=== PATIENT | male | born 1930 | race Caucasian/White ===

== ENCOUNTER 2016-08-21 14:47 | Inpatient (IN) | payer OTHER ==
[~2016-08-21] VITALS: Ht 177.8 cm; Wt 80.7 kg
[2016-08-21] VITALS (11 sets, daily range): BP systolic 73–118; BP diastolic 42–62; PULSE 63–74; TEMP 36.5–37.1; O2SAT 96–100; Ht 177.8 cm; Wt 80.7 kg
[~2016-08-21 14:47] MED LIST: ATEN-173 PO; LISI-729 PO; LOVA20TA4 PO
[2016-08-21] MEDS ORDERED: SODIUM CHLORIDE 0.9% 1000ML 1,000 ML IV STA ×2 (15:13→17:01)
[2016-08-21] MEDS ORDERED: ATEN50TA8 PO (16:03)
[2016-08-21] MEDS ORDERED: INDOMETHACIN PO (16:03)
[2016-08-21] MEDS ORDERED: FERR1TAB13 PO (16:03)
--- NOTE | 2016-08-21 16:06 | DIAGNOSTIC IMAGING REPORT ---
CHEST ONE VIEW PORTABLE CLINICAL HISTORY: Altered mental status. Weakness. COMPARISON STUDY: 02/09/2016 FINDINGS: Chest is emphysematous configuration. There is no failure. There is no focal pulmonary consolidation. There is minor basilar atelectasis/scarring. No pleural effusions are visualized.[ IMPRESSION: No active disease in the chest. Electronically signed by: Isaiah Saba M.D. 08/21/2016 4:04 PM Dictated Date/Time: 08/21/2016 4:03 PM
[2016-08-21 16:10] LABS: BASO % 0.2 %; BASO ABS # 0.02 K/uL (0-0.2); HEMATOCRIT 24.5 % (42-52); IG% 0.7 %; LYMPH % 10.7 %; LYMPH ABS # 0.96 K/uL (1.2-3.4); MEAN CELL VOLUME 85.4 fL (80-100); MEAN CORPUSCULAR HEMOGLOBIN 28.9 pg (25-34); MEAN CORPUSCULAR HGB CONC 33.9 g/dl (32-36); MEAN PLATELET VOLUME 9.9 fL (7.4-10.4); MONO % 6.6 %; NEUT % 80.8 %; PLATELET COUNT 225 K/uL (130-400); RED BLOOD COUNT 2.87 M/uL (4.7-6.1); WHITE BLOOD COUNT 8.96 K/uL (4.8-10.8)
[2016-08-21 16:17] LABS: INR 1.1 (0.9-1.1); PROTHROMBIN TIME (PATIENT) 11.3 SECONDS (9.0-12.0)
[2016-08-21 16:32] LABS: COMPLETE YES; OVALOCYTES 1+
[2016-08-21] MEDS ORDERED: PANTOprazole INJ 80 MG in DEXTROSE 5% 100ML IV SCH (16:45)
[2016-08-21 16:58] LABS: ALKALINE PHOSPHATASE 68 U/L (45-117); ALT/SGPT 22 U/L (12-78); AST/SGOT 14 U/L (15-37); BLOOD UREA NITROGEN 85 mg/dl (7-18); BUN/CREATININE RATIO 28.3 (10-20); CALCIUM 8.9 mg/dl (8.5-10.1); CARBON DIOXIDE 21 mmol/L (21-32); CHLORIDE 111 mmol/L (98-107); CKMB/CK RATIO 2.1 (0-3.0); GLUCOSE 112 mg/dl (70-99); MAGNESIUM 2.1 mg/dl (1.8-2.4); POTASSIUM 6.1 mmol/L (3.5-5.1); SODIUM 141 mmol/L (136-145)
[2016-08-21] MEDS ORDERED: PANTOprazole INJ 40 MG in DEXTROSE 5% 100ML IV SCH (17:00)
--- NOTE | 2016-08-21 17:05 | EMERGENCY ROOM VISIT NOTE ---
History Report prepared by Nicolás: Quyen Harrison Under the Supervision of: Dr. Ronaldo Forman D.O. First contact with patient: 15:11 Chief Complaint: WEAKNESS Stated Complaint: ILLNESS Nursing Triage Summary: Patient presents to ER via EMS. EMS states patient walked independently to meet them at the ambulance. Patient states lives home alone and has been experiencing generalized weakness. Patient states was diagnosed with UTI months ago and completed antibiotics 1 week ago. Patient states has had increase in incontinence. Patient states feels dehydrated, but when he tries to drink water he is incontinence. The patients states had nausea and diarrhea about 10 days ago, but symptoms have subsided. The patient states he fainted at noon today and felt his head hit on the wood floor. Patient states regained conciousness before hitting floor. History of Present Illness The patient is a 86 year old male who presents to the Emergency Room with complaints of worsening generalized weakness beginning the past few days. The patient states that he had a syncope episode today were he LOC and fell onto the kitchen floor. He states that he did not hit is head however he does not remember falling. Patient states that he lives alone and did not feel comfortable after the syncope episode to be at home so he called EMS. Patient does note he recently had a UTI and finished his course of antibiotics last week. Since then he has been experiencing nausea and diarrhea. The patient states that he has had these symptoms before when he finishes antibiotics and had a syncope episode then also. The patient notes he was found to be dehydrated. He denies melena. Source of History: patient Onset: yesterday Position: other (global) Quality: other (generalized weakness) Timing: worsening Associated Symptoms: + LOC, + diarrhea, + nausea Note: Patient notes syncopal episode. Review of Systems See HPI for pertinent positives & negatives. A total of 10 systems reviewed and were otherwise negative. Past Medical & Surgical Medical Problems: (1) Abdominal aortic aneurysm (2) Aortic stenosis (3) BPH (benign prostatic hyperplasia) (4) CKD (chronic kidney disease), stage III (5) Dyslipidemia (6) GI bleed (7) History of bladder carcinoma (8) History of DVT (deep vein thrombosis) (9) Hypertension (10) Syncope and collapse Surgical Problems: (1) Status post AAA (abdominal aortic aneurysm) repair (2) Status post inguinal hernia repair (3) Status post tonsillectomy (4) Status post transurethral resection of prostate Family History Patient reports no known family medical history. Social History Smoking Status: Former Smoker Marital Status: single Housing Status: lives alone Occupation Status: retired Current/Historical Medications Scheduled Atenolol (Tenormin), 50 MG PO QAM Ferrous Sulfate (Kp Ferrous Sulfate), 325 MG PO QAM Lisinopril (Zestril), 5 MG PO DAILY Lovastatin (Mevacor), 20 MG PO QPM Scheduled PRN [Indomethacin], 1 TAB PO TID PRN for GOUT Allergies Coded Allergies: No Known Allergies (Verified , 08/21/16) Physical Exam Vital Signs Date Time Temp Pulse Resp B/P Pulse Ox O2 Delivery O2 Flow Rate FiO2 08/21/16 16:23 59 08/21/16 16:12 58 98/45 100 Room Air 64 96/47 65 74/33 08/21/16 14:58 36.9 69 20 150/63 100 Room Air Physical Exam CONSTITUTIONAL/VITAL SIGNS: Reviewed / noted above. GENERAL: Slightly pale in appearance. INTEGUMENTARY: Warm, dry, and [place]. HEAD: Normocephalic. EYES: without scleral icterus or trauma. ENT/OROPHARYNX: clear and moist. LYMPHADENOPATHY/NECK: Is supple without lymphadenopathy or meningismus. RESPIRATORY: Lungs clear and equal. CARDIOVASCULAR: Regular rate and rhythm. Systolic ejection murmur. GI/ABDOMEN: Soft and nontender. No organomegaly or pulsatile mass. No rebound or guarding. Normal bowel sounds. RECTAL: Black tarry stool, heme positive. EXTREMITIES: Warm and well perfused. BACK: No CVA tenderness. NEUROLOGICAL: Intact without focal deficits. PSYCHIATRIC: normal affect. MUSCULOSKELETAL: Normally developed with good muscle tone. Medical Decision & Procedures ER Provider Diagnostic Interpretation: X ray results and stated below per my interpretation and radiology interpretation. CHEST ONE VIEW PORTABLE CLINICAL HISTORY: Altered mental status. Weakness. COMPARISON STUDY: 02/09/2016 FINDINGS: Chest is emphysematous configuration. There is no failure. There is no focal pulmonary consolidation. There is minor basilar atelectasis/scarring. No pleural effusions are visualized. IMPRESSION: No active disease in the chest. Electronically signed by: Isaiah Saba M.D. 08/21/2016 4:04 PM Dictated Date/Time: 08/21/2016 4:03 PM Laboratory Results 08/21/16 15:50 Red Blood Count 2.87, Mean Corpuscular Volume 85.4, Mean Corpuscular Hemoglobin 28.9, Mean Corpuscular Hemoglobin Concent 33.9, Mean Platelet Volume 9.9, Neutrophils (%) (Auto) 80.8, Lymphocytes (%) (Auto) 10.7, Monocytes (%) (Auto) 6.6, Eosinophils (%) (Auto) 1.0, Basophils (%) (Auto) 0.2, Neutrophils # (Auto) 7.24, Lymphocytes # (Auto) 0.96, Monocytes # (Auto) 0.59, Eosinophils # (Auto) 0.09, Basophils # (Auto) 0.02 08/21/16 15:50 Test 08/21/16 15:50 White Blood Count 8.96 K/uL (4.8-10.8) Red Blood Count 2.87 M/uL (4.7-6.1) Hemoglobin 8.3 g/dL (14.0-18.0) Hematocrit 24.5 % (42-52) Mean Corpuscular Volume 85.4 fL (80-100) Mean Corpuscular Hemoglobin 28.9 pg (25-34) Mean Corpuscular Hemoglobin Concent 33.9 g/dl (32-36) Platelet Count 225 K/uL (130-400) Mean Platelet Volume 9.9 fL (7.4-10.4) Neutrophils (%) (Auto) 80.8 % Lymphocytes (%) (Auto) 10.7 % Monocytes (%) (Auto) 6.6 % Eosinophils (%) (Auto) 1.0 % Basophils (%) (Auto) 0.2 % Neutrophils # (Auto) 7.24 K/uL (1.4-6.5) Lymphocytes # (Auto) 0.96 K/uL (1.2-3.4) Monocytes # (Auto) 0.59 K/uL (0.11-0.59) Eosinophils # (Auto) 0.09 K/uL (0-0.5) Basophils # (Auto) 0.02 K/uL (0-0.2) RDW Standard Deviation 43.1 fL (36.4-46.3) RDW Coefficient of Variation 13.7 % (11.5-14.5) Immature Granulocyte % (Auto) 0.7 % Immature Granulocyte # (Auto) 0.06 K/uL (0.00-0.02) Ovalocytes 1+ Prothrombin Time 11.3 SECONDS (9.0-12.0) Prothromb Time International Ratio 1.1 (0.9-1.1) Activated Partial Thromboplast Time 25.2 SECONDS (21.0-31.0) Partial Thromboplastin Ratio 1.0 Anion Gap 9.0 mmol/L (3-11) Est Creatinine Clear Calc Drug Dose 18.3 ml/min Estimated GFR () 20.8 Estimated GFR (Non- 18.0 BUN/Creatinine Ratio 28.3 (10-20) Calcium Level 8.9 mg/dl (8.5-10.1) Magnesium Level 2.1 mg/dl (1.8-2.4) Total Bilirubin 0.4 mg/dl (0.2-1) Direct Bilirubin < 0.1 mg/dl (0-0.2) Aspartate Amino Transf (AST/SGOT) 14 U/L (15-37) Alanine Aminotransferase (ALT/SGPT) 22 U/L (12-78) Alkaline Phosphatase 68 U/L (45-117) Total Creatine Kinase 68 U/L (39-308) Creatine Kinase MB 1.4 ng/ml (0.5-3.6) Creatine Kinase MB Ratio 2.1 (0-3.0) Total Protein 6.7 gm/dl (6.4-8.2) Albumin 3.2 gm/dl (3.4-5.0) Lipase 261 U/L (73-393) Thyroid Stimulating Hormone (TSH) 1.190 uIu/ml (0.300-4.500) Laboratory results as stated above per my review. Medications Administered Medications (Trade) Dose Ordered Sig/Aneesh Route Start Time Stop Time Status Last Admin Dose Admin Sodium Chloride 1,000 ml @ 500 mls/hr Q2H STAT IV 08/21/16 15:13 08/21/16 17:12 DC 08/21/16 15:13 500 MLS/HR Pantoprazole Sodium/Dextrose (Protonix Inj/D5 100ml) 120 ml @ 480 mls/hr TODAY@1645 IV 08/21/16 16:45 08/21/16 16:59 DC 08/21/16 17:16 480 MLS/HR ECG Indication: weakness Rate (beats per minute): 59 Rhythm: sinus bradycardia Findings: no acute ischemic change, no ectopy ED Course 1512: Previous medical records were reviewed. The patient was evaluated in room B7. A complete history and physical examination was performed. 1513: Sodium Chloride 1,000 ml @ 500 mls/hr IV. 1635: Protonix IV Bolus/ Drip 1 ea IV. 1638: Discussed the patient's case with LUIS Plata - [facility]. The patient will be evaluated for further treatment and disposition. 1645: Pantoprazole Sodium 80 mg/ Dextrose 120 ml @ 480 mls/hr IV. 1700: Pantoprazole Sodium 40 mg/ Dextrose 100 ml @ 20 mls/hr IV, Sodium Chloride 1,000 ml @ 999 mls/hr IV. 1705: On reevaluation, the patient is hemodynamically stable. I discussed the results and findings with him. He verbalized agreement of the treatment plan. I spoke with LUIS Plata of the [facility]. The patient will be evaluated for further management and care. Medical Decision Differential includes acute coronary syndrome, myocardial infarction, CVA, TIA, anemia, infection, pneumonia, UTI, pyelonephritis, poor nutrition, dehydration, electrolyte disturbance,hypoglycemia. The patient is a 86 year old male who presents to the ED with complaints of generalized weakness. The patient states that he fell today but did not hit his head. He feels like he may have had a few seconds of unconsciousness. The patient stood up shortly thereafter. He states that he has been having some nausea and diarrhea up until this past Saturday. He had been on antibiotics for UTI that ended a couple of days ago as well. He is no longer having nausea or diarrhea since and in antibiotics. The patient reports that he lives alone and wanted to get checked to make sure that he was okay. His vital signs here are normal. Physical exam reveals slight pallor in the skin and a systolic ejection murmur which is chronic. Hemoglobin is 8.3. Last hemoglobin was in the 10 range over the last summer. BUN is 85 and creatinine is 3.0. Last creatinine was 1.8. Troponin is negative. TSH was normal. Potassium was elevated at 6.1. Stool is black and guaiac positive. Correlation studies are normal. EKG shows a sinus rhythm at a rate of 59. He is on beta blockers. The patient was treated with IV fluids 2 L NSS. His vital signs showed orthostatic abnormalities with standing. Blood pressure dropped to 73 systolic. He was started on IV Protonix drip. Type and cross has been performed. I spoke with the hospitalist, who will see the patient for further inpatient care. Consults Time Called: 1636 Consulting Physician: LUIS Plata Returned Call: [phone] Discussed the patient's case. The patient will be evaluated for further treatment and disposition. Impression Primary Impression: Anemia Additional Impressions: GI bleed Syncope Orthostatic hypotension Acute renal failure (ARF) Critical Care I have personally spent 35 minutes of critical care time in the direct management of this patient. This includes bedside care, interpretation of diagnostic studies, and testing, discussion with consultants, patient, and family members, and other required patient management activities. Departure Information Dispostion Being Evaluated By Hospitalist Referrals Leonard Oshea M.D. (PCP) Problem Qualifiers
[2016-08-21] MEDS ORDERED: DEXTROSE 50% 50 ML SYR IV STA (17:33)
[2016-08-21] MEDS ORDERED: NovoLIN-R INSULIN PER UNIT CHARGE IV STA (17:33)
[2016-08-21] MEDS ORDERED: ONDANSETRON INJ 2 MG/ML 2 ML VIAL IV PRN (17:45)
[2016-08-21] MEDS ORDERED: ACETAMINOPHEN 325 MG TAB PO PRN (17:45)
[2016-08-21] MEDS ORDERED: MoRPHine SULFATE 2 MG/ML CARP IV STA (17:45)
[2016-08-21] MEDS ORDERED: CALCIUM GLUCONATE 10% 1,000 MG in SODIUM CHLORIDE 0.9% 50ML 50 ML IV STA (17:52)
[2016-08-21 18:15] LABS: URINE APPEARANCE CLEAR (CLEAR); URINE BILIRUBIN NEG (NEG); URINE COLOR YELLOW; URINE NITRITE NEG (NEG); URINE SPECIFIC GRAVITY 1.009 (1.000-1.030); UROBILINOGEN NEG (NEG); ZZUR CULT IF INDIC CLEAN CATCH NO
[2016-08-21 18:19] LABS: MANUAL MICROSCOPIC REQUIRED? NO; REVIEW REQ? NO
--- NOTE | 2016-08-21 18:21 | History and Physical ---
History & Physical Date of Service Aug 21, 2016. History & Physical This is an 86 year old male with PMH of HTN, HLD, gout, CKD stage 3, aortic aneurysm, presents due to a syncopal episode; states that he had a fall and loss of consciousness. Denies hitting his head. States that he has been feeling weak since having a UTI at home. States that he could not tolerate PO intake, and when he increased his PO fluid intake, he became incontinent, so he has been drinking less than usual. Denies any blood in the stool, but noted to have +heme positive dark stool. Hgb here 8.3, with a baseline Hgb > 10. Patient did note some shortness of breath and chest pain, which began after he presented to the ER. VITALS: Last Vital Signs Documentation Date Time Temp Pulse Resp B/P Pulse Ox O2 Delivery O2 Flow Rate FiO2 08/21/16 17:03 66 25 128/62 100 Room Air 08/21/16 14:58 36.9 GEN: no acute distress HEENT: no trauma noted, +dry mucous membranes CVS: RRR, +S1, S2 LUNGS: CTA b/l, no wheezing ABD: soft, NT/ND EXT: no edema, SCDs in place SKIN: cool, clammy Syncope +orthostasis with significant drop in BP when standing likely related to dehydration and anemia IVFs, monitor, will need PT/OT prior to discharge Symptomatic Anemia Hgb = 8.3, baseline of > 10 feeling some shortness of breath and now developing chest pain cardiac enzymes negative, no EKG changes will transfuse 1 unit PRBC and recheck H/H 4 hours post-transfusion continue PPI drip GI consultation pending Acute Kidney Injury superimposed on CKD stage 3 creat up to 3.0 currently likely related to his decreased PO intake after UTI decreased fluid intake due to incontinence will start IVFs and monitor creat transfuse 1 unit PRBC Hyperkalemia secondary to JESSICA as above patient also takes EFFIE-I hold lisinopril start IVFs insulin + dextrose calcium gluconate recheck K four hours after transfusion with H/H
--- NOTE | 2016-08-21 18:47 | History and Physical ---
History & Physical Date & Time of Service: Aug 21, 2016 at 17:53 Chief Complaint: Illness Primary Care Physician: Leonard Oshea M.D. History of Present Illness Source: patient, clinic records, hospital records This is an 86 year old male with PMH of HTN, mild per echo 01/2016, AAA s/p repair, HL, CKD stage III, h/o DVT not on anticoagulation, who presents to the ED for generalized weakness and syncope. Patient was recently treated for UTI approx 2 weeks ago with Cipro then Bactrim. Dysuria and frequency resolved but still having some incontinence. He states 10 days ago he developed nausea, spasms in the abdomen, reflux, poor PO intake, diarrhea, chills. He had no diarrhea yesterday after taking OTC anti-diarrheal med but had 1 formed and 1 liquid stool today around noon. He did not notice hematochezia or melena, but has not been visualizing his stools. No fevers. Starting 3-4 days ago has felt "dehydrated", generally weak, dizziness, fatigue. He reports eating normally today. He reports a syncopal episode which occurred today. He stood up from a seated position today and felt generally weak so leaned against the wall, then the next thing he remembers is awakening as his his head hit the floor. He denies CHESTER. During my exam patient developed dull substernal chest pain rated 2-3 /10, nonradiating, with associated SOB. He was saturating 99% on RA with no respiratory distress. EKG showed no evidence for acute ischemia. No known hx of CAD. Patient has been admitted to [facility] previously for syncope likely secondary to orthostatic hypotension. 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 Pt believes that was his last colo. He is unsure where it was done. He believes he also had a polyp removed. Pt has not had EGD in the past. Patient admits to taking approximately 6 tabs of indomethacin over past 3 days which resolved the gout affecting his toe. No other recent NSAIDs. Pt was found to have heme positive melanotic stool on ER provider's exam. He will be admitted for further evaluation and tx. Past Medical/Surgical History Medical Problems: (1) Abdominal aortic aneurysm Permanent Comment: repaired 2002 Dr. Betancourt Status: Chronic (2) Aortic stenosis Permanent Comment: echo 02/10/16 [facility] showed trileaflet aortic valve, moderate sclerosis, mild stenosis Status: Chronic (3) BPH (benign prostatic hyperplasia) Status: Chronic (4) CKD (chronic kidney disease), stage III Status: Chronic (5) Dyslipidemia Status: Chronic (6) History of bladder carcinoma Status: Chronic (7) History of DVT (deep vein thrombosis) Status: Chronic (8) Hypertension Status: Chronic Surgical Problems: (1) Status post AAA (abdominal aortic aneurysm) repair Permanent Comment: 2002 Dr. Betancourt Status: Chronic (2) Status post inguinal hernia repair Status: Chronic (3) Status post tonsillectomy Status: Chronic (4) Status post transurethral resection of prostate Status: Chronic Family History FH: CAD (coronary artery disease) FATHER FH: cancer MOTHER Hypertension FATHER Social History Smoking Status: Former Smoker (quit in 2002. prior 1-2 ppd x 55 years) Alcohol Use: occasionally (occasional 1 glass of wine) Drug Use: none Marital Status: single Housing status: lives alone Occupational Status: retired Multi-Drug Resistant Organisms History of MDRO: No Allergies Coded Allergies: No Known Allergies (Verified , 08/21/16) Home Medications Scheduled Atenolol (Tenormin), 50 MG PO QAM Ferrous Sulfate (Kp Ferrous Sulfate), 325 MG PO QAM Lisinopril (Zestril), 5 MG PO DAILY Lovastatin (Mevacor), 20 MG PO QPM Scheduled PRN [Indomethacin], 1 TAB PO TID PRN for GOUT Review of Systems Ten point review of systems performed with pertinent positives and negatives note din HPI. Physical Exam Vital Signs Date Time Temp Pulse Resp B/P Pulse Ox O2 Delivery O2 Flow Rate FiO2 08/21/16 16:23 59 08/21/16 16:12 58 98/45 100 Room Air 64 96/47 65 74/33 08/21/16 14:58 36.9 69 20 150/63 100 Room Air General Appearance: WD/WN, + pertinent finding (alert elderly male, initially NAD then developed chest discomfort) Head: normocephalic, atraumatic Eyes: normal inspection, PERRL, EOMI ENT: hearing grossly normal, pharynx normal, + pertinent finding (dry mucous membranes) Neck: supple, trachea midline Respiratory/Chest: chest non-tender, lungs clear, normal breath sounds Cardiovascular: regular rate, rhythm, normal peripheral pulses, + systolic murmur Abdomen/GI: normal bowel sounds, non tender, soft Extremities/Musculoskelatal: no calf tenderness, no pedal edema Neurologic/Psych: alert, normal mood/affect, oriented x 3, + pertinent finding (grossly nonfocal) Skin: warm/dry, + pertinent finding (pale) Diagnostics Laboratory Results Results Past 24 Hours Test 08/21/16 15:50 08/21/16 17:35 Range/Units White Blood Count 8.96 4.8-10.8 K/uL Red Blood Count 2.87 4.7-6.1 M/uL Hemoglobin 8.3 14.0-18.0 g/dL Hematocrit 24.5 42-52 % Mean Corpuscular Volume 85.4 80-100 fL Mean Corpuscular Hemoglobin 28.9 25-34 pg Mean Corpuscular Hemoglobin Concent 33.9 32-36 g/dl Platelet Count 225 130-400 K/uL Mean Platelet Volume 9.9 7.4-10.4 fL Neutrophils (%) (Auto) 80.8 % Lymphocytes (%) (Auto) 10.7 % Monocytes (%) (Auto) 6.6 % Eosinophils (%) (Auto) 1.0 % Basophils (%) (Auto) 0.2 % Neutrophils # (Auto) 7.24 1.4-6.5 K/uL Lymphocytes # (Auto) 0.96 1.2-3.4 K/uL Monocytes # (Auto) 0.59 0.11-0.59 K/uL Eosinophils # (Auto) 0.09 0-0.5 K/uL Basophils # (Auto) 0.02 0-0.2 K/uL RDW Standard Deviation 43.1 36.4-46.3 fL RDW Coefficient of Variation 13.7 11.5-14.5 % Immature Granulocyte % (Auto) 0.7 % Immature Granulocyte # (Auto) 0.06 0.00-0.02 K/uL Ovalocytes 1+ Prothrombin Time 11.3 9.0-12.0 SECONDS Prothromb Time International Ratio 1.1 0.9-1.1 Activated Partial Thromboplast Time 25.2 21.0-31.0 SECONDS Partial Thromboplastin Ratio 1.0 Sodium Level 141 136-145 mmol/L Potassium Level 6.1 3.5-5.1 mmol/L Chloride Level 111 98-107 mmol/L Carbon Dioxide Level 21 21-32 mmol/L Anion Gap 9.0 3-11 mmol/L Blood Urea Nitrogen 85 7-18 mg/dl Creatinine 3.00 0.60-1.40 mg/dl Est Creatinine Clear Calc Drug Dose 18.3 ml/min Estimated GFR () 20.8 Estimated GFR (Non- 18.0 BUN/Creatinine Ratio 28.3 10-20 Random Glucose 112 70-99 mg/dl Calcium Level 8.9 8.5-10.1 mg/dl Magnesium Level 2.1 1.8-2.4 mg/dl Total Bilirubin 0.4 0.2-1 mg/dl Direct Bilirubin < 0.1 0-0.2 mg/dl Aspartate Amino Transf (AST/SGOT) 14 15-37 U/L Alanine Aminotransferase (ALT/SGPT) 22 12-78 U/L Alkaline Phosphatase 68 45-117 U/L Total Creatine Kinase 68 39-308 U/L Creatine Kinase MB 1.4 0.5-3.6 ng/ml Creatine Kinase MB Ratio 2.1 0-3.0 Troponin I < 0.015 0-0.045 ng/ml Total Protein 6.7 6.4-8.2 gm/dl Albumin 3.2 3.4-5.0 gm/dl Lipase 261 73-393 U/L Thyroid Stimulating Hormone (TSH) 1.190 0.300-4.500 uIu/ml Diagnostic Radiology CHEST ONE VIEW PORTABLE CLINICAL HISTORY: Altered mental status. Weakness. COMPARISON STUDY: 02/09/2016 FINDINGS: Chest is emphysematous configuration. There is no failure. There is no focal pulmonary consolidation. There is minor basilar atelectasis/scarring. No pleural effusions are visualized.[ IMPRESSION: No active disease in the chest. EKG Initial EKG- sinus bradycardia rate 59 bpm, nonspecific T wave flattening in aVL , no significant change from prior EKG Repeat EKG- sinus rhythm with 1st degree AV block, nonspecific T wave flattening in aVL, no significant change Impression Assessment and Plan SYMPTOMATIC ANEMIA secondary to GI BLEED Hg is 8.3; baseline in 10s Stool melanotic and heme positive on ER provider's exam Recently took indomethacin for gout Has been generally weak, fatigued, dizzy, syncopal Developed CP and SOB in ER Initial troponin negative; EKG no evidence of ischemia Morphine, oxygen, transfuse 1 unit pRBC Recheck H/H and troponin 4 hours post transfusion Continue Protonix drip started in ER Consult GI SYNCOPE/ ORTHOSTATIC HYPOTENSION Was orthostatic in ER (BP dropped to 70s systolic with standing) Likely secondary to dehydration and anemia Continue IVF's Monitor for arrhythmia in telemetry JESSICA ON CKD STAGE III Creat increased to 3.0 from baseline 1.7 Likely prerenal from decreased PO intake/ diarrheal illness Hold lisinopril Continue IVF's Monitor renal function Avoid NSAIDs HYPERKALEMIA K+ is 6.1; no EKG changes Likely secondary to JESSICA and EFFIE-I Hold lisinopril Give calcium gluconate and insulin with dextrose Recheck potassium with lab draw tonight HYPERTENSION BP is stable while supine; drops to 70s systolic with standing Continue beta idogenes with parameters Hold lisinopril DYSLIPIDEMIA Continue statin DVT PROPHYLAXIS SCD's re GI bleed CODE STATUS DNR per my discussion with the patient. Patient seen in collaboration with Dr. Wu. Please see his addendum. VTE Prophylaxis VTE Risk Assessment Done? Y/N: Yes Risk Level: High
[2016-08-21] MEDS ORDERED: LOVASTATIN 20 MG TAB PO SCH (21:00)
[2016-08-21] MEDS: PANTOprazole INJ 40 MG in DEXTROSE 5% 100ML IV SCH (22:10)
[2016-08-21] MEDS: SODIUM CHLORIDE 0.9% 1000ML 1,000 ML IV SCH (22:16)
[2016-08-22] VITALS (29 sets, daily range): BP systolic 95–153; BP diastolic 43–79; PULSE 56–82; TEMP 36.6–37.1; O2SAT 92–100
[2016-08-22 00:26] LABS: HEMATOCRIT 21.7 % (42-52)
[2016-08-22 00:39] LABS: POTASSIUM 6.1 mmol/L (3.5-5.1)
[2016-08-22] MEDS ORDERED: INSULIN HUMAN REGULAR IV SCH (00:45)
[2016-08-22] MEDS ORDERED: DEXTROSE 50% 50 ML SYR IV ONE ×2 (00:45→17:14)
[2016-08-22] MEDS ORDERED: INSULIN HUMAN REGULAR PER UNIT 10 UNITS in SYRINGE 9.9 ML IV STA (01:17)
[2016-08-22] MEDS ORDERED: DEXTROSE 50% 50 ML SYR IV STA (01:17)
[2016-08-22] MEDS: PANTOprazole INJ 40 MG in DEXTROSE 5% 100ML IV SCH ×5 (03:25→23:26)
[2016-08-22 06:21] LABS: HEMATOCRIT 22.8 % (42-52); MEAN CELL VOLUME 85.7 fL (80-100); MEAN CORPUSCULAR HEMOGLOBIN 28.9 pg (25-34); MEAN CORPUSCULAR HGB CONC 33.8 g/dl (32-36); MEAN PLATELET VOLUME 9.6 fL (7.4-10.4); PLATELET COUNT 140 K/uL (130-400); RED BLOOD COUNT 2.66 M/uL (4.7-6.1); WHITE BLOOD COUNT 9.02 K/uL (4.8-10.8)
[2016-08-22] MEDS: SODIUM CHLORIDE 0.9% 1000ML 1,000 ML IV SCH (06:23)
[2016-08-22 07:08] LABS: CREATININE 2.3 mg/dl (0.60-1.40)
[2016-08-22 07:09] LABS: BUN/CREATININE RATIO 38.7 (10-20); CALCIUM 7.9 mg/dl (8.5-10.1); MAGNESIUM 1.8 mg/dl (1.8-2.4); POTASSIUM 6.2 mmol/L (3.5-5.1)
[2016-08-22] MEDS: FERROUS SULFATE 325 MG TAB PO SCH (07:25)
[2016-08-22] MEDS ORDERED: INSULIN HUMAN REGULAR IV ONE ×2 (07:45→17:00)
[2016-08-22] MEDS ORDERED: SODIUM POLYST. SULF SUSP 15G/60ML PO SCH (08:00)
[2016-08-22] MEDS ORDERED: DEXTROSE 50% 50 ML SYR IV SCH (08:10)
[2016-08-22] MEDS ORDERED: INSULIN HUMAN REGULAR PER UNIT 10 UNITS in SYRINGE 9.9 ML IV SCH ×2 (08:15→17:15)
--- NOTE | 2016-08-22 09:08 | Progress Note ---
Medicine Progress Note Date & Time of Visit: Aug 22, 2016 at 08:58. Subjective K still at 6.2 this morning, EKG unchanged from yesterday on exam, patient reports sharp epigastric pain, 2-3/10, non radiating, no nausea /vomiting, dizziness denies any other symptoms Objective Last 8 Hrs Date Time Temp Pulse Resp B/P Pulse Ox O2 Delivery O2 Flow Rate FiO2 08/22/16 08:05 36.8 60 16 111/56 99 Room Air 08/22/16 04:05 37.0 67 16 107/56 100 2.0 08/22/16 04:00 96 Room Air 2.0 08/22/16 03:30 37.0 67 16 107/56 100 2.0 08/22/16 02:30 37.0 72 16 122/52 100 08/22/16 02:00 37.0 72 16 96/51 100 08/22/16 01:30 37.0 72 16 110/61 99 08/22/16 01:15 37.0 67 16 99/43 99 08/22/16 01:00 37.0 68 16 100/59 100 Physical Exam: General- oriented x 3, not in distress, speaks in sentences with no effort Head- atraumatic Eyes- anicteric ENT- oropharynx clear Neck- supple, no JVD, no adenopathy, no thyromegaly Lungs- clear breath sounds bilaterally, no rales/wheezes Heart-normal rate, regular rhythm; no murmurs Abdomen- normal bowel sounds, non distended, soft, nontender Extremities- no pretibial edema, no calf tenderness Neuro- alert, oriented x 3; no gross focal deficits Skin- warm & dry Laboratory Results: Last 24 Hours Test 08/21/16 15:50 08/21/16 18:00 08/22/16 00:13 08/22/16 06:10 White Blood Count 8.96 K/uL 9.02 K/uL Red Blood Count 2.87 M/uL 2.66 M/uL Hemoglobin 8.3 g/dL 7.1 g/dL 7.7 g/dL Hematocrit 24.5 % 21.7 % 22.8 % Mean Corpuscular Volume 85.4 fL 85.7 fL Mean Corpuscular Hemoglobin 28.9 pg 28.9 pg Mean Corpuscular Hemoglobin Concent 33.9 g/dl 33.8 g/dl Platelet Count 225 K/uL 140 K/uL Mean Platelet Volume 9.9 fL 9.6 fL Neutrophils (%) (Auto) 80.8 % Lymphocytes (%) (Auto) 10.7 % Monocytes (%) (Auto) 6.6 % Eosinophils (%) (Auto) 1.0 % Basophils (%) (Auto) 0.2 % Neutrophils # (Auto) 7.24 K/uL Lymphocytes # (Auto) 0.96 K/uL Monocytes # (Auto) 0.59 K/uL Eosinophils # (Auto) 0.09 K/uL Basophils # (Auto) 0.02 K/uL RDW Standard Deviation 43.1 fL 44.6 fL RDW Coefficient of Variation 13.7 % 14.3 % Immature Granulocyte % (Auto) 0.7 % Immature Granulocyte # (Auto) 0.06 K/uL Ovalocytes 1+ Prothrombin Time 11.3 SECONDS Prothromb Time International Ratio 1.1 Activated Partial Thromboplast Time 25.2 SECONDS Partial Thromboplastin Ratio 1.0 Sodium Level 141 mmol/L 145 mmol/L Potassium Level 6.1 mmol/L 6.1 mmol/L 6.2 mmol/L Chloride Level 111 mmol/L 120 mmol/L Carbon Dioxide Level 21 mmol/L 13 mmol/L Anion Gap 9.0 mmol/L 12.0 mmol/L Blood Urea Nitrogen 85 mg/dl 89 mg/dl Creatinine 3.00 mg/dl 2.30 mg/dl Est Creatinine Clear Calc Drug Dose 18.3 ml/min 23.8 ml/min Estimated GFR () 20.8 28.7 Estimated GFR (Non- 18.0 24.8 BUN/Creatinine Ratio 28.3 38.7 Random Glucose 112 mg/dl 103 mg/dl Calcium Level 8.9 mg/dl 7.9 mg/dl Magnesium Level 2.1 mg/dl 1.8 mg/dl Total Bilirubin 0.4 mg/dl Direct Bilirubin < 0.1 mg/dl Aspartate Amino Transf (AST/SGOT) 14 U/L Alanine Aminotransferase (ALT/SGPT) 22 U/L Alkaline Phosphatase 68 U/L Total Creatine Kinase 68 U/L Creatine Kinase MB 1.4 ng/ml Creatine Kinase MB Ratio 2.1 Troponin I < 0.015 ng/ml 0.038 ng/ml Total Protein 6.7 gm/dl Albumin 3.2 gm/dl Lipase 261 U/L Thyroid Stimulating Hormone (TSH) 1.190 uIu/ml Urine Color YELLOW Urine Appearance CLEAR Urine pH 5.0 Urine Specific [place] 1.009 Urine Protein NEG Urine Glucose (UA) NEG Urine Ketones NEG Urine Occult Blood 1+ Urine Nitrite NEG Urine Bilirubin NEG Urine Urobilinogen NEG Urine Leukocyte Esterase TRACE Urine WBC (Auto) 1-5 /hpf Urine RBC (Auto) 0-4 /hpf Urine Hyaline Casts (Auto) 1-5 /lpf Urine Epithelial Cells (Auto) 5-10 /lpf Urine Bacteria (Auto) NEG Test 08/22/16 08:46 Creatine Kinase MB Ratio Assessment & Plan 86 year old male with history of Hypertension, CKD 3, BPH presenting with syncope Syncope from Orthostasis secondary to Dehydration, Symptomatic Anemia - IV fluids - management of anemia as noted below Symptomatic Anemia r/o Upper GI bleed (+) intake of Indomethacin Hgb = 8.3, baseline of > 10 (+) shortness of breath and chest pain cardiac enzymes negative, no EKG changes - s/p 2 units pRBC Hg 7.7 additional 1 unit ordered monitor Hg - continue Protonix drip GI consulted Chest Pain, likely GI Etiology - chest pain similar to yesterday - 3rd set of cardiac markers pending EKG: no signs of acute ischemia - will check echo Acute Kidney Injury superimposed on CKD stage 3 creat up to 3.0 currently (baseline around 1.7) likely related to his decreased PO intake after UTI - continue IV fluids will consult Nephrology Hyperkalemia secondary to JESSICA as above patient also takes EFFIE-I hold lisinopril - 6.1--> 6.2 EKG no changes compared to yesterday additional insulin + dextrose repeat K at 10am and 2pm HYPERTENSION Continue beta diogenes with parameters Hold lisinopril DYSLIPIDEMIA hold statin DVT PROPHYLAXIS SCD's re GI bleed Disposition pending Current Inpatient Medications: Current Inpatient Medications Medications (Trade) Dose Ordered Sig/Aneesh Route Start Time Stop Time Status Last Admin Dose Admin Sodium Chloride (Nss 1000ml) 1,000 ml @ 125 mls/hr Q8H IV 08/21/16 20:00 09/20/16 19:59 08/22/16 06:23 125 MLS/HR Acetaminophen (Tylenol Tab) 650 mg Q4H PRN PO 08/21/16 17:45 09/20/16 17:44 Ondansetron HCl (Zofran Inj) 4 mg Q6H PRN IV 08/21/16 17:45 09/20/16 17:44 Nitroglycerin (Nitrostat Tab) 0.4 mg UD PRN SL 08/21/16 17:45 09/20/16 17:44 Atenolol (Tenormin Tab) 50 mg QAM PO 08/22/16 09:00 09/21/16 08:59 Lovastatin (Mevacor Tab) 20 mg QPM PO 08/21/16 21:00 09/20/16 20:59 Ferrous Sulfate 325 mg 325 mg DAILY PO 08/22/16 09:00 09/21/16 08:59 Pantoprazole Sodium/Dextrose (Protonix Inj/D5 100ml) 100 ml @ 20 mls/hr Q5H IV 08/21/16 22:30 09/20/16 22:29 08/22/16 08:17 20 MLS/HR Dextrose (Dextrose 50% 50ML Syringe) 50 ml 0810 IV 08/22/16 08:10 08/22/16 12:00 08/22/16 08:19 50 ML Sodium Polystyrene Sulfonate 15 gm 15 gm 0800 PO 08/22/16 08:00 08/22/16 12:00 Insulin Human Regular/Syringe (novoLIN-R U-100 PER UNIT/Syringe) 10 ml @ 30 mls/min TODAY@0815 IV 08/22/16 08:15 08/22/16 10:00 08/22/16 08:24 30 MLS/MIN
[2016-08-22 10:03] LABS: HEMATOCRIT 23.4 % (42-52)
[2016-08-22] MEDS: NITROGLYCERIN 0.4 MG SL PER TAB CHARGE SL PRN (10:14)
[2016-08-22 10:39] LABS: CREATININE 2.2 mg/dl (0.60-1.40)
[2016-08-22 10:40] LABS: BUN/CREATININE RATIO 38.8 (10-20); CALCIUM 8.4 mg/dl (8.5-10.1)
[2016-08-22 11:04] LABS: CKMB/CK RATIO 3.4 (0-3.0)
--- NOTE | 2016-08-22 12:02 | Gastrointestinal Consultation ---
Gastrointestinal Consultation Date of Consultation: Aug 22, 2016 Attending Physician: Juan Carlos Terrazas Consulting Physician: Joe Loja Reason for Consultation: Heme positive stools, anemia History of Present Illness Patient is a 86 year old male w PMHx of HTN, mild aortic stenosis, AAA s/p repair, hyperlipidemia, CKD III, DVT hx, who presented to ED w symptoms of generalized weakness and syncope. He was treated for UTI x 2 week ago w Cipro then Bactrim. Had also developed "GI bug" w symptoms of nausea, abd spasms, diarrhea, poor PO intake, denies any fever but had chills especially in middle of night. Diarrhea had stopped since last Saturday. Upon evaluation, he was found to be anemic w H/H of 8, baseline Hgb of 9-10. Rectal exam done by ED physician yielded heme positive stools. Pt denies any hx of rectal bleeding, dark tarry stools. He is on iron supplements at home. He admits to be taking up to 2 tabs of Indomethacin daily for gout on his L toe. Denies any other NSAIDs. Denies any abd pain, n/v at this time. Overnight received 2U PRBC, his Hgb still low at 7.7 now. RN report 2 black stools overnight. Of note, pt also had c/o substernal CP w SOB in ED. EKG showed 1st degree AV block w/o significant changes to prior readings. Cardiac enzymes not elevated. K level up at 6, currently being treated w Kayexalate, Calcium Gluconate, Insulin. 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 polyp removal. Denies any other repeat colonoscopy or hx of EGD evaluation. Past Medical/Surgical History Medical Problems: (1) Acute renal failure Status: Acute (2) Acute renal failure (ARF) Status: Acute (3) Anemia Status: Acute (4) Orthostatic hypotension Status: Acute (5) Orthostatic syncope Status: Acute (6) Syncope Status: Acute Past Medical History: See above. Past Surgical History: AAA repair, inguinal hernia repair, tonsillectomy, TURP Family History FH: CAD (coronary artery disease) FATHER FH: cancer MOTHER Hypertension FATHER Social History Smoking Status: Former Smoker Drug Use: none Marital Status: single Housing Status: lives alone Occupation Status: retired Allergies Coded Allergies: No Known Allergies (Verified , 08/21/16) Current Medications Home Meds and Scripts Medications Dose Route/Sig Max Daily Dose Days Date Category [Indomethacin] 1 Tab PO TID PRN 08/21/16 Reported Kp Ferrous Sulfate (Ferrous Sulfate) 325 Mg Tab 325 Mg PO QAM 30 08/21/16 Reported Tenormin (Atenolol) 50 Mg Tab 50 Mg PO QAM 08/21/16 Reported Mevacor (Lovastatin) 20 Mg Tab 20 Mg PO QPM 02/09/16 Reported Zestril (Lisinopril) 5 Mg Tab 5 Mg PO DAILY 02/09/16 Reported Review of Systems Constitutional: + chills, + fatigue, No fever Respiratory: No cough, No shortness of breath Cardiac: No chest pain, No edema Abdomen: + GI bleeding (See above. ), No diarrhea, No nausea, No pain, No vomiting Endo: + fatigue Skin: No itch, No rash Physical Exam Date Time Temp Pulse Resp B/P Pulse Ox O2 Delivery O2 Flow Rate FiO2 08/22/16 11:30 36.7 70 22 109/56 99 4.0 08/22/16 10:13 36.9 81 21 153/67 100 Nasal Cannula 4.0 08/22/16 09:41 82 22 138/66 100 Nasal Cannula 2.0 08/22/16 09:30 36.9 81 21 100 2.0 08/22/16 08:30 Nasal Cannula 2.0 08/22/16 08:05 36.8 60 16 111/56 99 Room Air 08/22/16 04:05 37.0 67 16 107/56 100 2.0 08/22/16 04:00 96 Room Air 2.0 08/22/16 03:30 37.0 67 16 107/56 100 2.0 08/22/16 02:30 37.0 72 16 122/52 100 08/22/16 02:00 37.0 72 16 96/51 100 08/22/16 01:30 37.0 72 16 110/61 99 08/22/16 01:15 37.0 67 16 99/43 99 08/22/16 01:00 37.0 68 16 100/59 100 08/22/16 00:45 37.0 68 16 95/56 08/22/16 00:28 37.0 70 16 95/56 100 08/22/16 00:13 36.9 73 18 108/57 100 Nasal Cannula 2.0 08/22/16 00:00 96 Room Air 2.0 08/22/16 00:00 96 Nasal Cannula 2.0 08/21/16 22:07 37.1 67 18 91/51 99 2.0 08/21/16 21:40 37.0 63 18 94/50 100 2.0 08/21/16 21:00 36.8 69 18 93/52 100 2.0 08/21/16 20:54 36.5 71 18 100/60 96 Nasal Cannula 2.0 08/21/16 20:41 36.7 73 18 118/46 98 08/21/16 20:27 36.7 73 16 96/52 99 08/21/16 20:07 36.6 71 20 101/54 100 2.0 08/21/16 19:50 36.5 71 22 100/60 96 2.0 08/21/16 19:37 71 26 73/42 100 08/21/16 19:23 36.7 71 26 73/42 100 2.0 08/21/16 19:00 36.8 74 27 110/62 100 2.0 08/21/16 18:57 73 21 104/58 100 Nasal Cannula 2.0 08/21/16 18:50 36.7 72 27 104/58 100 2.0 08/21/16 17:03 66 25 128/62 100 Room Air 08/21/16 16:23 59 08/21/16 16:12 58 98/45 100 Room Air 64 96/47 65 74/33 08/21/16 14:58 36.9 69 20 150/63 100 Room Air General Appearance: WD/WN, no apparent distress Eyes: normal inspection, PERRL, EOMI Neck: supple, no JVD, trachea midline Respiratory/Chest: normal breath sounds, no respiratory distress, no accessory muscle use Cardiovascular: regular rate, rhythm, no gallop, no murmur Abdomen: normal bowel sounds, non tender, soft Extremities: normal inspection, no pedal edema, no calf tenderness Neurologic/Psych: alert, normal mood/affect, oriented x 3 Skin: normal color, no jaundice, no rash Laboratory Results Last 24 Hours Test 08/21/16 15:50 08/21/16 18:00 08/22/16 00:13 08/22/16 06:10 White Blood Count 8.96 K/uL 9.02 K/uL Red Blood Count 2.87 M/uL 2.66 M/uL Hemoglobin 8.3 g/dL 7.1 g/dL 7.7 g/dL Hematocrit 24.5 % 21.7 % 22.8 % Mean Corpuscular Volume 85.4 fL 85.7 fL Mean Corpuscular Hemoglobin 28.9 pg 28.9 pg Mean Corpuscular Hemoglobin Concent 33.9 g/dl 33.8 g/dl Platelet Count 225 K/uL 140 K/uL Mean Platelet Volume 9.9 fL 9.6 fL Neutrophils (%) (Auto) 80.8 % Lymphocytes (%) (Auto) 10.7 % Monocytes (%) (Auto) 6.6 % Eosinophils (%) (Auto) 1.0 % Basophils (%) (Auto) 0.2 % Neutrophils # (Auto) 7.24 K/uL Lymphocytes # (Auto) 0.96 K/uL Monocytes # (Auto) 0.59 K/uL Eosinophils # (Auto) 0.09 K/uL Basophils # (Auto) 0.02 K/uL RDW Standard Deviation 43.1 fL 44.6 fL RDW Coefficient of Variation 13.7 % 14.3 % Immature Granulocyte % (Auto) 0.7 % Immature Granulocyte # (Auto) 0.06 K/uL Ovalocytes 1+ Prothrombin Time 11.3 SECONDS Prothromb Time International Ratio 1.1 Activated Partial Thromboplast Time 25.2 SECONDS Partial Thromboplastin Ratio 1.0 Sodium Level 141 mmol/L 145 mmol/L Potassium Level 6.1 mmol/L 6.1 mmol/L 6.2 mmol/L Chloride Level 111 mmol/L 120 mmol/L Carbon Dioxide Level 21 mmol/L 13 mmol/L Anion Gap 9.0 mmol/L 12.0 mmol/L Blood Urea Nitrogen 85 mg/dl 89 mg/dl Creatinine 3.00 mg/dl 2.30 mg/dl Est Creatinine Clear Calc Drug Dose 18.3 ml/min 23.8 ml/min Estimated GFR () 20.8 28.7 Estimated GFR (Non- 18.0 24.8 BUN/Creatinine Ratio 28.3 38.7 Random Glucose 112 mg/dl 103 mg/dl Calcium Level 8.9 mg/dl 7.9 mg/dl Magnesium Level 2.1 mg/dl 1.8 mg/dl Total Bilirubin 0.4 mg/dl Direct Bilirubin < 0.1 mg/dl Aspartate Amino Transf (AST/SGOT) 14 U/L Alanine Aminotransferase (ALT/SGPT) 22 U/L Alkaline Phosphatase 68 U/L Total Creatine Kinase 68 U/L Creatine Kinase MB 1.4 ng/ml Creatine Kinase MB Ratio 2.1 Troponin I < 0.015 ng/ml 0.038 ng/ml Total Protein 6.7 gm/dl Albumin 3.2 gm/dl Lipase 261 U/L Thyroid Stimulating Hormone (TSH) 1.190 uIu/ml Urine Color YELLOW Urine Appearance CLEAR Urine pH 5.0 Urine Specific [place] 1.009 Urine Protein NEG Urine Glucose (UA) NEG Urine Ketones NEG Urine Occult Blood 1+ Urine Nitrite NEG Urine Bilirubin NEG Urine Urobilinogen NEG Urine Leukocyte Esterase TRACE Urine WBC (Auto) 1-5 /hpf Urine RBC (Auto) 0-4 /hpf Urine Hyaline Casts (Auto) 1-5 /lpf Urine Epithelial Cells (Auto) 5-10 /lpf Urine Bacteria (Auto) NEG Test 08/22/16 09:54 08/22/16 11:07 Hemoglobin 8.0 g/dL Hematocrit 23.4 % Sodium Level 144 mmol/L Potassium Level 5.0 mmol/L Chloride Level 119 mmol/L Carbon Dioxide Level 14 mmol/L Anion Gap 11.0 mmol/L Blood Urea Nitrogen 85 mg/dl Creatinine 2.20 mg/dl Est Creatinine Clear Calc Drug Dose 24.9 ml/min Estimated GFR () 30.3 Estimated GFR (Non- 26.2 BUN/Creatinine Ratio 38.8 Random Glucose 56 mg/dl Calcium Level 8.4 mg/dl Total Creatine Kinase 50 U/L Creatine Kinase MB 1.7 ng/ml Creatine Kinase MB Ratio 3.4 Troponin I 0.044 ng/ml Bedside Glucose 85 mg/dl Impression Patient is a 86 year old male admitted w symptomatic anemia (fatigue, syncope ? related to orthostatic hypotension, substernal CP w SOB). Hgb around 8, after 2U PRBC it's hanging around 7. His baseline Hgb is 9-10. He is currently on Ferrous Sulfate 325mg daily. Stool heme positive when tested by ED physician. He did take some Indomethacin for gout prior to admission. Wonder if he developed PUD. Also he mentioned having diarrheal symptoms which just recently resolved. May have colitis w bleeding causing stool occult blood to be positive as well. Plan - Keep NPO - Continue PPI gtt - Monitor K level; if normalized by tomorrow and stable from cardiac standpoint , will attempt EGD evaluation and then a colonoscopy if no source of UGI bleed is found at another time. - Obtain stool cx and Cdiff if diarrhea symptoms start again - Monitor H/H and transfuse prn. I have seen and evaluated the patient. The patient presents with anemia and what appears to be melena over several days. Of note he did take several days' worth of Indocin at home for problems with gallops. Physical examination: Pleasant male in no obvious distress, no scleral icterus noted Impression Patient presenting with anemia and what appears to be evidence of upper GI bleeding. Once he has been stabilized, cleared by cardiology and had his potassium corrected we could proceed with upper endoscopy for evaluation. Recommendations Continue Protonix drip as you're doing Nothing by mouth at midnight for upper endoscopy on Avoid nonsteroidals a possible
--- NOTE | 2016-08-22 12:20 | NEPHROLOGY CONSULTATION ---
DATE OF CONSULTATION: 08/22/2016 DATE OF CONSULTATION: 08/22/2016. ATTENDING OF RECORD: Dr. Terrazas. REASON FOR CONSULTATION: Hyperkalemia and JESSICA. HISTORY OF PRESENT ILLNESS: This is an 86-year-old male with hypertension and CKD stage III, who presented with lower extremity weakness. The patient did have a urinary tract infection several weeks ago and treated with Bactrim. He also had a GI virus the week before with nausea, decreased appetite and diarrhea. The patient then reported to have a gout flare up of his right toe this past weekend and took a couple days' worth of indomethacin saying that he thought he took several pills of indomethacin. Denies having dark stools but admits to not paying attention to his stools recently. Denies any significant abdominal pain. The patient came in and found to have a potassium level of 6.1 with a creatinine up to 3 and hemoglobin level down to 7.1. The patient was transfused 2 units overnight. The patient did have 5/ 10 chest pain this morning requiring nitroglycerin and is currently chest pain free. For his hyperkalemia the patient was given dextrose and insulin, calcium gluconate. The patient is currently on a Protonix drip and had 500 mL fluid bolus as well as a liter fluid bolus. The patient is urinating well and his blood pressures have improved. Blood pressure on presentation was 98/45 lying down and standing was 74/33. Blood pressure has improved now into the 150s/60s with a pulse in the 80s and creatinine has improved from 3 down to 2.2 this morning. Potassium level is better at 5 this morning as well. Troponins are slowly trending up and is at 0.044. REVIEW OF SYSTEMS: Had chest pain this morning. Currently chest pain free. Positive leg weakness. Did have some nausea last week. No more nausea or vomiting. Denies any diarrhea now. Did have diarrhea last week. No headaches, no blurry vision, no dysphagia. The patient is currently n.p.o. and is not hungry. No headaches, no overt shortness of breath. Gout pain from his toe has improved. No rash or itching. All other review of systems otherwise negative. PAST MEDICAL HISTORY: AAA requiring repair in 2002, CKD stage III, mild aortic stenosis, BPH, hyperlipidemia, history of bladder cancer in the past, hypertension, history of DVT, currently not on any blood thinners. PAST SURGICAL HISTORY: TURP, tonsillectomy, hernia repair, AAA repair. FAMILY HISTORY: Significant for heart disease. SOCIAL HISTORY: Former smoker, quit in 2002. Occasional alcohol, no drugs. Lives alone. HOME MEDICATIONS: Were significant for lisinopril as well as recent indomethacin. CURRENT MEDICATIONS: Atenolol 50 mg daily, iron 325 mg daily, Kayexalate 15 grams p.o. this morning which was held, Protonix drip, normal saline at 125 mL an hour. PHYSICAL EXAMINATION: VITAL SIGNS: Temperature 36.9, pulse 81, respiratory rate is 21, blood pressure is 153/67, satting 100% on 4 liters. Ins 1267, outs 400. GENERAL: Awake, alert, oriented x3. EYES: No scleral icterus. EARS, NOSE, THROAT: Mucous membranes are dry. NECK: Supple. PULMONARY: Clear to auscultation. CARDIAC: Regular rate and rhythm, positive 2/6 systolic murmur. ABDOMEN: Bowel sounds positive, soft, nontender, nondistended. EXTREMITIES: No clubbing, cyanosis or edema. NEUROLOGICALLY: Nonfocal. DERMATOLOGIC: No rash or ulcers noted. LABORATORY DATA: Sodium is 144, potassium is 5, chloride is 19, bicarb is 14, BUN is 85, creatinine is 2.2, glucose is 56, calcium is 8.4, mag was 1.8 this morning. Troponin is slowly trending up at 0.044. White count 9, H\T\H 8 and 23.4, platelet count 140. UA with pH of 5, specific gravity 1.009, 1+ blood, trace leukocyte esterase. INR is 1.1. Urine cultures pending. Chest x-ray shows no active disease in the chest and signs of emphysema, no failure. IMPRESSION AND PLAN: 1. Acute kidney injury, nonoliguric with a creatinine of 3 that is improving down to 2.2 and appears to be prerenal in nature secondary to hypotension, volume depletion, NSAIDs. Currently on IV fluids and tolerating them well. Currently, satting well on 4 liters nasal cannula. Lungs clear to auscultation. Does have some underlying emphysema. Will have to monitor volume status closely. 2. Hyperkalemia. Potassium levels were elevated, likely secondary to renal failure and potassium levels should continue to improve as kidney function improves. Held Kayexalate this morning but did receive insulin and D50 and the potassium levels temporarily improved. Will recheck the labs again later today to see if the potassium levels are trending back up or not since the insulin D50 is just transient in nature. Hoping that as the kidney function improves potassium levels start to improve. 3. Presumed Metabolic acidosis- bicarb of 14, currently on normal saline. Would like to switch to half normal saline with 75 mEq of bicarb, monitor calcium levels closely since calcium levels may drop in the setting of bicarb administration. Hoping that as we improve the bicarb the potassium levels will also improve as well. So overall, we have a patient with JESSICA from volume depletion and hypotension and nsaids. Blood pressure has improved. Trying to continue to improve the potassium. Hopefully, creatinine eventually improves back down to baseline. Monitor volume status closely. I appreciate consultation. OLU
[2016-08-22] MEDS: SODIUM BICARBONATE 8.4% INJ 75 MEQ in D5W AND 1/2NSS 1,000 ML IV SCH (14:28)
[2016-08-22] MEDS ORDERED: METOPROLOL TARTRATE 25 MG TAB PO ONE (14:56)
--- NOTE | 2016-08-22 16:07 | CARDIOLOGY CONSULTATION ---
DATE OF CONSULTATION: 08/22/2016 REFERRING PHYSICIAN: Dr. Juan Carlos Terrazas. REASON FOR CONSULTATION: Chest pain, preoperative risk stratification. CHIEF COMPLAINT ON ADMISSION: Syncope. HISTORY OF PRESENT ILLNESS: Mr. Waters is an 86-year-old gentleman with a history of mild aortic stenosis, hypertension, and abdominal aortic aneurysm. He presented to the hospital with an episode of profound weakness and syncope. The patient fell to the ground and states he lost consciousness. No head trauma noted. States he had been feeling weak since a recent UTI. He was recently treated for an episode of gout. He has been taking indomethacin twice a day for approximately 4 days prior to presentation. The patient reports having black-colored stool at home. Initial hemoglobin 8.3 with a repeat hemoglobin of 7.1. The patient has received 3 units of packed red blood cells since admission. His most recent hemoglobin is 8.0. This morning, the patient developed an episode of chest discomfort when transferring from the second floor to the intensive care unit. The pain was described as a substernal sharp discomfort. An ECG performed at that time demonstrated mild bilateral ST depressions. His troponins are not significantly elevated. He was treated with sublingual nitroglycerin. There has been no recurrent chest discomfort during the day today. His atenolol was held this morning. The patient denies a personal history of coronary artery disease, myocardial infarction, congestive heart failure, rheumatic fever as a child, or diabetes. He has a known heart murmur which is attributed to aortic stenosis which was mild per most recent evaluation in January 2016. REVIEW OF SYSTEMS: The pertinent positives are noted above, his 10-system review is otherwise negative. PAST MEDICAL HISTORY: 1. Mild aortic stenosis. 2. Abdominal aortic aneurysm status post repair. 3. BPH. 4. Chronic kidney disease stage III. 5. Dyslipidemia. 6. Bladder carcinoma. 7. Deep venous thrombosis. 8. Hypertension. 9. Gout. PAST SURGICAL HISTORY: 1. Abdominal aortic aneurysm repair in 2002. 2. Inguinal hernia repair. 3. Tonsillectomy. 4. TURP. FAMILY HISTORY: Negative for premature CAD or sudden cardiac , however noncontributory given patient's advanced age. SOCIAL HISTORY: Former tobacco abuse with a 75- to [id number] history. He quit in 2002. He drinks alcohol occasionally. He is single. He lives alone. ALLERGIES: No known drug allergies. OUTPATIENT MEDICATIONS: 1. Mevacor 20 mg daily. 2. Lisinopril 10 mg daily. 3. Atenolol 50 mg daily. 4. Ferrous sulfate 325 mg daily. 5. Indomethacin 25 mg 3 times daily as needed for gout. DATA: ECG on admission: Sinus bradycardia with first degree AV block, otherwise normal ECG. Repeat ECG performed this morning demonstrates sinus rhythm with a first degree AV block and lateral ST depression. Repeat ECG performed at 3:[address] p[address] demonstrates no significant ST changes. LABORATORY DATA: Troponins are negative. Sodium 144, potassium 5.0, chloride is 119, CO2 is 14, BUN is 85, creatinine is 2.20. INR is 1.1. White blood cell count is 9.02, his most recent hemoglobin is 8.0, platelet count on admission is 225. Chest x-ray on admission: No active disease. PHYSICAL EXAMINATION: VITAL SIGNS: Temperature 36.9 degrees centigrade, pulse 62 beats per minute and regular, respiratory rate is 20 breaths per minute, blood pressure 125/57 and SA02 97% on 2 liters. GENERAL: NAD, pale appearing, awake, alert and oriented x3. He is hard of hearing. THROAT: His mucous membranes are moist. No scleral icterus. Conjunctivae pink. NECK: Supple without JVD or HJR. No carotid bruit. HEART: Regular with a 3/6 mid to late peaking systolic ejection murmur heard best at the right second intercostal space without radiation. LUNGS: Clear without rales, rhonchi or wheeze. ABDOMEN: Soft, nontender. There is no rebound or guarding. EXTREMITIES: Warm and dry without clubbing, cyanosis, or edema. NEUROLOGIC: Demonstrates no focal motor deficit. FINAL IMPRESSION: 1. Symptomatic anemia secondary to gastrointestinal bleeding, suspected upper gastrointestinal bleeding in the setting of excessive non-steroidal anti-inflammatory drug intake. 2. Acute renal insufficiency secondary to dehydration and excessive non-steroidal anti-inflammatory drug intake. 3. Moderate perioperative cardiovascular risk. 4. History of mild aortic stenosis from most recent resting 2D transthoracic echo. 5. Episode of chest discomfort this a.m. with associated ECG changes, likely related to symptomatic anemia. The patient is currently asymptomatic at rest. His troponins are not significantly elevated. 6. Metabolic acidosis. 7. Hyperkalemia. PLAN AND RECOMMENDATIONS: Appears the EGD is necessary given patient's symptomatic anemia, related to gastrointestinal bleeding. We will try to optimize him from a medical standpoint prior to procedure. I have restarted beta-diogenes; however, I have transitioned to metoprolol 25 mg twice daily. He will receive one dose now. Recommend maintaining hemoglobin greater than or equal to 10 given episode of chest discomfort with associated ECG changes this a.m. A repeat resting 2D transthoracic echo will also be performed to assess severity of aortic stenosis, which was mild per most recent evaluation. Intravenous proton pump inhibitor will be continued at this time. No further cardiac testing would lower the patient's perioperative risk. Will continue to follow closely during hospitalization.
[2016-08-22 16:11] LABS: HEMATOCRIT 26.6 % (42-52)
[2016-08-22 16:37] LABS: CALCIUM 8.6 mg/dl (8.5-10.1); CREATININE 2.2 mg/dl (0.60-1.40); POTASSIUM 5.9 mmol/L (3.5-5.1)
[2016-08-22] MEDS ORDERED: SODIUM POLYSTYRENE SULFONATE 30 GM/120 ML UDP PO ONE (17:00)
[2016-08-22] MEDS ORDERED: SODIUM POLYST. SULF SUSP 15G/60ML PO ONE (17:00)
--- NOTE | 2016-08-22 17:25 | ECHOCARDIOGRAM REPORT ---
*NOTICE TO RECEIVING [employer] This information is strictly Confidential and protected under [place] law. [place] law prohibits you from making any further disclosure of this information unless further disclosure is expressly permitted by the written consent of the person to whom it pertains or is authorized by law. A general authorization for the release of medical or other information is not sufficient for this purpose. Hospital accepts no responsibility if the information is made available to any other person, INCLUDING THE PATIENT. Interpretation Summary * Name: DHARA BURGOS Study Date: 08/22/2016 04:09 PM BP: 125/57 mmHg * [facility] HR: 61 * : 1930 (M/d/yyyy) Gender: Male Height: 70 in * Age: 86 yrs Ethnicity: [place] Weight: 182 lb * Ordering Physician: Juan Carlos Terrazas * Performed By: Luz Anglin RDCS * * Reason For Study: Chest pain * BSA: 2.0 m2 * The study was technically difficult. * Compared to prior study, there is no significant change. * -- Conclusions -- * Ejection Fraction = >70 %. * There is mild asymmetric left ventricular hypertrophy. * The basal septum is thickened and angulated consistent with sigmoid septum. * The aortic valve is moderately calcified. * Mild to moderate aortic stenosis. * There is mild mitral regurgitation. * Mildly dilated ascending aorta. Procedure Details * A complete two-dimensional transthoracic echocardiogram was performed (2D, M-mode, Doppler and color flow Doppler). Left Ventricle * The left ventricle is normal in size. * There is no thrombus. * There is mild asymmetric left ventricular hypertrophy. * The basal septum is thickened and angulated consistent with sigmoid septum. * Ejection Fraction = >70 %. * The left ventricular wall motion is normal. Right Ventricle * The right ventricular cavity size is normal (basal dimension <4.2 cm in right ventricular apical 4-chamber view). * The right ventricular systolic function is normal. Atria * The left atrial size is normal. * Right atrial size is normal. * No ASD detected; PFO is not assessed. Mitral Valve * There is severe mitral annular calcification. * There is no mitral valve stenosis. * There is mild mitral regurgitation. Tricuspid Valve * The tricuspid valve is not well visualized. * There is no tricuspid stenosis. * Significant tricuspid regurgitation is absent. Aortic Valve * The aortic valve is moderately calcified. * Mild to moderate aortic stenosis. * There is no significant aortic regurgitation. Pulmonic Valve * The pulmonary valve is not well seen, but the Doppler examination is normal without significant regurgitation or stenosis. Great Vessels * The aortic root is normal size. * Mildly dilated ascending aorta. Pericardium/Pleural * There is no pericardial effusion. Great Vessels * Normal inferior vena cava diameter and respiratory variation suggests normal central venous pressure. Left Ventricular Diastolic Function * Grade I diastolic dysfunction, (abnormal relaxation pattern). MMode 2D Measurements and Calculations IVSd 1.2 cm LVIDd 4.2 cm LVIDs 2.8 cm LVPWd 1.3 cm IVS/LVPW 0.95 FS 33.6 % EDV(Teich) 80.1 ml ESV(Teich) 29.9 ml EF(Teich) 62.7 % EDV(cubed) 76.0 ml ESV(cubed) 22.3 ml EF(cubed) 70.7 % LV mass(C)d 186.1 grams LV mass(C)dI 92.8 grams/m\S\2 CO(Teich) 3.2 l/min CI(Teich) 1.6 l/min/m\S\2 SV(Teich) 50.3 ml SI(Teich) 25.1 ml/m\S\2 CO(cubed) 3.4 l/min CI(cubed) 1.7 l/min/m\S\2 SV(cubed) 53.7 ml SI(cubed) 26.8 ml/m\S\2 Ao root diam 3.7 cm Ao root area 10.6 cm\S\2 ACS 1.7 cm LA dimension 3.0 cm asc Aorta Diam 3.1 cm LA/Ao 0.83 LVOT diam 2.2 cm LVOT area 4.0 cm\S\2 LVAd ap4 29.6 cm\S\2 LVLd ap4 8.3 cm EDV(MOD-sp4) 84.8 ml LVAs ap4 15.4 cm\S\2 LVLs ap4 6.9 cm ESV(MOD-sp4) 29.0 ml EF(MOD-sp4) 65.8 % LVAd ap2 28.2 cm\S\2 LVLd ap2 8.2 cm EDV(MOD-sp2) 80.3 ml LVAs ap2 14.0 cm\S\2 LVLs ap2 6.3 cm ESV(MOD-sp2) 27.5 ml EF(MOD-sp2) 65.8 % CO(MOD-sp4) 3.5 l/min CI(MOD-sp4) 1.8 l/min/m\S\2 SV(MOD-sp4) 55.8 ml SI(MOD-sp4) 27.8 ml/m\S\2 CO(MOD-sp2) 3.3 l/min CI(MOD-sp2) 1.7 l/min/m\S\2 SV(MOD-sp2) 52.8 ml SI(MOD-sp2) 26.3 ml/m\S\2 Doppler Measurements and Calculations MV E max pam 124.3 cm/sec MV A max pam 161.0 cm/sec MV E/A 0.77 MV dec time 0.44 sec Ao V2 max 289.6 cm/sec Ao max PG 33.5 mmHg Ao max PG (full) 27.7 mmHg Ao V2 mean 205.7 cm/sec Ao mean PG 18.9 mmHg Ao mean PG (full) 15.3 mmHg Ao V2 VTI 65.9 cm SARAH BETH(I,A) 1.9 cm\S\2 SARAH BETH(I,D) 1.9 cm\S\2 SARAH BETH(V,A) 1.6 cm\S\2 SARAH BETH(V,D) 1.6 cm\S\2 LV V1 max PG 5.8 mmHg LV V1 mean PG 3.6 mmHg LV V1 max 120.6 cm/sec LV V1 mean 90.2 cm/sec LV V1 VTI 31.1 cm SV(Ao) 698.6 ml SI(Ao) 348.4 ml/m\S\2 SV(LVOT) 123.2 ml SI(LVOT) 61.4 ml/m\S\2 PA V2 max 115.4 cm/sec PA max PG 5.3 mmHg PA acc slope 769.8 cm/sec\S\2 PA acc time 0.12 sec TR max pam 275.1 cm/sec PA pr(Accel) 25.1 mmHg
[2016-08-22] MEDS: METOPROLOL TARTRATE 25 MG TAB PO SCH (21:20)
[2016-08-22 23:50] LABS: BUN/CREATININE RATIO 35.2 (10-20); CALCIUM 8.5 mg/dl (8.5-10.1); POTASSIUM 5.4 mmol/L (3.5-5.1)
[2016-08-23] VITALS (10 sets, daily range): BP systolic 101–143; BP diastolic 42–69; PULSE 54–85; TEMP 36.6–36.9; O2SAT 94–100
[2016-08-23] MEDS: SODIUM BICARBONATE 8.4% INJ 75 MEQ in D5W AND 1/2NSS 1,000 ML IV SCH ×3 (02:10→20:40)
[2016-08-23 04:07] LABS: BUN/CREATININE RATIO 34.1 (10-20); CALCIUM 8.2 mg/dl (8.5-10.1); CREATININE 1.9 mg/dl (0.60-1.40); POTASSIUM 5.2 mmol/L (3.5-5.1)
[2016-08-23] MEDS: PANTOprazole INJ 40 MG in DEXTROSE 5% 100ML IV SCH ×4 (05:17→20:36)
--- NOTE | 2016-08-23 06:20 | Nephrology Progress Note ---
Nephrology Progress Note Date of Service: Aug 23, 2016. Subjective 86 yo male with jessica/hyperkalemia, currently npo. pt comfortable and tolerating the fluids well. pt complaining of gout pain 5/10 on toe. started last night. Objective Date Time Temp Pulse Resp B/P Pulse Ox O2 Delivery O2 Flow Rate FiO2 08/23/16 04:00 Nasal Cannula 2.0 08/23/16 03:55 36.8 60 18 124/57 100 Nasal Cannula 2.0 08/22/16 23:59 Nasal Cannula 2.0 08/22/16 23:15 36.8 56 18 132/58 100 Nasal Cannula 2.0 08/22/16 21:10 37.0 59 19 121/79 96 08/22/16 20:10 37.1 61 15 122/59 08/22/16 20:00 36.6 64 20 135/65 98 Nasal Cannula 2.0 08/22/16 20:00 92 Nasal Cannula 2.0 08/22/16 19:02 36.9 62 22 125/63 97 2.0 08/22/16 18:44 36.6 66 22 128/62 96 2.0 08/22/16 16:40 36.6 62 18 129/54 98 Nasal Cannula 2.0 08/22/16 16:00 Nasal Cannula 2.0 08/22/16 13:47 36.9 61 20 125/57 97 2.0 08/22/16 13:06 36.6 64 20 122/50 97 2.0 08/22/16 12:30 36.6 62 16 109/50 97 2.0 08/22/16 12:00 36.6 65 18 107/51 96 2.0 08/22/16 12:00 Nasal Cannula 2.0 08/22/16 11:45 36.7 66 16 108/52 97 2.0 08/22/16 11:30 36.7 70 22 109/56 99 4.0 08/22/16 10:13 36.9 81 21 153/67 100 Nasal Cannula 4.0 08/22/16 09:41 82 22 138/66 100 Nasal Cannula 2.0 08/22/16 09:30 36.9 81 21 100 2.0 08/22/16 08:30 Nasal Cannula 2.0 08/22/16 08:05 36.8 60 16 111/56 99 Room Air Physical Exam: General-aaox3 Eyes-no scleral icterus ENT-mmm Neck-supple Lungs-cta Heart-2/6 systolic murmur Abdomen-bs+ s/nt/nd Extremities-no c/c/e Neuro-nonfocal Current Inpatient Medications Medications (Trade) Dose Ordered Sig/Aneesh Route Start Time Stop Time Status Last Admin Dose Admin Acetaminophen (Tylenol Tab) 650 mg Q4H PRN PO 08/21/16 17:45 09/20/16 17:44 Ondansetron HCl (Zofran Inj) 4 mg Q6H PRN IV 08/21/16 17:45 09/20/16 17:44 Nitroglycerin (Nitrostat Tab) 0.4 mg UD PRN SL 08/21/16 17:45 09/20/16 17:44 08/22/16 10:14 0.4 MG Ferrous Sulfate 325 mg 325 mg DAILY PO 08/22/16 09:00 09/21/16 08:59 Pantoprazole Sodium 40 mg/ Dextrose 100 ml @ 20 mls/hr Q5H IV 08/21/16 22:30 09/20/16 22:29 08/23/16 05:17 20 MLS/HR Sodium Bicarbonate/ Dextrose/Sodium Chloride (Sodium Bicarbonate 8.4% Inj/D5W And 1/ 2nss) 1,075 ml @ 125 mls/hr Q8H36M IV 08/22/16 11:30 09/21/16 11:29 08/23/16 02:10 125 MLS/HR Metoprolol Tartrate (Lopressor Tab) 25 mg BID PO 08/22/16 21:00 09/21/16 20:59 08/22/16 21:20 25 MG Last 24 Hours Test 08/22/16 08:45 08/22/16 09:54 08/22/16 11:07 08/22/16 15:46 Bedside Glucose 139 mg/dl 85 mg/dl Hemoglobin 8.0 g/dL 9.1 g/dL Hematocrit 23.4 % 26.6 % Sodium Level 144 mmol/L 144 mmol/L Potassium Level 5.0 mmol/L 5.9 mmol/L Chloride Level 119 mmol/L 119 mmol/L Carbon Dioxide Level 14 mmol/L 16 mmol/L Anion Gap 11.0 mmol/L 9.0 mmol/L Blood Urea Nitrogen 85 mg/dl 79 mg/dl Creatinine 2.20 mg/dl 2.20 mg/dl Est Creatinine Clear Calc Drug Dose 24.9 ml/min 24.9 ml/min Estimated GFR () 30.3 30.3 Estimated GFR (Non- 26.2 26.2 BUN/Creatinine Ratio 38.8 36.0 Random Glucose 56 mg/dl 112 mg/dl Calcium Level 8.4 mg/dl 8.6 mg/dl Total Creatine Kinase 50 U/L Creatine Kinase MB 1.7 ng/ml Creatine Kinase MB Ratio 3.4 Troponin I 0.044 ng/ml Test 08/22/16 17:58 08/22/16 21:22 08/22/16 23:00 08/23/16 01:59 Bedside Glucose 122 mg/dl 92 mg/dl Hemoglobin 10.2 g/dL Hematocrit 30.0 % Sodium Level 147 mmol/L 148 mmol/L Potassium Level 5.4 mmol/L 5.2 mmol/L Chloride Level 120 mmol/L 121 mmol/L Carbon Dioxide Level 18 mmol/L 19 mmol/L Anion Gap 9.0 mmol/L 8.0 mmol/L Blood Urea Nitrogen 70 mg/dl 65 mg/dl Creatinine 2.00 mg/dl 1.90 mg/dl Est Creatinine Clear Calc Drug Dose 27.4 ml/min 28.8 ml/min Estimated GFR () 34.0 36.2 Estimated GFR (Non- 29.3 31.2 BUN/Creatinine Ratio 35.2 34.1 Random Glucose 113 mg/dl 121 mg/dl Calcium Level 8.5 mg/dl 8.2 mg/dl Test 08/23/16 05:59 Bedside Glucose 118 mg/dl Assessment & Plan JESSICA on ckd stage 1-xyi-fxepolta-creatinine has been improving with appropriate fluids. bp is better. baseline creatinine of 1.7 so close to baseline. since pt is npo, will continue the iv fluids but will decrease the rate. hyperkalemia-likely from jessica and improving as creatinine improves. metabolic acidosis-possibly from jessica and improving with bicarb fluids. calcium levels are stable. Gout-pt complaining of gout pain although has his sock on and sheets on. hesitant to give steroids in setting of possible ulcer. respectfully defer to primary hospitalist. would prefer to wait till after the endoscopy.
[2016-08-23 07:11] LABS: BASO % 0.5 %; BASO ABS # 0.04 K/uL (0-0.2); COMPLETE YES; HEMATOCRIT 28.2 % (42-52); IG% 0.6 %; LYMPH % 15.4 %; LYMPH ABS # 1.25 K/uL (1.2-3.4); MEAN CELL VOLUME 88.4 fL (80-100); MEAN CORPUSCULAR HEMOGLOBIN 29.8 pg (25-34); MEAN CORPUSCULAR HGB CONC 33.7 g/dl (32-36); MEAN PLATELET VOLUME 10.3 fL (7.4-10.4); MONO % 10.2 %; NEUT % 68.3 %; PLATELET COUNT 146 K/uL (130-400); RED BLOOD COUNT 3.19 M/uL (4.7-6.1); WHITE BLOOD COUNT 8.13 K/uL (4.8-10.8)
[2016-08-23 07:34] LABS: BUN/CREATININE RATIO 30.9 (10-20); CALCIUM 8.5 mg/dl (8.5-10.1); CREATININE 1.9 mg/dl (0.60-1.40); POTASSIUM 4.8 mmol/L (3.5-5.1)
[2016-08-23] MEDS: METOPROLOL TARTRATE 25 MG TAB PO SCH ×2 (08:46→20:35)
--- NOTE | 2016-08-23 08:56 | Progress Note ---
Progress Note Date of Service Aug 23, 2016. (Kimberly Das CRNP) Progress Note Patient is a 86 year old male admitted w symptomatic anemia (fatigue, syncope ? related to orthostatic hypotension, substernal CP w SOB). Hgb around 8, after 2U PRBC it's hanging around 7. His baseline Hgb is 9-10. He is currently on Ferrous Sulfate 325mg daily. Stool heme positive when tested by ED physician. He did take some Indomethacin for gout prior to admission. Wonder if he developed PUD. Also he mentioned having diarrheal symptoms which just recently resolved. May have colitis w bleeding causing stool occult blood to be positive as well. No acute events overnight. Pt did have loose stools but was due to Kayexalate. Cdiff negative, stool cx pending. K level this AM 4.8. He received a total of 4U PRBC since admission and Hgb now 9.5. Denies any abd pain, n/v. Afebrile overnight. CBC, CMP, Vital reviewed. Assessment: - AAOx3 in no acute distress - HR regular, murmur 3/6, no gallops - CTA bilateral upper lung lobes - Soft abd, non tender, hypoactive bowel sounds - Bilateral LE no edema. Plans - Keep NPO for EGD this AM - Continue PPI gtt - Cdiff negative; will f/u stool cx. - Monitor H/H and transfuse prn. - Further recs after EGD done. (Kimberly Das CRNP) The patient underwent upper endoscopy today. Finding for a duodenal ulcer and several gastric ulcers. The ulcers were clean based with no evidence of active or recent bleeding. Recommendations Advance to a liquid diet today may advance to regular diet tomorrow if feeling well Continue Protonix drip for another 24 hours then begin Protonix 40 mg twice daily for 6 weeks then 1 time daily thereafter Repeat upper endoscopy in 8-12 weeks (Joe Loja, DO)
[2016-08-23] MEDS: FERROUS SULFATE 325 MG TAB PO SCH (09:00)
--- NOTE | 2016-08-23 09:31 | Clinical Documentation Query ---
CLINICAL DOCUMENTATION QUERY Dr. GAMEZ, In your clinical opinion is this patient being managed for: ( ) Acute blood loss anemia ( ) Other explanation of clinical findings (Please Explain) ( ) Unable to determine (Please Define) ( ) Need to Discuss ( ) Not Agree The medical record reflects the following clinical findings, treatment, and risk factors. Clinical Indicators: 86 yo male presenting with generalized weakness, anemia, GI bleed. Presenting Hgb 8.3, Hct 24.5 Treatment: tele monitoring, transfuse 4 U PRBC, IV protonix bolus then gtt, serial H/H's, GI consult for pending endoscopy, IV fluids Risk Factors: NSAID use for gout flair, GI bleed Please clarify and document your clinical opinion in the progress notes and discharge summary. Terms such as "probable", "suspected", "likely", "questionable", "possible", or "still to be ruled out" are acceptable. IF IN AGREEMENT, YOU MUST DOCUMENT ABOVE DIAGNOSTIC STATEMENT IN DAILY PROGRESS NOTES AND DISCHARGE SUMMARY. This document is not part of the patient's record. Thank You, Jesusita King RN [phone]
--- NOTE | 2016-08-23 09:47 | Cardiology Follow-Up ---
Subjective General Date of Service: Aug 23, 2016. Pt evaluation today including: conversation w/ patient, physical exam, chart review, lab review, review of studies, review of inpatient medication list History of Present Illness The patient is a 86 year old male seen in follow up. No recurrent CP overnight. No dysrhythmia on telemetry. +BM with dark stool. No melena or hematochezia. Received an additional 1 unit PRBC's last night. Hgb stable this AM. Scheduled for EGD. Allergies Coded Allergies: No Known Allergies (Verified , 08/21/16) Social History Smoking Status: Former Smoker Hx Tobacco Use In Past Year?: No Hx Alcohol Use - Type And Amou: No Hx Substance Use - Type And Am: No Problem List Medical Problems: (1) Acute renal failure Status: Acute (2) Acute renal failure (ARF) Status: Acute (3) Anemia Status: Acute (4) Orthostatic hypotension Status: Acute (5) Orthostatic syncope Status: Acute (6) Syncope Status: Acute Review of Systems Respiratory: No cough, No dyspnea at rest, No hemoptysis, No shortness of breath, No wheezing Cardiac: No PND, No chest pain, No edema, No orthopnea, No palpitations Physical Exam Vital Signs Last Vital Signs Documentation Date Time Temp Pulse Resp B/P Pulse Ox O2 Delivery O2 Flow Rate FiO2 08/23/16 09:01 36.8 60 18 124/57 100 Nasal Cannula 2.0 Physical Exam Constitutional: General Apperance: well-developed Level of Distress: NAD Head: normocephalic, atraumatic Neck: supple, trachea midline Lungs: Auscultation: breath sounds normal, no wheezing, no rales/crackles, no rhonchi Cardiovascular: Heart Auscultation: RRR, normal S1, normal S2, III/ BAMBI Peripheral Pulses: Radial Pulse: normal on the left, normal on the right Abdomen: Bowel Sounds: normal Inspection & Palpation: soft, non-distended, no tenderness, guarding & rebound Extremities: no cyanosis, no edema, no clubbing, no ulcers Neurologic: Gait & Station: pertinent finding (No focal motor deficit) Cranial Nerves: grossly intact Assessment and Plan Assessment and Plan FINAL IMPRESSION: 1. Symptomatic anemia s/p 4u PRBC's -suspected UGIB secondary to NSAID intake 2. Acute renal insufficiency with hyperkalemia -secondary to dehydration and NSAID intake. -creatinine and hyperkalemia improving 3. Moderate perioperative cardiovascular risk. 4. Mild to moderate aortic stenosis. 5. Transient episode of chest discomfort 08/22/16 in a.m. with associated ECG changes -likely related to symptomatic anemia. -no recurrence s/p transfusion -no significant troponin elevation PLAN AND RECOMMENDATIONS: Continue beta diogenes cielo-operatively. Follow H/H. transfuse as necessary. EGD today. Repeat BMP in AM. Will follow. Laboratory Results Last 24 Hours Test 08/22/16 09:54 08/22/16 11:07 08/22/16 15:46 08/22/16 17:58 Hemoglobin 8.0 g/dL 9.1 g/dL Hematocrit 23.4 % 26.6 % Sodium Level 144 mmol/L 144 mmol/L Potassium Level 5.0 mmol/L 5.9 mmol/L Chloride Level 119 mmol/L 119 mmol/L Carbon Dioxide Level 14 mmol/L 16 mmol/L Anion Gap 11.0 mmol/L 9.0 mmol/L Blood Urea Nitrogen 85 mg/dl 79 mg/dl Creatinine 2.20 mg/dl 2.20 mg/dl Est Creatinine Clear Calc Drug Dose 24.9 ml/min 24.9 ml/min Estimated GFR () 30.3 30.3 Estimated GFR (Non- 26.2 26.2 BUN/Creatinine Ratio 38.8 36.0 Random Glucose 56 mg/dl 112 mg/dl Calcium Level 8.4 mg/dl 8.6 mg/dl Total Creatine Kinase 50 U/L Creatine Kinase MB 1.7 ng/ml Creatine Kinase MB Ratio 3.4 Troponin I 0.044 ng/ml Bedside Glucose 85 mg/dl 122 mg/dl Test 08/22/16 21:22 08/22/16 23:00 08/23/16 01:59 08/23/16 05:59 Bedside Glucose 92 mg/dl 118 mg/dl Hemoglobin 10.2 g/dL Hematocrit 30.0 % Sodium Level 147 mmol/L 148 mmol/L Potassium Level 5.4 mmol/L 5.2 mmol/L Chloride Level 120 mmol/L 121 mmol/L Carbon Dioxide Level 18 mmol/L 19 mmol/L Anion Gap 9.0 mmol/L 8.0 mmol/L Blood Urea Nitrogen 70 mg/dl 65 mg/dl Creatinine 2.00 mg/dl 1.90 mg/dl Est Creatinine Clear Calc Drug Dose 27.4 ml/min 28.8 ml/min Estimated GFR () 34.0 36.2 Estimated GFR (Non- 29.3 31.2 BUN/Creatinine Ratio 35.2 34.1 Random Glucose 113 mg/dl 121 mg/dl Calcium Level 8.5 mg/dl 8.2 mg/dl Test 08/23/16 07:04 White Blood Count 8.13 K/uL Red Blood Count 3.19 M/uL Hemoglobin 9.5 g/dL Hematocrit 28.2 % Mean Corpuscular Volume 88.4 fL Mean Corpuscular Hemoglobin 29.8 pg Mean Corpuscular Hemoglobin Concent 33.7 g/dl Platelet Count 146 K/uL Mean Platelet Volume 10.3 fL Neutrophils (%) (Auto) 68.3 % Lymphocytes (%) (Auto) 15.4 % Monocytes (%) (Auto) 10.2 % Eosinophils (%) (Auto) 5.0 % Basophils (%) (Auto) 0.5 % Neutrophils # (Auto) 5.55 K/uL Lymphocytes # (Auto) 1.25 K/uL Monocytes # (Auto) 0.83 K/uL Eosinophils # (Auto) 0.41 K/uL Basophils # (Auto) 0.04 K/uL RDW Standard Deviation 48.7 fL RDW Coefficient of Variation 14.9 % Immature Granulocyte % (Auto) 0.6 % Immature Granulocyte # (Auto) 0.05 K/uL Sodium Level 147 mmol/L Potassium Level 4.8 mmol/L Chloride Level 119 mmol/L Carbon Dioxide Level 20 mmol/L Anion Gap 8.0 mmol/L Blood Urea Nitrogen 59 mg/dl Creatinine 1.90 mg/dl Est Creatinine Clear Calc Drug Dose 28.8 ml/min Estimated GFR () 36.2 Estimated GFR (Non- 31.2 BUN/Creatinine Ratio 30.9 Random Glucose 115 mg/dl Calcium Level 8.5 mg/dl
[2016-08-23] MEDS ORDERED: NITROGLYCERIN 0.4 MG SL PER TAB CHARGE ONE (11:45)
[2016-08-23] MEDS ORDERED: NITROGLYCERIN 0.4 MG SL PER TAB CHARGE SL STA (11:45)
--- NOTE | 2016-08-23 12:02 | Anesthesiology Progress Note ---
Anesthesia Post Op Note Date & Time Aug 23, 2016 at 11:59 Vital Signs Pain Intensity: 0 Vital Signs Past 12 Hours Date Time Temp Pulse Resp B/P Pulse Ox O2 Delivery O2 Flow Rate FiO2 08/23/16 11:57 79 20 118/52 97 Room Air 08/23/16 11:50 77 18 159/72 95 Room Air 08/23/16 11:31 77 18 110/56 96 Room Air 08/23/16 10:16 65 16 96 Room Air 08/23/16 09:58 36.0 68 18 147/68 100 Room Air 08/23/16 09:01 36.8 60 18 124/57 100 Nasal Cannula 2.0 08/23/16 09:00 65 22 143/66 96 Room Air 08/23/16 08:00 36.6 62 16 101/42 100 Nasal Cannula 2.0 08/23/16 08:00 Nasal Cannula 2.0 08/23/16 04:00 Nasal Cannula 2.0 08/23/16 03:55 36.8 60 18 124/57 100 Nasal Cannula 2.0 Notes Mental Status: alert / awake / arousable Nausea / Vomiting: adequately controlled Airway Patency, RR, SpO2: stable & adequate BP & HR: stable & adequate Hydration State: stable & adequate Anesthetic Complications: no major complications apparent Patient complained of chest heaviness post-procedure. He said it was not as bad as yesterday. Nitroglycerine pill was given sublingually which relieved the chest pain completely.
[2016-08-23] MEDS: SUCRALFATE 1 GM/10 ML UDC PO SCH ×3 (13:54→20:34)
[2016-08-23] MEDS: NITROGLYCERIN 0.4 MG SL PER TAB CHARGE SL PRN (16:30)
--- NOTE | 2016-08-23 17:50 | Progress Note ---
Medicine Progress Note Date & Time of Visit: Aug 23, 2016 at 17:44. Subjective patient seen s/p egd comfortably resting states he is feeling better had 1 episode of chest discomfort after EGD, relieved by Nitro no abdominal pain, nausea had some melena again this afternoon no other symptoms Objective Last 8 Hrs Date Time Temp Pulse Resp B/P Pulse Ox O2 Delivery O2 Flow Rate FiO2 08/23/16 16:04 36.9 54 18 115/69 98 08/23/16 16:02 Room Air 08/23/16 12:36 36.7 81 18 117/66 94 Room Air 08/23/16 12:32 Room Air 2.0 08/23/16 12:08 77 20 146/63 98 Room Air 08/23/16 11:57 79 20 118/52 97 Room Air 08/23/16 11:50 77 18 159/72 95 Room Air 08/23/16 11:31 77 18 110/56 96 Room Air 08/23/16 10:16 65 16 96 Room Air 08/23/16 09:58 36.0 68 18 147/68 100 Room Air Physical Exam: General- oriented x 3, not in distress, speaks in sentences with no effort Neck- supple, no JVD Lungs- clear breath sounds bilaterally, no rales/wheezes Heart-normal rate, regular rhythm; no murmurs Abdomen- normal bowel sounds, non distended, soft, nontender Extremities- no pretibial edema, no calf tenderness Neuro- alert, oriented x 3; no gross focal deficits Skin- warm & dry Laboratory Results: Last 24 Hours Test 08/22/16 17:58 08/22/16 21:22 08/22/16 23:00 08/23/16 01:59 Bedside Glucose 122 mg/dl 92 mg/dl Hemoglobin 10.2 g/dL Hematocrit 30.0 % Sodium Level 147 mmol/L 148 mmol/L Potassium Level 5.4 mmol/L 5.2 mmol/L Chloride Level 120 mmol/L 121 mmol/L Carbon Dioxide Level 18 mmol/L 19 mmol/L Anion Gap 9.0 mmol/L 8.0 mmol/L Blood Urea Nitrogen 70 mg/dl 65 mg/dl Creatinine 2.00 mg/dl 1.90 mg/dl Est Creatinine Clear Calc Drug Dose 27.4 ml/min 28.8 ml/min Estimated GFR () 34.0 36.2 Estimated GFR (Non- 29.3 31.2 BUN/Creatinine Ratio 35.2 34.1 Random Glucose 113 mg/dl 121 mg/dl Calcium Level 8.5 mg/dl 8.2 mg/dl Test 08/23/16 05:59 08/23/16 07:04 08/23/16 17:43 Bedside Glucose 118 mg/dl White Blood Count 8.13 K/uL Red Blood Count 3.19 M/uL Hemoglobin 9.5 g/dL Hematocrit 28.2 % Mean Corpuscular Volume 88.4 fL Mean Corpuscular Hemoglobin 29.8 pg Mean Corpuscular Hemoglobin Concent 33.7 g/dl Platelet Count 146 K/uL Mean Platelet Volume 10.3 fL Neutrophils (%) (Auto) 68.3 % Lymphocytes (%) (Auto) 15.4 % Monocytes (%) (Auto) 10.2 % Eosinophils (%) (Auto) 5.0 % Basophils (%) (Auto) 0.5 % Neutrophils # (Auto) 5.55 K/uL Lymphocytes # (Auto) 1.25 K/uL Monocytes # (Auto) 0.83 K/uL Eosinophils # (Auto) 0.41 K/uL Basophils # (Auto) 0.04 K/uL RDW Standard Deviation 48.7 fL RDW Coefficient of Variation 14.9 % Immature Granulocyte % (Auto) 0.6 % Immature Granulocyte # (Auto) 0.05 K/uL Sodium Level 147 mmol/L Potassium Level 4.8 mmol/L Chloride Level 119 mmol/L Carbon Dioxide Level 20 mmol/L Anion Gap 8.0 mmol/L Blood Urea Nitrogen 59 mg/dl Creatinine 1.90 mg/dl Est Creatinine Clear Calc Drug Dose 28.8 ml/min Estimated GFR () 36.2 Estimated GFR (Non- 31.2 BUN/Creatinine Ratio 30.9 Random Glucose 115 mg/dl Calcium Level 8.5 mg/dl Assessment & Plan 86 year old male with history of Hypertension, CKD 3, BPH presenting with syncope Syncope from Orthostasis secondary to Dehydration, Symptomatic Anemia - IV fluids - management of anemia as noted below Symptomatic Anemia possible Upper GI bleed from Gastric and Duodenal Ulcers (+) intake of Indomethacin Hgb = 8.3, baseline of > 10 (+) shortness of breath and chest pain cardiac enzymes negative, no EKG changes - s/p EGD 08/23/16 continue Protonix drip full liquid diet - s/p 3 units pRBC Hg now 9.5 repeat Hg today - appreciate GI service recommendations Chest Pain, likely GI Etiology - possible demand ischemia from Anemia - 3rd set of cardiac markers negative EKG: non specific depressions in AL leads - echo noted - maintain Hg ~10 appreciate Cardio SVC input Acute Kidney Injury superimposed on CKD stage 3 creat up to 3.0 on admission (baseline around 1.7) likely related to his decreased PO intake after UTI - on D5 1/2nss with HCO3 - crea improving appreciate Nephro SVC input Hyperkalemia secondary to JESSICA as above patient also takes EFFIE-I hold lisinopril - resolved HYPERTENSION Continue beta diogenes with parameters Hold lisinopril for elevated crea DYSLIPIDEMIA hold statin DVT PROPHYLAXIS SCD's re GI bleed Disposition pending Current Inpatient Medications: Current Inpatient Medications Medications (Trade) Dose Ordered Sig/Aneesh Route Start Time Stop Time Status Last Admin Dose Admin Acetaminophen (Tylenol Tab) 650 mg Q4H PRN PO 08/21/16 17:45 09/20/16 17:44 Ondansetron HCl (Zofran Inj) 4 mg Q6H PRN IV 08/21/16 17:45 09/20/16 17:44 Nitroglycerin (Nitrostat Tab) 0.4 mg UD PRN SL 08/21/16 17:45 09/20/16 17:44 08/22/16 10:14 0.4 MG Ferrous Sulfate 325 mg 325 mg DAILY PO 08/22/16 09:00 09/21/16 08:59 Pantoprazole Sodium 40 mg/ Dextrose 100 ml @ 20 mls/hr Q5H IV 08/21/16 22:30 09/20/16 22:29 08/23/16 08:45 20 MLS/HR Sodium Bicarbonate/ Dextrose/Sodium Chloride (Sodium Bicarbonate 8.4% Inj/D5W And 1/ 2nss) 1,075 ml @ 80 mls/hr [id number] IV 08/22/16 11:30 09/21/16 11:29 08/23/16 08:45 80 MLS/HR Metoprolol Tartrate (Lopressor Tab) 25 mg BID PO 08/22/16 21:00 09/21/16 20:59 08/23/16 08:46 25 MG Sucralfate (Carafate Susp) 1 gm QID PO 08/23/16 13:00 09/22/16 12:59 08/23/16 17:09 1 GM
[2016-08-24] VITALS (7 sets, daily range): BP systolic 104–163; BP diastolic 62–77; PULSE 69–98; TEMP 36.7–37.1; O2SAT 93–97
--- NOTE | 2016-08-24 00:45 | GI REPORT ---
Procedure Date: 08/23/2016 11:02 AM Procedure: Upper GI endoscopy Indications: Melena Medicines: Monitored Anesthesia Care Complications: No immediate complications. Estimated blood loss: Minimal. Estimated Blood Loss: Estimated blood loss was minimal. Procedure: Pre-Anesthesia Assessment: - Prior to the procedure, a History and Physical was performed, and patient medications, allergies and sensitivities were reviewed. The patient's tolerance of previous anesthesia was reviewed. - The risks and benefits of the procedure and the sedation options and risks were discussed with the patient. All questions were answered and informed consent was obtained. - Patient identification and proposed procedure were verified prior to the procedure by the physician, the nurse and the illuminating engineer. The procedure was verified in the procedure room. - Pre-procedure physical examination revealed no contraindications to sedation. - ASA Grade Assessment: IV - A patient with severe systemic disease that is a constant threat to life. - After reviewing the risks and benefits, the patient was deemed in satisfactory condition to undergo the procedure. - The anesthesia plan was to use monitored anesthesia care (MAC). - Immediately prior to administration of medications, the patient was re-assessed for adequacy to receive sedatives. - The heart rate, respiratory rate, oxygen saturations, blood pressure, adequacy of pulmonary ventilation, and response to care were monitored throughout the procedure. - The physical status of the patient was re-assessed after the procedure. After obtaining informed consent, the endoscope was passed under direct vision. Throughout the procedure, the patient's blood pressure, pulse, and oxygen saturations were monitored continuously. The Scope was introduced through the mouth, and advanced to the third part of duodenum. The upper GI endoscopy was accomplished without difficulty. The patient tolerated the procedure well. Findings: The examined esophagus was normal. The Z-line was regular and was found 40 cm from the incisors. Diffuse moderate inflammation characterized by congestion (edema), erythema and granularity was found in the entire examined stomach. Biopsies were taken with a cold forceps for histology. Estimated blood loss was minimal. Two non-obstructing non-bleeding cratered gastric ulcers with no stigmata of bleeding were found in the gastric antrum. The largest lesion was 15 mm in largest dimension. One non-obstructing non-bleeding cratered duodenal ulcer with no stigmata of bleeding was found in the duodenal bulb. The lesion was 10 mm in largest dimension. There is no evidence of perforation. Diffuse moderate inflammation characterized by congestion (edema), erythema and granularity was found in the second part of the duodenum. Impression: - Normal esophagus. - Z-line regular, 40 cm from the incisors. - Gastritis. Biopsied. - Non-obstructing non-bleeding gastric ulcers with no stigmata of bleeding. NSAID induced etiology. - One non-obstructing non-bleeding duodenal ulcer with no stigmata of bleeding. NSAID induced etiology. There is no evidence of perforation. - Duodenitis. Recommendation: - Discharge patient to home (ambulatory). - Full liquid diet. - Give Protonix (pantoprazole): 8 mg/hr IV by continuous infusion for 2 days then 40 mg twice daily for 6 weeks (then 1 time daily) - Repeat EGD in 8 weeks.. Joe Loja D.O. Joe Loja, 08/23/2016 11:43:44 AM This report has been signed electronically. Note Initiated On: 08/23/2016 11:02 AM I attest to the content of the Intraoperative Record and orders documented therein, exceptions below
[2016-08-24] MEDS: PANTOprazole INJ 40 MG in DEXTROSE 5% 100ML IV SCH (03:50)
--- NOTE | 2016-08-24 07:12 | Nephrology Progress Note ---
Nephrology Progress Note Date of Service: Aug 24, 2016. Subjective 86 yo male with jessica/hyperkalemia, s/p EGD and found to have non-bleeding ulcers. on protonix drip. still complaining of toe pain. pt otherwise comfortable. no chest pain overnight. no sob. Objective Date Time Temp Pulse Resp B/P Pulse Ox O2 Delivery O2 Flow Rate FiO2 08/24/16 04:17 37.1 69 18 142/63 96 08/24/16 04:00 96 Room Air 08/24/16 00:26 36.8 70 16 129/65 96 08/23/16 23:59 96 Room Air 08/23/16 20:00 96 Room Air 08/23/16 19:42 36.8 85 18 121/65 96 08/23/16 16:04 36.9 54 18 115/69 98 08/23/16 16:02 Room Air 08/23/16 12:36 36.7 81 18 117/66 94 Room Air 08/23/16 12:32 Room Air 2.0 08/23/16 12:08 77 20 146/63 98 Room Air 08/23/16 11:57 79 20 118/52 97 Room Air 08/23/16 11:50 77 18 159/72 95 Room Air 08/23/16 11:31 77 18 110/56 96 Room Air 08/23/16 10:16 65 16 96 Room Air 08/23/16 09:58 36.0 68 18 147/68 100 Room Air 08/23/16 09:01 36.8 60 18 124/57 100 Nasal Cannula 2.0 08/23/16 09:00 65 22 143/66 96 Room Air 08/23/16 08:00 36.6 62 16 101/42 100 Nasal Cannula 2.0 08/23/16 08:00 Nasal Cannula 2.0 Physical Exam: General-aaox3 Eyes-no scleral icterus ENT-mmm Neck-supple Lungs-clear Heart-2/6 systolic murmur Abdomen-bs+ s/nt/nd Extremities-no c/c/e Neuro-nonfocal Current Inpatient Medications Medications (Trade) Dose Ordered Sig/Aneesh Route Start Time Stop Time Status Last Admin Dose Admin Acetaminophen (Tylenol Tab) 650 mg Q4H PRN PO 08/21/16 17:45 09/20/16 17:44 Ondansetron HCl (Zofran Inj) 4 mg Q6H PRN IV 08/21/16 17:45 09/20/16 17:44 Nitroglycerin (Nitrostat Tab) 0.4 mg UD PRN SL 08/21/16 17:45 09/20/16 17:44 08/23/16 16:30 0.4 MG Ferrous Sulfate 325 mg 325 mg DAILY PO 08/22/16 09:00 09/21/16 08:59 Pantoprazole Sodium 40 mg/ Dextrose 100 ml @ 20 mls/hr Q5H IV 08/21/16 22:30 09/20/16 22:29 08/24/16 03:50 20 MLS/HR Sodium Bicarbonate/ Dextrose/Sodium Chloride (Sodium Bicarbonate 8.4% Inj/D5W And 1/ 2nss) 1,075 ml @ 80 mls/hr [id number] IV 08/22/16 11:30 09/21/16 11:29 08/23/16 20:40 80 MLS/HR Metoprolol Tartrate (Lopressor Tab) 25 mg BID PO 08/22/16 21:00 09/21/16 20:59 08/23/16 20:35 25 MG Sucralfate (Carafate Susp) 1 gm QID PO 08/23/16 13:00 09/22/16 12:59 08/23/16 20:34 1 GM Last 24 Hours Test 08/23/16 18:10 08/23/16 20:14 08/24/16 06:47 08/24/16 07:03 Hemoglobin 9.4 g/dL Hematocrit 28.0 % Bedside Glucose 155 mg/dl 115 mg/dl Assessment & Plan JESSICA on ckd stage 7-eri-nnzvrclx-creatinine has been improving with appropriate fluids. . baseline creatinine of 1.7 and creatinine has improved to 1.9. will stop the iv fluids with good bp and tolerating a liquid diet. s hyperkalemia-likely from jessica and improving as creatinine improves. last k below 5 which is good. metabolic acidosis-possibly from jessica and improving with bicarb fluids. calcium levels are stable. bicarb levels are up to 20 now which is good. will stop the iv fluids. hypernatremia-likely from the iv fluids. on full liquid diet and should improve with stopping the iv fluids. labs pending for this am.
[2016-08-24] MEDS: FERROUS SULFATE 325 MG TAB PO SCH (07:53)
[2016-08-24] MEDS: METOPROLOL TARTRATE 25 MG TAB PO SCH ×2 (07:53→20:56)
[2016-08-24] MEDS: SUCRALFATE 1 GM/10 ML UDC PO SCH ×4 (07:54→20:57)
[2016-08-24 08:49] LABS: BUN/CREATININE RATIO 17.7 (10-20); CALCIUM 8.4 mg/dl (8.5-10.1); CREATININE 1.6 mg/dl (0.60-1.40); POTASSIUM 3.9 mmol/L (3.5-5.1)
--- NOTE | 2016-08-24 08:49 | Gastroenterology Progress Note ---
Progress Note Date of Service: Aug 24, 2016 Subjective Pt evaluation today including: conversation w/ patient, physical exam, chart review, lab review, review of inpatient medication list Pt moved out of ICU yesterday. He feels well, this AM a bit SOB but just finished walking the hallways. Denies any CP. BM yesterday, dark stools. Hgb last night 9.4. He denies any abd pain, n/v. Tolerated [place] diet. Review of Systems Constitutional: No chills, No fever Respiratory: + shortness of breath (see above), No cough Cardiac: No chest pain Abdomen: No nausea, No pain, No vomiting Medications Current Inpatient Medications Medications (Trade) Dose Ordered Sig/Aneesh Route Start Time Stop Time Status Last Admin Dose Admin Acetaminophen (Tylenol Tab) 650 mg Q4H PRN PO 08/21/16 17:45 09/20/16 17:44 Ondansetron HCl (Zofran Inj) 4 mg Q6H PRN IV 08/21/16 17:45 09/20/16 17:44 Nitroglycerin (Nitrostat Tab) 0.4 mg UD PRN SL 08/21/16 17:45 09/20/16 17:44 08/23/16 16:30 0.4 MG Ferrous Sulfate 325 mg 325 mg DAILY PO 08/22/16 09:00 09/21/16 08:59 08/24/16 07:53 325 MG Pantoprazole Sodium/Dextrose (Protonix Inj/D5 100ml) 100 ml @ 20 mls/hr Q5H IV 08/21/16 22:30 09/20/16 22:29 08/24/16 03:50 20 MLS/HR Metoprolol Tartrate (Lopressor Tab) 25 mg BID PO 08/22/16 21:00 09/21/16 20:59 08/24/16 07:53 25 MG Sucralfate (Carafate Susp) 1 gm QID PO 08/23/16 13:00 09/22/16 12:59 08/24/16 07:54 1 GM Objective Vital Signs Date Time Temp Pulse Resp B/P Pulse Ox O2 Delivery O2 Flow Rate FiO2 08/24/16 08:17 36.8 98 16 104/64 94 08/24/16 04:17 37.1 69 18 142/63 96 08/24/16 04:00 96 Room Air 08/24/16 00:26 36.8 70 16 129/65 96 08/23/16 23:59 96 Room Air 08/23/16 20:00 96 Room Air 08/23/16 19:42 36.8 85 18 121/65 96 08/23/16 16:04 36.9 54 18 115/69 98 08/23/16 16:02 Room Air 08/23/16 12:36 36.7 81 18 117/66 94 Room Air 08/23/16 12:32 Room Air 2.0 08/23/16 12:08 77 20 146/63 98 Room Air 08/23/16 11:57 79 20 118/52 97 Room Air 08/23/16 11:50 77 18 159/72 95 Room Air 08/23/16 11:31 77 18 110/56 96 Room Air 08/23/16 10:16 65 16 96 Room Air 08/23/16 09:58 36.0 68 18 147/68 100 Room Air 08/23/16 09:01 36.8 60 18 124/57 100 Nasal Cannula 2.0 08/23/16 09:00 65 22 143/66 96 Room Air Physical Exam General Appearance: WD/WN, no apparent distress Eyes: normal inspection, PERRL, EOMI Neck: supple, no JVD, trachea midline Respiratory/Chest: no respiratory distress, no accessory muscle use, + decreased breath sounds Cardiovascular: regular rate, rhythm, no gallop, no murmur Abdomen: normal bowel sounds, non tender, soft Extremities: normal inspection, no pedal edema, no calf tenderness Neurologic/Psych: alert, normal mood/affect, oriented x 3 Skin: normal color, no jaundice, no rash Laboratory Results Last 24 Hours Test 08/23/16 18:10 08/23/16 20:14 08/24/16 06:47 08/24/16 07:40 Hemoglobin 9.4 g/dL Hematocrit 28.0 % Bedside Glucose 155 mg/dl 115 mg/dl Assessment and Plan Patient is a 86 year old male admitted w symptomatic anemia (fatigue, syncope ? related to orthostatic hypotension, substernal CP w SOB). Hgb around 8, after 2U PRBC it's hanging around 7. His baseline Hgb is 9-10. He is currently on Ferrous Sulfate 325mg daily. Stool heme positive when tested by ED physician. He did take some Indomethacin for gout prior to admission. Also he mentioned having diarrheal symptoms which just recently resolved. May have PUD or colitis w bleeding causing stool occult blood to be positive as well. EGD done on 08/23 revealed gastric and duodenal ulcers - all non bleeding and non obstructing. His Hgb stable around 9. Still dark stools but on iron supplements. - Advanced to regular, AHA, low lactose diet - DC PPI gtt; changed to Protonix 40mg BID. Continue BID dosing x 6 weeks, then decrease to once daily. - Avoid NSAIDs or ASA - Repeat EGD in 6-8 weeks to eval ulcer healing. - Monitor H/H and transfuse prn. Continue iron supplements - Will sign off; pls call if new questions or concerns arise. I saw and evaluated the patient. He reports feeling well today and tolerating a regular diet without difficulty. Please continue the proton pump inhibitor as described above. We will plan to repeat an upper endoscopy in about 6-8 weeks to assess healing of his multiple gastric and duodenal ulcers.
[2016-08-24] MEDS: PANTOprazole SOD 40 MG TAB PO SCH ×2 (09:00→20:57)
[2016-08-24 12:48] LABS: BASO % 0.3 %; BASO ABS # 0.03 K/uL (0-0.2); COMPLETE YES; EOS % 4.4 %; HEMATOCRIT 26.8 % (42-52); IG% 0.6 %; LYMPH % 14.9 %; LYMPH ABS # 1.29 K/uL (1.2-3.4); MEAN CORPUSCULAR HEMOGLOBIN 29.9 pg (25-34); MEAN CORPUSCULAR HGB CONC 33.6 g/dl (32-36); MEAN PLATELET VOLUME 10.8 fL (7.4-10.4); NEUT % 67.8 %; PLATELET COUNT 152 K/uL (130-400); RED BLOOD COUNT 3.01 M/uL (4.7-6.1); WHITE BLOOD COUNT 8.67 K/uL (4.8-10.8)
[2016-08-24] MEDS ORDERED: ACETAMINOPHEN 325 MG TAB PO ONE (13:00)
--- NOTE | 2016-08-24 13:07 | Progress Note ---
Medicine Progress Note Date & Time of Visit: Aug 24, 2016 at 12:54. Subjective sitting in chair comfortable states he feels improved denies abdominal pain, melena tolerating diet well denies chest pain, dyspnea, dizziness no other symptoms Objective Last 8 Hrs Date Time Temp Pulse Resp B/P Pulse Ox O2 Delivery O2 Flow Rate FiO2 08/24/16 12:02 Room Air 08/24/16 11:42 36.7 73 18 151/62 93 08/24/16 08: 36.8 98 16 104/64 94 08/24/16 08:02 Room Air Physical Exam: General- oriented x 3, not in distress, speaks in sentences with no effort Neck- no JVD Lungs- clear breath sounds bilaterally, no rales Heart-normal rate, regular rhythm; no murmurs Abdomen- normal bowel sounds, non distended, soft, nontender Extremities- no pretibial edema, no calf tenderness left great toe: moderate swelling and erythema, mild tenderness Neuro- alert, oriented x 3; no gross focal deficits Skin- warm & dry Laboratory Results: Last 24 Hours Test 08/23/16 18:10 08/23/16 20:14 08/24/16 06:47 08/24/16 07:40 Hemoglobin 9.4 g/dL 9.0 g/dL Hematocrit 28.0 % 26.8 % Bedside Glucose 155 mg/dl 115 mg/dl White Blood Count 8.67 K/uL Red Blood Count 3.01 M/uL Mean Corpuscular Volume 89.0 fL Mean Corpuscular Hemoglobin 29.9 pg Mean Corpuscular Hemoglobin Concent 33.6 g/dl Platelet Count 152 K/uL Mean Platelet Volume 10.8 fL Neutrophils (%) (Auto) 67.8 % Lymphocytes (%) (Auto) 14.9 % Monocytes (%) (Auto) 12.0 % Eosinophils (%) (Auto) 4.4 % Basophils (%) (Auto) 0.3 % Neutrophils # (Auto) 5.88 K/uL Lymphocytes # (Auto) 1.29 K/uL Monocytes # (Auto) 1.04 K/uL Eosinophils # (Auto) 0.38 K/uL Basophils # (Auto) 0.03 K/uL RDW Standard Deviation 49.3 fL RDW Coefficient of Variation 15.2 % Immature Granulocyte % (Auto) 0.6 % Immature Granulocyte # (Auto) 0.05 K/uL Sodium Level 145 mmol/L Potassium Level 3.9 mmol/L Chloride Level 114 mmol/L Carbon Dioxide Level 22 mmol/L Anion Gap 9.0 mmol/L Blood Urea Nitrogen 28 mg/dl Creatinine 1.60 mg/dl Est Creatinine Clear Calc Drug Dose 34.2 ml/min Estimated GFR () 44.6 Estimated GFR (Non- 38.4 BUN/Creatinine Ratio 17.7 Random Glucose 109 mg/dl Calcium Level 8.4 mg/dl Assessment & Plan 86 year old male with history of Hypertension, CKD 3, BPH presenting with syncope Syncope from Orthostasis secondary to Dehydration, Symptomatic Anemia - IV fluids given - management of anemia as noted below Symptomatic Anemia possible Upper GI bleed from Gastric and Duodenal Ulcers (+) intake of Indomethacin Hgb = 8.3, baseline of > 10 (+) shortness of breath and chest pain cardiac enzymes negative, no EKG changes - s/p EGD 08/23/16: (+) gastric and duodenal ulcer Protonix drip--> changed to Protonix BID x 6 weeks then daily full liquid diet changed to regular AHA GI recommendations noted - s/p 3 units pRBC Hg now 9.5 repeat Hg today - appreciate GI service recommendations Chest Pain, likely GI Etiology - possible demand ischemia from Anemia - 3rd set of cardiac markers negative EKG: non specific depressions in AL leads - echo noted - maintain Hg ~10 appreciate Cardio SVC input Acute Kidney Injury superimposed on CKD stage 3 creat up to 3.0 on admission (baseline around 1.7) likely related to his decreased PO intake after UTI - given D5 1/2nss with HCO3 - crea at baseline K normal - nephro svc recommendations appreciated Hyperkalemia secondary to JESSICA as above patient also takes EFFIE-I hold lisinopril - resolved Possible Acute Gout, left great toe - NSAIDs contraindicated - trial of Tylenol if no relief, [place] HYPERTENSION Continue beta diogenes with parameters - hold Lisinopril to avoid hypotension DYSLIPIDEMIA hold statin DVT PROPHYLAXIS SCD's re GI bleed ambulate Disposition possible d/c home in 1-2 days Current Inpatient Medications: Current Inpatient Medications Medications (Trade) Dose Ordered Sig/Aneesh Route Start Time Stop Time Status Last Admin Dose Admin Acetaminophen (Tylenol Tab) 650 mg Q4H PRN PO 08/21/16 17:45 09/20/16 17:44 Ondansetron HCl (Zofran Inj) 4 mg Q6H PRN IV 08/21/16 17:45 09/20/16 17:44 Nitroglycerin (Nitrostat Tab) 0.4 mg UD PRN SL 08/21/16 17:45 09/20/16 17:44 08/23/16 16:30 0.4 MG Ferrous Sulfate (Feosol Tab) 325 mg DAILY PO 08/22/16 09:00 09/21/16 08:59 08/24/16 07:53 325 MG Metoprolol Tartrate (Lopressor Tab) 25 mg BID PO 08/22/16 21:00 09/21/16 20:59 08/24/16 07:53 25 MG Sucralfate (Carafate Susp) 1 gm QID PO 08/23/16 13:00 09/22/16 12:59 08/24/16 07:54 1 GM Pantoprazole Sodium (Protonix Tab) 40 mg BID PO 08/24/16 09:00 09/23/16 08:59
--- NOTE | 2016-08-24 14:33 | Cardiology Follow-Up ---
Subjective General Date of Service: Aug 24, 2016. Pt evaluation today including: conversation w/ patient, physical exam, chart review, lab review, review of studies, review of inpatient medication list History of Present Illness The patient is a 86 year old male seen in follow up. No recurrent CP overnight. No dysrhythmia on telemetry. No melena or hematochezia. Hgb stable. Creatinine trending downward Tolerating regular diet. Allergies Coded Allergies: No Known Allergies (Verified , 08/21/16) Social History Smoking Status: Former Smoker Hx Tobacco Use In Past Year?: No Hx Alcohol Use - Type And Amou: No Hx Substance Use - Type And Am: No Problem List Medical Problems: (1) Acute renal failure Status: Acute (2) Acute renal failure (ARF) Status: Acute (3) Anemia Status: Acute (4) Orthostatic hypotension Status: Acute (5) Orthostatic syncope Status: Acute (6) Syncope Status: Acute Review of Systems Respiratory: No cough, No dyspnea at rest, No hemoptysis, No shortness of breath, No wheezing Cardiac: No PND, No chest pain, No claudication, No edema, No orthopnea, No palpitations Physical Exam Vital Signs Last Vital Signs Documentation Date Time Temp Pulse Resp B/P Pulse Ox O2 Delivery O2 Flow Rate FiO2 08/24/16 12:02 Room Air 08/24/16 11:42 36.7 73 18 151/62 93 08/23/16 12:32 2.0 Physical Exam Constitutional: General Apperance: well-developed Level of Distress: NAD Head: normocephalic, atraumatic Neck: supple, trachea midline Lungs: Auscultation: breath sounds normal, no wheezing, no rales/crackles, no rhonchi Cardiovascular: Heart Auscultation: RRR, normal S1, normal S2, III/ BAMBI Peripheral Pulses: Radial Pulse: normal on the left, normal on the right Abdomen: Bowel Sounds: normal Inspection & Palpation: soft, non-distended, no tenderness, guarding & rebound Extremities: no cyanosis, no edema, no clubbing, no ulcers Neurologic: Gait & Station: pertinent finding (No focal motor deficit) Cranial Nerves: grossly intact Assessment and Plan Assessment and Plan FINAL IMPRESSION: 1. Symptomatic anemia s/p 4u PRBC's -EGD demonstrates ulcers without active bleeding. -Hgb stable 2. Acute renal insufficiency with hyperkalemia -secondary to dehydration and NSAID intake. -creatinine and hyperkalemia improving 3. Mild to moderate aortic stenosis. 4. Transient episode of chest discomfort 08/22/16 in a.m. with associated ECG changes -related to symptomatic anemia. -no recurrence s/p transfusion -no significant troponin elevation PLAN AND RECOMMENDATIONS: Continue beta diogenes. Follow H/H. Restart lisinopril when renal function returns to baseline. Advance diet per gastroenterology. Repeat resting 2d echo in 6-12 months. Will sign off. Please call with questions. Laboratory Results Last 24 Hours Test 08/23/16 18:10 08/23/16 20:14 08/24/16 06:47 08/24/16 07:40 Hemoglobin 9.4 g/dL 9.0 g/dL Hematocrit 28.0 % 26.8 % Bedside Glucose 155 mg/dl 115 mg/dl White Blood Count 8.67 K/uL Red Blood Count 3.01 M/uL Mean Corpuscular Volume 89.0 fL Mean Corpuscular Hemoglobin 29.9 pg Mean Corpuscular Hemoglobin Concent 33.6 g/dl Platelet Count 152 K/uL Mean Platelet Volume 10.8 fL Neutrophils (%) (Auto) 67.8 % Lymphocytes (%) (Auto) 14.9 % Monocytes (%) (Auto) 12.0 % Eosinophils (%) (Auto) 4.4 % Basophils (%) (Auto) 0.3 % Neutrophils # (Auto) 5.88 K/uL Lymphocytes # (Auto) 1.29 K/uL Monocytes # (Auto) 1.04 K/uL Eosinophils # (Auto) 0.38 K/uL Basophils # (Auto) 0.03 K/uL RDW Standard Deviation 49.3 fL RDW Coefficient of Variation 15.2 % Immature Granulocyte % (Auto) 0.6 % Immature Granulocyte # (Auto) 0.05 K/uL Sodium Level 145 mmol/L Potassium Level 3.9 mmol/L Chloride Level 114 mmol/L Carbon Dioxide Level 22 mmol/L Anion Gap 9.0 mmol/L Blood Urea Nitrogen 28 mg/dl Creatinine 1.60 mg/dl Est Creatinine Clear Calc Drug Dose 34.2 ml/min Estimated GFR () 44.6 Estimated GFR (Non- 38.4 BUN/Creatinine Ratio 17.7 Random Glucose 109 mg/dl Calcium Level 8.4 mg/dl
[2016-08-25 00:12] VITALS: BP 132/79; PULSE 73; TEMP 37; O2SAT 94
[2016-08-25 04:00] VITALS: BP 142/70; PULSE 76; TEMP 36.9; O2SAT 97
[2016-08-25 06:23] LABS: BUN/CREATININE RATIO 14.7 (10-20); CALCIUM 8.3 mg/dl (8.5-10.1); CREATININE 1.6 mg/dl (0.60-1.40); POTASSIUM 3.8 mmol/L (3.5-5.1)
[2016-08-25] MEDS: FERROUS SULFATE 325 MG TAB PO SCH (07:58)
[2016-08-25] MEDS: METOPROLOL TARTRATE 25 MG TAB PO SCH (07:58)
[2016-08-25] MEDS: SUCRALFATE 1 GM/10 ML UDC PO SCH ×2 (07:59→13:09)
[2016-08-25] MEDS: PANTOprazole SOD 40 MG TAB PO SCH (07:59)
[2016-08-25 08:04] VITALS: BP 135/58; PULSE 84; TEMP 36.8; O2SAT 95
[2016-08-25 11:26] LABS: HEMATOCRIT 30.3 % (42-52)
--- NOTE | 2016-08-25 11:43 | Progress Note ---
Medicine Progress Note Date & Time of Visit: Aug 25, 2016 at 11:24. Subjective patient seen sitting up in bed, comfortable denies abdominal pain, melena, nausea denies chest pain, dyspnea, dizziness, palpitations, weakness no problems with ambulation states he is feeling back to normal denies other symptoms states he is ready and would like to be discharged today Objective Last 8 Hrs Date Time Temp Pulse Resp B/P Pulse Ox O2 Delivery O2 Flow Rate FiO2 08/25/16 08:04 36.8 84 16 135/58 95 Room Air 08/25/16 08:00 Room Air 08/25/16 04:00 Room Air 08/25/16 04:00 36.9 76 16 142/70 97 Physical Exam: General- oriented x 3, not in distress, speaks in sentences with no effort Neck- no JVD Lungs- clear breath sounds bilaterally, no rales/wheezes Heart-normal rate, regular rhythm; no murmurs Abdomen- normal bowel sounds, non distended, soft, nontender Extremities- no pretibial edema, no calf tenderness Left great toe: mild edema, and erythema, no tenderness Neuro- alert, oriented x 3; no gross focal deficits Skin- warm & dry Laboratory Results: Last 24 Hours Test 08/25/16 05:11 08/25/16 10:54 Sodium Level 143 mmol/L Potassium Level 3.8 mmol/L Chloride Level 112 mmol/L Carbon Dioxide Level 22 mmol/L Anion Gap 9.0 mmol/L Blood Urea Nitrogen 24 mg/dl Creatinine 1.60 mg/dl Est Creatinine Clear Calc Drug Dose 34.2 ml/min Estimated GFR () 44.6 Estimated GFR (Non- 38.4 BUN/Creatinine Ratio 14.7 Random Glucose 109 mg/dl Calcium Level 8.3 mg/dl Assessment & Plan 86 year old male with history of Hypertension, CKD 3, BPH presenting with syncope Syncope from Orthostasis secondary to Symptomatic Anemia, Dehydration, - management of anemia as noted below - IV fluids given Symptomatic Anemia likely Acute Blood Loss Anemia from Gastric and Duodenal Ulcers recent intake of Indomethacin Hgb = 8.3, baseline of > 10 (+) shortness of breath and chest pain cardiac enzymes negative, no EKG changes - evaluated by GI Dr. Loja - s/p EGD 08/23/16: (+) gastric and duodenal ulcer, non bleeding and non obstructing Protonix drip--> changed to Protonix BID x 6 weeks, then decrease to once daily. full liquid diet changed to regular AHA, low lactose--> tolerated Avoid NSAIDs or ASA Repeat EGD in 6-8 weeks to eval ulcer healing. - s/p 3 units pRBC Hg stable around 9 Chest Pain, likely GI Etiology - possible demand ischemia from Anemia as well - cardiac markers negative EKG: non specific depressions in AL leads echo: * -- Conclusions -- * Ejection Fraction = >70 %. * There is mild asymmetric left ventricular hypertrophy. * The basal septum is thickened and angulated consistent with sigmoid septum. * The aortic valve is moderately calcified. * Mild to moderate aortic stenosis. * There is mild mitral regurgitation. * Mildly dilated ascending aorta. - evaluated by [employer] Dr. Paz Atenolol changed to Metoprolol 25mg BID resting echo in 6-12 months Acute Kidney Injury superimposed on CKD stage 3 likely related to his decreased PO intake after UTI creat up to 3.0 on admission (baseline around 1.7), with metabolic acidosis - Manager [employer] Dr. Romero consulted - given D5 1/2nss with HCO3 - crea improved at baseline K normal - monitor PRP as outpatient Hyperkalemia secondary to JESSICA as above patient also takes EFFIE-I - resolved monitor as outpatient Possible Acute Gout, left great toe - NSAIDs , Prednisone contraindicated due to gastric ulcers - given Tylenolo, pain and clinical exam improved - monitor as outpatient HYPERTENSION - Atenolol changed to Metoprolol 25mg BID by Cardio - decrease Lisinopril from 5 to 2.5mg to avoid hypotension DYSLIPIDEMIA resume Statin Disposition d/c home ff up with PCP in 1 week Repeat EGD in 6-8 weeks Repeat Echo in 6-12 months Current Inpatient Medications: Current Inpatient Medications Medications (Trade) Dose Ordered Sig/Aneehs Route Start Time Stop Time Status Last Admin Dose Admin Acetaminophen (Tylenol Tab) 650 mg Q4H PRN PO 08/21/16 17:45 09/20/16 17:44 Ondansetron HCl (Zofran Inj) 4 mg Q6H PRN IV 08/21/16 17:45 09/20/16 17:44 Nitroglycerin (Nitrostat Tab) 0.4 mg UD PRN SL 08/21/16 17:45 09/20/16 17:44 08/23/16 16:30 0.4 MG Ferrous Sulfate (Feosol Tab) 325 mg DAILY PO 08/22/16 09:00 09/21/16 08:59 08/25/16 07:58 325 MG Metoprolol Tartrate (Lopressor Tab) 25 mg BID PO 08/22/16 21:00 09/21/16 20:59 08/25/16 07:58 25 MG Sucralfate (Carafate Susp) 1 gm QID PO 08/23/16 13:00 09/22/16 12:59 08/25/16 07:59 1 GM Pantoprazole Sodium (Protonix Tab) 40 mg BID PO 08/24/16 09:00 09/23/16 08:59 08/25/16 07:59 40 MG
[2016-08-25] MEDS ORDERED: LPR25 PO (11:47)
[2016-08-25] MEDS ORDERED: TYL325X PO (11:47)
[2016-08-25] MEDS ORDERED: PRT40 PO (11:47)
[2016-08-25] MEDS ORDERED: LISI2.5T5 PO (11:47)
--- NOTE | 2016-08-25 11:57 | Discharge Instructions ---
Discharge Instructions Admission Reason for Admission: Gi Bleed Discharge Discharge Diagnosis / Problem: ANEMIA, GASTROINTESTINAL BLEED FROM STOMACH AND DUODENAL ULCERS Discharge Goals Goal(s): Diagnostic testing, Therapeutic intervention Activity Recommendations Activity Limitations: as noted below (NO HEAVY EXERTION UNTIL RE-EVALUATED BY PRIMARY CARE PHYSICIAN) . Instructions / Follow-Up Instructions / Follow-Up MAY TAKE ACETAMINOPHEN FOR PAIN. DO NOT TAKE NSAIDS (EXAMPLE: ASPIRIN, IBUPROFEN, NAPROXEN, INDOMETHACIN). CALL PRIMARY CARE PHYSICIAN FIRST BEFORE STARTING ANY NEW MEDICATION. PLEASE REVIEW YOUR NEW MEDICATION LIST AND FOLLOW INSTRUCTIONS CAREFULLY. NO ACIDIC/SPICY FOODS, CARBONATED/ALCOHOLIC DRINKS. CALL YOUR PRIMARY CARE PHYSICIAN IMMEDIATELY IF WITH RECURRENCE OF SYMPTOMS, BLOOD IN THE STOOLS, INCREASING ABDOMINAL PAIN, INCREASING LEFT TOE PAIN, FEVER/CHILLS, NAUSEA, DIARRHEA., WEAKNESS, DIZZINESS. FOLLOW UP WITH DR. SNOW (ASSOCIATE OF DR. LIAO) ON TUESDAY AUGUST 30, 2016 AT 12:50PM. Current Hospital Diet Patient's current hospital diet: AHA Diet (Heart Healthy), Regular Diet, Low Lactose Diet Discharge Diet Recommended Diet: AHA Diet (Heart Healthy), Low Lactose Diet Procedures Procedures Performed: EGD, BLOOD TRANSFUSION Pending Studies Studies pending at discharge: yes List of pending studies: REPEAT EGD (ENDOSCOPY) IN 6-8 WEEKS, REPEAT ECHO IN 6-12 MONTHS Medical Emergencies . Who to Call and When: Medical Emergencies: If at any time you feel your situation is an emergency, please call 911 immediately. . Non-Emergent Contact Non-Emergency issues call your: Primary Care Provider Call Non-Emergent contact if: you have a fever, your pain is not controlled, you have any medication questions . Past History Medical & Surgical History: (1) Syncope and collapse (2) GI bleed (3) Anemia (4) Syncope (5) Acute renal failure (ARF) (6) Hypertension (7) Acute kidney injury (8) Dehydration (9) CKD (chronic kidney disease), stage III (10) Orthostatic hypotension (11) Aortic stenosis (12) Dyslipidemia (13) History of bladder carcinoma (14) BPH (benign prostatic hyperplasia) (15) History of DVT (deep vein thrombosis) (16) Abdominal aortic aneurysm . "Provider Documentation" section prepared by Juan Carlos Terrazas. VTE Core Measure Inpt VTE Proph given/why not?: SCD's, Contraindicated
--- NOTE | 2016-08-25 12:06 | Discharge Summary ---
Discharge Summary Date of Service Aug 25, 2016. Discharge Summary Admission Date: Aug 21, 2016 at 16:58 Discharge Date: Aug 25, 2016 Discharge Disposition: Home with services Principal Diagnosis: Syncope from Orthostasis secondary to Symptomatic Anemia, Dehydration Secondary Diagnoses/Problems: Symptomatic Anemia secondary to Acute Blood Loss Anemia from Gastric and Duodenal Ulcers Chest Pain, GI Etiology vs. Demand Ischemia Mild to Moderate Aortic Stenosis Acute Kidney Injury on CKD stage 3 Hyperkalemia Procedures: s/p EGD 08/23/16; s/p 3 units pRBC transfusion EGD: Procedure Date: 08/23/2016 11:02 AM Procedure: Upper GI endoscopy Indications: Melena Medicines: Monitored Anesthesia Care Complications: No immediate complications. Estimated blood loss: Minimal. Estimated Blood Loss: Estimated blood loss was minimal. Procedure: Pre-Anesthesia Assessment: - Prior to the procedure, a History and Physical was performed, and patient medications, allergies and sensitivities were reviewed. The patient's tolerance of previous anesthesia was reviewed. - The risks and benefits of the procedure and the sedation options and risks were discussed with the patient. All questions were answered and informed consent was obtained. - Patient identification and proposed procedure were verified prior to the procedure by the physician, the nurse and the telegraph and teletype operator. The procedure was verified in the procedure room. - Pre-procedure physical examination revealed no contraindications to sedation. - ASA Grade Assessment: IV - A patient with severe systemic disease that is a constant threat to life. - After reviewing the risks and benefits, the patient was deemed in satisfactory condition to undergo the procedure. - The anesthesia plan was to use monitored anesthesia care (MAC). - Immediately prior to administration of medications, the patient was re-assessed for adequacy to receive sedatives. - The heart rate, respiratory rate, oxygen saturations, blood pressure, adequacy of pulmonary ventilation, and response to care were monitored throughout the procedure. - The physical status of the patient was re-assessed after the procedure. After obtaining informed consent, the endoscope was passed under direct vision. Throughout the procedure, the patient's blood pressure, pulse, and oxygen saturations were monitored continuously. The Scope was introduced through the mouth, and advanced to the third part of duodenum. The upper GI endoscopy was accomplished without difficulty. The patient tolerated the procedure well. Findings: The examined esophagus was normal. The Z-line was regular and was found 40 cm from the incisors. Diffuse moderate inflammation characterized by congestion (edema), erythema and granularity was found in the entire examined stomach. Biopsies were taken with a cold forceps for histology. Estimated blood loss was minimal. Two non-obstructing non-bleeding cratered gastric ulcers with no stigmata of bleeding were found in the gastric antrum. The largest lesion was 15 mm in largest dimension. One non-obstructing non-bleeding cratered duodenal ulcer with no stigmata of bleeding was found in the duodenal bulb. The lesion was 10 mm in largest dimension. There is no evidence of perforation. Diffuse moderate inflammation characterized by congestion (edema), erythema and granularity was found in the second part of the duodenum. Impression: - Normal esophagus. - Z-line regular, 40 cm from the incisors. - Gastritis. Biopsied. - Non-obstructing non-bleeding gastric ulcers with no stigmata of bleeding. NSAID induced etiology. - One non-obstructing non-bleeding duodenal ulcer with no stigmata of bleeding. NSAID induced etiology. There is no evidence of perforation. - Duodenitis. Recommendation: - Discharge patient to home (ambulatory). - Full liquid diet. - Give Protonix (pantoprazole): 8 mg/hr IV by continuous infusion for 2 days then 40 mg twice daily for 6 weeks (then 1 time daily) - Repeat EGD in 8 weeks.. Joe Loja D.O. Joe Loja, 08/23/2016 11:43:44 AM This report has been signed electronically. Note Initiated On: 08/23/2016 11:02 AM I attest to the content of the Intraoperative Record and orders documented therein, exceptions below Stomach Biopsy: STOMACH BIOPSY FOR H. PYLORI The specimen is received in a container labeled as bx stomach with patient name James Waters The specimen consists of two irregular fragments of pink soft tissue which measure 0.4 and 0.5 cm in greatest dimension. The specimen is entirely submitted in a single cassette for levels. SH/pi FINAL DIAGNOSIS STOMACH, BIOPSIES: 1. MILD CHRONIC GASTRITIS. 2. NEGATIVE FOR ACUTE INFLAMMATION, INTESTINAL METAPLASIA, DYSPLASIA AND CARCINOMA. 3. H.PYLORI IMMUNOPROXIDASE STAIN NEGATIVE. Consultations: Gastroenterology Dr. Loja, Utility Worker Driver Dr. Paz, Newspaper Journalist Dr. Romero Pending Studies/Follow-Up: Repeat CBC and PRP; Repeat EGD in 6-8 weeks; Repeat Echo in 6-12 months; Please refer to hospital course below further details. Medication changes: Atenolol changed to Metoprolol 25mg BID Lisinopril decreased to 2.5mg daily Protonix BID Medication Reconciliation New Medications: Lisinopril (Lisinopril) 2.5 Mg Tab 1 TAB PO DAILY for 30 Days, #30 TAB 2 Refills Acetaminophen (Tylenol) 325 Mg Tab 650 MG PO Q4H PRN for Pain or Fever, #30 TAB 2 Refills do not take more than 3,000mg per day Metoprolol Tartrate (Lopressor) 25 Mg Tab 25 MG PO BID for 30 Days, #60 TAB 2 Refills Pantoprazole (Pantoprazole Sodium) 40 Mg Tab 40 MG PO BID for 30 Days, #60 TAB 2 Refills take bid for 6 weeks then daily; take 30 minutes before breakfast and supper Continued Medications: Ferrous Sulfate (Kp Ferrous Sulfate) 325 Mg Tab 325 MG PO QAM for 30 Days, #30 TAB 3 Refills Lovastatin (Mevacor) 20 Mg Tab 20 MG PO QPM, TAB Discontinued Medications: Atenolol (Tenormin) 50 Mg Tab 50 MG PO QAM, TAB Lisinopril (Zestril) 5 Mg Tab 5 MG PO DAILY, TAB [Indomethacin] () 1 TAB PO TID PRN for GOUT Admission Information HPI (per Admitting provider): This is an 86 year old male with PMH of HTN, mild per echo 01/2016, AAA s/p repair, HL, CKD stage III, h/o DVT not on anticoagulation, who presents to the ED for generalized weakness and syncope. Patient was recently treated for UTI approx 2 weeks ago with Cipro then Bactrim. Dysuria and frequency resolved but still having some incontinence. He states 10 days ago he developed nausea, spasms in the abdomen, reflux, poor PO intake, diarrhea, chills. He had no diarrhea yesterday after taking OTC anti-diarrheal med but had 1 formed and 1 liquid stool today around noon. He did not notice hematochezia or melena, but has not been visualizing his stools. No fevers. Starting 3-4 days ago has felt "dehydrated", generally weak, dizziness, fatigue. He reports eating normally today. He reports a syncopal episode which occurred today. He stood up from a seated position today and felt generally weak so leaned against the wall, then the next thing he remembers is awakening as his his head hit the floor. He denies CHESTER. During my exam patient developed dull substernal chest pain rated 2-3 /10, nonradiating, with associated SOB. He was saturating 99% on RA with no respiratory distress. EKG showed no evidence for acute ischemia. No known hx of CAD. Patient has been admitted to [facility] previously for syncope likely secondary to orthostatic hypotension. 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 Pt believes that was his last colo. He is unsure where it was done. He believes he also had a polyp removed. Pt has not had EGD in the past. Patient admits to taking approximately 6 tabs of indomethacin over past 3 days which resolved the gout affecting his toe. No other recent NSAIDs. Pt was found to have heme positive melanotic stool on ER provider's exam. He will be admitted for further evaluation and tx. Physical Exam (per Admitting): General Appearance: WD/WN, + pertinent finding (alert elderly male, initially NAD then developed chest discomfort) Head: normocephalic, atraumatic Eyes: normal inspection, PERRL, EOMI ENT: hearing grossly normal, pharynx normal, + pertinent finding (dry mucous membranes) Neck: supple, trachea midline Respiratory/Chest: chest non-tender, lungs clear, normal breath sounds Cardiovascular: regular rate, rhythm, normal peripheral pulses, + systolic murmur Abdomen/GI: normal bowel sounds, non tender, soft Extremities/Musculoskelatal: no calf tenderness, no pedal edema Neurologic/Psych: alert, normal mood/affect, oriented x 3, + pertinent finding (grossly nonfocal) Skin: warm/dry, + pertinent finding (pale) Hospital Course 86 year old male with history of Hypertension, CKD 3, BPH presenting with syncope Syncope from Orthostasis secondary to Symptomatic Anemia, Dehydration - management of anemia as noted below - IV fluids given Symptomatic Anemia likely Acute Blood Loss Anemia from Gastric and Duodenal Ulcers recent intake of Indomethacin Hgb = 8.3, baseline of > 10 (+) shortness of breath and chest pain cardiac enzymes negative, no EKG changes - evaluated by GI Dr. Loja - s/p EGD 08/23/16: (+) gastric and duodenal ulcer, non bleeding and non obstructing Protonix drip--> changed to Protonix BID x 6 weeks, then decrease to once daily. full liquid diet changed to regular AHA, low lactose--> tolerated Avoid NSAIDs or ASA Repeat EGD in 6-8 weeks to eval ulcer healing. - s/p 3 units pRBC Hg stable around 9 Chest Pain, likely GI Etiology vs. Demand Ischemia Mild to Moderate Aortic Stenosis - possible demand ischemia from Symptomatic Anemia - cardiac markers negative EKG: non specific depressions in AL leads echo: * -- Conclusions -- * Ejection Fraction = >70 %. * There is mild asymmetric left ventricular hypertrophy. * The basal septum is thickened and angulated consistent with sigmoid septum. * The aortic valve is moderately calcified. * Mild to moderate aortic stenosis. * There is mild mitral regurgitation. * Mildly dilated ascending aorta. - evaluated by Utility Worker Driver Dr. Paz Atenolol changed to Metoprolol 25mg BID resting echo in 6-12 months Acute Kidney Injury superimposed on CKD stage 3 likely related to his decreased PO intake creat up to 3.0 on admission (baseline around 1.7), with metabolic acidosis - Newspaper Journalist Dr. Romero consulted - given D5 1/2nss with HCO3 - crea and acidosis improved at baseline K normal - monitor PRP as outpatient Hyperkalemia secondary to JESSICA as above patient also takes EFFIE-I - resolved monitor as outpatient Possible Acute Gout, left great toe - NSAIDs , Prednisone contraindicated due to gastric and duodenal ulcers - given Tylenol, pain and clinical exam improved - monitor as outpatient HYPERTENSION - Atenolol changed to Metoprolol 25mg BID by Cardio - BP on the low side, decrease Lisinopril from 5 to 2.5mg to avoid hypotension DYSLIPIDEMIA resume Statin Disposition d/c home ff up with PCP in 1 week Repeat EGD in 6-8 weeks Repeat Echo in 6-12 months Total time spent on discharge = 50 minutes This includes examination of the patient, discharge planning, medication reconciliation, and communication with other providers. Discharge Instructions Discharge Instructions Admission Reason for Admission: Gi Bleed Discharge Discharge Diagnosis / Problem: ANEMIA, GASTROINTESTINAL BLEED FROM STOMACH AND DUODENAL ULCERS Discharge Goals Goal(s): Diagnostic testing, Therapeutic intervention Activity Recommendations Activity Limitations: as noted below (NO HEAVY EXERTION UNTIL RE-EVALUATED BY PRIMARY CARE PHYSICIAN) . Instructions / Follow-Up Instructions / Follow-Up MAY TAKE ACETAMINOPHEN FOR PAIN. DO NOT TAKE NSAIDS (EXAMPLE: ASPIRIN, IBUPROFEN, NAPROXEN, INDOMETHACIN). CALL PRIMARY CARE PHYSICIAN FIRST BEFORE STARTING ANY NEW MEDICATION. PLEASE REVIEW YOUR NEW MEDICATION LIST AND FOLLOW INSTRUCTIONS CAREFULLY. NO ACIDIC/SPICY FOODS, CARBONATED/ALCOHOLIC DRINKS. CALL YOUR PRIMARY CARE PHYSICIAN IMMEDIATELY IF WITH RECURRENCE OF SYMPTOMS, BLOOD IN THE STOOLS, INCREASING ABDOMINAL PAIN, INCREASING LEFT TOE PAIN, FEVER/CHILLS, NAUSEA, DIARRHEA., WEAKNESS, DIZZINESS. FOLLOW UP WITH DR. SNOW (ASSOCIATE OF DR. LIAO) ON TUESDAY AUGUST 30, 2016 AT 12:50PM. Current Hospital Diet Patient's current hospital diet: AHA Diet (Heart Healthy), Regular Diet, Low Lactose Diet Discharge Diet Recommended Diet: AHA Diet (Heart Healthy), Low Lactose Diet Procedures Procedures Performed: EGD, BLOOD TRANSFUSION Pending Studies Studies pending at discharge: yes List of pending studies: REPEAT EGD (ENDOSCOPY) IN 6-8 WEEKS, REPEAT ECHO IN 6-12 MONTHS Medical Emergencies . Who to Call and When: Medical Emergencies: If at any time you feel your situation is an emergency, please call 911 immediately. . Non-Emergent Contact Non-Emergency issues call your: Primary Care Provider Call Non-Emergent contact if: you have a fever, your pain is not controlled, you have any medication questions . Past History Medical & Surgical History: (1) Syncope and collapse (2) GI bleed (3) Anemia (4) Syncope (5) Acute renal failure (ARF) (6) Hypertension (7) Acute kidney injury (8) Dehydration (9) CKD (chronic kidney disease), stage III (10) Orthostatic hypotension (11) Aortic stenosis (12) Dyslipidemia (13) History of bladder carcinoma (14) BPH (benign prostatic hyperplasia) (15) History of DVT (deep vein thrombosis) (16) Abdominal aortic aneurysm . "Provider Documentation" section prepared by Juan Carlos Terrazas. VTE Core Measure Inpt VTE Proph given/why not?: SCD's, Contraindicated
[2016-08-25 12:35] VITALS: BP 126/61; PULSE 79; TEMP 36.5; O2SAT 96
[2016-08-25 13:12] VITALS: BP 126/61; PULSE 79; TEMP 36.5; O2SAT 96
[2016-10-18] MEDS ORDERED: CMD25 PO (12:45)
[2016-10-18] MEDS ORDERED: WARF5TAB90 PO (12:45)
[2016-10-18] MEDS ORDERED: ENOX60IN SQ (12:45)
== END 2016-08-25 14:10 | disposition home health service (06) | DRG 384 ==
LOC: ENRESERVDT → ENRESERVTM → EDBD 14:47 → C.EDB 14:48 → C.MED 16:58 → C.MSICU 08-22 09:39 → C.2T 08-23 14:34
PROVIDERS: ADMIT Family Medicine; ATTEND Internal Medicine
PROC: 0DB68ZX Excision of Stomach, Via Natural or Artificial Opening Endoscopic, Diagnostic (ICD-10-PCS; principal; 2016-08-23 09:46)
DX: K25.9 Gastric ulcer, unspecified as acute or chronic, without hemorrhage or perforation (principal); D62 Acute posthemorrhagic anemia; N17.9 Acute kidney failure, unspecified; E87.2 Acidosis; I24.8 Other forms of acute ischemic heart disease; E87.0 Hyperosmolality and hypernatremia; K26.9 Duodenal ulcer, unspecified as acute or chronic, without hemorrhage or perforation; N18.3 Chronic kidney disease, stage 3 (moderate); E78.5 Hyperlipidemia, unspecified; I95.1 Orthostatic hypotension; M10.9 Gout, unspecified; I12.9 Hypertensive chronic kidney disease with stage 1 through stage 4 chronic kidney disease, or unspecified chronic kidney disease; E86.0 Dehydration; E87.5 Hyperkalemia; N40.0 Benign prostatic hyperplasia without lower urinary tract symptoms; Z66 Do not resuscitate; Z79.899 Other long term (current) drug therapy; Z86.718 Personal history of other venous thrombosis and embolism; Z87.891 Personal history of nicotine dependence

== ENCOUNTER 2016-10-15 16:50 | Inpatient (IN) | payer OTHER ==
[~2016-10-15] VITALS: Ht 177.8 cm; Wt 74.9 kg
[~2016-10-15 16:50] MED LIST changes: -ATEN-173 PO; +FERR1TAB13 PO; -LISI-729 PO; +LISI2.5T5 PO; +LPR25 PO; +PRT40 PO; +TYL325X PO
[2016-10-15] MEDS ORDERED: SODIUM CHLORIDE 0.9% 1000ML 1,000 ML IV STA (16:59)
--- NOTE | 2016-10-15 17:14 | EMERGENCY ROOM VISIT NOTE ---
History Report prepared by Nicolás: Bhavin Kaba Under the Supervision of: Dr. Anthony Reyes M.D. First contact with patient: 16:54 Stated Complaint: LEG SWELLING History of Present Illness The patient is an 86 year old male who presents to the Emergency Room with complaints of constant leg swelling noticed prior to arrival. The patient states that he was at his doctor, and they noticed some leg swelling so they told him to come to the ED for evaluation. The patient denies any leg pain, shortness of breath, chest pain, and loss of consciousness. The patient states that he is unsure how long the leg has been swollen, and his doctor noticed it on a routine visit. The patient states that he was here recently for bleeding and anemia. Source of History: patient Onset: prior to arrival Position: leg Quality: other (swelling) Timing: constant Associated Symptoms: No LOC, No SOB, No chest pain Review of Systems See HPI for pertinent positives & negatives. A total of 10 systems reviewed and were otherwise negative. Past Medical & Surgical Medical Problems: (1) Abdominal aortic aneurysm (2) Abnormal chest xray (3) Aortic stenosis (4) BPH (benign prostatic hyperplasia) (5) CKD (chronic kidney disease), stage III (6) Dyslipidemia (7) History of bladder carcinoma (8) History of DVT (deep vein thrombosis) (9) Hypertension Surgical Problems: (1) Status post AAA (abdominal aortic aneurysm) repair (2) Status post inguinal hernia repair (3) Status post tonsillectomy (4) Status post transurethral resection of prostate Family History FH: CAD (coronary artery disease) FATHER FH: cancer MOTHER Hypertension FATHER Social History Smoking Status: Former Smoker Drug Use: none Marital Status: single Housing Status: lives alone Occupation Status: retired Current/Historical Medications Scheduled Ferrous Sulfate (Kp Ferrous Sulfate), 325 MG PO QAM Lisinopril (Lisinopril), 1 TAB PO DAILY Lovastatin (Mevacor), 20 MG PO QPM Methylcellulose (Laxative) (Eq Fiber Therapy), 1,000 MG PO DAILY Metoprolol Tartrate (Lopressor), 25 MG PO BID Pantoprazole (Protonix), 40 MG PO QAM Scheduled PRN Acetaminophen (Tylenol), 650 MG PO Q4H PRN for Pain or Fever Allergies Coded Allergies: Indomethacin (Verified Adverse Reaction, Unknown, BLEEDING, 10/15/16) Lactose Intolerance (GI) (Verified Adverse Reaction, Unknown, GI SYMPTOMS , 10/15/16) Physical Exam Vital Signs Date Time Temp Pulse Resp B/P Pulse Ox O2 Delivery O2 Flow Rate FiO2 10/15/16 17:16 59 10/15/16 17:04 37.1 60 16 186/79 98 Room Air Physical Exam GENERAL: Patient is well appearing and in no acute distress. HEENT: No acute trauma, normocephalic atraumatic, mucous membranes moist, no nasal congestion, no scleral icterus. NECK: No stridor, no adenopathy, no meningismus, trachea is midline. LUNGS: No dyspnea. Clear to auscultation and equal bilaterally. No wheeze, no rhonchi. HEART: Regular rate and rhythm. No murmurs, rubs, gallops appreciated. ABDOMEN: Soft, nontender, bowel sounds positive, no masses appreciated, no peritonitis. BACK: No midline tenderness, no CVA tenderness EXTREMITIES: 2+ edema in the left leg. Normal motion all extremities, no cyanosis. NEUROLOGIC: Alert and oriented, no acute motor or sensory deficits, no focal weakness, cranial nerves grossly intact. SKIN: No rash, no jaundice, no diaphoresis. Medical Decision & Procedures Laboratory Results 10/15/16 17:10 Red Blood Count 3.54, Mean Corpuscular Volume 92.1, Mean Corpuscular Hemoglobin 29.7, Mean Corpuscular Hemoglobin Concent 32.2, Mean Platelet Volume 11.1, Neutrophils (%) (Auto) 64.7, Lymphocytes (%) (Auto) 19.7, Monocytes (%) (Auto) 12.8, Eosinophils (%) (Auto) 2.2, Basophils (%) (Auto) 0.3, Neutrophils # (Auto ) 4.09, Lymphocytes # (Auto) 1.25, Monocytes # (Auto) 0.81, Eosinophils # (Auto ) 0.14, Basophils # (Auto) 0.02 10/15/16 17:10 Test 10/15/16 17:10 White Blood Count 6.33 K/uL (4.8-10.8) Red Blood Count 3.54 M/uL (4.7-6.1) Hemoglobin 10.5 g/dL (14.0-18.0) Hematocrit 32.6 % (42-52) Mean Corpuscular Volume 92.1 fL (80-100) Mean Corpuscular Hemoglobin 29.7 pg (25-34) Mean Corpuscular Hemoglobin Concent 32.2 g/dl (32-36) Platelet Count 163 K/uL (130-400) Mean Platelet Volume 11.1 fL (7.4-10.4) Neutrophils (%) (Auto) 64.7 % Lymphocytes (%) (Auto) 19.7 % Monocytes (%) (Auto) 12.8 % Eosinophils (%) (Auto) 2.2 % Basophils (%) (Auto) 0.3 % Neutrophils # (Auto) 4.09 K/uL (1.4-6.5) Lymphocytes # (Auto) 1.25 K/uL (1.2-3.4) Monocytes # (Auto) 0.81 K/uL (0.11-0.59) Eosinophils # (Auto) 0.14 K/uL (0-0.5) Basophils # (Auto) 0.02 K/uL (0-0.2) RDW Standard Deviation 45.3 fL (36.4-46.3) RDW Coefficient of Variation 13.5 % (11.5-14.5) Immature Granulocyte % (Auto) 0.3 % Immature Granulocyte # (Auto) 0.02 K/uL (0.00-0.02) Prothrombin Time 11.7 SECONDS (9.0-12.0) Prothromb Time International Ratio 1.1 (0.9-1.1) Activated Partial Thromboplast Time 26.2 SECONDS (21.0-31.0) Partial Thromboplastin Ratio 1.0 Anion Gap 4.0 mmol/L (3-11) Est Creatinine Clear Calc Drug Dose 27.4 ml/min Estimated GFR () 34.0 Estimated GFR (Non- 29.3 BUN/Creatinine Ratio 18.4 (10-20) Calcium Level 9.2 mg/dl (8.5-10.1) Laboratory results as reviewed by me. Medications Administered Medications (Trade) Dose Ordered Sig/Aneesh Route Start Time Stop Time Status Last Admin Dose Admin Sodium Chloride (Nss 1000ml) 1,000 ml @ 75 mls/hr [id number] STAT IV 10/15/16 16:59 10/15/16 20:15 DC 10/15/16 17:17 75 MLS/HR ED Course 1654: The patient was evaluated in room C11. A complete history and physical exam was performed. 165: Sodium Chloride 1000 ml @ 75 mls/hr IV 173: I discussed the patient's case with Balbina Valencia PA-C. She is going to evaluate the patient for further treatment Medical Decision Differential: DVT, CHF, Arterial Occlusion, Infectious, Joint Effusion, Trauma, Lymphedema, Idiopathic, Trauma, amongst other pathologies entertained. 86 yr old male arrived to outpatient home school coordinator appointment and noted to have unilateral left leg swelling which US confirmed was extensive DVT extending in to fem vein. No shob, cp, syncope. Vitals OK. Recent GI bleed requiring PRBCs thus will defer anticoagulation course to hospitalists. Stable and feeling well. Minor bump in Cr noted on labs but otherwise not anemic nor acute change from recent hospitalization. Consults Time Called: 172 Consulting Physician: Balbina Valencia PA-C Returned Call: [phone] I discussed the patient's case with Balbina Valencia PA-C. She is going to evaluate the patient for further treatment Impression Primary Impression: Left leg DVT Additional Impression: Renal insufficiency Scribe Attestation The scribe's documentation has been prepared under my direction and personally reviewed by me in its entirety. I confirm that the note above accurately reflects all work, treatment, procedures, and medical decision making performed by me. Departure Information Dispostion Being Evaluated By Hospitalist Referrals Leonard Oshea M.D. (PCP) Problem Qualifiers Primary Impression: Left leg DVT Affected thrombotic vein of extremity: femoral Chronicity: acute Qualified Codes: I82.412 - Acute embolism and thrombosis of left femoral vein
[2016-10-15 17:40] LABS: BASO % 0.3 %; BASO ABS # 0.02 K/uL (0-0.2); COMPLETE YES; EOS % 2.2 %; HEMATOCRIT 32.6 % (42-52); IG% 0.3 %; LYMPH % 19.7 %; LYMPH ABS # 1.25 K/uL (1.2-3.4); MEAN CELL VOLUME 92.1 fL (80-100); MEAN CORPUSCULAR HEMOGLOBIN 29.7 pg (25-34); MEAN CORPUSCULAR HGB CONC 32.2 g/dl (32-36); MEAN PLATELET VOLUME 11.1 fL (7.4-10.4); MONO % 12.8 %; NEUT % 64.7 %; PLATELET COUNT 163 K/uL (130-400); RED BLOOD COUNT 3.54 M/uL (4.7-6.1); WHITE BLOOD COUNT 6.33 K/uL (4.8-10.8)
[2016-10-15 17:50] LABS: INR 1.1 (0.9-1.1); PROTHROMBIN TIME (PATIENT) 11.7 SECONDS (9.0-12.0)
[2016-10-15 18:15] LABS: BUN/CREATININE RATIO 18.4 (10-20); CALCIUM 9.2 mg/dl (8.5-10.1); POTASSIUM 4.9 mmol/L (3.5-5.1)
[2016-10-15] MEDS ORDERED: PSYL1CAP4 PO (18:23)
[2016-10-15] MEDS ORDERED: PANT40TA PO (18:23)
[2016-10-15] MEDS ORDERED: [UNRECOGNIZED DRUG - CODE] PO (18:45)
[2016-10-15] MEDS ORDERED: HEPARIN 25000 UNIT/500 ML D5W ONE (18:54)
--- NOTE | 2016-10-15 19:10 | History and Physical ---
History & Physical Date & Time of Service: Oct 15, 2016 at 18:29 Chief Complaint: Left Leg Swelling Primary Care Physician: Leonard Oshea M.D. History of Present Illness 86 year old male who presents to the ER by referral of Dr. Tadeo Paz for LLE DVT. Patient was recently admitted to [facility] 08/21 - 08/25 for syncope due to symptomatic anemia from upper GI bleed. Patient underwent EGD and was found to have non-bleeding gastric and duodenal ulcers. He required 3 units PRBCs. Patient was discharged on Protontix BID x 6 weeks and then daily. Patient reports he has been feeling well since his discharge. No lightheadedness, dizziness, or syncopal events. He reports his stools are dark however chronic due to iron replacement. He denies BRBPR. No abdominal pain, nausea, vomiting, or diarrhea. He denies chest pain and shortness of breath. He denies fever and chills. No urinary symptoms. Patient reports his left leg has been feeling "tight" for the past several weeks. He reports he did not really notice the swelling. He reports the leg is non painful. Patient had an outpatient US that showed an acute DVT in the left femoral and left popliteal veins. In the ER, patient is hemodynamically stable. Hgb is 10.5 (was 10.1 on 08/25). Past Medical/Surgical History Medical Problems: (1) Abdominal aortic aneurysm Permanent Comment: repaired 2002 Dr. Betancourt Status: Chronic (2) Abnormal chest xray Permanent Comment: CXR [facility] 02/09/16 showed possible 19 mm MILADIS nodule vs summation Status: Chronic (3) Aortic stenosis Permanent Comment: echo 02/10/16 [facility] showed trileaflet aortic valve, moderate sclerosis, mild stenosis Status: Chronic (4) BPH (benign prostatic hyperplasia) Status: Chronic (5) CKD (chronic kidney disease), stage III Status: Chronic (6) Dyslipidemia Status: Chronic (7) History of bladder carcinoma Status: Chronic (8) History of DVT (deep vein thrombosis) Status: Chronic (9) Hypertension Status: Chronic Surgical Problems: (1) Status post AAA (abdominal aortic aneurysm) repair Permanent Comment: 2002 Dr. Betancourt Status: Chronic (2) Status post inguinal hernia repair Status: Chronic (3) Status post tonsillectomy Status: Chronic (4) Status post transurethral resection of prostate Status: Chronic Family History non contributory due to patient's advanced age Social History Smoking Status: Former Smoker Alcohol Use: none Marital Status: single Housing status: lives alone Immunizations History of Influenza Vaccine: Yes Influenza Vaccine Date: Mar 07, 2016 History of Tetanus Vaccine?: Yes Tetanus Immunization Date: Mar 20, 2012 History of Pneumococcal: Yes Pneumococcal Date: May 10, 2015 Multi-Drug Resistant Organisms History of MDRO: No Allergies Coded Allergies: Indomethacin (Verified Adverse Reaction, Unknown, BLEEDING, 10/15/16) Lactose Intolerance (GI) (Verified Adverse Reaction, Unknown, GI SYMPTOMS , 10/15/16) Home Medications Scheduled Ferrous Sulfate (Kp Ferrous Sulfate), 325 MG PO QAM Lisinopril (Lisinopril), 1 TAB PO DAILY Lovastatin (Mevacor), 20 MG PO QPM Methylcellulose (Laxative) (Eq Fiber Therapy), 1,000 MG PO DAILY Metoprolol Tartrate (Lopressor), 25 MG PO BID Pantoprazole (Protonix), 40 MG PO QAM Scheduled PRN Acetaminophen (Tylenol), 650 MG PO Q4H PRN for Pain or Fever Review of Systems 10 point review of systems was completed with the pertinent positives and negatives noted per the HPI Physical Exam Vital Signs Date Time Temp Pulse Resp B/P Pulse Ox O2 Delivery O2 Flow Rate FiO2 10/15/16 17:16 59 10/15/16 17:04 37.1 60 16 186/79 98 Room Air General Appearance: no apparent distress Head: normocephalic Eyes: normal inspection ENT: hearing grossly normal Neck: supple, no JVD Respiratory/Chest: lungs clear, normal breath sounds, no respiratory distress Cardiovascular: regular rate, rhythm, + systolic murmur, + pertinent finding (+ 2 edema LLE) Abdomen/GI: normal bowel sounds, non tender, soft Extremities/Musculoskelatal: normal inspection, no calf tenderness, + inflammation (LLE) Neurologic/Psych: no motor/sensory deficits, alert, normal mood/affect, oriented x 3 Skin: normal color, warm/dry Diagnostics Laboratory Results Results Past 24 Hours Test 10/15/16 17:10 Range/Units White Blood Count 6.33 4.8-10.8 K/uL Red Blood Count 3.54 4.7-6.1 M/uL Hemoglobin 10.5 14.0-18.0 g/dL Hematocrit 32.6 42-52 % Mean Corpuscular Volume 92.1 80-100 fL Mean Corpuscular Hemoglobin 29.7 25-34 pg Mean Corpuscular Hemoglobin Concent 32.2 32-36 g/dl Platelet Count 163 130-400 K/uL Mean Platelet Volume 11.1 7.4-10.4 fL Neutrophils (%) (Auto) 64.7 % Lymphocytes (%) (Auto) 19.7 % Monocytes (%) (Auto) 12.8 % Eosinophils (%) (Auto) 2.2 % Basophils (%) (Auto) 0.3 % Neutrophils # (Auto) 4.09 1.4-6.5 K/uL Lymphocytes # (Auto) 1.25 1.2-3.4 K/uL Monocytes # (Auto) 0.81 0.11-0.59 K/uL Eosinophils # (Auto) 0.14 0-0.5 K/uL Basophils # (Auto) 0.02 0-0.2 K/uL RDW Standard Deviation 45.3 36.4-46.3 fL RDW Coefficient of Variation 13.5 11.5-14.5 % Immature Granulocyte % (Auto) 0.3 % Immature Granulocyte # (Auto) 0.02 0.00-0.02 K/uL Prothrombin Time 11.7 9.0-12.0 SECONDS Prothromb Time International Ratio 1.1 0.9-1.1 Activated Partial Thromboplast Time 26.2 21.0-31.0 SECONDS Partial Thromboplastin Ratio 1.0 Sodium Level 144 136-145 mmol/L Potassium Level 4.9 3.5-5.1 mmol/L Chloride Level 111 98-107 mmol/L Carbon Dioxide Level 29 21-32 mmol/L Anion Gap 4.0 3-11 mmol/L Blood Urea Nitrogen 37 7-18 mg/dl Creatinine 2.00 0.60-1.40 mg/dl Est Creatinine Clear Calc Drug Dose 27.4 ml/min Estimated GFR () 34.0 Estimated GFR (Non- 29.3 BUN/Creatinine Ratio 18.4 10-20 Random Glucose 98 70-99 mg/dl Calcium Level 9.2 8.5-10.1 mg/dl Impression Assessment and Plan ACUTE LEFT FEMORAL AND POPLITEAL DVT - admit to med/surg - patient recently admitted to [facility] 08/11 - 08/25 for symptomatic anemia due to upper GI bleed; EGD revealed non bleeding gastric and duodenal ulcers; went to cardiology today for routine visit and was found to have asymmetric edema to the LLE; outpatient US confirmed DVT - history of LLE DVT in 2011 - completed Coumadin therapy; now will need lifelong anticoagulation - hgb today 10.4 - up from 10.1 on discharge - will start IV heparin with close monitoring for GI bleeding - case discussed with Dr. Bah, will plan for EGD tomorrow to evaluate status of ulcers; primary team to discuss with GI geographic information systems manager tomorrow regarding heparin hold HTN - BP controlled, continue lisinopril and metoprolol CKD STAGE III - baseline creat ~ 2.0 - creat noted to be 2.0 today - continue to monitor, avoid nephrotoxic agents when able DVT PROPHYLAXIS - on heparin gtt CODE STATUS - Patient is a DNR as per my discussion with him. DISPO - In my clinical judgment this beneficiary meets acute admission criteria, established by [facility], that includes being hospitalized through two midnights. Level of Care Med/Surg Resuscitation Status DO NOT RESUSCITATE VTE Prophylaxis VTE Risk Assessment Done? Y/N: Yes Risk Level: High Given or contraindicated: Other Anticoagulation (heparin drip) Note I have seen and examined Mr. Waters and have discussed the case with the provider above. I agree with the assessment and plan above. LLE DVT is possibly provoked from recent hospitalization one month ago. This is the second DVT for him. Heparin drip will be needed for bridge with his current renal function and potential to bleed. Would start coumadin alyse after procedure tomorrow. Plan for upper EGD with Dr. Maradiaga tomorrow. Renal function and anemia are both stable from prior hospital stay. BP was elevated, however, rechecked at 2300 and per nurse BP is 154/62. Slight swelling of LLE compared to right, but otherwise Esme's sign is negative and physical exam is otherwise unremarkable. Appreciate GI input tomorrow. Cont plan as documented above. DO Kana
[2016-10-15 20:34] VITALS: BP_SYST 190; BP_SYST 192; BP_DIAS 78
[2016-10-15 20:36] VITALS: BP 192/78; PULSE 66; TEMP 36.6; Ht 177.8 cm; Wt 74.9 kg
[2016-10-15] MEDS: LOVASTATIN 20 MG TAB PO SCH (21:26)
[2016-10-15] MEDS: METOPROLOL TARTRATE 25 MG TAB PO SCH (21:26)
[2016-10-15 23:25] VITALS: BP 154/62
[2016-10-16] VITALS: BP 148/70; PULSE 60; TEMP 36.8; O2SAT 96
[2016-10-16 01:20] LABS: PARTIAL THROMBOPLASTIN RATIO 4.2
[2016-10-16 07:21] LABS: HEMATOCRIT 31.1 % (42-52); MEAN CELL VOLUME 90.7 fL (80-100); MEAN CORPUSCULAR HEMOGLOBIN 28.9 pg (25-34); MEAN CORPUSCULAR HGB CONC 31.8 g/dl (32-36); MEAN PLATELET VOLUME 10.5 fL (7.4-10.4); PLATELET COUNT 152 K/uL (130-400); RED BLOOD COUNT 3.43 M/uL (4.7-6.1); WHITE BLOOD COUNT 5.73 K/uL (4.8-10.8)
[2016-10-16 07:24] VITALS: BP 158/63; PULSE 64; TEMP 36.7; O2SAT 95
[2016-10-16 07:46] LABS: PARTIAL THROMBOPLASTIN RATIO 5.1
[2016-10-16] MEDS: METOPROLOL TARTRATE 25 MG TAB PO SCH ×2 (07:49→20:30)
[2016-10-16] MEDS: FERROUS SULFATE 325 MG TAB PO SCH (07:49)
[2016-10-16] MEDS: PANTOprazole SOD 40 MG TAB PO SCH (07:50)
[2016-10-16] MEDS: LISINOPRIL 2.5 MG TAB PO SCH (07:50)
[2016-10-16 07:54] LABS: BUN/CREATININE RATIO 15.7 (10-20); CALCIUM 8.8 mg/dl (8.5-10.1); CREATININE 1.8 mg/dl (0.60-1.40); POTASSIUM 4.4 mmol/L (3.5-5.1)
[2016-10-16 08:37] LABS: PARTIAL THROMBOPLASTIN RATIO 4.3
[2016-10-16 10:02] LABS: PARTIAL THROMBOPLASTIN RATIO 2.6
[2016-10-16] MEDS ORDERED: NURSING VERBAL MED ORDER ONE ×2 (10:15→13:15)
--- NOTE | 2016-10-16 11:03 | Gastrointestinal Consultation ---
Gastrointestinal Consultation Date of Consultation: Oct 16, 2016 Attending Physician: Dr. Campos Consulting Physician: Dr. Brothers Reason for Consultation: gastric ulcers. on iv heparin for dvt History of Present Illness Patient is a 86 year old male with aortic stenosis, CKD, hx of bladder ca, remote hx of DVT who had a recent admission to this facility 08/2016 for anemia/ UGI bleed s/p EGD revealing nonbleeding gastric and duodenal ulcers thought to be secondary to recent indocin use for gout. Pt received 3u PRBCs previous admission and was doing well until he developed new LLE DVT and is no readmitted requiring lifelong anticoagulation. GI has been consulted to repeat EGD for assessment of ulcers. Pt completed BID PPI therapy x 6 weeks and most recently transitioned to once daily. He denies SOB, abdominal pain, melena or diarrhea. Pt on chronic iron and is having some constipation and straining, BM' s about once every other day. Hgb currently stable this admission. He's been kept NPO and heparin drip has been on hold since 0800 this AM pending EGD. Past Medical/Surgical History Medical Problems: (1) Acute renal failure Status: Acute (2) Acute renal failure (ARF) Status: Acute (3) Anemia Status: Acute (4) Left leg DVT Status: Acute (5) Orthostatic syncope Status: Acute (6) Renal insufficiency Status: Acute (7) Syncope Status: Acute Past Medical History: hx AAA with repair in 2002 Aortic Stenosis BPH CKD Dyslipidemia hx of bladder ca hx of DVT (about 3 yrs ago, had been off anticoagulation prior to admission) HTN s/p hernia repair s/p TURP s/p T&A Past Surgical History: see PMHx Family History FH: CAD (coronary artery disease) FATHER FH: cancer MOTHER Hypertension FATHER Social History Smoking Status: Former Smoker Alcohol Use: none Drug Use: none Marital Status: single Housing Status: lives alone lives alone, ambulates independently, no tobacco or ETOH use Allergies Coded Allergies: Indomethacin (Verified Adverse Reaction, Unknown, BLEEDING, 10/15/16) Lactose Intolerance (GI) (Verified Adverse Reaction, Unknown, GI SYMPTOMS , 10/15/16) Current Medications Home Meds and Scripts Medications Dose Route/Sig Max Daily Dose Days Date Category Dose Instructions Eq Fiber Therapy (Methylcellulose (Laxative)) 500 Mg Tab 1,000 Mg PO DAILY 10/15/16 Reported Protonix (Pantoprazole Sodium) 40 Mg Tab 40 Mg PO QAM 10/15/16 Reported Tylenol (Acetaminophen) 325 Mg Tab 650 Mg PO Q4H PRN 08/25/16 Rx do not take more than 3,000mg per day Lisinopril 2.5 Mg Tab 1 Tab PO DAILY 30 08/25/16 Rx Lopressor (Metoprolol Tartrate) 25 Mg Tab 25 Mg PO BID 30 08/25/16 Rx Kp Ferrous Sulfate (Ferrous Sulfate) 325 Mg Tab 325 Mg PO QAM 30 08/21/16 Reported Mevacor (Lovastatin) 20 Mg Tab 20 Mg PO QPM 02/09/16 Reported Review of Systems Constitutional: No fever Eyes: No worsening of vision ENT: No hearing loss Respiratory: No cough, No shortness of breath Cardiac: No chest pain Abdomen: + see HPI, No nausea, No vomiting Musculoskeletal: + see HPI Male : No dysuria Neuro: No memory loss Psych: No depression symptoms Heme: + clotting problems, + see HPI Endo: No problem reported Skin: No rash Physical Exam Date Time Temp Pulse Resp B/P Pulse Ox O2 Delivery O2 Flow Rate FiO2 10/16/16 10:37 36.8 60 20 170/74 97 Room Air 10/16/16 08:00 Room Air 10/16/16 07:24 36.7 64 18 158/63 95 Room Air 10/16/16 00:00 Room Air 10/16/16 00:00 36.8 60 20 148/70 96 Room Air 10/15/16 23:25 154/62 10/15/16 20:36 36.6 66 18 192/78 Room Air 10/15/16 20:34 190/78 192/78 10/15/16 20:04 64 16 174/87 97 10/15/16 18:58 7 16 177/78 98 Room Air 10/15/16 17:16 59 10/15/16 17:04 37.1 60 16 186/79 98 Room Air General Appearance: WD/WN, no apparent distress Eyes: normal inspection, PERRL ENT: hearing grossly normal Neck: supple Respiratory/Chest: lungs clear, normal breath sounds, no respiratory distress Cardiovascular: regular rate, rhythm, + systolic murmur Abdomen: normal bowel sounds, non tender, soft, no organomegaly Extremities: normal range of motion, no pedal edema Neurologic/Psych: alert, normal mood/affect, oriented x 3 Skin: normal color Laboratory Results Last 24 Hours Test 10/15/16 17:10 10/16/16 00:55 10/16/16 07:04 10/16/16 07:05 White Blood Count 6.33 K/uL 5.73 K/uL Red Blood Count 3.54 M/uL 3.43 M/uL Hemoglobin 10.5 g/dL 9.9 g/dL Hematocrit 32.6 % 31.1 % Mean Corpuscular Volume 92.1 fL 90.7 fL Mean Corpuscular Hemoglobin 29.7 pg 28.9 pg Mean Corpuscular Hemoglobin Concent 32.2 g/dl 31.8 g/dl Platelet Count 163 K/uL 152 K/uL Mean Platelet Volume 11.1 fL 10.5 fL Neutrophils (%) (Auto) 64.7 % Lymphocytes (%) (Auto) 19.7 % Monocytes (%) (Auto) 12.8 % Eosinophils (%) (Auto) 2.2 % Basophils (%) (Auto) 0.3 % Neutrophils # (Auto) 4.09 K/uL Lymphocytes # (Auto) 1.25 K/uL Monocytes # (Auto) 0.81 K/uL Eosinophils # (Auto) 0.14 K/uL Basophils # (Auto) 0.02 K/uL RDW Standard Deviation 45.3 fL 45.2 fL RDW Coefficient of Variation 13.5 % 13.5 % Immature Granulocyte % (Auto) 0.3 % Immature Granulocyte # (Auto) 0.02 K/uL Prothrombin Time 11.7 SECONDS Prothromb Time International Ratio 1.1 Activated Partial Thromboplast Time 26.2 SECONDS 108.3 SECONDS 132.6 SECONDS Partial Thromboplastin Ratio 1.0 4.2 5.1 Sodium Level 144 mmol/L 144 mmol/L Potassium Level 4.9 mmol/L 4.4 mmol/L Chloride Level 111 mmol/L 111 mmol/L Carbon Dioxide Level 29 mmol/L 28 mmol/L Anion Gap 4.0 mmol/L 5.0 mmol/L Blood Urea Nitrogen 37 mg/dl 28 mg/dl Creatinine 2.00 mg/dl 1.80 mg/dl Est Creatinine Clear Calc Drug Dose 27.4 ml/min 30.4 ml/min Estimated GFR () 34.0 38.6 Estimated GFR (Non- 29.3 33.3 BUN/Creatinine Ratio 18.4 15.7 Random Glucose 98 mg/dl 97 mg/dl Calcium Level 9.2 mg/dl 8.8 mg/dl Test 10/16/16 08:12 10/16/16 09:33 Activated Partial Thromboplast Time 112.0 SECONDS 67.5 SECONDS Partial Thromboplastin Ratio 4.3 2.6 Impression Patient is a 86 year old male with hx of non-bleeding gastric and duodenal ulcers secondary to NSAID use who had EGD 08/2016, GI recommended repeat EGD in 8 weeks for reassessment. Pt now admitted with new DVT and requires anticoagulation. Plan Agree with PPI once daily Hgb currently stable NPO with EGD this morning. Heparin on hold since 0800 Additional GI recommendations to follow after EGD I performed a history and physical examination of the patient. I have discussed the patient's case, impression and plan with Glendy Elder PA-C. Her note reflects my findings and plan. Given need for anticoagulation, we will arrange EGD. Lewis Brothers MD
[2016-10-16] MEDS ORDERED: LIDOCAINE HCL 2% 2 ML VIAL (20MG/ML) ONE (11:45)
[2016-10-16] MEDS ORDERED: PROPOFOL IV EMULSION 10 MG/ML 20 ML VIAL IV ONE (11:45)
--- NOTE | 2016-10-16 11:46 | Anesthesiology Progress Note ---
Anesthesia Post Op Note Date & Time Oct 16, 2016 at 11:45 Vital Signs Pain Intensity: 0 Vital Signs Past 12 Hours Date Time Temp Pulse Resp B/P Pulse Ox O2 Delivery O2 Flow Rate FiO2 10/16/16 11:43 63 20 160/71 96 Room Air 10/16/16 11:28 65 20 140/62 97 Room Air 10/16/16 10:37 36.8 60 20 170/74 97 Room Air 10/16/16 08:00 Room Air 10/16/16 07:24 36.7 64 18 158/63 95 Room Air 10/16/16 00:00 Room Air 10/16/16 00:00 36.8 60 20 148/70 96 Room Air Notes Mental Status: alert / awake / arousable, participated in evaluation Pt Amnestic to Procedure: Yes Nausea / Vomiting: adequately controlled Pain: adequately controlled Airway Patency, RR, SpO2: stable & adequate BP & HR: stable & adequate Hydration State: stable & adequate Anesthetic Complications: no major complications apparent Pt doing very well.
--- NOTE | 2016-10-16 11:56 | GI REPORT ---
Procedure Date: 10/16/2016 11:08 AM Procedure: Upper GI endoscopy Indications: Acute peptic ulcer, Follow-up of acute peptic ulcer Medicines: See the Anesthesia note for documentation of the administered medications Complications: No immediate complications. Estimated Blood Loss: Estimated blood loss: none. Procedure: Pre-Anesthesia Assessment: - Prior to the procedure, a History and Physical was performed, and patient medications, allergies and sensitivities were reviewed. The patient's tolerance of previous anesthesia was reviewed. - The risks and benefits of the procedure and the sedation options and risks were discussed with the patient. All questions were answered and informed consent was obtained. - Patient identification and proposed procedure were verified prior to the procedure by the physician and the nurse. The procedure was verified in the pre-procedure area. - Pre-procedure physical examination revealed no contraindications to sedation. - After reviewing the risks and benefits, the patient was deemed in satisfactory condition to undergo the procedure. After obtaining informed consent, the endoscope was passed under direct vision. Throughout the procedure, the patient's blood pressure, pulse, and oxygen saturations were monitored continuously. The Scope was introduced through the mouth, and advanced to the third part of duodenum. The upper GI endoscopy was accomplished without difficulty. The patient tolerated the procedure well. Findings: The esophagus was normal. One non-bleeding superficial gastric ulcer with no stigmata of bleeding was found in the prepyloric region of the stomach. The examined duodenum was normal. The cardia and gastric fundus were normal on retroflexion. Impression: - Normal esophagus. - Near healed small gastric ulcer in the prepyloric region with no stigmata of bleeding. - Normal examined duodenum/healed duodenal ulcers. - No specimens collected. Recommendation: - Return patient to [facility] for ongoing care. - Patient needs to stay on PPI indefinitely. Lewis Brothers M.D. Lewis Brothers MD 10/16/2016 11:55:38 AM This report has been signed electronically. Note Initiated On: 10/16/2016 11:08 AM I attest to the content of the Intraoperative Record and orders documented therein, exceptions below
[2016-10-16 13:45] LABS: PARTIAL THROMBOPLASTIN RATIO 1.1
--- NOTE | 2016-10-16 13:56 | Progress Note ---
Internal Med Progress Note Date of Service: Oct 16, 2016. Provider Documentation: SUBJECTIVE: resting comfortably DENIES ANY ABDOMINAL PAIN NO BLOOD IN STOOLS NO NAUSEA AFEBRILE OBJECTIVE: Vital Signs-as noted below Exam: General-Alert and oriented ENT-normal hearing Neck-no neck masses Lungs-cta b/l no wheezing or crackles Heart-s1 and s2 heard regular rate and rhythm no murmurs Abdomen-soft bowel sounds present non tender no distension Extremities-no edema no erythema Neuro-Alert and oriented moves extremities Lab data as noted below. ASSESSMENT & PLAN: ACUTE LEFT FEMORAL AND POPLITEAL DVT As per H and P:Patient was recently admitted to [facility] 08/11 - 08/25 for symptomatic anemia due to upper GI bleed; EGD revealed non bleeding gastric and duodenal ulcers; went to cardiology today for routine visit and was found to have asymmetric edema to the LLE; outpatient US confirmed DVT Has hx of LLE DVT in 2011 - completed Coumadin therapy on iv heparin s/p egd today showing near healed gastric ulcers continue iv heparin will start on coumadin HTN on lisinopril and metoprolol will monitor CKD STAGE III baseline creat ~ 2.0 cr 1.8 today will monitor DVT PROPHYLAXIS on heparin gtt CODE STATUS DNR as per H and P. DISPO To be determined Vital Signs: Date Time Temp Pulse Resp B/P Pulse Ox O2 Delivery O2 Flow Rate FiO2 10/16/16 12:00 67 20 151/71 97 Room Air 10/16/16 11:43 63 20 160/71 96 Room Air 10/16/16 11:28 65 20 140/62 97 Room Air 10/16/16 10:37 36.8 60 20 170/74 97 Room Air 10/16/16 08:00 Room Air 10/16/16 07:24 36.7 64 18 158/63 95 Room Air 10/16/16 00:00 Room Air 10/16/16 00:00 36.8 60 20 148/70 96 Room Air 10/15/16 23:25 154/62 10/15/16 20:36 36.6 66 18 192/78 Room Air 10/15/16 20:34 190/78 192/78 10/15/16 20:04 64 16 174/87 97 10/15/16 18:58 7 16 177/78 98 Room Air 10/15/16 17:16 59 10/15/16 17:04 37.1 60 16 186/79 98 Room Air Lab Results: Results Past 24 Hours Test 10/15/16 17:10 10/16/16 00:55 10/16/16 07:04 10/16/16 07:05 Range/Units White Blood Count 6.33 5.73 4.8-10.8 K/uL Red Blood Count 3.54 3.43 4.7-6.1 M/uL Hemoglobin 10.5 9.9 14.0-18.0 g/dL Hematocrit 32.6 31.1 42-52 % Mean Corpuscular Volume 92.1 90.7 80-100 fL Mean Corpuscular Hemoglobin 29.7 28.9 25-34 pg Mean Corpuscular Hemoglobin Concent 32.2 31.8 32-36 g/dl Platelet Count 163 152 130-400 K/uL Mean Platelet Volume 11.1 10.5 7.4-10.4 fL Neutrophils (%) (Auto) 64.7 % Lymphocytes (%) (Auto) 19.7 % Monocytes (%) (Auto) 12.8 % Eosinophils (%) (Auto) 2.2 % Basophils (%) (Auto) 0.3 % Neutrophils # (Auto) 4.09 1.4-6.5 K/uL Lymphocytes # (Auto) 1.25 1.2-3.4 K/uL Monocytes # (Auto) 0.81 0.11-0.59 K/uL Eosinophils # (Auto) 0.14 0-0.5 K/uL Basophils # (Auto) 0.02 0-0.2 K/uL RDW Standard Deviation 45.3 45.2 36.4-46.3 fL RDW Coefficient of Variation 13.5 13.5 11.5-14.5 % Immature Granulocyte % (Auto) 0.3 % Immature Granulocyte # (Auto) 0.02 0.00-0.02 K/uL Prothrombin Time 11.7 9.0-12.0 SECONDS Prothromb Time International Ratio 1.1 0.9-1.1 Activated Partial Thromboplast Time 26.2 108.3 132.6 21.0-31.0 SECONDS Partial Thromboplastin Ratio 1.0 4.2 5.1 Sodium Level 144 144 136-145 mmol/L Potassium Level 4.9 4.4 3.5-5.1 mmol/L Chloride Level 111 111 98-107 mmol/L Carbon Dioxide Level 29 28 21-32 mmol/L Anion Gap 4.0 5.0 3-11 mmol/L Blood Urea Nitrogen 37 28 7-18 mg/dl Creatinine 2.00 1.80 0.60-1.40 mg/dl Est Creatinine Clear Calc Drug Dose 27.4 30.4 ml/min Estimated GFR () 34.0 38.6 Estimated GFR (Non- 29.3 33.3 BUN/Creatinine Ratio 18.4 15.7 10-20 Random Glucose 98 97 70-99 mg/dl Calcium Level 9.2 8.8 8.5-10.1 mg/dl Test 10/16/16 08:12 10/16/16 09:33 10/16/16 13:28 Range/Units Activated Partial Thromboplast Time 112.0 67.5 29.4 21.0-31.0 SECONDS Partial Thromboplastin Ratio 4.3 2.6 1.1
[2016-10-16] MEDS: HEPARIN 25,000 UNIT/500ML D5W 500 ML IV PRN (14:00)
[2016-10-16 14:57] VITALS: BP 145/64; PULSE 68; TEMP 36.8; O2SAT 96
[2016-10-16] MEDS: WARFARIN SOD 5 MG TAB PO SCH (16:20)
[2016-10-16 20:28] VITALS: BP 172/74; PULSE 63
[2016-10-16] MEDS: LOVASTATIN 20 MG TAB PO SCH (20:29)
[2016-10-16 20:44] LABS: PARTIAL THROMBOPLASTIN RATIO 2.1
[2016-10-16 23:21] VITALS: BP 154/68; PULSE 60; TEMP 36.8; O2SAT 95
[2016-10-17] MEDS: HEPARIN 25,000 UNIT/500ML D5W 500 ML IV PRN ×2 (01:55→08:15)
[2016-10-17 07:42] VITALS: BP 126/64; PULSE 56; TEMP 36.9; O2SAT 96
[2016-10-17 07:45] LABS: BASO % 0.6 %; BASO ABS # 0.03 K/uL (0-0.2); COMPLETE YES; IG% 0.2 %; LYMPH ABS # 1.42 K/uL (1.2-3.4); MEAN CELL VOLUME 90.7 fL (80-100); MEAN CORPUSCULAR HEMOGLOBIN 28.9 pg (25-34); MEAN CORPUSCULAR HGB CONC 31.9 g/dl (32-36); MEAN PLATELET VOLUME 10.6 fL (7.4-10.4); MONO % 14.9 %; NEUT % 53.3 %; PLATELET COUNT 164 K/uL (130-400); RED BLOOD COUNT 3.53 M/uL (4.7-6.1); WHITE BLOOD COUNT 5.25 K/uL (4.8-10.8)
[2016-10-17 08:00] LABS: INR 1.1 (0.9-1.1); PARTIAL THROMBOPLASTIN RATIO 3.6
[2016-10-17 08:20] LABS: BUN/CREATININE RATIO 14.7 (10-20); CREATININE 1.8 mg/dl (0.60-1.40); POTASSIUM 4.1 mmol/L (3.5-5.1)
[2016-10-17 08:24] LABS: CALCIUM 8.7 mg/dl (8.5-10.1)
[2016-10-17] MEDS: METOPROLOL TARTRATE 25 MG TAB PO SCH ×2 (08:33→21:00)
[2016-10-17] MEDS: LISINOPRIL 2.5 MG TAB PO SCH (08:34)
[2016-10-17] MEDS: FERROUS SULFATE 325 MG TAB PO SCH (08:34)
[2016-10-17] MEDS: PANTOprazole SOD 40 MG TAB PO SCH (08:34)
[2016-10-17 08:35] VITALS: PULSE 65
--- NOTE | 2016-10-17 12:09 | Clinical Documentation Query ---
CLINICAL DOCUMENTATION QUERY Dr. VARELA, In your clinical opinion has this patient progressed to: ( ) Chronic kidney disease, stage 3-4 ( ) Other explanation of clinical findings (Please Explain) ( ) Unable to determine (Please Define) ( ) Need to Discuss ( ) Not Agree The medical record reflects the following clinical findings, treatment, and risk factors. Clinical Indicators: 86 yo male presenting with LLE DVT. Documentation reflects pt with CKD stage III with baseline Cr of approx 2.0. Review of GFR over the past year showed range 26.3-38.4 Treatment:monitor PRP's, treat comorbid conditions Risk Factors: age, HTN The stages of CKD according to the [employer] are as follows: Stage I: GFR >90 Stage II: GFR 60-89 Stage III: GFR 30-59 Stage IV: GFR 15-29 Stage V: GFR <15 Please clarify and document your clinical opinion in the progress notes and discharge summary. Terms such as "probable", "suspected", "likely", "questionable", "possible", or "still to be ruled out" are acceptable. IF IN AGREEMENT, YOU MUST DOCUMENT ABOVE DIAGNOSTIC STATEMENT IN DAILY PROGRESS NOTES AND DISCHARGE SUMMARY. This document is not part of the patient's record. Thank You, Jesusita King, RN [phone]
[2016-10-17 14:50] VITALS: BP 137/68; PULSE 54; TEMP 37; O2SAT 97
[2016-10-17 15:47] LABS: PARTIAL THROMBOPLASTIN RATIO 2.4
[2016-10-17] MEDS: WARFARIN SOD 5 MG TAB PO SCH (16:20)
--- NOTE | 2016-10-17 17:12 | Progress Note ---
Internal Med Progress Note Date of Service: Oct 17, 2016. Provider Documentation: SUBJECTIVE: resting comfortably no pain in legs afebrile want to go home OBJECTIVE: Vital Signs-as noted below Exam: General-Alert and oriented ENT-normal hearing Neck-no neck masses Lungs-cta b/l no wheezing or crackles Heart-s1 and s2 heard regular rate and rhythm no murmurs Abdomen-soft bowel sounds present non tender no distension Extremities-no edema no erythema Neuro-Alert and oriented moves extremities Lab data as noted below. ASSESSMENT & PLAN: ACUTE LEFT FEMORAL AND POPLITEAL DVT As per H and P:Patient was recently admitted to [facility] 08/11 - 08/25 for symptomatic anemia due to upper GI bleed; EGD revealed non bleeding gastric and duodenal ulcers; went to cardiology today for routine visit and was found to have asymmetric edema to the LLE; outpatient US confirmed DVT Has hx of LLE DVT in 2011 - completed Coumadin therapy on iv heparin s/p egd today showing near healed gastric ulcers continue iv heparin started on Coumadin plan to d/c on home Lovenox bridge in am HTN on lisinopril and metoprolol will monitor CKD STAGE III baseline creat ~ 2.0 cr 1.8 today will monitor DVT PROPHYLAXIS on heparin gtt CODE STATUS DNR as per H and P. DISPO pt/ot possible d/c in am if stable Vital Signs: Date Time Temp Pulse Resp B/P Pulse Ox O2 Delivery O2 Flow Rate FiO2 10/17/16 15:40 Room Air 10/17/16 14:50 37.0 54 18 137/68 97 Room Air 10/17/16 09:00 Room Air 10/17/16 08:35 65 10/17/16 07:42 36.9 56 18 126/64 96 Room Air 10/17/16 00:00 Room Air 10/16/16 23:21 36.8 60 20 154/68 95 Room Air 10/16/16 20:28 63 16 172/74 Room Air 10/16/16 20:00 Room Air Lab Results: Results Past 24 Hours Test 10/16/16 20:03 10/17/16 07:31 10/17/16 14:50 Range/Units Activated Partial Thromboplast Time 54.1 92.7 61.8 21.0-31.0 SECONDS Partial Thromboplastin Ratio 2.1 3.6 2.4 White Blood Count 5.25 4.8-10.8 K/uL Red Blood Count 3.53 4.7-6.1 M/uL Hemoglobin 10.2 14.0-18.0 g/dL Hematocrit 32.0 42-52 % Mean Corpuscular Volume 90.7 80-100 fL Mean Corpuscular Hemoglobin 28.9 25-34 pg Mean Corpuscular Hemoglobin Concent 31.9 32-36 g/dl Platelet Count 164 130-400 K/uL Mean Platelet Volume 10.6 7.4-10.4 fL Neutrophils (%) (Auto) 53.3 % Lymphocytes (%) (Auto) 27.0 % Monocytes (%) (Auto) 14.9 % Eosinophils (%) (Auto) 4.0 % Basophils (%) (Auto) 0.6 % Neutrophils # (Auto) 2.80 1.4-6.5 K/uL Lymphocytes # (Auto) 1.42 1.2-3.4 K/uL Monocytes # (Auto) 0.78 0.11-0.59 K/uL Eosinophils # (Auto) 0.21 0-0.5 K/uL Basophils # (Auto) 0.03 0-0.2 K/uL RDW Standard Deviation 44.3 36.4-46.3 fL RDW Coefficient of Variation 13.5 11.5-14.5 % Immature Granulocyte % (Auto) 0.2 % Immature Granulocyte # (Auto) 0.01 0.00-0.02 K/uL Prothrombin Time 12.0 9.0-12.0 SECONDS Prothromb Time International Ratio 1.1 0.9-1.1 Sodium Level 144 136-145 mmol/L Potassium Level 4.1 3.5-5.1 mmol/L Chloride Level 111 98-107 mmol/L Carbon Dioxide Level 25 21-32 mmol/L Anion Gap 8.0 3-11 mmol/L Blood Urea Nitrogen 26 7-18 mg/dl Creatinine 1.80 0.60-1.40 mg/dl Est Creatinine Clear Calc Drug Dose 30.4 ml/min Estimated GFR () 38.6 Estimated GFR (Non- 33.3 BUN/Creatinine Ratio 14.7 10-20 Random Glucose 112 70-99 mg/dl Calcium Level 8.7 8.5-10.1 mg/dl
[2016-10-17] MEDS: LOVASTATIN 20 MG TAB PO SCH (21:00)
[2016-10-17 21:27] VITALS: BP 152/68; PULSE 60; TEMP 37.1; O2SAT 96
[2016-10-17 21:30] VITALS: O2SAT 96
[2016-10-17 23:50] VITALS: BP 156/91; PULSE 120; TEMP 36.4; O2SAT 90
[2016-10-18 06:38] LABS: BASO % 0.6 %; BASO ABS # 0.04 K/uL (0-0.2); COMPLETE YES; EOS % 4.6 %; IG% 0.3 %; LYMPH % 32.4 %; LYMPH ABS # 2.18 K/uL (1.2-3.4); MEAN CELL VOLUME 91.9 fL (80-100); MEAN CORPUSCULAR HEMOGLOBIN 29.4 pg (25-34); MEAN PLATELET VOLUME 11.3 fL (7.4-10.4); MONO % 12.2 %; NEUT % 49.9 %; PLATELET COUNT 187 K/uL (130-400); RED BLOOD COUNT 3.81 M/uL (4.7-6.1); WHITE BLOOD COUNT 6.73 K/uL (4.8-10.8)
[2016-10-18 07:00] LABS: INR 1.1 (0.9-1.1); PROTHROMBIN TIME (PATIENT) 11.7 SECONDS (9.0-12.0)
[2016-10-18 07:08] LABS: BUN/CREATININE RATIO 14.5 (10-20); CALCIUM 9.4 mg/dl (8.5-10.1); CREATININE 1.9 mg/dl (0.60-1.40); MAGNESIUM 2.2 mg/dl (1.8-2.4); POTASSIUM 4.3 mmol/L (3.5-5.1)
[2016-10-18 07:16] LABS: PARTIAL THROMBOPLASTIN RATIO 2.2
[2016-10-18] MEDS: HEPARIN 25,000 UNIT/500ML D5W 500 ML IV PRN ×2 (07:22→08:56)
[2016-10-18 07:47] VITALS: BP 149/72; PULSE 57; TEMP 36.9; O2SAT 95
[2016-10-18] MEDS: PANTOprazole SOD 40 MG TAB PO SCH (07:55)
[2016-10-18] MEDS: FERROUS SULFATE 325 MG TAB PO SCH (07:55)
[2016-10-18] MEDS: METOPROLOL TARTRATE 25 MG TAB PO SCH (07:55)
[2016-10-18] MEDS: LISINOPRIL 2.5 MG TAB PO SCH (07:55)
[2016-10-18 07:56] VITALS: PULSE 62
[2016-10-18] MEDS ORDERED: ENOX60IN SQ ×2 (12:45)
[2016-10-18] MEDS ORDERED: WARF5TAB90 PO ×2 (12:45)
[2016-10-18] MEDS ORDERED: CMD25 PO ×2 (12:45)
--- NOTE | 2016-10-18 12:49 | Discharge Instructions ---
Discharge Instructions Date of Service Oct 18, 2016. Admission Reason for Admission: DVT Discharge Discharge Diagnosis / Problem: DVT Discharge Goals Goal(s): Decrease discomfort, Improve function Activity Recommendations Activity Limitations: resume your previous activity . Instructions / Follow-Up Instructions / Follow-Up FOLLOWUP WITH FAMILY DOCTOR ON October AT 11:10AM. FOLLOWUP WITH COUMADIN CLINIC FOR COUMADIN DOSING. COUMADIN CLINIC NOTIFIED. COUMADIN 7.5MG PO DAILY UNTIL FURTHER NOTICE FROM COUMADIN CLINIC. LOVENOX 60MG DAILY SHOTS UNTIL ADVISED TO STOP BY COUMADIN CLINIC. LAB: PT/INR IN COUPLE OF DAYS AND FOLLOW RESULTS WITH COUMADIN CLINIC. Current Hospital Diet Patient's current hospital diet: AHA Diet (Heart Healthy) Discharge Diet Recommended Diet: AHA Diet (Heart Healthy) Procedures Procedures Performed: EGD Pending Studies Studies pending at discharge: no Medical Emergencies . Who to Call and When: Medical Emergencies: If at any time you feel your situation is an emergency, please call 911 immediately. . Non-Emergent Contact Non-Emergency issues call your: Primary Care Provider (IV HEPARIN) . . "Provider Documentation" section prepared by Ilia Campos. . VTE Core Measure Inpt VTE Proph given/why not?: Other Anticoagulation (heparin drip)
[2016-10-18] MEDS ORDERED: ENOXAPARIN 60 MG/0.6 ML SYR SQ ONE (13:00)
--- NOTE | 2016-10-18 14:21 | Progress Note ---
Internal Med Progress Note Date of Service: Oct 18, 2016. Provider Documentation: SUBJECTIVE: resting comfortably says ambulated fine afebrile no complaints wants to go home OBJECTIVE: Vital Signs-as noted below Exam: General-Alert and oriented ENT-normal hearing Neck-no neck masses Lungs-cta b/l no wheezing or crackles Heart-s1 and s2 heard regular rate and rhythm no murmurs Abdomen-soft bowel sounds present non tender no distension Extremities-no edema no erythema Neuro-Alert and oriented moves extremities Lab data as noted below. ASSESSMENT & PLAN: ACUTE LEFT FEMORAL AND POPLITEAL DVT As per H and P:Patient was recently admitted to [facility] 08/11 - 08/25 for symptomatic anemia due to upper GI bleed; EGD revealed non bleeding gastric and duodenal ulcers; went to cardiology today for routine visit and was found to have asymmetric edema to the LLE; outpatient US confirmed DVT Has hx of LLE DVT in 2011 - completed Coumadin therapy on iv heparin s/p egd during this admission showing near healed gastric ulcers continue iv heparin started on Coumadin inr 1.1 discharged on Lovenox bridge as per renal function and Coumadin notified Coumadin clinic needs close followup [facility] Coumadin clinic and pcp duration of Coumadin as per pcp.(may need [facility]). HTN on lisinopril and metoprolol will monitor CKD STAGE III-IV baseline creat ~ 2.0 cr 1.9 today will monitor discharged home with home health Vital Signs: Date Time Temp Pulse Resp B/P Pulse Ox O2 Delivery O2 Flow Rate FiO2 10/18/16 14:25 36.9 62 18 95 Room Air 10/18/16 08:30 Room Air 10/18/16 07:56 62 10/18/16 07:47 36.9 57 18 149/72 95 Room Air 10/18/16 00:00 Room Air 10/17/16 23:50 36.4 120 16 156/91 90 Room Air 10/17/16 21:30 96 Room Air 10/17/16 21:27 37.1 60 18 152/68 96 Room Air Lab Results: Results Past 24 Hours Test 10/18/16 05:49 Range/Units White Blood Count 6.73 4.8-10.8 K/uL Red Blood Count 3.81 4.7-6.1 M/uL Hemoglobin 11.2 14.0-18.0 g/dL Hematocrit 35.0 42-52 % Mean Corpuscular Volume 91.9 80-100 fL Mean Corpuscular Hemoglobin 29.4 25-34 pg Mean Corpuscular Hemoglobin Concent 32.0 32-36 g/dl Platelet Count 187 130-400 K/uL Mean Platelet Volume 11.3 7.4-10.4 fL Neutrophils (%) (Auto) 49.9 % Lymphocytes (%) (Auto) 32.4 % Monocytes (%) (Auto) 12.2 % Eosinophils (%) (Auto) 4.6 % Basophils (%) (Auto) 0.6 % Neutrophils # (Auto) 3.36 1.4-6.5 K/uL Lymphocytes # (Auto) 2.18 1.2-3.4 K/uL Monocytes # (Auto) 0.82 0.11-0.59 K/uL Eosinophils # (Auto) 0.31 0-0.5 K/uL Basophils # (Auto) 0.04 0-0.2 K/uL RDW Standard Deviation 45.8 36.4-46.3 fL RDW Coefficient of Variation 13.6 11.5-14.5 % Immature Granulocyte % (Auto) 0.3 % Immature Granulocyte # (Auto) 0.02 0.00-0.02 K/uL Prothrombin Time 11.7 9.0-12.0 SECONDS Prothromb Time International Ratio 1.1 0.9-1.1 Activated Partial Thromboplast Time 58.2 21.0-31.0 SECONDS Partial Thromboplastin Ratio 2.2 Sodium Level 143 136-145 mmol/L Potassium Level 4.3 3.5-5.1 mmol/L Chloride Level 109 98-107 mmol/L Carbon Dioxide Level 28 21-32 mmol/L Anion Gap 6.0 3-11 mmol/L Blood Urea Nitrogen 27 7-18 mg/dl Creatinine 1.90 0.60-1.40 mg/dl Est Creatinine Clear Calc Drug Dose 28.8 ml/min Estimated GFR () 36.2 Estimated GFR (Non- 31.2 BUN/Creatinine Ratio 14.5 10-20 Random Glucose 99 70-99 mg/dl Calcium Level 9.4 8.5-10.1 mg/dl Magnesium Level 2.2 1.8-2.4 mg/dl
[2016-10-18 14:25] VITALS: BP 149/72; PULSE 62; TEMP 36.9; O2SAT 95
--- NOTE | 2016-10-18 18:02 | Discharge Summary ---
Discharge Summary Date of Service Oct 18, 2016. Discharge Summary Admission Date: Oct 15, 2016 at 18:18 Discharge Date: Oct 18, 2016 Discharge Disposition: Home with services Principal Diagnosis: DVT Secondary Diagnoses/Problems: (1) Abdominal aortic aneurysm Permanent Comment: repaired 2003 Dr. Betancourt Status: Chronic (2) Abnormal chest xray Permanent Comment: CXR [facility] 02/09/16 showed possible 19 mm [place] nodule vs summation Status: Chronic (3) Aortic stenosis Permanent Comment: echo 02/10/16 [facility] showed trileaflet aortic valve, moderate sclerosis, mild stenosis Status: Chronic (4) BPH (benign prostatic hyperplasia) Status: Chronic (5) CKD (chronic kidney disease), stage III Status: Chronic (6) Dyslipidemia Status: Chronic (7) History of bladder carcinoma Status: Chronic (8) History of DVT (deep vein thrombosis) Status: Chronic (9) Hypertension Status: Chronic Medication Reconciliation New Medications: Enoxaparin (Lovenox) 60 Mg/0.6 Ml Inj 60 MG SQ DAILY for 7 Days, #7 SYR Warfarin Sod (Coumadin) 2.5 Mg Tab 2.5 MG PO DAILY, #30 TAB 2 Refills Warfarin Sodium (Coumadin) 5 Mg Tab 5 MG PO DAILY for 30 Days, #30 TAB 2 Refills Continued Medications: Acetaminophen (Tylenol) 325 Mg Tab 650 MG PO Q4H PRN for Pain or Fever, #30 TAB 2 Refills do not take more than 3,000mg per day Ferrous Sulfate (Kp Ferrous Sulfate) 325 Mg Tab 325 MG PO QAM for 30 Days, #30 TAB 3 Refills Lisinopril (Lisinopril) 2.5 Mg Tab 1 TAB PO DAILY for 30 Days, #30 TAB 2 Refills Lovastatin (Mevacor) 20 Mg Tab 20 MG PO QPM, TAB Methylcellulose (Laxative) (Eq Fiber Therapy) 500 Mg Tab 1000 MG PO DAILY Metoprolol Tartrate (Lopressor) 25 Mg Tab 25 MG PO BID for 30 Days, #60 TAB 2 Refills Pantoprazole (Protonix) 40 Mg Tab 40 MG PO QAM, #30 TAB Admission Information HPI (per Admitting provider): 86 year old male who presents to the ER by referral of Dr. Tadeo Paz for LLE DVT. Patient was recently admitted to [facility] 08/21 - 08/25 for syncope due to symptomatic anemia from upper GI bleed. Patient underwent EGD and was found to have non-bleeding gastric and duodenal ulcers. He required 3 units PRBCs. Patient was discharged on Protontix BID x 6 weeks and then daily. Patient reports he has been feeling well since his discharge. No lightheadedness, dizziness, or syncopal events. He reports his stools are dark however chronic due to iron replacement. He denies BRBPR. No abdominal pain, nausea, vomiting, or diarrhea. He denies chest pain and shortness of breath. He denies fever and chills. No urinary symptoms. Patient reports his left leg has been feeling "tight" for the past several weeks. He reports he did not really notice the swelling. He reports the leg is non painful. Patient had an outpatient US that showed an acute DVT in the left femoral and left popliteal veins. In the ER, patient is hemodynamically stable. Hgb is 10.5 (was 10.1 on 08/25). Physical Exam (per Admitting): General Appearance: no apparent distress Head: normocephalic Eyes: normal inspection ENT: hearing grossly normal Neck: supple, no JVD Respiratory/Chest: lungs clear, normal breath sounds, no respiratory distress Cardiovascular: regular rate, rhythm, + systolic murmur, + pertinent finding (+2 edema LLE) Abdomen/GI: normal bowel sounds, non tender, soft Extremities/Musculoskelatal: normal inspection, no calf tenderness, + inflammation (LLE) Neurologic/Psych: no motor/sensory deficits, alert, normal mood/affect, oriented x 3 Skin: normal color, warm/dry Physical Exam (per Admitting): General Appearance: no apparent distress Head: normocephalic Eyes: normal inspection ENT: hearing grossly normal Neck: supple, no JVD Respiratory/Chest: lungs clear, normal breath sounds, no respiratory distress Cardiovascular: regular rate, rhythm, + systolic murmur, + pertinent finding (+ 2 edema LLE) Abdomen/GI: normal bowel sounds, non tender, soft Extremities/Musculoskelatal: normal inspection, no calf tenderness, + inflammation (LLE) Neurologic/Psych: no motor/sensory deficits, alert, normal mood/affect, oriented x 3 Skin: normal color, warm/dry Hospital Course ACUTE LEFT FEMORAL AND POPLITEAL DVT As per H and P:Patient was recently admitted to [facility] 08/11 - 08/25 for symptomatic anemia due to upper GI bleed; EGD revealed non bleeding gastric and duodenal ulcers; went to cardiology today for routine visit and was found to have asymmetric edema to the LLE; outpatient US confirmed DVT Has hx of LLE DVT in 2011 - completed Coumadin therapy on iv heparin s/p egd during this admission showing near healed gastric ulcers continue iv heparin started on Coumadin inr 1.1 discharged on Lovenox bridge as per renal function and Coumadin notified Coumadin clinic needs close followup [facility] Coumadin clinic and pcp duration of Coumadin as per pcp.(may need residential). HTN on lisinopril and metoprolol will monitor CKD STAGE III-IV baseline creat ~ 2.0 cr 1.9 today will monitor discharged home with home health Total time spent on discharge = 35MINUTES This includes examination of the patient, discharge planning, medication reconciliation, and communication with other providers. Discharge Instructions Discharge Instructions Date of Service Oct 18, 2016. Admission Reason for Admission: DVT Discharge Discharge Diagnosis / Problem: DVT Discharge Goals Goal(s): Decrease discomfort, Improve function Activity Recommendations Activity Limitations: resume your previous activity . Instructions / Follow-Up Instructions / Follow-Up FOLLOWUP WITH FAMILY DOCTOR ON October AT 11:10AM. FOLLOWUP WITH COUMADIN CLINIC FOR COUMADIN DOSING. COUMADIN CLINIC NOTIFIED. COUMADIN 7.5MG PO DAILY UNTIL FURTHER NOTICE FROM COUMADIN CLINIC. LOVENOX 60MG DAILY SHOTS UNTIL ADVISED TO STOP BY COUMADIN CLINIC. LAB: PT/INR IN COUPLE OF DAYS AND FOLLOW RESULTS WITH COUMADIN CLINIC. Current Hospital Diet Patient's current hospital diet: AHA Diet (Heart Healthy) Discharge Diet Recommended Diet: AHA Diet (Heart Healthy) Procedures Procedures Performed: EGD Pending Studies Studies pending at discharge: no Medical Emergencies . Who to Call and When: Medical Emergencies: If at any time you feel your situation is an emergency, please call 911 immediately. . Non-Emergent Contact Non-Emergency issues call your: Primary Care Provider (IV HEPARIN) . . "Provider Documentation" section prepared by Ilia Campos. . VTE Core Measure Inpt VTE Proph given/why not?: Other Anticoagulation (heparin drip)
== END 2016-10-18 15:25 | disposition home health service (06) | DRG 300 ==
LOC: ENRESERVTM → ENRESERVDT → EDBD 16:50 → C.EDC 16:51 → C.MS2W 18:18
PROVIDERS: ADMIT Hospitalist; ATTEND Internal Medicine
PROC: 0DJ08ZZ Inspection of Upper Intestinal Tract, Via Natural or Artificial Opening Endoscopic (ICD-10-PCS; principal; 2016-10-16 10:34)
DX: I82.412 Acute embolism and thrombosis of left femoral vein (principal); N18.4 Chronic kidney disease, stage 4 (severe); I82.432 Acute embolism and thrombosis of left popliteal vein; N40.0 Benign prostatic hyperplasia without lower urinary tract symptoms; I35.0 Nonrheumatic aortic (valve) stenosis; E78.5 Hyperlipidemia, unspecified; Z85.51 Personal history of malignant neoplasm of bladder; I12.9 Hypertensive chronic kidney disease with stage 1 through stage 4 chronic kidney disease, or unspecified chronic kidney disease; Z87.891 Personal history of nicotine dependence; Z88.8 Allergy status to other drugs, medicaments and biological substances; E73.9 Lactose intolerance, unspecified; Z79.899 Other long term (current) drug therapy; Z66 Do not resuscitate; M10.9 Gout, unspecified; Z82.49 Family history of ischemic heart disease and other diseases of the circulatory system; Z80.9 Family history of malignant neoplasm, unspecified

== ENCOUNTER → 2017-10-29 | Outpatient (CLI) | payer OTHER ==
[~2017-10-29] MED LIST changes: +CMD25 PO; +ENOX60IN SQ; +LISI-1116 PO; -LISI2.5T5 PO; +PANT40TA PO; -PRT40 PO; +WARF5TAB90 PO; +[UNRECOGNIZED DRUG - CODE] PO
== END | disposition home or self-care (01) ==
LOC: C.PATHSPEC 17:26
PROVIDERS: ATTEND Urology
DX: D49.4 Neoplasm of unspecified behavior of bladder (principal)

== ENCOUNTER 2018-09-12 00:24 | Inpatient (IN) ==
[2018-09-12] MEDS ORDERED: ONDANSETRON INJ 2 MG/ML 2 ML VIAL IV STA (00:46)
[2018-09-12] MEDS ORDERED: MoRPHine SULFATE 4 MG/ML 1 ML CARP\\VIAL IV STA (00:46)
[2018-09-12] MEDS ORDERED: SODIUM CHLORIDE 0.9% 1000ML 1,000 ML IV SCH (01:00)
[2018-09-12 01:19] LABS: Basophils # (auto) 0.02 K/uL (0-0.2); Basophils % (auto) 0.2 %; Eosinophils # (auto) 0.01 K/uL (0-0.5); Eosinophils % (auto) 0.1 %; Hematocrit (blood only) 34.3 % (42-52); Hemoglobin 11.3 g/dL (14.0-18.0); Immature Granulocytes # (auto) 0.03 K/uL (0.00-0.02); Immature Granulocytes % (auto) 0.2 %; Lymphocytes # (auto) 0.59 K/uL (1.2-3.4); Lymphocytes % (auto) 4.7 %; Mean Corpuscular Hgb Conc 32.9 g/dL (32-36); Mean Platelet Volume 11.3 fL (7.4-10.4); Monocytes # (auto) 0.72 K/uL (0.11-0.59); Monocytes % (auto) 5.7 %; Neutrophils # (auto) 11.28 K/uL (1.4-6.5); Neutrophils % (auto) 89.1 %; Platelet Count 224 K/uL (130-400); RDW Coefficient of Variation 14.3 % (11.5-14.5); RDW Standard Deviation 47.9 fL (36.4-46.3); Red Blood Count 3.73 M/uL (4.7-6.1); White Blood Count 12.65 K/uL (4.8-10.8)
[2018-09-12 01:33] LABS: INR 2.4 (0.9-1.1); Partial Thromboplastin Ratio 1.2; Partial Thromboplastin Time 32.2 Seconds (21.0-31.0)
[2018-09-12 01:37] LABS: Alanine Aminotransferase 23 U/L (12-78); Aspartate Aminotransferase 21 U/L (15-37); BUN Creatinine Ratio 22.8 (10-20); Blood Urea Nitrogen 70 mg/dl (7-18); Calcium 9.4 mg/dl (8.5-10.1); Carbon Dioxide 26 mmol/L (21-32); Chloride 105 mmol/L (98-107); Creatinine Clr Calc Pharmacy 17.3 ml/min; Est GFR (African American) 20.1; Est GFR (Non-African American) 17.4; Glucose 184 mg/dl (70-99); Magnesium 2.2 mg/dl (1.8-2.4); Potassium 4.4 mmol/L (3.5-5.1); Sodium 140 mmol/L (136-145)
[2018-09-12 01:48] LABS: Alkaline Phosphatase 74 U/L (45-117); Bilirubin,Total 0.6 mg/dl (0.2-1); Troponin I < 0.015 ng/ml (0-0.045)
[2018-09-12] MEDS ORDERED: NITROGLYCERIN 2% OINTMENT 30GM TUBE EXT ONE (02:15)
[2018-09-12] MEDS ORDERED: ASPIRIN CHEW 324 MG PO STA (02:23)
[2018-09-12] MEDS ORDERED: fentaNYL citrate 100 MCG/2 ML VIAL IV STA (02:49)
[2018-09-12] MEDS ORDERED: ALUMINUM/MAGNESIUM/SIMETH (MAALOX MAX) 30 ML UDC PO STA (03:48)
--- NOTE | 2018-09-12 03:58 | Emergency Department Note ---
ED Visit Note I have personally seen and evaluated the patient with the PA. I agree with the diagnosis and management decisions and have been personally involved in the case. Patient's abdominal CT was reviewed. He had developed substernal chest pressure during his stay. Subsequent EKGs reveal ST depression in the lateral leads. There is no evidence of reciprocal change to my interpretation. Patient's creatinine is 3.[address] was not performed at this time. Repeat troponin remains 0. Nitroglycerin paste did not necessarily improve his symptoms. Patient was given aspirin 324 mg p.o. He is fully anticoagulated on Coumadin with an INR at 2.4. Patient's case was discussed with Dr. Campos of the hospitalist service. He will be evaluated for further management. Please see James Deleon PA-C's notes for further details of the history, physical and visit. .
--- NOTE | 2018-09-12 04:11 | History & Physical Report ---
Date of Service September 12, 2018 Assessment & Plan (1) Chest pain: INITALLY PRESENTED WITH ABDOMINAL PAIN BUT IN ER DEVELOPED CHEST PAIN RETROSTERNAL 4/10 IN SEVERITY RADIATION TO LEFT ARM INITIAL TROPONIN NEGATIVE EKG ST DEPRESSION IN ANTERIOLATERAL LEADS. HAD TRANSIENT LATERAL LEAD DEPRESSION IN PREVIOUS EKG ECHO FROM 10/2017 EF 68% AND MODERATE . ON COUMADIN FOR DVT AND INR 2.4 CONTINUE NITRO PASTE WILL FOLLOW SERIAL CE AND ECHO MONITOR IN TELE CARDIOLOGY CONSULT Present on Admission?: Yes (2) Abdominal pain: presented with abdominal pain and nausea and one epsiode of vomiting currently improved Because of hx of AAA repair Ct abdomen and US were done which are unremarkable. Will follow offical reports currently npo, on iv fluids and antiemetics prn (3) JESSICA (acute kidney injury): Base line Creatinine 1.8 to 2.0. Presented with CR 3.0 holding lisinopril and lasix. Started on gentle fluids will follow labs Present on Admission?: Yes (4) CKD (chronic kidney disease), stage III: baseline Cr 1.8 to 2.0 holding lasix and lisnopril as above for jessica. Present on Admission?: Yes (5) Hypertension: Will continue home meds, lopressor, imdur. holding lisnopril for jessica. will monitor Present on Admission?: Yes (6) Aortic stenosis: moderate on gentle fluids. will monitor volume status holding lasix for jessica follow echo Present on Admission?: Yes (7) Gastric ulcer: hx of gastric ulcer. currently stable on protonix (8) Emphysema lung: hx of tobacco abuse not on inhlaers at home occasional wheezing on exam will place on albuterol inh prn (9) Dyslipidemia: on lovastatin Present on Admission?: Yes (10) History of bladder carcinoma: s/p excision and chemo as per patient severla years ago Present on Admission?: Yes (11) BPH (benign prostatic hyperplasia): s/p TURP Present on Admission?: Yes (12) History of DVT (deep vein thrombosis): on coumadin INR 2.4 Present on Admission?: Yes (13) Abdominal aortic aneurysm: s/p repair Present on Admission?: Yes History of Present Illness Chief Complaint: Abdominal pain and chest pain Primary Care Provider: Wilian Huston MD 88-year-old male with history of hyperlipidemia, emphysema of the lung, abdominal aortic aneurysm status post repair, hypertension, moderate aortic stenosis, irritable bowel syndrome, history of gastric ulcers with bleeding resolved, history of malignant neoplasm of bladder status post chemo, gout, chronic kidney disease stage IV, anemia of chronic kidney disease, primary open angle glaucoma both eyes, history of DVT presents with abdominal pain. Patient states around 3 PM yesterday he started to have abdominal pain moderate in severity associated with nausea and an episode of vomiting. He thought he had stomach flu and came to the ER. Because of history of abdominal aortic aneurysm CT of the of the abdomen pelvis without contrast was done which was unremarkable, abdominal ultrasound was done which was also unremarkable. His abdominal pain improved but during imaging studies he developed retrosternal chest pain. It is about 4 x 10 in severity and located in the central chest but now feels it is radiating to his left arm but he also says is somewhat anxious. No shortness of breath or cough. Has some a headache. Has some dizziness. Was placed on nitro paste in the ER but it does not helping him and he does not want any morphine. Apparently he lives alone, no family close by, he drives his own car and ambulates without any help. He gets food on food on wheels. Sister and brother lives in [place]. Currently hemodynamically stable. Allergies Allergy/AdvReac Type Severity Reaction Status Date / Time indomethacin AdvReac Unknown BLEEDING Verified 09/12/18 01:08 lactose AdvReac Unknown GI SYMPTOMS Verified 09/12/18 01:08 Home Medications Home Medications Medication Instructions Recorded Confirmed Type allopurinol 100 mg PO DAILY 09/12/18 09/12/18 History calcitriol 0.25 mcg PO DAILY 09/12/18 09/12/18 History ferrous sulfate 325 mg PO DAILY 09/12/18 09/12/18 History furosemide [Lasix] 20 mg PO 3XWK 09/12/18 09/12/18 History isosorbide mononitrate 30 mg PO DAILY 09/12/18 09/12/18 History lisinopril 2.5 mg PO DAILY 09/12/18 09/12/18 History lovastatin 20 mg PO DAILY 09/12/18 09/12/18 History metoprolol tartrate 25 mg PO BID 09/12/18 09/12/18 History pantoprazole 40 mg PO DAILY 09/12/18 09/12/18 History psyllium husk [Fiber-Caps 2 cap PO DAILY 09/12/18 09/12/18 History (psyllium husk)] warfarin [Coumadin] 5 mg PO 4XWK 09/12/18 09/12/18 History warfarin [Coumadin] 7.5 mg PO 3XWK 09/12/18 09/12/18 History Past Med/Surg History Medical History Anemia in chronic kidney disease Aortic aneurysm Aortic stenosis CKD stage 4 secondary to hypertension Cancer of bladder DVT (deep venous thrombosis) Dyslipidemia Emphysema of lung Gastric ulcer Gout HTN (hypertension) Irritable bowel syndrome Lung nodule Surgical History H/O colonoscopy History of cataract surgery History of esophagogastroduodenoscopy (EGD) History of right inguinal hernia repair S/P TURP S/P tonsillectomy Family History Father Hypertension Heart disease Mother Cancer Social History Preferred Language: Estonian Hearing Ability: Normal Current Living Situation: Alone Feels Safe at Home: Yes Smoking Status: Former smoker Hx Alcohol Use: No Immunizations: Pneumonia vaccine on 05/10/2015. Review of Systems Constitutional- no fever Eyes- no acute visual changes ENT-Has runny nose, no pharyngitis Pulmonary- no cough, no wheezing, no shortness of breath Cardiac- Has retrosternal chest pain 4/10 in severity , no palpitations, no dependent edema GI- was nauseous and had one episode of vomiting, no diarrhea, no melena, no hematochezia - no dysuria, no hematuria Derm- no rashes Hematologic- no unusual bruising, no unusual bleeding Neuro- has mild headaches, no focal neurologic symptoms Physical Exam Vital Signs (Past 24 Hours): Last Vital Signs Temp 36.8 C 09/12/18 00:27 Pulse 89 09/12/18 02:47 Resp 18 09/12/18 02:47 BP 123/70 09/12/18 02:47 Pulse Ox 95 09/12/18 02:47 Physical Exam: General- Not in distress Head- atraumatic Eyes- PERRL, anicteric ENT- oropharynx clear Neck- supple, no JVD, no adenopathy, carotids +2/2, no bruits appreciated Lungs- clear to auscultation and percussion Heart- regular rhythm; Mild ESM present, no gallop, no rub appreciated Abdomen- normal bowel sounds, soft,mild diffuse discomfort, no masses Extremities- no pretibial edema, no erythema Neuro- alert, oriented x 3; PERRL, no facial palsy; no dysarthria;non focal Skin- warm & dry Results & Data Laboratory Results Laboratory Results - last 24 hr 09/12/18 09/12/18 09/12/18 00:37 00:37 00:37 WBC 12.65 H RBC 3.73 L Hgb 11.3 L Hct 34.3 L MCV 92.0 MCH 30.3 MCHC 32.9 RDW Std Deviation 47.9 H RDW Coeff of Be 14.3 Plt Count 224 MPV 11.3 H Immature Gran % (Auto) 0.2 Neut % (Auto) 89.1 Lymph % (Auto) 4.7 Letcher % (Auto) 5.7 Eos % (Auto) 0.1 Baso % (Auto) 0.2 Immature Gran # (Auto) 0.03 H Neut # (Auto) 11.28 H Lymph # (Auto) 0.59 L Letcher # (Auto) 0.72 H Eos # (Auto) 0.01 Baso # (Auto) 0.02 PT 23.0 H INR 2.4 H APTT 32.2 H PTT Ratio 1.2 Sodium 140 Potassium 4.4 Chloride 105 Carbon Dioxide 26 Anion Gap 9.0 BUN 70 H Creatinine 3.05 H Est Cr Clr Drug Dosing 17.3 Est GFR ( Amer) 20.1 Est GFR (Non-Af Amer) 17.4 BUN/Creatinine Ratio 22.8 H Glucose 184 H Calcium 9.4 Magnesium 2.2 Total Bilirubin 0.6 AST 21 ALT 23 Alkaline Phosphatase 74 POC Troponin I Troponin I < 0.015 Total Protein 8.0 Albumin 4.0 Globulin 4.0 Albumin/Globulin Ratio 1.0 Lipase 189 TSH 2.140 Urine Color Urine Appearance Urine pH Ur Specific Bowie Urine Protein Urine Glucose (UA) Urine Ketones Urine Blood Urine Nitrite Urine Bilirubin Urine Urobilinogen Ur Leukocyte Esterase Urine RBC Urine WBC Ur Epithelial Cells Urine Bacteria 09/12/18 09/12/18 02:46 03:45 WBC RBC Hgb Hct MCV MCH MCHC RDW Std Deviation RDW Coeff of Be Plt Count MPV Immature Gran % (Auto) Neut % (Auto) Lymph % (Auto) Letcher % (Auto) Eos % (Auto) Baso % (Auto) Immature Gran # (Auto) Neut # (Auto) Lymph # (Auto) Letcher # (Auto) Eos # (Auto) Baso # (Auto) PT INR APTT PTT Ratio Sodium Potassium Chloride Carbon Dioxide Anion Gap BUN Creatinine Est Cr Clr Drug Dosing Est GFR ( Amer) Est GFR (Non-Af Amer) BUN/Creatinine Ratio Glucose Calcium Magnesium Total Bilirubin AST ALT Alkaline Phosphatase POC Troponin I < 0.03 Troponin I Total Protein Albumin Globulin Albumin/Globulin Ratio Lipase TSH Urine Color Yellow Urine Appearance Clear Urine pH 5.0 Ur Specific Bowie 1.019 Urine Protein Trace H Urine Glucose (UA) Negative Urine Ketones Negative Urine Blood 1+ H Urine Nitrite Negative Urine Bilirubin Negative Urine Urobilinogen Negative Ur Leukocyte Esterase Negative Urine RBC 0-4 Urine WBC 0-5 Ur Epithelial Cells 10-20 H Urine Bacteria Negative Diagnostic Findings CXR: NO ACUTE FINDINGS CT ABD/PELVIS: PENDING ABDOMINAL ARTERIAL US: PENDING ECG Additional Comments: ECG: NSR WITH FIRST DEGREE AV BLOCK AT RATE OF 84. ST DEPRESSION IN ANTEROLATERAL LEADS. Code Status & VTE Plan Code Status FULL CODE VTE Prophylaxis Plan VTE Prophylaxis will be ordered: Yes
[2018-09-12 04:13] LABS: Appearance Urine Clear (Clear); Bilirubin Urine Negative (Negative); Blood Urine 1+ (Negative); Color Urine Yellow; Glucose Urine UA Negative (Negative); Ketones Urine Negative (Negative); Leukocyte Esterase Urine Negative (Negative); Nitrite Urine Negative (Negative); Protein Urine Trace (Negative); Specific Gravity Urine 1.019 (1.000-1.030); Urobilinogen Urine Negative (Negative)
[2018-09-12 04:15] LABS: Bacteria Urine Negative (Negative); RBC Urine 0-4 /hpf (0-4); WBC Urine 0-5 /hpf (0-5)
[2018-09-12] MEDS ORDERED: ALUMINUM/MAGNESIUM SUSP 30 ML UDC PO PRN (04:58)
[2018-09-12] MEDS ORDERED: ONDANSETRON INJ 2 MG/ML 2 ML VIAL IV PRN (04:58)
[2018-09-12] MEDS ORDERED: NITROGLYCERIN SL 0.4 MG/TAB TAB SL PRN (04:58)
[2018-09-12] MEDS: SODIUM CHLORIDE 0.9% 1000ML 1,000 ML IV SCH (05:28)
--- NOTE | 2018-09-12 06:41 | XRay Report ---
XR chest 1V portable HISTORY: 88 years-old Male Chest pain acute atypical chest pain COMPARISON: Chest radiograph 08/21/2016 TECHNIQUE: Portable AP view of the chest FINDINGS: Cardiac silhouette is mildly enlarged. Calcification of the thoracic aortic arch. There is no pneumot horax, pleural effusion or overt pulmonary edema. Linear minimal bibasilar atelectasis. No lobar airs pace consolidation. Degenerative changes of the shoulders and spine. IMPRESSION: No acute process. The above report was generated using voice recognition software. It may contain grammatical, syntax o r spelling errors. Electronically signed by: Ricki Almazan M.D. 09/12/2018 6:39 AM
--- NOTE | 2018-09-12 07:07 | Ultrasound Report ---
ULTRASOUND OF THE ABDOMINAL AORTA CLINICAL HISTORY: Generalized abdominal pain. History of aortic aneurysm repair. COMPARISON STUDY: No priors. TECHNIQUE: Multiple case scale, color Doppler, and spectral Doppler sonograms of the abdominal aorta and iliac arteries are performed. Images are reviewed in the transverse and longitudinal planes. FINDINGS: There is mild atherosclerotic calcification and irregularity noted throughout the abdominal aorta. Th e proximal abdominal aorta measures 2.1 x 2.3 cm (AP times transverse), the mid abdominal aorta measu res 2.1 x 2.7 cm, and the distal abdominal aorta measures 2.1 x 2.7 cm. The right common iliac artery measures up to 1.1 cm and the left common iliac artery measures up to 1.3 cm. Flow is shown througho ut the abdominal aorta. IMPRESSION: There is no sonographic evidence of abdominal aortic aneurysm. Electronically signed by: Saleem Oliva M.D. 09/12/2018 7:06 AM
--- NOTE | 2018-09-12 07:26 | Emergency Department Note ---
History of Present Illness General Chief complaint: Abdominal Pain Time Seen by Provider: 09/12/18 00:36 History of Present Illness Maximum Pain Intensity: 5 This is an 88-year-old male presenting to the emergency department for evaluation of lower abdominal pain that began approximately 8 hours prior to arrival. Patient states that he has a bloating/cramping sensation in his low abdomen below the umbilicus. He states this will "bubble" up into his throat and caused him to belch. The patient does report a history of GERD, and states this feels similar to previous episodes. He did not take anything [id number] for his symptoms. The patient states that his symptoms have be en intermittent over the past several hours, and elected to come to the ER for evaluation. The patient states that he lives at home by himself and was concerned that if something happened no one would be able to find him. The patient has not had recent fever or chills. No nausea or vomiting. The patient does report a history of aortic stenosis and AAA repair. He is on Coumadin for DVT history. He rates his current discomfort a 4/10. Home Medications Home Medications Medication Instructions Recorded Confirmed Type allopurinol 100 mg PO DAILY 09/12/18 09/12/18 History calcitriol 0.25 mcg PO DAILY 09/12/18 09/12/18 History ferrous sulfate 325 mg PO DAILY 09/12/18 09/12/18 History furosemide [Lasix] 20 mg PO 3XWK 09/12/18 09/12/18 History isosorbide mononitrate 30 mg PO DAILY 09/12/18 09/12/18 History lisinopril 2.5 mg PO DAILY 09/12/18 09/12/18 History lovastatin 20 mg PO DAILY 09/12/18 09/12/18 History metoprolol tartrate 25 mg PO BID 09/12/18 09/12/18 History pantoprazole 40 mg PO DAILY 09/12/18 09/12/18 History psyllium husk [Fiber-Caps 2 cap PO DAILY 09/12/18 09/12/18 History (psyllium husk)] warfarin [Coumadin] 5 mg PO 4XWK 09/12/18 09/12/18 History warfarin [Coumadin] 7.5 mg PO 3XWK 03/22/19 03/22/19 History Allergies Allergy/AdvReac Type Severity Reaction Status Date / Time indomethacin AdvReac Unknown BLEEDING Verified 09/12/18 01:08 lactose AdvReac Unknown GI SYMPTOMS Verified 09/12/18 01:08 Past Med/Surg History Medical History Anemia in chronic kidney disease Aortic aneurysm Aortic stenosis CKD stage 4 secondary to hypertension Cancer of bladder DVT (deep venous thrombosis) Dyslipidemia Emphysema of lung Gastric ulcer Gout HTN (hypertension) Irritable bowel syndrome Lung nodule Surgical History H/O colonoscopy History of cataract surgery History of esophagogastroduodenoscopy (EGD) History of right inguinal hernia repair S/P TURP S/P tonsillectomy Family History Father Hypertension Heart disease Mother Cancer Social History Preferred Language: Swiss Communication Ability: Effective Beliefs That Will Affect Care: None Current Living Situation: Alone Other Information That Helps Us Care for You: No Feels Safe at Home: Yes Safety Concerns: Feels Safe At This Time Smoking Status: Former smoker Hx Alcohol Use: No Hx Substance Use: No Review of Systems A total of 10 systems reviewed and were otherwise negative Physical Exam Vital Signs Vital Signs - 24 hr 09/12/18 00:27 09/12/18 01:01 09/12/18 02:24 Temperature 36.8 C Temperature Source Oral Sepsis Recent Fever Within 48 Hours No Sepsis New/Unexplained Change in Mental Status No Sepsis Action Taken by Nursing No Action Required Pulse Rate 82 Pulse Rate [Finger] 84 84 Pulse Rhythm [Finger] Pulse Strength [Finger] Respiratory Rate 16 18 18 Respiratory Effort / Characteristics Non-Labored Spontaneous Respiratory Depth Normal Respiratory Pattern Blood Pressure 138/74 Blood Pressure [Right Arm] 166/66 H 133/65 Blood Pressure Mean 95 Blood Pressure Mean [Right Arm] 99 87 Pulse Oximetry 97 97 96 Oxygen Delivery Method Room Air Room Air Room Air 09/12/18 02:47 09/12/18 04:59 09/12/18 06:00 Temperature 36.8 C Temperature Source Oral Sepsis Recent Fever Within 48 Hours Sepsis New/Unexplained Change in Mental Status Sepsis Action Taken by Nursing Pulse Rate 100 H Pulse Rate [Finger] 89 97 H Pulse Rhythm [Finger] Regular Pulse Strength [Finger] Normal Respiratory Rate 18 20 Respiratory Effort / Characteristics Non-Labored Spontaneous Respiratory Depth Normal Respiratory Pattern Regular Blood Pressure Blood Pressure [Right Arm] 123/70 124/64 Blood Pressure Mean Blood Pressure Mean [Right Arm] 87 84 Pulse Oximetry 95 96 Oxygen Delivery Method Room Air Room Air VITALS: Vitals are noted on the nurse's note and reviewed by myself. Vital signs stable. GENERAL: Well-developed, well-nourished, elderly male who is cooperative and appears comfortable. HEAD: Normocephalic atraumatic. EYES: Pupils equal round and reactive to light and accommodation. Conjunctivae without injection, sclerae without icterus. Extraocular movements intact. MOUTH: Mucous membranes moist. Tonsils are not enlarged. Pharynx without erythema, blood, or exudate. Uvula midline. Airway patent. HEART: Regular rate and rhythm with coarse systolic murmur LUNGS: Clear to auscultation bilaterally without wheezes, rales or rhonchi. No retractions or accessory muscle use. ABDOMEN: Positive normal bowel sounds x 4. Soft with no significant tenderness. No rebound or guarding. No CVA tenderness. MUSCULOSKELETAL: No muscle atrophy, erythema, or edema noted. Full range of motion in all extremities. No significant lower extremity edema NEURO: Patient was alert and oriented to person place and time. CN II through XII grossly intact. SKIN: The skin was without rashes, erythema, edema, or bruising. Capillary refill less than 2 seconds. Course Administered Medications Sodium Chloride (Nss 1000ml) 1,000 mls @ 50 mls/hr IV .Q20H JOSE Stop: 09/13/18 07:00 Last Admin: 09/12/18 05:28 Dose: 50 mls/hr Documented by: [id number] Discontinued Medications Al Hydrox/Mg Hydrox/Simethicone (Maalox Max) 30 ml PO NOW STA Stop: 09/12/18 03:49 Last Admin: 09/12/18 03:58 Dose: 30 ml Documented by: [id number] Aspirin (Aspirin) 324 mg PO NOW STA Stop: 09/12/18 02:24 Last Admin: 09/12/18 02:28 Dose: 324 mg Documented by: [id number] Fentanyl Citrate (Fentanyl Citrate) 25 mcg IV NOW STA Stop: 09/12/18 02:50 Last Admin: 09/12/18 02:54 Dose: 25 mcg Documented by: [id number] Heparin Sodium (Beef Lung) (Heparin Sod 10 Unit/Ml Flush) Confirm Administered Dose 5 ml FLUSH .STK-MED ONE Stop: 09/12/18 01:56 Last Admin: 09/12/18 02:01 Dose: Not Given Documented by: [id number] Sodium Chloride (Nss 1000ml) 1,000 mls @ 250 mls/hr IV .Q4H JOSE Stop: 09/12/18 04:59 Last Infusion: 09/12/18 07:32 Dose: 0 mls/hr Documented by: [id number] Admin: 09/12/18 00:59 Dose: 250 mls/hr Documented by: [id number] Morphine Sulfate (Morphine Sulfate) 4 mg IV NOW STA Stop: 09/12/18 00:47 Last Admin: 09/12/18 01:12 Dose: Not Given Documented by: [id number] Nitroglycerin (Nitro-Bid 2%) 1 inch EXT NOW ONE Stop: 09/12/18 02:16 Last Admin: 09/12/18 02:19 Dose: 1 inch Documented by: [id number] Ondansetron HCl (Zofran) 4 mg IV NOW STA Stop: 09/12/18 00:47 Last Admin: 09/12/18 00:59 Dose: 4 mg Documented by: [id number] Medical Decision Making Differential Diagnosis Differential diagnosis includes, but is not limited to: AAA, bowel obstruction, viral illness, dissection, myocardial infarction, dysrhythmia, pericarditis, pneumothorax, aortic aneurysm/dissection, DVT/PE, anxiety, GERD, PUD, electrolyte imbalance, thyroid disorder, pneumonia, bronchitis, pancreatitis, and others Laboratory Data Result diagrams: 09/12/18 00:37 09/12/18 00:37 Lab Results 09/12/18 09/12/18 09/12/18 Range/Units 00:37 00:37 00:37 WBC 12.65 H (4.8-10.8) K/uL RBC 3.73 L (4.7-6.1) M/uL Hgb 11.3 L (14.0-18.0) g/dL Hct 34.3 L (42-52) % MCV 92.0 (80-100) fL MCH 30.3 (25-34) pg MCHC 32.9 (32-36) g/dL RDW Std Deviation 47.9 H (36.4-46.3) fL RDW Coeff of Be 14.3 (11.5-14.5) % Plt Count 224 (130-400) K/uL MPV 11.3 H (7.4-10.4) fL Immature Gran % (Auto) 0.2 % Neut % (Auto) 89.1 % Lymph % (Auto) 4.7 % Harlan % (Auto) 5.7 % Eos % (Auto) 0.1 % Baso % (Auto) 0.2 % Immature Gran # (Auto) 0.03 H (0.00-0.02) K/uL Neut # (Auto) 11.28 H (1.4-6.5) K/uL Lymph # (Auto) 0.59 L (1.2-3.4) K/uL Harlan # (Auto) 0.72 H (0.11-0.59) K/uL Eos # (Auto) 0.01 (0-0.5) K/uL Baso # (Auto) 0.02 (0-0.2) K/uL PT 23.0 H (9.0-12.0) Seconds INR 2.4 H (0.9-1.1) APTT 32.2 H (21.0-31.0) Seconds PTT Ratio 1.2 Sodium 140 (136-145) mmol/L Potassium 4.4 (3.5-5.1) mmol/L Chloride 105 (98-107) mmol/L Carbon Dioxide 26 (21-32) mmol/L Anion Gap 9.0 (3-11) BUN 70 H (7-18) mg/dl Creatinine 3.05 H (0.6-1.4) mg/dl Est Cr Clr Drug Dosing 17.3 ml/min Est GFR ( Amer) 20.1 Est GFR (Non-Af Amer) 17.4 BUN/Creatinine Ratio 22.8 H (10-20) Glucose 184 H (70-99) mg/dl Calcium 9.4 (8.5-10.1) mg/dl Magnesium 2.2 (1.8-2.4) mg/dl Total Bilirubin 0.6 (0.2-1) mg/dl AST 21 (15-37) U/L ALT 23 (12-78) U/L Alkaline Phosphatase 74 (45-117) U/L POC Troponin I (0-0.045) ng/ml Troponin I < 0.015 (0-0.045) ng/ml Total Protein 8.0 (6.4-8.2) gm/dl Albumin 4.0 (3.4-5.0) gm/dl Globulin 4.0 (2.5-4.0) gm/dl Albumin/Globulin Ratio 1.0 (0.9-2) Lipase 189 (73-393) U/L TSH 2.140 (0.300-4.500) uIu/ml Urine Color Urine Appearance (Clear) Urine pH (4.5-7.5) Ur Specific [place] (1.000-1.030) Urine Protein (Negative) Urine Glucose (UA) (Negative) Urine Ketones (Negative) Urine Blood (Negative) Urine Nitrite (Negative) Urine Bilirubin (Negative) Urine Urobilinogen (Negative) Ur Leukocyte Esterase (Negative) Urine RBC (0-4) /hpf Urine WBC (0-5) /hpf Ur Epithelial Cells (0-5) /lpf Urine Bacteria (Negative) 09/12/18 09/12/18 09/12/18 Range/Units 02:46 03:45 04:28 WBC (4.8-10.8) K/uL RBC (4.7-6.1) M/uL Hgb (14.0-18.0) g/dL Hct (42-52) % MCV (80-100) fL MCH (25-34) pg MCHC (32-36) g/dL RDW Std Deviation (36.4-46.3) fL RDW Coeff of Be (11.5-14.5) % Plt Count (130-400) K/uL MPV (7.4-10.4) fL Immature Gran % (Auto) % Neut % (Auto) % Lymph % (Auto) % Harlan % (Auto) % Eos % (Auto) % Baso % (Auto) % Immature Gran # (Auto) (0.00-0.02) K/uL Neut # (Auto) (1.4-6.5) K/uL Lymph # (Auto) (1.2-3.4) K/uL Harlan # (Auto) (0.11-0.59) K/uL Eos # (Auto) (0-0.5) K/uL Baso # (Auto) (0-0.2) K/uL PT (9.0-12.0) Seconds INR (0.9-1.1) APTT (21.0-31.0) Seconds PTT Ratio Sodium (136-145) mmol/L Potassium (3.5-5.1) mmol/L Chloride (98-107) mmol/L Carbon Dioxide (21-32) mmol/L Anion Gap (3-11) BUN (7-18) mg/dl Creatinine (0.6-1.4) mg/dl Est Cr Clr Drug Dosing ml/min Est GFR ( Amer) Est GFR (Non-Af Amer) BUN/Creatinine Ratio (10-20) Glucose (70-99) mg/dl Calcium (8.5-10.1) mg/dl Magnesium (1.8-2.4) mg/dl Total Bilirubin (0.2-1) mg/dl AST (15-37) U/L ALT (12-78) U/L Alkaline Phosphatase (45-117) U/L POC Troponin I < 0.03 0.03 (0-0.045) ng/ml Troponin I (0-0.045) ng/ml Total Protein (6.4-8.2) gm/dl Albumin (3.4-5.0) gm/dl Globulin (2.5-4.0) gm/dl Albumin/Globulin Ratio (0.9-2) Lipase (73-393) U/L TSH (0.300-4.500) uIu/ml Urine Color Yellow Urine Appearance Clear (Clear) Urine pH 5.0 (4.5-7.5) Ur Specific [place] 1.019 (1.000-1.030) Urine Protein Trace H (Negative) Urine Glucose (UA) Negative (Negative) Urine Ketones Negative (Negative) Urine Blood 1+ H (Negative) Urine Nitrite Negative (Negative) Urine Bilirubin Negative (Negative) Urine Urobilinogen Negative (Negative) Ur Leukocyte Esterase Negative (Negative) Urine RBC 0-4 (0-4) /hpf Urine WBC 0-5 (0-5) /hpf Ur Epithelial Cells 10-20 H (0-5) /lpf Urine Bacteria Negative (Negative) Imaging Data Radiologist's Impression: XR chest 1V portable HISTORY: 88 years-old Male Chest pain acute atypical chest pain COMPARISON: Chest radiograph 08/21/2016 TECHNIQUE: Portable AP view of the chest FINDINGS: Cardiac silhouette is mildly enlarged. Calcification of the thoracic aortic arc h. There is no pneumothorax, pleural effusion or overt pulmonary edema. Linear minimal bibasilar atelectasis. No lobar airspace consolidation. Degenerative changes of the shoulders and spine. IMPRESSION: No acute process. ULTRASOUND OF THE ABDOMINAL AORTA CLINICAL HISTORY: Generalized abdominal pain. History of aortic aneurysm repair. COMPARISON STUDY: No priors. TECHNIQUE: Multiple case scale, color Doppler, and spectral Doppler sonograms of the abdominal aorta and iliac arteries are performed. Images are reviewed in the transverse and longitudinal planes. FINDINGS: There is mild atherosclerotic calcification and irregularity noted throughout the abdominal aorta. The proximal abdominal aorta measures 2.1 x 2.3 cm (AP times transverse), the mid abdominal aorta measures 2.1 x 2.7 cm, and the distal abdominal aorta measures 2.1 x 2.7 cm. The right common iliac artery measures up to 1.1 cm and the left common iliac artery measures up to 1.3 cm. Flow is shown throughout the abdominal aorta. IMPRESSION: There is no sonographic evidence of abdominal aortic aneurysm. Preliminary Findings Only See Final Report For Complete Findings CT ABDOMEN & PELVIS Without Contrast: Gastric distention. Colonic diverticula without diverticulitis. Appendix not identified. Nonspecific bowel pattern. Cholelithiasis. 2.2 cm left adrenal nodule. Large heterogeneous prostate and probable TURP defect. Vascular grafts. Fat containing left inguinal and ventral hernias. MDM Narrative Physical exam and history were performed. Nursing notes, EMR, and Medication List were personally reviewed. Patient appears to have lower abdominal pain symptoms bring him to the emergency department this evening. The patient is describing a cramping and bloating sensation. He does have a history of AAA repair, chronic kidney disease, and aortic stenosis. IV access was established and labs were obtained. The patient was gently hydrated with normal saline. He was offered morphine, but refused. The patient did accept 4 mg IV Zofran. Out of concern for his abdominal pain and past surgical history I did elect to perform a CT scan of his abdomen and pelvis. His creatinine is elevated at greater than 3 and this was performed without contrast. An ultrasound of his aorta was also performed. The patient's blood work is as above and was reviewed. He has a minimally elevated white blood cell count of 12,000. He is minimally anemic at 11.3. He does not have a significant electrolyte imbalance. Lipase and transaminases are not diagnostic. TSH shows euthyroid state. Glucose is 184. Creatinine is 3.05, and we do not have additional labs for comparison, although I suspect this is near his baseline. INR is 2.4. Troponin x1 is negative. CT scan of the abdomen and pelvis, as well as ultrasound were reviewed by myself and radiology as showing no acute process. Upon returning to his room from ultrasound and CT, the patient began complaining of chest pain. This pain was previously not present on initial presentation. The patient did have an initial EKG which did show normal sinus rhythm at 83 bpm with a nonspecific ST abnormality. We did repeat the EKG with the onset of chest pain, and the second EKG does show significant ST depression in the lateral leads compared to the first EKG. The patient was given aspirin and Nitropaste was applied. After about 15 minutes we did repeat the EKG, and the patient does seem to have a markedly evolving EKG with persistent and worsening ST depression in the lateral leads. The case was discussed with my attending physician, Dr. Nixon, who also independently evaluated the patient and remained involved in care and decision-making. Repeat [id number] troponin was performed and was also negative. I had a lengthy discussion with the patient regarding options of care. I have concern for his chest pain symptoms as well as evolving EKG. The patient has multiple risk factors for coronary artery disease. The case was discussed with the on-call [facility] hospitalist who agreed to evaluate the patient here in the department. Please see their dictation for further patient course, plan, and disposition. The chart was completed utilizing [employer] Speech Voice Recognition Software. Grammatical errors, random word insertions, pronoun errors, and incomplete sentences are an occasional consequence of this system due to software limitations, ambient noise, and hardware issues. Any formal questions or concerns about the content, text, or information contained within the body of this dictation should be directly addressed to the provider for clarification. . Impression & Plan Chest pain, Acute electrocardiogram changes Discharge Plan Visit Data *Final* Discharge Date/Time: 09/12/18 04:44 Chief Complaint: Abdominal Pain ED Provider: Kathy Nixon ED Midlevel Provider: James Deleon Discharge Problem: Chest pain, Acute electrocardiogram changes Patient Disposition: Admitted As Inpatient Discharge Instructions Interventions: ED Discharge Assessment Last Done: 09/12/18 04:44 Discharge Problem: Chest pain Qualifiers: Chest pain type: unspecified Qualified Code(s): R07.9 - Chest pain, unspecified
--- NOTE | 2018-09-12 07:44 | CT Scan Report ---
ABDOMEN AND PELVIS CT WITHOUT CONTRAST CT DOSE: 794.51 mGy.cm HISTORY: Acute generalized abdominal pain with prior abdominal aortic aneurysm repair abd pain. old hx aaa repair. elevated creat. TECHNIQUE: Multiaxial CT images of the abdomen and pelvis were performed without contrast. A dose lo wering technique was utilized adhering to the principles of ALARA. COMPARISON STUDY: None. FINDINGS: Respiratory motion artifact limits dilation of the lung bases. Mild dependent subsegmental bibasilar atelectasis. There is no pneumatosis or pneumoperitoneum. Coronary arterial calcifications are noted. Moderate enlargement of the imaged cardiac chambers. Cholelithiasis without CT evidence of acute cholecystitis. The unenhanced liver appears unremarkable. Diminutive morphology of the spleen. Moderate generalized pancreatic atrophy. Right adrenal gland ap pears normal. Heterogeneously attenuating prominently hypodense ovoid nodule about the left adrenal g land measuring 2.6 x 1.8 cm suggests a probable adenoma. Cortical thinning with mildly trophic appearance of the kidneys, left greater than right. There are m ultiple hypodense lesions about the left kidney suggestive of probable cysts measuring up to 2.8 cm a bout the superior pole. No ureteral calculi or hydronephrosis. Prostamegaly with TURP defect. Enlarge d prostate causes mass effect upon the base of the urinary bladder. Mild wall thickening of the bladd er. Small fat filled left inguinal hernia. Extensive calcification of the abdominal aorta with mild e ctasia measuring up to 2.7 cm. No aneurysm. Aortobiiliac grafts noted. There is no adenopathy. Mild wall thickening of the distal esophagus with intraluminal debris. The stomach is moderately dist ended. There is no small bowel obstruction. Multiple fluid-filled nondilated loops of small bowel are noted. Extensive colonic diverticulosis without acute diverticulitis. Air-fluid levels noted through out the colon suggest diarrheal illness. The appendix is not definitively seen. No secondary signs of acute appendicitis. No ascites or mesenteric inflammation. Fat filled periumbilical hernia, diastase s of 2.4 cm. Bones appear to be intact and appear demineralized. Multilevel spondylitic spurring with intervertebral disc space narrowing and facet arthropathy. IMPRESSION: 1. Motion degraded exam without bowel obstruction or focal bowel wall thickening. 2. Multiple fluid-filled nondilated loops of both small and large bowel are suggestive of enteritis w ith diarrheal illness. 3. Cholelithiasis without CT evidence of acute cholecystitis. 4. Mild wall thickening of the distal esophagus. 5. Small fat filled periumbilical and left inguinal hernias. 6. Prostamegaly with TURP defect. Mild wall thickening of the urinary bladder is likely secondary to chronic bladder outlet obstruction. 7. Additional findings as above. Electronically signed by: Ricki Almazan M.D. 09/12/2018 7:43 AM
[2018-09-12] MEDS ORDERED: NITROGLYCERIN 2% OINTMENT 30GM TUBE EXT SCH (08:00)
[2018-09-12 08:16] LABS: Basophils # (auto) 0.01 K/uL (0-0.2); Basophils % (auto) 0.1 %; Hematocrit (blood only) 29.9 % (42-52); Hemoglobin 9.8 g/dL (14.0-18.0); Immature Granulocytes # (auto) 0.03 K/uL (0.00-0.02); Immature Granulocytes % (auto) 0.2 %; Lymphocytes # (auto) 0.44 K/uL (1.2-3.4); Lymphocytes % (auto) 3.5 %; Mean Corpuscular Hgb Conc 32.8 g/dL (32-36); Mean Platelet Volume 10.7 fL (7.4-10.4); Monocytes # (auto) 0.78 K/uL (0.11-0.59); Monocytes % (auto) 6.2 %; Neutrophils # (auto) 11.41 K/uL (1.4-6.5); Platelet Count 200 K/uL (130-400); RDW Coefficient of Variation 14.5 % (11.5-14.5); RDW Standard Deviation 48.8 fL (36.4-46.3); Red Blood Count 3.25 M/uL (4.7-6.1); White Blood Count 12.67 K/uL (4.8-10.8)
[2018-09-12] MEDS: LOVASTATIN 20 MG TAB PO SCH (08:28)
[2018-09-12] MEDS: CALCIUM POLYCARBOPHIL 625MG TAB PO SCH (08:28)
[2018-09-12] MEDS: PANTOprazole 40 MG TAB PO SCH (08:28)
[2018-09-12] MEDS: FERROUS SULFATE 325 MG TAB PO SCH (08:28)
[2018-09-12] MEDS: CEROVITE ADV FORMULA TAB PO SCH (08:29)
[2018-09-12] MEDS: ASPIRIN 81 MG ECTAB PO SCH (08:29)
[2018-09-12] MEDS: ALLOPURINOL 100 MG TAB PO SCH (08:29)
[2018-09-12 08:50] LABS: Creatinine Clr Calc Pharmacy 19.8 ml/min; Est GFR (African American) 23.2; Magnesium 2.4 mg/dl (1.8-2.4); Potassium 5.3 mmol/L (3.5-5.1)
[2018-09-12] MEDS ORDERED: ISOSORBIDE MONO EXTENDED REL 30 MG TABCR PO SCH (09:00)
[2018-09-12] MEDS ORDERED: METOPROLOL TARTRATE 25 MG TAB PO SCH (09:00)
[2018-09-12] MEDS: CALCITRIOL 0.25 MCG CAPSULE PO SCH (10:53)
[2018-09-12] MEDS ORDERED: ISOSORBIDE MONO EXTENDED REL 30 MG TABCR PO ONE (11:30)
[2018-09-12] MEDS ORDERED: Heparin IV Standard *NO* Bolus IV SCH (11:30)
[2018-09-12] MEDS ORDERED: Heparin Adult STANDARD Wt-Based Dextrose 5% 25,000 units/500 mL IV SCH (12:00)
[2018-09-12] MEDS: METOPROLOL TARTRATE 25 MG TAB PO SCH ×3 (12:28→23:52)
[2018-09-12] MEDS: SODIUM CHLORIDE 0.9% 500 ML IV SCH ×2 (12:29→18:12)
--- NOTE | 2018-09-12 13:12 | Consultation Report ---
DATE OF CONSULTATION: 09/12/2018 INPATIENT CARDIOLOGY CONSULTATION CONSULTATION REQUESTED BY: Dr. Campos. REASON FOR CONSULTATION: Chest pain. HISTORY OF PRESENT ILLNESS: Mr. Waters is a very pleasant 88-year-old gentleman who is well known to our cardiology practice and follows with Luke Moore PA-C and Dr. Paz. He presented to [facility] on 09/12/2018 with complaints of abdominal pain. The patient states that the last few days, he has not felt well and thought he was coming down with a stomach flu. He came into the Emergency Room to be evaluated, and while he was getting a CAT scan of his abdomen, he developed chest discomfort. He states that this is his normal anginal equivalent that he has been following with us for many years now and described as a dull substernal pressure sensation. He denied any associated symptoms with it. Specifically, he denied any associated shortness of breath, diaphoresis, nausea, palpitations, lightheadedness, dizziness, or syncope. He has been taking his medications as directed without issue and states that ever since being started on Imdur, his chest pain is significantly improved. Overnight, the chest pain has improved, but is still constant at rest and now is more of a dull achy sensation than anything. PAST SURGICAL HISTORY: 1. TURP. 2. Colonoscopy. 3. Hernia repair. 4. AAA resection. 5. Cataracts. MEDICAL ILLNESSES: 1. Symptomatic severe aortic stenosis. 2. High likelihood of underlying coronary artery disease. 3. Diastolic dysfunction with normal LV systolic function. 4. Hypertension. 5. Chronic symptomatic anemia. 6. Stage IV chronic kidney disease. 7. History of deep venous thrombosis, on chronic Coumadin therapy. 8. Dyslipidemia. 9. Mild bilateral internal carotid artery disease. FAMILY HISTORY: Noncontributory. SOCIAL HISTORY: Remote tobacco use history. Denies any alcohol. REVIEW OF SYSTEMS: As per HPI, all other systems reviewed and negative at this time. ALLERGIES: 1. INDOMETHACIN. 2. LACTOSE. MEDICATIONS AN OUTPATIENT: 1. Metoprolol 25 mg b.i.d. 2. Lisinopril 2.5 mg daily. 3. Imdur 30 mg daily. 4. Lovastatin 20 mg daily. 5. Coumadin as directed by the Coumadin clinic. 6. Lasix 20 mg Mondays, Wednesdays and Fridays. PHYSICAL EXAMINATION: VITALS: Temperature 37.1, pulse 101, respiratory rate 12, blood pressure 106/67. GENERAL: Awake, alert, oriented x3 in no acute distress. HEENT: Normocephalic, atraumatic. Pupils equal, round, reactive to light and accommodation. Extraocular muscles intact. Anicteric sclerae. Moist mucous membranes. NECK: No JVD, no bruit. CARDIOVASCULAR: Regular, but distant. Unable to appreciate any murmurs, rubs or gallops. PULMONARY: Clear to auscultation bilaterally. No rales, rhonchi, or wheezing. ABDOMEN: Bowel sounds x4, soft. No rebound, guarding, tenderness. No organomegaly. EXTREMITIES: No clubbing, cyanosis or edema. +2 pedal pulses bilaterally. SKIN: Warm and dry. TEST RESULTS: A 12-lead EKG performed in the Emergency Department independently reviewed at this time reveals normal sinus rhythm, 93 beats per minute with first-degree AV block and occasional PACs, ST segment depressions in leads V3 through V6, I and aVL, which are new compared to previous studies. LABORATORY STUDIES OF SIGNIFICANCE: Sodium 141, potassium 5.3, BUN 70, creatinine 2.71. Initial troponin negative x2. Third set of troponin of 0.9. IMPRESSION: 1. Chest discomfort, describes anginal equivalent. 2. High likelihood of underlying coronary artery disease. 3. Severe aortic stenosis. 4. Stage IV chronic kidney disease. 5. Chronic anemia, stable. 6. Questionable viral gastroenteritis. RECOMMENDATIONS: It was my pleasure to see Mr. Waters in consultation today. From a cardiac standpoint, the patient's EKG is obviously concerning and once again I have offered the patient intervention in the form of a diagnostic cardiac catheterization and once again he states he does not want any invasive procedures done. So at this time, we will attempt to treat him medically. I will increase his metoprolol to q. 6 hours and I will increase his Imdur 60 mg daily and we will follow him clinically. A 2D echocardiogram will also be performed to evaluate for any new wall motion abnormalities or worsening of his aortic disease.
[2018-09-12] MEDS ORDERED: Nursing to Pharmacy Communication ONE ×2 (14:01→17:41)
[2018-09-12] MEDS ORDERED: WARFARIN SOD 7.5 MG TAB PO SCH (16:00)
--- NOTE | 2018-09-12 22:11 | Hospitalist Progress Note ---
Date of Service September 12, 2018 Assessment & Plan (1) Non-ST elevation (NSTEMI) myocardial infarction: Acute non-ST elevation myocardial infarction in LAD distribution. Patient does not wish to undergo cardiac catheterization or intervention. Continue medical management with aspirin, metoprolol, nitrates, statin. Anticoagulated on warfarin. Prognosis is guarded. Resuscitation status changed to DNR per patient's instructions. Further management per Cardiology. Subjective Admitted this morning with chest pain. Cardiology consulted. Troponins nilo. Echocardiogram demonstrated wall motion abnormality consistent with LAD distribution. Underlying severe aortic stenosis. Cardiology discussed options with patient; he opted to continue medical management and not consider intervention. Recheck this evening. Still having some chest discomfort. No shortness of breath. Physical Exam Vital Signs (Past 24 Hours): Last Vital Signs Temp 36.9 C 09/12/18 20:00 Pulse 83 09/12/18 20:00 Resp 16 09/12/18 20:00 BP 112/66 09/12/18 20:00 Pulse Ox 95 09/12/18 20:00 Constitutional: no acute distress Respiratory: no respiratory distress Auscultation: lungs clear to auscultation bilaterally Cardiovascular: Rate/Rhythm: regular rate and regular rhythm Heart Sounds: + murmur (II/ sys murmur at base); no cardiac rub Vessels: + JVD Extremities: no calf tenderness and no edema Gastrointestinal (Abdomen): normal bowel sounds, soft, nontender, no hepatosplenomegaly Skin: no rashes, warm and dry Psychiatric: Orientation: alert and oriented x 3 Results & Data Laboratory Results Abnormal Lab Results 09/12/18 09/12/18 09/12/18 00:37 00:37 00:37 WBC 12.65 H RBC 3.73 L Hgb 11.3 L Hct 34.3 L MCV 92.0 MCH 30.3 MCHC 32.9 RDW Std Deviation 47.9 H RDW Coeff of Be 14.3 Plt Count 224 MPV 11.3 H Immature Gran % (Auto) 0.2 Neut % (Auto) 89.1 Lymph % (Auto) 4.7 [place]once % (Auto) 5.7 Eos % (Auto) 0.1 Baso % (Auto) 0.2 Immature Gran # (Auto) 0.03 H Neut # (Auto) 11.28 H Lymph # (Auto) 0.59 L Ponce # (Auto) 0.72 H Eos # (Auto) 0.01 Baso # (Auto) 0.02 PT 23.0 H INR 2.4 H APTT 32.2 H PTT Ratio 1.2 Sodium 140 Potassium 4.4 Chloride 105 Carbon Dioxide 26 Anion Gap 9.0 BUN 70 H Creatinine 3.05 H Est Cr Clr Drug Dosing 17.3 Est GFR ( Amer) 20.1 Est GFR (Non-Af Amer) 17.4 BUN/Creatinine Ratio 22.8 H Glucose 184 H Calcium 9.4 Magnesium 2.2 Total Bilirubin 0.6 AST 21 ALT 23 Alkaline Phosphatase 74 POC Troponin I Troponin I < 0.015 Total Protein 8.0 Albumin 4.0 Globulin 4.0 Albumin/Globulin Ratio 1.0 Lipase 189 TSH 2.140 Urine Color Urine Appearance Urine pH Ur Specific [place] Urine Protein Urine Glucose (UA) Urine Ketones Urine Blood Urine Nitrite Urine Bilirubin Urine Urobilinogen Ur Leukocyte Esterase Urine RBC Urine WBC Ur Epithelial Cells Urine Bacteria 09/12/18 09/12/18 09/12/18 02:46 03:45 04:28 WBC RBC Hgb Hct MCV MCH MCHC RDW Std Deviation RDW Coeff of Be Plt Count MPV Immature Gran % (Auto) Neut % (Auto) Lymph % (Auto) [place] % (Auto) Eos % (Auto) Baso % (Auto) Immature Gran # (Auto) Neut # (Auto) Lymph # (Auto) [place] # (Auto) Eos # (Auto) Baso # (Auto) PT INR APTT PTT Ratio Sodium Potassium Chloride Carbon Dioxide Anion Gap BUN Creatinine Est Cr Clr Drug Dosing Est GFR ( Amer) Est GFR (Non-Af Amer) BUN/Creatinine Ratio Glucose Calcium Magnesium Total Bilirubin AST ALT Alkaline Phosphatase POC Troponin I < 0.03 0.03 Troponin I Total Protein Albumin Globulin Albumin/Globulin Ratio Lipase TSH Urine Color Yellow Urine Appearance Clear Urine pH 5.0 Ur Specific [place] 1.019 Urine Protein Trace H Urine Glucose (UA) Negative Urine Ketones Negative Urine Blood 1+ H Urine Nitrite Negative Urine Bilirubin Negative Urine Urobilinogen Negative Ur Leukocyte Esterase Negative Urine RBC 0-4 Urine WBC 0-5 Ur Epithelial Cells 10-20 H Urine Bacteria Negative 09/12/18 09/12/18 09/12/18 07:29 07:29 07:29 WBC 12.67 H RBC 3.25 L Hgb 9.8 L Hct 29.9 L MCV 92.0 MCH 30.2 MCHC 32.8 RDW Std Deviation 48.8 H RDW Coeff of Be 14.5 Plt Count 200 MPV 10.7 H Immature Gran % (Auto) 0.2 Neut % (Auto) 90.0 Lymph % (Auto) 3.5 [place] % (Auto) 6.2 Eos % (Auto) 0.0 Baso % (Auto) 0.1 Immature Gran # (Auto) 0.03 H Neut # (Auto) 11.41 H Lymph # (Auto) 0.44 L [place] # (Auto) 0.78 H Eos # (Auto) 0.00 Baso # (Auto) 0.01 PT INR APTT PTT Ratio Sodium 141 Potassium 5.3 H D Chloride 111 H Carbon Dioxide 24 Anion Gap 6.0 BUN 70 H Creatinine 2.71 H D Est Cr Clr Drug Dosing 19.8 Est GFR ( Amer) 23.2 Est GFR (Non-Af Amer) 20.0 BUN/Creatinine Ratio 26.0 H Glucose 170 H Calcium 9.0 Magnesium 2.4 Total Bilirubin AST ALT Alkaline Phosphatase POC Troponin I Troponin I 0.941 H* Total Protein Albumin Globulin Albumin/Globulin Ratio Lipase TSH Urine Color Urine Appearance Urine pH Ur Specific [place] Urine Protein Urine Glucose (UA) Urine Ketones Urine Blood Urine Nitrite Urine Bilirubin Urine Urobilinogen Ur Leukocyte Esterase Urine RBC Urine WBC Ur Epithelial Cells Urine Bacteria 09/12/18 09/12/18 12:44 19:04 WBC RBC Hgb Hct MCV MCH MCHC RDW Std Deviation RDW Coeff of Be Plt Count MPV Immature Gran % (Auto) Neut % (Auto) Lymph % (Auto) [place] % (Auto) Eos % (Auto) Baso % (Auto) Immature Gran # (Auto) Neut # (Auto) Lymph # (Auto) [place] # (Auto) Eos # (Auto) Baso # (Auto) PT INR APTT PTT Ratio Sodium Potassium Chloride Carbon Dioxide Anion Gap BUN Creatinine Est Cr Clr Drug Dosing Est GFR ( Amer) Est GFR (Non-Af Amer) BUN/Creatinine Ratio Glucose Calcium Magnesium Total Bilirubin AST ALT Alkaline Phosphatase POC Troponin I Troponin I 19.400 H* 54.200 H* Total Protein Albumin Globulin Albumin/Globulin Ratio Lipase TSH Urine Color Urine Appearance Urine pH Ur Specific [place] Urine Protein Urine Glucose (UA) Urine Ketones Urine Blood Urine Nitrite Urine Bilirubin Urine Urobilinogen Ur Leukocyte Esterase Urine RBC Urine WBC Ur Epithelial Cells Urine Bacteria
[2018-09-13] MEDS: SODIUM CHLORIDE 0.9% 1000ML 1,000 ML IV SCH (04:11)
[2018-09-13] MEDS: METOPROLOL TARTRATE 25 MG TAB PO SCH ×3 (06:27→17:46)
[2018-09-13 07:30] LABS: INR 3.3 (0.9-1.1); Prothrombin Time 31.5 Seconds (9.0-12.0)
--- NOTE | 2018-09-13 07:57 | XRay Report ---
XR chest 1V portable HISTORY: Myocardial infarction. COMPARISON: Chest 09/12/2018. FINDINGS: Interval development of mild central pulmonary vascular congestion and small bilateral pleu ral effusions. There are patchy bibasilar densities. The heart is mildly enlarged. No pneumothorax. IMPRESSION: 1. Interval development of mild central pulmonary vascular congestion and small bilateral pleural eff usions. 2. Patchy bibasilar densities are nonspecific but may represent atelectasis or pneumonia. Electronically signed by: Jose Eduardo Kwon M.D. 09/13/2018 7:55 AM
[2018-09-13 08:03] LABS: BUN Creatinine Ratio 26.4 (10-20); Calcium 8.3 mg/dl (8.5-10.1); Creatinine Clr Calc Pharmacy 20.9 ml/min; Est GFR (African American) 24.9; Est GFR (Non-African American) 21.5
[2018-09-13 08:31] LABS: Troponin I 85.1 ng/ml (0-0.045)
[2018-09-13] MEDS: CALCIUM POLYCARBOPHIL 625MG TAB PO SCH (09:03)
[2018-09-13] MEDS: ISOSORBIDE MONO EXTENDED REL 60 MG TABCR PO SCH (09:03)
[2018-09-13] MEDS: CEROVITE ADV FORMULA TAB PO SCH (09:03)
[2018-09-13] MEDS: LOVASTATIN 20 MG TAB PO SCH (09:03)
[2018-09-13] MEDS: PANTOprazole 40 MG TAB PO SCH (09:04)
[2018-09-13] MEDS: CALCITRIOL 0.25 MCG CAPSULE PO SCH (09:04)
[2018-09-13] MEDS: FERROUS SULFATE 325 MG TAB PO SCH (09:04)
[2018-09-13] MEDS: ALLOPURINOL 100 MG TAB PO SCH (09:04)
[2018-09-13] MEDS: ASPIRIN 81 MG ECTAB PO SCH (09:04)
--- NOTE | 2018-09-13 12:11 | Cardiology Progress Note ---
Date of Service September 13, 2018 Assessment & Plan (1) ALMI (anterolateral wall myocardial infarction): The patient presented late with an anterior lateral wall myocardial infarction that was picked up by echocardiography. His troponins have elevated to 80. By his own choice he did not want a cardiac catheterization. He is now a DNR by his own choice. Currently pain-free. Does have acute renal failure in addition to his myocardial infarction however, his creatinine is trending down. I am concerned regarding his IV fluids and I will discontinue them today. He is currently taking an adequate diet. The plan is for continued conservative management. (2) JESSICA (acute kidney injury): Subjective The patient has no new complaints today. He is taking clear liquids and does not want his diet to be advanced as he feels bloated. His cardiac troponin have elevated to 80. He denies chest pain or shortness of breath today. Physical Exam Vital Signs (Past 24 Hours): Last Vital Signs Temp 37.6 C H 09/13/18 11:08 Pulse 75 09/13/18 11:08 Resp 19 09/13/18 11:08 BP 98/60 L 09/13/18 11:08 Pulse Ox 94 09/13/18 11:08 Physical Exam: General: no acute distress and stated age Head: normocephalic, no masses, lesions, tenderness or abnormalities Eyes: conjunctiva are pink and non-injected, sclera clear Neck: supple, no adenopathy, no bruits, normal jugular venous pulse, no hepatojugular reflux Chest: normal shape and normal respiratory effort Lungs: The lungs have rales at the bases. Cardiac Exam: - regular rate & rhythm, no murmurs gallops or rubs - normal S1, normal S2 Pulses: 2(+) throughout Abdomen: abdomen soft, non-tender, no abnormal masses and no hepatosplenomegaly Musculoskeletal: no gait disturbance, no joint inflammation, no deforming arthritis Extremities: no edema and no cyanosis Neuro: grossly normal exam Results & Data Laboratory Results Laboratory Results - last 24 hr 09/12/18 09/12/18 09/13/18 12:44 19:04 06:55 PT 31.5 H INR 3.3 H Sodium Potassium Chloride Carbon Dioxide Anion Gap BUN Creatinine Est Cr Clr Drug Dosing Est GFR ( Amer) Est GFR (Non-Af Amer) BUN/Creatinine Ratio Glucose Calcium Troponin I 19.400 H* 54.200 H* 09/13/18 06:55 PT INR Sodium 143 Potassium 5.0 Chloride 116 H Carbon Dioxide 22 Anion Gap 6.0 BUN 68 H Creatinine 2.56 H Est Cr Clr Drug Dosing 20.9 Est GFR ( Amer) 24.9 Est GFR (Non-Af Amer) 21.5 BUN/Creatinine Ratio 26.4 H Glucose 147 H Calcium 8.3 L Troponin I 85.100 H* Medications Administered Current Inpatient Medications Acetaminophen (Tylenol) 650 mg PO Q4H PRN PRN Reason: Pain or Fever Stop: 10/12/18 04:57 Al Hydrox/Mg Hydrox/Simethicone (Maalox) 15 ml PO Q4H PRN PRN Reason: Dyspepsia Stop: 10/12/18 04:57 Allopurinol (Zyloprim) 100 mg PO DAILY [facility] Stop: 10/12/18 08:59 Last Admin: 09/13/18 09:04 Dose: 100 mg Documented by: Aspirin (Ecotrin Ectab) 81 mg PO QAM [facility] Stop: 10/12/18 08:59 Last Admin: 09/13/18 09:04 Dose: 81 mg Documented by: Calcitriol (Racaltrol) 0.25 mcg PO DAILY [facility] Stop: 10/12/18 08:59 Last Admin: 09/13/18 09:04 Dose: 0.25 mcg Documented by: Calcium Polycarbophil (Fibercon) 2 tab PO DAILY [facility] Stop: 10/12/18 08:59 Last Admin: 09/13/18 09:03 Dose: 2 tab Documented by: Ferrous Sulfate (Feosol) 325 mg PO DAILY [facility] Stop: 10/12/18 08:59 Last Admin: 09/13/18 09:04 Dose: 325 mg Documented by: Isosorbide Mononitrate (Imdur Extended Rel) 60 mg PO DAILY [facility] Stop: 10/13/18 08:59 Last Admin: 09/13/18 09:03 Dose: 60 mg Documented by: Lovastatin (Mevacor) 20 mg PO DAILY [facility] Stop: 10/12/18 08:59 Last Admin: 09/13/18 09:03 Dose: 20 mg Documented by: Metoprolol Tartrate (Lopressor) 25 mg PO Q6 [facility] Stop: 10/12/18 11:59 Last Admin: 09/13/18 06:27 Dose: Not Given Documented by: Multivitamins/Minerals (Multivitamin W/ Minerals Tab) 1 tab PO QAM [facility] Stop: 10/12/18 08:59 Last Admin: 09/13/18 09:03 Dose: 1 tab Documented by: Nitroglycerin (Nitrostat) 0.4 mg SL UD PRN PRN Reason: Chest Pain Stop: 10/12/18 04:57 Ondansetron HCl (Zofran) 4 mg IV Q6H PRN PRN Reason: Nausea Stop: 10/12/18 04:57 Pantoprazole Sodium (Protonix) 40 mg PO DAILY [facility] Stop: 10/12/18 08:59 Last Admin: 09/13/18 09:04 Dose: 40 mg Documented by: Warfarin Sodium (Coumadin) 5 mg PO SuTuThSa@1600 [facility] Stop: 10/13/18 15:59 Warfarin Sodium (Coumadin) 7.5 mg PO MoWeFr@1600 [facility] Stop: 10/12/18 15:59 Last Admin: 09/12/18 16:31 Dose: 7.5 mg Documented by:
[2018-09-13] MEDS: WARFARIN SOD 5 MG TAB PO SCH (16:21)
--- NOTE | 2018-09-13 21:01 | Hospitalist Progress Note ---
Date of Service September 13, 2018 Assessment & Plan (1) Non-ST elevation (NSTEMI) myocardial infarction: Acute non-ST elevation myocardial infarction in LAD distribution. Cardiology discussed options with patient; he did not wish to undergo cardiac catheterization or intervention. Continue medical management with aspirin, metoprolol, nitrates, statin. Anticoagulated on warfarin. Pain-free today. Further management per Cardiology. (2) CHF (congestive heart failure): Acute left ventricular systolic heart failure associated with acute NV. Echo showed LVEF of 35-40%. EFFIE inhibitor as tolerated with caution in light of aortic stenosis. Consider transition to metoprolol succinate or carvedilol. Diurese as necessary. (3) Aortic stenosis: Aortic valve trileaflet with heavy calcification and moderate - severe aortic stenosis. Patient does not wish to pursue intervention. (4) Hypertension: BP's relatively low at times. Cardiovascular meds as discussed above. (5) Chronic renal insufficiency, stage IV (severe): Creatinine at time of admission was 3.05. Creatinine today = 2.56. Follow. (6) Hyperkalemia: Serum K as high as 5.3. K today = 5.0. Continue EFFIE with caution. Follow. (7) History of DVT (deep vein thrombosis): Continue warfarin. (8) DVT prophylaxis: Continue warfarin. (9) Do not resuscitate status: Per patient's wishes. (10) Discharge planning issues: Discharge disposition to be determined. Family Medicine follow-up with Dr. Huston. Subjective Recheck for non-STEMI. Pt seen in his room around 1110. Feels better today. No further chest pain or epigastric discomfort. Mild dypsnea on exertion. Mild nausea, no emesis. No diarrhea, melena, hematochezia. No urinary symptoms. Physical Exam Vital Signs (Past 24 Hours): Last Vital Signs Temp 37.4 C 09/13/18 19:21 Pulse 78 09/13/18 19:21 Resp 16 09/13/18 19:21 BP 105/65 09/13/18 19:21 Pulse Ox 95 09/13/18 19:21 Constitutional: no acute distress Respiratory: no respiratory distress Auscultation: + rales (few bibasilar) Cardiovascular: Rate/Rhythm: regular rate and regular rhythm Heart Sounds: + murmur (II/ sys murmur at base); no cardiac rub Vessels: + JVD Extremities: no calf tenderness and no edema Gastrointestinal (Abdomen): normal bowel sounds, soft, nontender, no hepatosplenomegaly Skin: no rashes, warm and dry Psychiatric: Orientation: alert and oriented x 3 Results & Data Laboratory Results Laboratory Results - last 24 hr 09/13/18 09/13/18 06:55 06:55 PT 31.5 H INR 3.3 H Sodium 143 Potassium 5.0 Chloride 116 H Carbon Dioxide 22 Anion Gap 6.0 BUN 68 H Creatinine 2.56 H Est Cr Clr Drug Dosing 20.9 Est GFR ( Amer) 24.9 Est GFR (Non-Af Amer) 21.5 BUN/Creatinine Ratio 26.4 H Glucose 147 H Calcium 8.3 L Troponin I 85.100 H* Diagnostic Findings PORTABLE CHEST X-RAY IMPRESSION: 1. Interval development of mild central pulmonary vascular congestion and small bilateral pleural effusions. 2. Patchy bibasilar densities are nonspecific but may represent atelectasis or pneumonia. Electronically signed by: Jose Eduardo Kwon M.D. 09/13/2018 7:55 AM ECG Additional Comments: EKG performed at 0622 reviewed and demonstrated NSR 80 / min, possible age- indeterminate inferior NV, poor R-wave progression, biphasic T-waves I, inverted T-waves aVL, persistent (but less pronounced) ST depression lateral precordial leads.
[2018-09-14] MEDS: METOPROLOL TARTRATE 25 MG TAB PO SCH ×2 (00:01→06:08)
[2018-09-14] MEDS ORDERED: FUROSEMIDE 80 MG in SYRINGE 0 ML IV ONE (07:15)
--- NOTE | 2018-09-14 07:28 | XRay Report ---
XR chest 1V portable CLINICAL HISTORY: Shortness of breath. COMPARISON STUDY: Chest radiograph September 13, 2018. FINDINGS: There is no pneumothorax. Small bilateral pleural effusions persists. Cardiomegaly is uncha nged. Interstitial thickening has slightly increased. There are bibasilar opacities. A 1.9 cm nodular opacity within the left upper lung is noted. IMPRESSION: 1. Pulmonary edema, slightly increased since prior exam. 2. Small bilateral pleural effusions. 3. 1.9 cm nodular opacity within left upper lung. This may reflect a pulmonary nodule or scarring. Fo llow-up PA and shallow oblique radiographs of the chest on nonemergent basis are recommended. Electronically signed by: Baltazar Reese M.D. 09/14/2018 7:27 AM
[2018-09-14 07:35] LABS: Prothrombin Time 39.7 Seconds (9.0-12.0)
[2018-09-14] MEDS: ASPIRIN 81 MG ECTAB PO SCH (07:37)
[2018-09-14] MEDS: FERROUS SULFATE 325 MG TAB PO SCH (07:38)
[2018-09-14] MEDS: ISOSORBIDE MONO EXTENDED REL 60 MG TABCR PO SCH (07:38)
[2018-09-14] MEDS: LOVASTATIN 20 MG TAB PO SCH (07:38)
[2018-09-14] MEDS: CALCIUM POLYCARBOPHIL 625MG TAB PO SCH (07:38)
[2018-09-14] MEDS: CEROVITE ADV FORMULA TAB PO SCH (07:39)
[2018-09-14] MEDS: CALCITRIOL 0.25 MCG CAPSULE PO SCH (07:39)
[2018-09-14] MEDS: PANTOprazole 40 MG TAB PO SCH (07:39)
[2018-09-14] MEDS: ALLOPURINOL 100 MG TAB PO SCH (07:39)
[2018-09-14 07:43] LABS: BUN Creatinine Ratio 26.2 (10-20); Calcium 8.5 mg/dl (8.5-10.1); Creatinine Clr Calc Pharmacy 20.4 ml/min; Est GFR (African American) 24.2; Est GFR (Non-African American) 20.9; Potassium 5.6 mmol/L (3.5-5.1)
[2018-09-14 07:47] LABS: INR 4.3 (0.9-1.1)
[2018-09-14] MEDS ORDERED: METOPROLOL SUCC 50MG EXT REL TAB PO STA (11:32)
--- NOTE | 2018-09-14 11:45 | Cardiology Progress Note ---
Date of Service September 14, 2018 Assessment & Plan (1) ALMI (anterolateral wall myocardial infarction): The patient is currently clinically stable. I am going to switch his metoprolol to succinate per guideline directed medications. INR is currently elevated and hold parameters for the warfarin should have been initiated. Also he will be switched from Mevacor to atorvastatin 40 mg daily. (2) JESSICA (acute kidney injury): I believe his renal function is currently at baseline and is a stage III. (3) Aortic stenosis: Subjective The patient is sitting in a chair. He appears to be comfortable. Physical Exam Vital Signs (Past 24 Hours): Last Vital Signs Temp 36.8 C 09/14/18 07:12 Pulse 86 09/14/18 07:30 Resp 19 09/14/18 07:12 BP 105/69 09/14/18 07:12 Pulse Ox 95 09/14/18 07:12 Physical Exam: General: no acute distress and stated age Head: normocephalic, no masses, lesions, tenderness or abnormalities Eyes: conjunctiva are pink and non-injected, sclera clear Neck: supple, no adenopathy, no bruits, normal jugular venous pulse, no hepatojugular reflux Chest: normal shape and normal respiratory effort Lungs: clear to auscultation and percussion Cardiac Exam: - regular rate & rhythm, harsh systolic murmur left sternal border- normal S1, normal S2, no S3 or S4 Pulses: 2(+) throughout Abdomen: abdomen soft, non-tender, no abnormal masses and no hepatosplenomegaly Musculoskeletal: no gait disturbance, no joint inflammation, no deforming arthritis Extremities: no edema and no cyanosis Neuro: grossly normal exam Results & Data Laboratory Results Laboratory Results - last 24 hr 09/14/18 09/14/18 06:49 06:49 PT 39.7 H INR 4.3 H Sodium 145 Potassium 5.6 H Chloride 118 H Carbon Dioxide 23 Anion Gap 4.0 BUN 69 H Creatinine 2.62 H Est Cr Clr Drug Dosing 20.4 Est GFR ( Amer) 24.2 Est GFR (Non-Af Amer) 20.9 BUN/Creatinine Ratio 26.2 H Glucose 132 H Calcium 8.5 Medications Administered Current Inpatient Medications Acetaminophen (Tylenol) 650 mg PO Q4H PRN PRN Reason: Pain or Fever Stop: 10/12/18 04:57 Al Hydrox/Mg Hydrox/Simethicone (Maalox) 15 ml PO Q4H PRN PRN Reason: Dyspepsia Stop: 10/12/18 04:57 Allopurinol (Zyloprim) 100 mg PO DAILY [facility] Stop: 10/12/18 08:59 Last Admin: 09/14/18 07:39 Dose: 100 mg Documented by: Aspirin (Ecotrin Ectab) 81 mg PO QAM [facility] Stop: 10/12/18 08:59 Last Admin: 09/14/18 07:37 Dose: 81 mg Documented by: Atorvastatin Calcium (Lipitor) 40 mg PO QAM [facility] Stop: 10/15/18 08:59 Calcitriol (Racaltrol) 0.25 mcg PO DAILY [facility] Stop: 10/12/18 08:59 Last Admin: 09/14/18 07:39 Dose: 0.25 mcg Documented by: Calcium Polycarbophil (Fibercon) 2 tab PO DAILY [facility] Stop: 10/12/18 08:59 Last Admin: 09/14/18 07:38 Dose: 2 tab Documented by: Ferrous Sulfate (Feosol) 325 mg PO DAILY [facility] Stop: 10/12/18 08:59 Last Admin: 09/14/18 07:38 Dose: 325 mg Documented by: Isosorbide Mononitrate (Imdur Extended Rel) 60 mg PO DAILY [facility] Stop: 10/13/18 08:59 Last Admin: 09/14/18 07:38 Dose: 60 mg Documented by: Metoprolol Succinate (Toprol Xl) 50 mg PO QAM [facility] Stop: 10/15/18 08:59 Metoprolol Succinate (Toprol Xl) 50 mg PO NOW [facility] Stop: 09/14/18 11:33 Multivitamins/Minerals (Multivitamin W/ Minerals Tab) 1 tab PO QAM [facility] Stop: 10/12/18 08:59 Last Admin: 09/14/18 07:39 Dose: 1 tab Documented by: Nitroglycerin (Nitrostat) 0.4 mg SL UD PRN PRN Reason: Chest Pain Stop: 10/12/18 04:57 Ondansetron HCl (Zofran) 4 mg IV Q6H PRN PRN Reason: Nausea Stop: 10/12/18 04:57 Pantoprazole Sodium (Protonix) 40 mg PO DAILY [facility] Stop: 10/12/18 08:59 Last Admin: 09/14/18 07:39 Dose: 40 mg Documented by: Warfarin Sodium (Coumadin) 5 mg PO SuTuThSa@1600 [facility] Stop: 10/13/18 15:59 Last Admin: 09/13/18 16:21 Dose: 5 mg Documented by: Warfarin Sodium (Coumadin) 7.5 mg PO MoWeFr@1600 [facility] Stop: 10/12/18 15:59 Last Admin: 09/12/18 16:31 Dose: 7.5 mg Documented by:
[2018-09-14] MEDS: WARFARIN SOD 5 MG TAB PO SCH (15:07)
--- NOTE | 2018-09-14 19:58 | Hospitalist Progress Note ---
Date of Service September 14, 2018 Assessment & Plan (1) Non-ST elevation (NSTEMI) myocardial infarction: Acute non-ST elevation myocardial infarction in LAD distribution. Cardiology discussed options with patient; he did not wish to undergo cardiac catheterization or intervention. Continue medical management with aspirin, metoprolol, nitrates, statin. Anticoagulated on warfarin. Pain-free today. Further management per Cardiology. (2) CHF (congestive heart failure): Acute left ventricular systolic heart failure associated with acute MD. Echo showed LVEF of 35-40%. EFFIE inhibitor stopped in light of CKD, hyperkalemia, and severe . Transition to metoprolol succinate. IV furosemide today. (3) Aortic stenosis: Aortic valve trileaflet with heavy calcification and moderate - severe aortic stenosis. Patient does not wish to pursue intervention. (4) Hypertension: BP's relatively low at times. Cardiovascular meds as discussed above. (5) Chronic renal insufficiency, stage IV (severe): Creatinine at time of admission was 3.05. Creatinine today = 2.62. Follow. (6) Hyperkalemia: Serum K as high as 5.6. Lisinopril discontinued. Recheck K after IV furosemide. Low-K diet. Follow. (7) History of DVT (deep vein thrombosis): Continue warfarin. (8) DVT prophylaxis: Continue warfarin. (9) Do not resuscitate status: Per patient's wishes. (10) Discharge planning issues: Discharge disposition to be determined. Family Medicine follow-up with Dr. Huston. Subjective Recheck for non-STEMI. Pt seen in his room around 1000. SOB during the night. No further chest pain or epigastric discomfort. Mild nausea, no emesis. No diarrhea, melena, hematochezia. No urinary symptoms. Out of bed in chair. Physical Exam Vital Signs (Past 24 Hours): Last Vital Signs Temp 37.7 C H 09/14/18 19:00 Pulse 77 09/14/18 19:00 Resp 18 09/14/18 19:00 BP 91/50 L 09/14/18 19:00 Pulse Ox 96 09/14/18 19:00 Constitutional: no acute distress Respiratory: no respiratory distress Auscultation: + rales (few bibasilar) Cardiovascular: Rate/Rhythm: regular rate and regular rhythm Heart Sounds: + murmur (II/ sys murmur at base); no gallop and no cardiac rub Vessels: + JVD Extremities: no calf tenderness and no edema Gastrointestinal (Abdomen): normal bowel sounds, soft, nontender, no hepatosplenomegaly Skin: no rashes, warm and dry Psychiatric: Orientation: alert and oriented x 3 Results & Data Laboratory Results Laboratory Results - last 24 hr 09/14/18 09/14/18 09/14/18 06:49 06:49 14:00 PT 39.7 H INR 4.3 H Sodium 145 Potassium 5.6 H 4.7 D Chloride 118 H Carbon Dioxide 23 Anion Gap 4.0 BUN 69 H Creatinine 2.62 H Est Cr Clr Drug Dosing 20.4 Est GFR ( Amer) 24.2 Est GFR (Non-Af Amer) 20.9 BUN/Creatinine Ratio 26.2 H Glucose 132 H Calcium 8.5 ECG Additional Comments: EKG performed this morning at 0630 reviewed and demonstrated normal sinus rhythm at 80/minute, probable anteroseptal infarct, nonspecific T wave changes in lateral leads.
[2018-09-15] MEDS ORDERED: MoRPHine SULFATE 2 MG/ML CARP ONE (00:12)
[2018-09-15] MEDS: MoRPHine SULFATE 2 MG/ML CARP IV PRN ×2 (00:15→11:27)
[2018-09-15] MEDS ORDERED: SODIUM CHLORIDE 0.9% 500 ML IV SCH (00:30)
[2018-09-15] MEDS ORDERED: DIGOXIN 125 MCG in SYRINGE 9.5 ML IV ONE (00:31)
[2018-09-15] MEDS ORDERED: METOPROLOL TARTRATE 1 MG/ML VIAL IV STA (03:52)
[2018-09-15] MEDS ORDERED: DIGOXIN 125 MCG in SYRINGE 9.5 ML IV STA (07:04)
[2018-09-15] MEDS ORDERED: METOPROLOL TARTRATE 1 MG/ML VIAL IV ONE ×2 (07:16→12:18)
[2018-09-15] MEDS ORDERED: NITROGLYCERIN 2% OINTMENT 30GM TUBE EXT SCH (07:30)
[2018-09-15 07:50] LABS: BUN Creatinine Ratio 25.9 (10-20); Calcium 8.2 mg/dl (8.5-10.1); Creatinine Clr Calc Pharmacy 16.1 ml/min; Est GFR (African American) 18.2; Est GFR (Non-African American) 15.7; INR 3.6 (0.9-1.1); Magnesium 2.3 mg/dl (1.8-2.4); Potassium 4.6 mmol/L (3.5-5.1)
[2018-09-15] MEDS: CLOPIDOGREL BISULFATE 75 MG TAB PO SCH (08:07)
[2018-09-15] MEDS: ATORVASTATIN 40 MG TAB PO SCH (08:07)
[2018-09-15] MEDS: ALLOPURINOL 100 MG TAB PO SCH (08:08)
[2018-09-15] MEDS: PANTOprazole 40 MG TAB PO SCH (08:08)
[2018-09-15] MEDS: ASPIRIN 81 MG ECTAB PO SCH ×2 (08:08→08:36)
--- NOTE | 2018-09-15 09:18 | Cardiology Progress Note ---
Date of Service September 15, 2018 Assessment & Plan (1) ALMI (anterolateral wall myocardial infarction): Patient examines without congestive heart failure. He had atrial fibrillation with high heart rates last night resulting in chest pain. I would recommend starting him on oral amiodarone. No additional digoxin. I am going to also discontinue his Nitropaste as his blood pressure is low. He was on 100 mg of metoprolol up until yesterday when we switched him to long-acting metoprolol at 50 mg daily. I think we can maintain that dosage. At present his INR is 3.5. (2) JESSICA (acute kidney injury): The patient's renal function has worsened a little bit this morning and his creatinine is over 3. He is currently on no diuretics. (3) Aortic stenosis: (4) Atrial fibrillation: Subjective The patient was doing well until last evening he developed atrial fibrillation with RVR resulting in chest pain. He was given extra doses of metoprolol as well as digoxin. He remains in atrial fibrillation on the telemetry with lower heart rates. He has no complaints this morning. Physical Exam Vital Signs (Past 24 Hours): Last Vital Signs Temp 36.6 C 09/15/18 07:57 Pulse 130 H 09/15/18 08:08 Resp 17 09/15/18 07:57 BP 90/60 L 09/15/18 08:08 Pulse Ox 96 09/15/18 07:57 Physical Exam: General: no acute distress and stated age Head: normocephalic, no masses, lesions, tenderness or abnormalities Eyes: conjunctiva are pink and non-injected, sclera clear Neck: supple, no adenopathy, no bruits, normal jugular venous pulse, no hepatojugular reflux Chest: normal shape and normal respiratory effort Lungs: clear to auscultation and percussion Cardiac Exam: - irregular rate & rhythm, systolic murmur left sternal border- normal S1, normal S2 Pulses: 2(+) throughout Abdomen: abdomen soft, non-tender, no abnormal masses and no hepatosplenomegaly Musculoskeletal: no gait disturbance, no joint inflammation, no deforming arthritis Extremities: no edema and no cyanosis Neuro: grossly normal exam Results & Data Laboratory Results Laboratory Results - last 24 hr 09/14/18 09/15/18 09/15/18 14:00 07:01 07:01 PT 34.0 H INR 3.6 H Sodium 139 Potassium 4.7 D 4.6 Chloride 110 H Carbon Dioxide 22 Anion Gap 7.0 BUN 86 H Creatinine 3.32 H D Est Cr Clr Drug Dosing 16.1 Est GFR ( Amer) 18.2 Est GFR (Non-Af Amer) 15.7 BUN/Creatinine Ratio 25.9 H Glucose 148 H Calcium 8.2 L Magnesium 2.3 Triglycerides 105 Cholesterol 126 LDL Cholesterol, Calc 49 VLDL Cholesterol, Calc 21 HDL Cholesterol 56 Cholesterol/HDL Ratio 2 Medications Administered Current Inpatient Medications Acetaminophen (Tylenol) 650 mg PO Q4H PRN PRN Reason: Pain or Fever Stop: 10/12/18 04:57 Al Hydrox/Mg Hydrox/Simethicone (Maalox) 15 ml PO Q4H PRN PRN Reason: Dyspepsia Stop: 10/12/18 04:57 Allopurinol (Zyloprim) 100 mg PO DAILY [facility] Stop: 10/12/18 08:59 Last Admin: 09/15/18 08:08 Dose: 100 mg Documented by: Amiodarone HCl (Cordarone) 200 mg PO TIDM [facility] Stop: 10/15/18 11:59 Aspirin (Ecotrin Ectab) [facility] [place] 10/12/18 08:59 Last Admin: 09/15/18 08:36 Dose: Not Given Documented by: Atorvastatin Calcium (Lipitor) 40 mg PO QAM [facility] Stop: 10/15/18 08:59 Last Admin: 09/15/18 08:07 Dose: 40 mg Documented by: Calcitriol (Racaltrol) 0.25 mcg PO DAILY [facility] Stop: 10/12/18 08:59 Last Admin: 09/14/18 07:39 Dose: 0.25 mcg Documented by: Calcium Polycarbophil (Fibercon) 2 tab PO DAILY [facility] Stop: 10/12/18 08:59 Last Admin: 09/14/18 07:38 Dose: 2 tab Documented by: Clopidogrel Bisulfate (Plavix) 75 mg PO QAM [facility] Stop: 10/15/18 08:59 Last Admin: 09/15/18 08:07 Dose: 75 mg Documented by: Ferrous Sulfate (Feosol) 325 mg PO DAILY [facility] Stop: 10/12/18 08:59 Last Admin: 09/14/18 07:38 Dose: 325 mg Documented by: Metoprolol Succinate (Toprol Xl) 50 mg PO QAM [facility] Stop: 10/15/18 08:59 Morphine Sulfate (Morphine Sulfate) 2 mg IV Q1H PRN PRN Reason: Pain Stop: 09/29/18 00:12 Last Admin: 09/15/18 00:15 Dose: 2 mg Documented by: Multivitamins/Minerals (Multivitamin W/ Minerals Tab) [facility] [place] Stop: 10/12/18 08:59 Last Admin: 09/14/18 07:39 Dose: 1 tab Documented by: Nitroglycerin (Nitrostat) 0.4 mg SL UD PRN PRN Reason: Chest Pain Stop: 10/12/18 04:57 Ondansetron HCl (Zofran) 4 mg IV Q6H PRN PRN Reason: Nausea Stop: 10/12/18 04:57 Pantoprazole Sodium (Protonix) 40 mg PO DAILY [facility] Stop: 10/12/18 08:59 Last Admin: 09/15/18 08:08 Dose: 40 mg Documented by: Warfarin Sodium (Coumadin) 5 mg PO SuTuThSa@1600 [facility] Stop: 10/13/18 15:59 Last Admin: 09/14/18 15:07 Dose: Not Given Documented by: Warfarin Sodium (Coumadin) 7.5 mg PO MoWeFr@1600 [facility] Stop: 10/12/18 15:59 Last Admin: 09/12/18 16:31 Dose: 7.5 mg Documented by:
[2018-09-15] MEDS: METOPROLOL SUCC 50MG EXT REL TAB PO SCH (09:23)
[2018-09-15] MEDS ORDERED: AMIODARONE 200 MG TAB PO SCH (12:00)
[2018-09-15] MEDS ORDERED: AMIODARONE IV BOLUS / DRIP IV STA (15:02)
[2018-09-15] MEDS ORDERED: AMIODARONE / D5W 150 MG/100 ML BAG IV STA (15:02)
--- NOTE | 2018-09-15 15:05 | Cardiology Progress Note ---
Date of Service September 15, 2018 Subjective The patient is still having high heart rates due to atrial fibrillation. Although he is stable he is having low blood pressure. He is received 1 oral dose of amiodarone with no effect. I do not believe we have any other alternative but follows him and start him on an amiodarone drip. Physical Exam Vital Signs (Past 24 Hours): Last Vital Signs Temp 36.4 C L 09/15/18 11:34 Pulse 130 H 09/15/18 12:40 Resp 17 09/15/18 07:57 BP 93/54 L 09/15/18 12:40 Pulse Ox 93 09/15/18 11:34
[2018-09-15] MEDS ORDERED: AMIODARONE / D5W 360 MG/200 ML BAG IV SCH (15:15)
--- NOTE | 2018-09-15 20:38 | Hospitalist Progress Note ---
Date of Service September 15, 2018 Assessment & Plan (1) Non-ST elevation (NSTEMI) myocardial infarction: Acute non-ST elevation myocardial infarction in LAD distribution. Cardiology discussed options with patient; he did not wish to undergo cardiac catheterization or intervention. Continue medical management with aspirin, metoprolol, nitrates, statin. Anticoagulated on warfarin. Recurrent chest pain with rapid A. fib. Further management per Cardiology. (2) CHF (congestive heart failure): Acute left ventricular systolic heart failure associated with acute TN. Echo showed LVEF of 35-40%. EFFIE inhibitor stopped in light of CKD, hyperkalemia, and severe . Transition to metoprolol succinate. IV furosemide given yesterday. Creatinine elevated today. Check follow-up chest x-ray and labs in the morning. (3) Aortic stenosis: Aortic valve trileaflet with heavy calcification and moderate - severe aortic stenosis. Patient does not wish to pursue intervention. (4) Atrial fibrillation: New onset atrial fibrillation with rapid ventricular response. Potassium and magnesium normal. Initially received IV digoxin and metoprolol. Started on amiodarone. (5) Hypertension: BP's relatively low at times. Cardiovascular meds as discussed above. (6) Chronic renal insufficiency, stage IV (severe): Creatinine at time of admission was 3.05. Creatinine today = 3.32 after receiving IV furosemide. Follow. (7) Hyperkalemia: Serum K as high as 5.6. Lisinopril discontinued. Low-K diet. Potassium today = 4.6. Follow. (8) History of DVT (deep vein thrombosis): Continue warfarin. (9) DVT prophylaxis: Continue warfarin. (10) Do not resuscitate status: Per patient's wishes. (11) Discharge planning issues: Discharge disposition to be determined. Family Medicine follow-up with Dr. Huston. Subjective Recheck for non-STEMI. Pt seen in his room around 1040. Developed AF with RVR during the night. Intermittent chest discomfort and SOB. Mild nausea, no emesis. No diarrhea, melena, hematochezia. No urinary symptoms. Physical Exam Vital Signs (Past 24 Hours): Last Vital Signs Temp 37.5 C 09/15/18 19:53 Pulse 84 09/15/18 19:53 Resp 20 09/15/18 19:53 BP 95/58 L 09/15/18 19:53 Pulse Ox 91 09/15/18 19:53 Constitutional: no acute distress Respiratory: no respiratory distress Auscultation: + rales (few bibasilar) Cardiovascular: Rate/Rhythm: + abnormal rate and + abnormal rhythm (irregularly irregular) Heart Sounds: + murmur (II/ sys murmur at base); no gallop (non appreciated) and no cardiac rub Vessels: + JVD Extremities: no calf tenderness and no edema Gastrointestinal (Abdomen): normal bowel sounds, soft, nontender, no hepatosplenomegaly Skin: no rashes, warm and dry Psychiatric: Orientation: alert and oriented x 3 Results & Data Laboratory Results Laboratory Results - last 24 hr 09/15/18 09/15/18 07:01 07:01 PT 34.0 H INR 3.6 H Sodium 139 Potassium 4.6 Chloride 110 H Carbon Dioxide 22 Anion Gap 7.0 BUN 86 H Creatinine 3.32 H D Est Cr Clr Drug Dosing 16.1 Est GFR ( Amer) 18.2 Est GFR (Non-Af Amer) 15.7 BUN/Creatinine Ratio 25.9 H Glucose 148 H Calcium 8.2 L Magnesium 2.3 Triglycerides 105 Cholesterol 126 LDL Cholesterol, Calc 49 VLDL Cholesterol, Calc 21 HDL Cholesterol 56 Cholesterol/HDL Ratio 2 ECG Additional Comments: EKG performed last evening at 2357 reviewed and demonstrated atrial fibrillation with a ventricular rate of 120/minute, poor R wave progression, ST depression in lateral leads.
[2018-09-15] MEDS: AMIODARONE / D5W 360 MG/200 ML BAG IV SCH (21:11)
--- NOTE | 2018-09-16 07:11 | XRay Report ---
XR chest 1V portable HISTORY: 88 years-old Male CHF acute shortness of breath with congestive heart failure COMPARISON: Chest radiograph 09/14/2018 TECHNIQUE: Portable AP view of the chest FINDINGS: Cardiac silhouette is enlarged, unchanged. Pulmonary vascular congestion persists. Mild interstitial coarsening. Calcification the thoracic aortic arch. Trace bilateral pleural effusions with subsegment al bibasilar opacities. No pneumothorax identified. Ill-defined 1.9 cm linear opacity the left upper lung redemonstrated. Degenerative changes of the shoulders and spine. IMPRESSION: 1. Cardiomegaly with unchanged mild pulmonary edema. 2. Trace pleural effusions with persistent bibasilar opacities. 3. Ill-defined 1.9 cm nodular opacity of the left upper lung redemonstrated suggestive of scarring or pulmonary nodule. The above report was generated using voice recognition software. It may contain grammatical, syntax o r spelling errors. Electronically signed by: Ricki Almazan M.D. 09/16/2018 7:10 AM
[2018-09-16 07:14] LABS: INR 2.6 (0.9-1.1); Prothrombin Time 24.7 Seconds (9.0-12.0)
[2018-09-16 07:26] LABS: BUN Creatinine Ratio 28.5 (10-20); Calcium 8.2 mg/dl (8.5-10.1); Creatinine Clr Calc Pharmacy 14.9 ml/min; Est GFR (African American) 16.5; Est GFR (Non-African American) 14.2; Potassium 4.3 mmol/L (3.5-5.1)
[2018-09-16] MEDS: ASPIRIN 81 MG ECTAB PO SCH ×2 (07:50→08:48)
[2018-09-16] MEDS: AMIODARONE / D5W 360 MG/200 ML BAG IV SCH ×2 (08:44→19:42)
[2018-09-16] MEDS: PANTOprazole 40 MG TAB PO SCH (08:46)
[2018-09-16] MEDS: METOPROLOL SUCC 50MG EXT REL TAB PO SCH (08:47)
[2018-09-16] MEDS: CLOPIDOGREL BISULFATE 75 MG TAB PO SCH (08:48)
[2018-09-16] MEDS: ATORVASTATIN 40 MG TAB PO SCH (08:48)
--- NOTE | 2018-09-16 10:26 | Cardiology Progress Note ---
Date of Service September 16, 2018 Assessment & Plan (1) ALMI (anterolateral wall myocardial infarction): The patient is maintaining sinus rhythm on an amiodarone infusion. His INR is therapeutic. He is developing some crackles at base of his lungs. He is maintaining urine output and is an equal numbers but his creatinine continues to rise. I think we have no option but to diurese him. I will add some IV Lasix today. (2) JESSICA (acute kidney injury): (3) Aortic stenosis: (4) Atrial fibrillation: Subjective The patient has no new cardiac complaints today. He states that he feels comfortable. Late yesterday afternoon the patient converted spontaneously to sinus rhythm where he has remained through the night. Currently on an amiodarone infusion. Physical Exam Vital Signs (Past 24 Hours): Last Vital Signs Temp 37.0 C 09/16/18 07:42 Pulse 70 09/16/18 08:19 Resp 20 09/16/18 07:42 BP 113/70 09/16/18 07:42 Pulse Ox 95 09/16/18 07:42 Physical Exam: General: no acute distress and stated age Head: normocephalic, no masses, lesions, tenderness or abnormalities Eyes: conjunctiva are pink and non-injected, sclera clear Neck: supple, no adenopathy, no bruits, normal jugular venous pulse, no hepatojugular reflux Chest: normal shape and normal respiratory effort Lungs: Crackles at the bases bilaterally Cardiac Exam: - regular rate & rhythm, systolic murmur left sternal border- normal S1, normal S2 Pulses: 2(+) throughout Abdomen: abdomen soft, non-tender, no abnormal masses and no hepatosplenomegaly Musculoskeletal: no gait disturbance, no joint inflammation, no deforming arthritis Extremities: no edema and no cyanosis Neuro: grossly normal exam Results & Data Laboratory Results Laboratory Results - last 24 hr 09/16/18 09/16/18 06:19 06:19 PT 24.7 H INR 2.6 H Sodium 139 Potassium 4.3 Chloride 109 H Carbon Dioxide 20 L Anion Gap 10.0 BUN 103 H Creatinine 3.60 H Est Cr Clr Drug Dosing 14.9 Est GFR ( Amer) 16.5 Est GFR (Non-Af Amer) 14.2 BUN/Creatinine Ratio 28.5 H Glucose 129 H Calcium 8.2 L Medications Administered Current Inpatient Medications Acetaminophen (Tylenol) 650 mg PO Q4H PRN PRN Reason: Pain or Fever Stop: 10/12/18 04:57 Al Hydrox/Mg Hydrox/Simethicone (Maalox) 15 ml PO Q4H PRN PRN Reason: Dyspepsia Stop: 10/12/18 04:57 Allopurinol (Zyloprim) 100 mg PO DAILY [facility] Stop: 10/12/18 08:59 Last Admin: 09/15/18 08:08 Dose: 100 mg Documented by: [facility]ir[facility] ([facility]rin Ectab) [facility] [place] Stop: 10/12/18 08:59 Last Admin: 09/16/18 08:48 Dose: Not Given Documented by: Atorvastatin Calcium (Lipitor) 40 mg PO [facility] Stop: 10/15/18 08:59 Last Admin: 09/16/18 08:48 Dose: 40 mg Documented by: Calcitriol (Racaltrol) 0.25 mcg PO DAILY [facility] Stop: 10/12/18 08:59 Last Admin: 09/14/18 07:39 Dose: 0.25 mcg Documented by: Calcium Polycarbophil (Fibercon) 2 tab PO DAILY [facility] Stop: 10/12/18 08:59 Last Admin: 09/14/18 07:38 Dose: 2 tab Documented by: Clopidogrel Bisulfate (Plavix) 75 mg PO [facility] Stop: 10/15/18 08:59 Last Admin: 09/16/18 08:48 Dose: 75 mg Documented by: Ferrous Sulfate (Feosol) 325 mg PO DAILY [facility] Stop: 10/12/18 08:59 Last Admin: 09/14/18 07:38 Dose: 325 mg Documented by: Amiodarone HCl/Dextrose (Nexterone / D5w) 360 mg in 200 mls @ 16.667 mls/hr IV .Q12H [facility] Stop: 10/15/18 21:01 Last Admin: 09/16/18 08:44 Dose: 0.5 mg/min, 16.7 mls/hr Documented by: Metoprolol Succinate (Toprol Xl) 50 mg PO QAM [facility] Stop: 10/15/18 08:59 Last Admin: 09/16/18 08:47 Dose: 50 mg Documented by: Morphine Sulfate (Morphine Sulfate) 2 mg IV Q1H PRN PRN Reason: Pain Stop: 09/29/18 00:12 Last Admin: 09/15/18 11:27 Dose: 2 mg Documented by: Multivitamins/Minerals (Multivitamin W/ Minerals Tab) 1 tab PO QAM [facility] Stop: 10/12/18 08:59 Last Admin: 09/14/18 07:39 Dose: 1 tab Documented by: Nitroglycerin (Nitrostat) 0.4 mg SL UD PRN PRN Reason: Chest Pain Stop: 10/12/18 04:57 Ondansetron HCl (Zofran) 4 mg IV Q6H PRN PRN Reason: Nausea Stop: 10/12/18 04:57 Pantoprazole Sodium (Protonix) 40 mg PO DAILY [facility] Stop: 10/12/18 08:59 Last Admin: 09/16/18 08:46 Dose: 40 mg Documented by: Warfarin Sodium (Coumadin) 5 mg PO SuTuThSa@1600 [facility] Stop: 10/13/18 15:59 Last Admin: 09/14/18 15:07 Dose: Not Given Documented by: Warfarin Sodium (Coumadin) 7.5 mg PO MoWeFr@1600 [facility] Stop: 10/12/18 15:59 Last Admin: 09/12/18 16:31 Dose: 7.5 mg Documented by:
[2018-09-16] MEDS ORDERED: FUROSEMIDE 40 MG in SYRINGE 0 ML IV ONE (11:00)
--- NOTE | 2018-09-16 19:26 | Hospitalist Progress Note ---
Date of Service September 16, 2018 Assessment & Plan (1) Non-ST elevation (NSTEMI) myocardial infarction: Acute non-ST elevation myocardial infarction in LAD distribution. Cardiology discussed options with patient; he did not wish to undergo cardiac catheterization or intervention. Continue medical management with aspirin, metoprolol, nitrates, statin. Anticoagulated on warfarin. Recurrent chest pain associated with AV with RVR yesterday. Back in NSR. Still having intermittent chest discomfort and dyspnea. Continue aspirin, clopidogrel, metoprolol, nitrates, statin. Gradually increase activity as tolerated. Further management per Cardiology. (2) CHF (congestive heart failure): Acute left ventricular systolic heart failure associated with acute [place]. Echo showed LVEF of 35-40%. EFFIE inhibitor stopped in light of CKD, hyperkalemia, and severe ; no ARB for same reasons. Continue metoprolol succinate. IV furosemide as needed / tolerated. (3) Aortic stenosis: Aortic valve trileaflet with heavy calcification and moderate - severe aortic stenosis. Patient does not wish to pursue intervention. (4) Atrial fibrillation: New onset atrial fibrillation 09/15 with rapid ventricular response. Potassium and magnesium normal. Converted to NSR with amiodarone infusion. Anticoagulated with warfarin. (5) Hypertension: BP's relatively low at times. Titrate cardiovascular meds as discussed above. (6) Chronic renal insufficiency, stage IV (severe): Creatinine at time of admission was 3.05. Creatinine today = 3.60. Acute kidney injury- could be due to decreased cardiac output or volume depletion from diuretics. Follow. (7) Hyperkalemia: Serum K as high as 5.6. Lisinopril discontinued. Low-K diet. Potassium today = 4.3. Follow. (8) History of DVT (deep vein thrombosis): INR today = 2.6. Continue warfarin. (9) DVT prophylaxis: Continue warfarin. (10) Do not resuscitate status: Per patient's wishes. (11) Discharge planning issues: Discharge disposition to be determined. Family Medicine follow-up with Dr. Huston. Subjective Recheck for non-STEMI + other problems. Pt seen in his room around 1140. Converted back to NSR after initiation of amiodarone infusion. Tires very easily. Intermittent chest discomfort and SOB. Mild nausea, no emesis. No diarrhea, melena, hematochezia. No urinary symptoms. Physical Exam Vital Signs (Past 24 Hours): Last Vital Signs Temp 36.6 C 09/16/18 15:20 Pulse 67 09/16/18 15:20 Resp 20 09/16/18 15:20 BP 105/66 09/16/18 15:20 Pulse Ox 98 09/16/18 15:20 Constitutional: no acute distress Respiratory: no respiratory distress Auscultation: + rales (few bibasilar) Cardiovascular: Rate/Rhythm: regular rate and regular rhythm (irregularly irregular) Heart Sounds: + murmur (II/ sys murmur at base); no gallop (none appreciated) and no cardiac rub Vessels: + JVD Extremities: + edema (trace); no calf tenderness Gastrointestinal (Abdomen): normal bowel sounds, soft, nontender, no hepatosplenomegaly Skin: no rashes, warm and dry Psychiatric: Orientation: alert and oriented x 3 Results & Data Laboratory Results Laboratory Results - last 24 hr 09/16/18 09/16/18 06:19 06:19 PT 24.7 H INR 2.6 H Sodium 139 Potassium 4.3 Chloride 109 H Carbon Dioxide 20 L Anion Gap 10.0 BUN 103 H Creatinine 3.60 H Est Cr Clr Drug Dosing 14.9 Est GFR ( Amer) 16.5 Est GFR (Non-Af Amer) 14.2 BUN/Creatinine Ratio 28.5 H Glucose 129 H Calcium 8.2 L Diagnostic Findings Portable chest x-ray: cardiomegaly, pulmonary edema
[2018-09-17] MEDS: ASPIRIN 81 MG ECTAB PO SCH (07:37)
[2018-09-17] MEDS: PANTOprazole 40 MG TAB PO SCH (07:38)
[2018-09-17] MEDS: ATORVASTATIN 40 MG TAB PO SCH (07:38)
[2018-09-17] MEDS: CLOPIDOGREL BISULFATE 75 MG TAB PO SCH (07:38)
[2018-09-17] MEDS: AMIODARONE / D5W 360 MG/200 ML BAG IV SCH (07:38)
[2018-09-17] MEDS: METOPROLOL SUCC 50MG EXT REL TAB PO SCH (07:38)
[2018-09-17 07:53] LABS: INR 2.1 (0.9-1.1)
[2018-09-17 08:18] LABS: BUN Creatinine Ratio 26.8 (10-20); Est GFR (African American) 15.3; Est GFR (Non-African American) 13.2; Potassium 3.6 mmol/L (3.5-5.1)
[2018-09-17] MEDS ORDERED: POLYETHYLENE (MIRALAX) 17 GM PACK PO PRN (12:23)
--- NOTE | 2018-09-17 13:00 | Hospitalist Progress Note ---
Date of Service September 17, 2018 Assessment & Plan (1) Non-ST elevation (NSTEMI) myocardial infarction: Acute non-ST elevation myocardial infarction. Cardiology discussed options with patient; he did not wish to undergo cardiac catheterization or intervention. Continue medical management with aspirin, metoprolol, nitrates, statin. Anticoagulated on warfarin, and this was resumed today after being held for supratherapeutic INR. Recurrent chest pain reportedly has resolved. (2) CHF (congestive heart failure): Acute left ventricular systolic heart failure associated with acute TX. Echo showed LVEF of 35-40%. EFFIE inhibitor stopped in light of CKD, hyperkalemia, and severe ; no ARB for same reasons. Continue metoprolol succinate. IV furosemide as needed / tolerated. (3) Aortic stenosis: Aortic valve trileaflet with heavy calcification and moderate - severe aortic stenosis. Patient does not wish to pursue intervention. (4) Atrial fibrillation: New onset atrial fibrillation 09/15 with rapid ventricular response. Converted to NSR with amiodarone infusion. Anticoagulated with warfarin. (5) Hypertension: at goal, cont current medications. (6) Chronic renal insufficiency, stage IV (severe): Appears to be worsening on lab values. Consult Nephrology for eval and recs. Lasix held at this time. (7) Hyperkalemia: Lisinopril held in setting of CKD and high K of 5.6, improved off lisinopril. (8) History of DVT (deep vein thrombosis): warfarin (9) DVT prophylaxis: warfarin DNR Dispo-uncertain at this time. Pt lives alone. PT/OT evals ordered. Await optimization on medical therapy per Cardiology. Maddy Roger DO [facility] [address] Hospitalist (10) Do not resuscitate status: Per patient's wishes. (11) Discharge planning issues: Discharge disposition to be determined. Family Medicine follow-up with Dr. Huston. Subjective 88-year-old man presented to the emergency department for evaluation of lower abdominal pain that began approximately 8 hours prior to arrival described as a bloating/cramping sensation. In the ER he was hemodynamically stable and afebrile and was vaccinating well on room air. Abdominal exam revealed a soft abdomen with no significant tenderness, rebound or guarding and no CVA tenderness. He was given some IV fluids and lab work revealed a white blood cell count of 12.6, BUN 70, creatinine 3.05. INR was 2.4. Troponin was negative. A chest x-ray revealed no acute process. An ultrasound of the abdominal aorta revealed no sonographic evidence of a abdominal aortic aneurysm. A CT abdomen pelvis without contrast revealed a 2.2 similar left adrenal nodule, multiple fluid-filled nondilated loops of both small and large bowel suggestive of enteritis, cholelithiasis without evidence of acute cholecystitis, mild wall thickening of the distal esophagus. While in the ER he did develop acute chest pain and subsequent EKGs revealed ST depression in the lateral leads. There was no evidence of her cervical change. As the patient's creatinine was 3.[address] was not performed. Repeat troponin remained negative. Nitroglycerin paste did not improve his symptoms. He was given aspirin 324 and was notably fully adequate anticoagulated on Coumadin. He was admitted to the hospitalist service. Cardiology was consulted the following day and recommended intervention in the form of diagnostic cardiac catheterization, however the patient states she did not want any invasive procedures done. Therefore medical management was given including beta-diogenes, Imdur 60 mg daily. A 2D echocardiogram was performed revealing a moderately reduced LV s ystolic function at EF of 35-40%, severe hypokinesis of the anterior, anteroseptal and apical aleman. Grade 1 diastolic dysfunction was noted. The aortic valve was severely calcified and aortic stenosis was severe with pulmonary hypertension present with a PA SP of 43 mmHg. Troponins continue to rise and ultimately peaked at 85.1. Clinical picture was consistent with an anterolateral wall myocardial infarction. Medical therapy was continued with a switch to Toprol-XL and atorvastatin 40 mg daily. Acute left ventricular systolic heart failure was associated with acute TX and IV furosemide was given. He subsequently had atrial fibrillation with high heart rates overnight resulting in chest pain and was started on amiodarone. He was subsequently placed on amiodarone drip. Although he was maintaining good urine output his creatinine continue to rise. Diuresis was continued but held overnight. Today he denies any further chest pains on the amio drip. He is tolerating PO and had a BM earlier this am. He is ambulating with min assist per nursing. He does report shortness of breath with exertion. Physical Exam Vital Signs (Past 24 Hours): Last Vital Signs Temp 36.7 C 09/17/18 12:15 Pulse 69 09/17/18 12:15 Resp 20 09/17/18 12:15 BP 104/63 09/17/18 12:15 Pulse Ox 97 09/17/18 12:15 CONSTITUTIONAL: WNWD, vitals as above, generally well-appearing EYES: normal conjuctivae, no scleral icterus ENT: MMM RESPIRATORY: clear to auscultation bilaterally, no crackles, rales or wheezes, normal respiratory effort CARDIOVASCULAR: regular rate and rhythm, 3/6 BAMBI at lower left sternal border,no gallops or rubs, no JVD, no peripheral edema GASTROINTESTINAL: normal bowel sounds, soft, nontender, nondistended MUSCULOSKELETAL: strength 5/5 throughout, head is normocephalic and atraumatic SKIN: warm and dry NEUROLOGIC: CN 2-12 grossly intact, no gross focal deficits. Normal cognition. PSYCHIATRIC: alert cooperative and oriented to person, place and time. Results & Data Laboratory Results [facility] 09/17/18 07:15 Sodium 140 Potassium 3.6 D Chloride 109 H Carbon Dioxide 20 L BUN 103 H Creatinine 3.82 H Glucose 129 H Calcium 8.0 L Medications Administered Current Inpatient Medications Acetaminophen (Tylenol) 650 mg PO Q4H PRN PRN Reason: Pain or Fever Stop: 10/12/18 04:57 Al Hydrox/Mg Hydrox/Simethicone (Maalox) 15 ml PO Q4H PRN PRN Reason: Dyspepsia Stop: 10/12/18 04:57 Allopurinol (Zyloprim) 100 mg PO DAILY [facility] Stop: 10/12/18 08:59 Last Admin: 09/15/18 08:08 Dose: 100 mg Documented by: Aspirin (Ecotrin Ectab) 81 mg PO QAM [facility] Stop: 10/12/18 08:59 Last Admin: 09/17/18 07:37 Dose: Not Given Documented by: Atorvastatin Calcium (Lipitor) 40 mg PO QAM [facility] Stop: 10/15/18 08:59 Last Admin: 09/17/18 07:38 Dose: 40 mg Documented by: Calcitriol (Racaltrol) 0.25 mcg PO DAILY [facility] Stop: 10/12/18 08:59 Last Admin: 09/14/18 07:39 Dose: 0.25 mcg Documented by: Calcium Polycarbophil (Fibercon) 2 tab PO DAILY [facility] Stop: 10/12/18 08:59 Last Admin: 09/14/18 07:38 Dose: 2 tab Documented by: [facility]idogrel [facility] ([facility]ix) [facility] [place]: 10/15/18 08:59 Last Admin: 09/17/18 07:38 Dose: 75 mg Documented by: Ferrous Sulfate (Feosol) 325 mg PO DAILY [facility] Stop: 10/12/18 08:59 Last Admin: 09/14/18 07:38 Dose: 325 mg Documented by: Amiodarone HCl/Dextrose (Nexterone / D5w) 360 mg in 200 mls @ 16.667 mls/hr IV .Q12H [facility] Stop: 10/15/18 21:01 Last Admin: 09/17/18 07:38 Dose: 0.5 mg/min, 16.7 mls/hr Documented by: Metoprolol Succinate (Toprol Xl) [facility] [place] Stop: 10/15/18 08:59 Last Admin: 09/17/18 07:38 Dose: 50 mg Documented by: Morphine Sulfate (Morphine Sulfate) 2 mg IV Q1H PRN PRN Reason: Pain Stop: 09/29/18 00:12 Last Admin: 09/15/18 11:27 Dose: 2 mg Documented by: Multivitamins/Minerals (Multivitamin W/ Minerals Tab) [address] [facility] Stop: 10/12/18 08:59 Last Admin: 09/14/18 07:39 Dose: 1 tab Documented by: Nitroglycerin (Nitrostat) 0.4 mg SL UD PRN PRN Reason: Chest Pain Stop: 10/12/18 04:57 Ondansetron HCl (Zofran) 4 mg IV Q6H PRN PRN Reason: Nausea Stop: 10/12/18 04:57 Pantoprazole Sodium (Protonix) 40 mg PO DAILY [facility] Stop: 10/12/18 08:59 Last Admin: 09/17/18 07:38 Dose: 40 mg Documented by: Polyethylene Glycol (Miralax Powder Packet) 17 gm PO DAILY PRN PRN Reason: Constipation Stop: 10/17/18 12:22 Warfarin Sodium (Coumadin) 5 mg PO DAILY@1600 [facility] Stop: 10/17/18 15:59
--- NOTE | 2018-09-17 16:33 | Cardiology Progress Note ---
Date of Service September 17, 2018 Assessment & Plan (1) ALMI (anterolateral wall myocardial infarction): The patient is hemodynamically stable. Maintaining sinus rhythm. Does not examine as heart failure. (2) JESSICA (acute kidney injury): Unfortunately creatinine is worsening. Patient is reluctant to have dialysis. (3) Aortic stenosis: (4) Atrial fibrillation: He is maintaining sinus rhythm and we will switch him from IV amiodarone to p.o. Subjective The patient appears to be comfortable. He has no new complaints today. Physical Exam Vital Signs (Past 24 Hours): Last Vital Signs Temp 36.5 C 09/17/18 15:32 Pulse 64 09/17/18 16:19 Resp 18 09/17/18 15:32 BP 102/59 L 09/17/18 15:32 Pulse Ox 97 09/17/18 15:32 Physical Exam: General: no acute distress and stated age Head: normocephalic, no masses, lesions, tenderness or abnormalities Eyes: conjunctiva are pink and non-injected, sclera clear Neck: supple, no adenopathy, no bruits, normal jugular venous pulse, no hepatojugular reflux Chest: normal shape and normal respiratory effort Lungs: clear to auscultation and percussion Cardiac Exam: - regular rate & rhythm, no murmurs gallops or rubs - normal S1, normal S2 Pulses: 2(+) throughout Abdomen: abdomen soft, non-tender, no abnormal masses and no hepatosplenomegaly Musculoskeletal: no gait disturbance, no joint inflammation, no deforming arthritis Extremities: no edema and no cyanosis Neuro: grossly normal exam Results & Data Laboratory Results Laboratory Results - last 24 hr 09/17/18 09/17/18 07:15 07:15 PT 20.0 H INR 2.1 H Sodium 140 Potassium 3.6 D Chloride 109 H Carbon Dioxide 20 L Anion Gap 11.0 BUN 103 H Creatinine 3.82 H Est Cr Clr Drug Dosing 14.0 Est GFR ( Amer) 15.3 Est GFR (Non-Af Amer) 13.2 BUN/Creatinine Ratio 26.8 H Glucose 129 H Calcium 8.0 L Specimen Hemolysis Medications Administered Current Inpatient Medications Acetaminophen (Tylenol) 650 mg PO Q4H PRN PRN Reason: Pain or Fever Stop: 10/12/18 04:57 Al Hydrox/Mg Hydrox/Simethicone (Maalox) 15 ml PO Q4H PRN PRN Reason: Dyspepsia Stop: 10/12/18 04:57 Allopurinol (Zyloprim) 100 mg PO DAILY [facility] Stop: 10/12/18 08:59 Last Admin: 09/15/18 08:08 Dose: 100 mg Documented by: Amiodarone HCl (Cordarone) 400 mg PO TIDM [facility] Stop: 10/17/18 16:59 Aspirin (Ecotrin Ectab) 81 mg PO [facility] Stop: 10/12/18 08:59 Last Admin: 09/17/18 07:37 Dose: Not Given Documented by: Atorvastatin Calcium (Lipitor) 40 mg PO [facility] Stop: 10/15/18 08:59 Last Admin: 09/17/18 07:38 Dose: 40 mg Documented by: Calcitriol (Racaltrol) 0.25 mcg PO DAILY [facility] Stop: 10/12/18 08:59 Last Admin: 09/14/18 07:39 Dose: 0.25 mcg Documented by: Calcium Polycarbophil (Fibercon) 2 tab PO DAILY [facility] Stop: 10/12/18 08:59 Last Admin: 09/14/18 07:38 Dose: 2 tab Documented by: Clopidogrel Bisulfate (Plavix) 75 mg PO [facility] Stop: 10/15/18 08:59 Last Admin: 09/17/18 07:38 Dose: 75 mg Documented by: Ferrous Sulfate (Feosol) 325 mg PO DAILY [facility] Stop: 10/12/18 08:59 Last Admin: 09/14/18 07:38 Dose: 325 mg Documented by: Metoprolol Succinate (Toprol Xl) 50 mg PO [facility] Stop: 10/15/18 08:59 Last Admin: 09/17/18 07:38 Dose: 50 mg Documented by: Morphine Sulfate (Morphine Sulfate) 2 mg IV Q1H PRN PRN Reason: Pain Stop: 09/29/18 00:12 Last Admin: 09/15/18 11:27 Dose: 2 mg Documented by: Multivitamins/Minerals (Multivitamin W/ Minerals Tab) 1 tab PO [facility] Stop: 10/12/18 08:59 Last Admin: 09/14/18 07:39 Dose: 1 tab Documented by: Nitroglycerin (Nitrostat) 0.4 mg SL UD PRN PRN Reason: Chest Pain Stop: 10/12/18 04:57 Ondansetron HCl (Zofran) 4 mg IV Q6H PRN PRN Reason: Nausea Stop: 10/12/18 04:57 Pantoprazole Sodium (Protonix) 40 mg PO DAILY [facility] Stop: 10/12/18 08:59 Last Admin: 09/17/18 07:38 Dose: 40 mg Documented by: Polyethylene Glycol (Miralax Powder Packet) 17 gm PO DAILY PRN PRN Reason: Constipation Stop: 10/17/18 12:22 Last Admin: 09/17/18 13:31 Dose: 17 gm Documented by: Warfarin Sodium (Coumadin) 5 mg PO DAILY@1600 [facility] Stop: 10/17/18 15:59
[2018-09-17] MEDS: AMIODARONE 200 MG TAB PO SCH (17:22)
[2018-09-17] MEDS: WARFARIN SOD 5 MG TAB PO SCH (17:22)
[2018-09-18 06:54] LABS: Hematocrit (blood only) 25.8 % (42-52); Hemoglobin 8.5 g/dL (14.0-18.0); Mean Corpuscular Hgb Conc 32.9 g/dL (32-36); Mean Corpuscular Volume 89.3 fL (80-100); Mean Platelet Volume 10.9 fL (7.4-10.4); Platelet Count 244 K/uL (130-400); RDW Coefficient of Variation 13.8 % (11.5-14.5); RDW Standard Deviation 45.3 fL (36.4-46.3); Red Blood Count 2.89 M/uL (4.7-6.1); White Blood Count 8.99 K/uL (4.8-10.8)
[2018-09-18 07:06] LABS: INR 1.9 (0.9-1.1); Prothrombin Time 18.7 Seconds (9.0-12.0)
[2018-09-18 07:29] LABS: BUN Creatinine Ratio 27.7 (10-20); Calcium 8.8 mg/dl (8.5-10.1); Creatinine Clr Calc Pharmacy 14.8 ml/min; Est GFR (African American) 16.3; Est GFR (Non-African American) 14.1; Magnesium 2.3 mg/dl (1.8-2.4); Phosphorus 3.8 mg/dl (2.5-4.9); Potassium 3.8 mmol/L (3.5-5.1)
[2018-09-18] MEDS: CLOPIDOGREL BISULFATE 75 MG TAB PO SCH (08:34)
[2018-09-18] MEDS: PANTOprazole 40 MG TAB PO SCH (08:34)
[2018-09-18] MEDS: ATORVASTATIN 40 MG TAB PO SCH (08:34)
[2018-09-18] MEDS: ASPIRIN 81 MG ECTAB PO SCH (08:34)
[2018-09-18] MEDS: AMIODARONE 200 MG TAB PO SCH ×3 (08:34→17:56)
[2018-09-18] MEDS: METOPROLOL SUCC 50MG EXT REL TAB PO SCH (08:34)
--- NOTE | 2018-09-18 13:22 | Cardiology Progress Note ---
Date of Service September 18, 2018 Assessment & Plan (1) ALMI (anterolateral wall myocardial infarction): The patient is hemodynamically stable. Maintaining sinus rhythm. (2) JESSICA (acute kidney injury): Renal insufficiency has leveled off. (3) Aortic stenosis: (4) Atrial fibrillation: He is maintaining sinus rhythm and we will switch him from IV amiodarone to p.o. (5) Anemia: The patient may benefit from a blood transfusion. Subjective The patient is comfortably sitting in a chair. He has no new cardiac complaints today. Physical Exam Vital Signs (Past 24 Hours): Last Vital Signs Temp 36.6 C 09/18/18 11:29 Pulse 66 09/18/18 11:29 Resp 18 09/18/18 11:29 BP 111/62 09/18/18 11:29 Pulse Ox 96 09/18/18 11:29 Physical Exam: General: no acute distress and stated age Head: normocephalic, no masses, lesions, tenderness or abnormalities Eyes: conjunctiva are pink and non-injected, sclera clear Neck: supple, no adenopathy, no bruits, normal jugular venous pulse, no hepatojugular reflux Chest: normal shape and normal respiratory effort Lungs: clear to auscultation and percussion Cardiac Exam: - regular rate & rhythm, systolic murmur- normal S1, normal S2 Pulses: 2(+) throughout Abdomen: abdomen soft, non-tender, no abnormal masses and no hepatosplenomegaly Musculoskeletal: no gait disturbance, no joint inflammation, no deforming arthritis Extremities: no edema and no cyanosis Neuro: grossly normal exam Results & Data Laboratory Results Laboratory Results - last 24 hr 09/18/18 09/18/18 09/18/18 06:32 06:32 06:32 WBC 8.99 RBC 2.89 L Hgb 8.5 L Hct 25.8 L MCV 89.3 MCH 29.4 MCHC 32.9 RDW Std Deviation 45.3 RDW Coeff of Be 13.8 Plt Count 244 MPV 10.9 H PT 18.7 H INR 1.9 H Sodium 141 Potassium 3.8 Chloride 112 H Carbon Dioxide 21 Anion Gap 8.0 BUN 100 H Creatinine 3.63 H Est Cr Clr Drug Dosing 14.8 Est GFR ( Amer) 16.3 Est GFR (Non-Af Amer) 14.1 BUN/Creatinine Ratio 27.7 H Glucose 125 H Calcium 8.8 Phosphorus 3.8 Magnesium 2.3 Medications Administered Current Inpatient Medications Acetaminophen (Tylenol) 650 mg PO Q4H PRN PRN Reason: Pain or Fever Stop: 10/12/18 04:57 Al Hydrox/Mg Hydrox/Simethicone (Maalox) 15 ml PO Q4H PRN PRN Reason: Dyspepsia Stop: 10/12/18 04:57 Allopurinol (Zyloprim) 100 mg PO DAILY [facility] Stop: 10/12/18 08:59 Last Admin: 09/15/18 08:08 Dose: 100 mg Documented by: Amiodarone HCl (Cordarone) 400 mg PO TIDM [facility] Stop: 10/17/18 16:59 Last Admin: 09/18/18 08:34 Dose: 400 mg Documented by: Aspirin (Ecotrin Ectab) 81 mg PO QAM [facility] Stop: 10/12/18 08:59 Last Admin: 09/18/18 08:34 Dose: 81 mg Documented by: Atorvastatin Calcium (Lipitor) 40 mg PO QAM [facility] Stop: 10/15/18 08:59 Last Admin: 09/18/18 08:34 Dose: 40 mg Documented by: Calcitriol (Racaltrol) 0.25 mcg PO DAILY [facility] Stop: 10/12/18 08:59 Last Admin: 09/14/18 07:39 Dose: 0.25 mcg Documented by: Calcium Polycarbophil (Fibercon) 2 tab PO DAILY [facility] Stop: 10/12/18 08:59 Last Admin: 09/14/18 07:38 Dose: 2 tab Documented by: Clopidogrel Bisulfate (Plavix) 75 mg PO QAM [facility] Stop: 10/15/18 08:59 Last Admin: 09/18/18 08:34 Dose: 75 mg Documented by: Ferrous Sulfate (Feosol) 325 mg PO DAILY [facility] Stop: 10/12/18 08:59 Last Admin: 09/14/18 07:38 Dose: 325 mg Documented by: Metoprolol Succinate (Toprol Xl) 50 mg PO QAM [facility] Stop: 10/15/18 08:59 Last Admin: 09/18/18 08:34 Dose: 50 mg Documented by: Morphine Sulfate (Morphine Sulfate) 2 mg IV Q1H PRN PRN Reason: Pain Stop: 09/29/18 00:12 Last Admin: 09/15/18 11:27 Dose: 2 mg Documented by: Multivitamins/Minerals (Multivitamin W/ Minerals Tab) 1 tab PO QAM [facility] Stop: 10/12/18 08:59 Last Admin: 09/14/18 07:39 Dose: 1 tab Documented by: Nitroglycerin (Nitrostat) 0.4 mg SL UD PRN PRN Reason: Chest Pain Stop: 10/12/18 04:57 Ondansetron HCl (Zofran) 4 mg IV Q6H PRN PRN Reason: Nausea Stop: 10/12/18 04:57 Pantoprazole Sodium (Protonix) 40 mg PO DAILY [facility] Stop: 10/12/18 08:59 Last Admin: 09/18/18 08:34 Dose: 40 mg Documented by: Polyethylene Glycol (Miralax Powder Packet) 17 gm PO DAILY PRN PRN Reason: Constipation Stop: 10/17/18 12:22 Last Admin: 09/17/18 13:31 Dose: 17 gm Documented by: Warfarin Sodium (Coumadin) 5 mg PO DAILY@1600 [facility] Stop: 10/17/18 15:59 Last Admin: 09/17/18 17:22 Dose: 5 mg Documented by:
--- NOTE | 2018-09-18 15:36 | Hospitalist Progress Note ---
Date of Service September 18, 2018 Assessment & Plan (1) Aortic stenosis: diurese PRN (2) Atrial fibrillation: amio, warfarin, Toprol XL (3) Chronic renal insufficiency, stage IV (severe): Appreciate Nephro recs. Consider Torsemide- CXR pending in am. Will consider palliative care consult. (4) ALMI (anterolateral wall myocardial infarction): cont medical management per Cards recs. (5) CHF (congestive heart failure): appears compensated. Repeat CXR in am and consider daily torsemide. (6) BPH (benign prostatic hyperplasia): h/o BPH. Bladder scan q6h (7) Anemia: Anemia of chronic renal disease, declines Epogen. Cont to monitor. (8) DVT prophylaxis: warfarin DNR Dispo-uncertain at this time. Maddy Roger DO [facility] Hospitalist Subjective 88 yo M reports feeling well. Intermittent chest pain, SOB with exertion. He reports a h/o TURP for BPH w LUTS in the past and reports incomplete voiding during the day and frequent nocturia. Physical Exam Vital Signs (Past 24 Hours): Last Vital Signs Temp 36.6 C 09/18/18 15:18 Pulse 66 09/18/18 15:18 Resp 18 09/18/18 15:18 BP 103/62 09/18/18 15:18 Pulse Ox 98 09/18/18 15:18 CONSTITUTIONAL: WNWD, vitals as above, generally well-appearing EYES: normal conjuctivae, no scleral icterus ENT: MMM RESPIRATORY: clear to auscultation bilaterally, no crackles, rales or wheezes, normal respiratory effort CARDIOVASCULAR: regular rate and rhythm, 3/6 BAMBI across precordium,no gallops or rubs, no JVD, no peripheral edema GASTROINTESTINAL: normal bowel sounds, soft, nontender, nondistended MUSCULOSKELETAL: strength 5/5 throughout, head is normocephalic and atraumatic SKIN: warm and dry NEUROLOGIC: CN 2-12 grossly intact, no gross focal deficits. Normal cognition. PSYCHIATRIC: alert cooperative and oriented to person, place and time. Results & Data Laboratory Results Short CBC 09/18/18 Range/Units 06:32 WBC 8.99 (4.8-10.8) K/uL Hgb 8.5 L (14.0-18.0) g/dL Hct 25.8 L (42-52) % Plt Count 244 (130-400) K/uL BMP 09/18/18 06:32 Sodium 141 Potassium 3.8 Chloride 112 H Carbon Dioxide 21 BUN 100 H Creatinine 3.63 H Glucose 125 H Calcium 8.8 Medications Administered Current Inpatient Medications Acetaminophen (Tylenol) 650 mg PO Q4H PRN PRN Reason: Pain or Fever Stop: 10/12/18 04:57 Al Hydrox/Mg Hydrox/Simethicone (Maalox) 15 ml PO Q4H PRN PRN Reason: Dyspepsia Stop: 10/12/18 04:57 Allopurinol (Zyloprim) 100 mg PO DAILY [facility] Stop: 10/12/18 08:59 Last Admin: 09/15/18 08:08 Dose: 100 mg Documented by: Amiodarone HCl (Cordarone) 400 mg PO BIDM [facility] Stop: 10/18/18 16:59 Aspirin ([facility]rin [facility]ab) [facility] Stop: 10/12/18 08:59 Last Admin: 09/18/18 08:34 Dose: 81 mg Documented by: Atorvastatin Calcium (Lipitor) [facility] Stop: 10/15/18 08:59 Last Admin: 09/18/18 08:34 Dose: 40 mg Documented by: Calcitriol (Racaltrol) 0.25 mcg PO DAILY [facility] Stop: 10/12/18 08:59 Last Admin: 09/14/18 07:39 Dose: 0.25 mcg Documented by: Calcium Polycarbophil (Fibercon) 2 tab PO DAILY [facility] Stop: 10/12/18 08:59 Last Admin: 09/14/18 07:38 Dose: 2 tab Documented by: Clopidogrel Bisulfate (Plavix) [facility] Stop: 10/15/18 08:59 Last Admin: 09/18/18 08:34 Dose: 75 mg Documented by: Ferrous Sulfate (Feosol) 325 mg PO DAILY [facility] Stop: 10/12/18 08:59 Last Admin: 09/14/18 07:38 Dose: 325 mg Documented by: Metoprolol Succinate ([facility]rol Xl) [facility] Stop: 10/15/18 08:59 Last Admin: 09/18/18 08:34 Dose: 50 mg Documented by: Morphine Sulfate (Morphine Sulfate) 2 mg IV Q1H PRN PRN Reason: Pain Stop: 09/29/18 00:12 Last Admin: 09/15/18 11:27 Dose: 2 mg Documented by: Multivitamins/Minerals (Multivitamin W/ Minerals Tab) 1 tab PO QAM [facility] Stop: 10/12/18 08:59 Last Admin: 09/14/18 07:39 Dose: 1 tab Documented by: Nitroglycerin (Nitrostat) 0.4 mg SL UD PRN PRN Reason: Chest Pain Stop: 10/12/18 04:57 Ondansetron HCl (Zofran) 4 mg IV Q6H PRN PRN Reason: Nausea Stop: 10/12/18 04:57 Pantoprazole Sodium (Protonix) 40 mg PO DAILY [facility] Stop: 10/12/18 08:59 Last Admin: 09/18/18 08:34 Dose: 40 mg Documented by: Polyethylene Glycol (Miralax Powder Packet) 17 gm PO DAILY PRN PRN Reason: Constipation Stop: 10/17/18 12:22 Last Admin: 09/17/18 13:31 Dose: 17 gm Documented by: Warfarin Sodium (Coumadin) 5 mg PO DAILY@1600 [facility] Stop: 10/17/18 15:59 Last Admin: 09/17/18 17:22 Dose: 5 mg Documented by: (1) Anemia Anemia type: due to chronic kidney disease
[2018-09-18] MEDS: WARFARIN SOD 5 MG TAB PO SCH (15:50)
--- NOTE | 2018-09-18 19:45 | Nephrology Consultation ---
Date of Consultation September 18, 2018 Assessment & Plan (1) JESSICA (acute kidney injury): Patient with JESSICA on CKD likely due to cardiorenal syndrome. Patient with recent NSTEMI and EF of 35%. He also has moderate to severe aortic stenosis which further impairs his cardiac output. Baseline cr 2.5 and now cr upto 3.6. I discussed with him that without addressing the cardiac problem renal function is going to progressively worsen to a point of needing dialysis this hospitalization. Patient feels he has had a good life and does not want to do dialysis. He feels dialysis will make his quality of life worse. Continue supportive management with diuretics as needed for volume management. He will benefit from a palliative care consult (2) Chronic renal insufficiency, stage IV (severe): Due to hypertension and renal disease. 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 I suggested epogen but patient has declined epogen in the past due to a multitude of side effects. he also has history of bladder cancer but this was many yrs ago. Will continue to discuss with him. I think improving his Hb will certainly improve his symptoms. (4) CHF (congestive heart failure): Due to multifactorial etiology including diastolic dysfunction, valvular heart disease and NSTEMI. He will likely need some diuresis but he is also preload dependent. Suggest repeat CXR and if significant pulmonary congestion would try torsemide 20mg daily. History of Present Illness Reason for Consultation: JESSICA on CKD stage 4 Requesting Physician: Maddy Roger DO Attending Physician: Maddy Roger DO History of Present Illness 88-year-old male with history of with CKD stage 4, admitted on 09/12 with NSTEMI whom I have been asked to evaluate for worsening renal function. Baseline creatinine is 2.5 but cr today is up to 3.6 and BUN 100. I know him very well from the outpatient clinic. Other PMH includes: hyperlipidemia, emphysema of the lung, abdominal aortic aneurysm status post repair, hypertension, moderate aortic stenosis, irritable bowel syndrome, history of gastric ulcers with bleeding resolved, history of malignant neoplasm of bladder status post chemo and gout. His NSTEMI is being managed medically. He told me he did not want to undergo cardiac catheterization for fear of ending up on dialysis. He reports SOB today. He gets chest discomfort intermittently. No urinary symptoms. No nausea or vomitig. Allergies Allergy/AdvReac Type Severity Reaction Status Date / Time indomethacin AdvReac Unknown BLEEDING Verified 09/12/18 01:08 lactose AdvReac Unknown GI SYMPTOMS Verified 09/12/18 01:08 Home Medications Home Medications Medication Instructions Recorded Confirmed Type allopurinol 100 mg PO DAILY 09/12/18 09/12/18 History calcitriol 0.25 mcg PO DAILY 09/12/18 09/12/18 History ferrous sulfate 325 mg PO DAILY 09/12/18 09/12/18 History furosemide [Lasix] 20 mg PO 3XWK 09/12/18 09/12/18 History isosorbide mononitrate 30 mg PO DAILY 09/12/18 09/12/18 History lisinopril 2.5 mg PO DAILY 09/12/18 09/12/18 History lovastatin 20 mg PO DAILY 09/12/18 09/12/18 History metoprolol tartrate 25 mg PO BID 09/12/18 09/12/18 History pantoprazole 40 mg PO DAILY 09/12/18 09/12/18 History psyllium husk [Fiber-Caps 2 cap PO DAILY 09/12/18 09/12/18 History (psyllium husk)] warfarin [Coumadin] 5 mg PO 4XWK 09/12/18 09/12/18 History warfarin [Coumadin] 7.5 mg PO 3XWK 09/12/18 09/12/18 History Patient History Medical History Anemia in chronic kidney disease Aortic aneurysm Aortic stenosis CKD stage 4 secondary to hypertension Cancer of bladder DVT (deep venous thrombosis) Dyslipidemia Emphysema of lung Gastric ulcer Gout HTN (hypertension) Irritable bowel syndrome Lung nodule Surgical History H/O colonoscopy History of cataract surgery History of esophagogastroduodenoscopy (EGD) History of right inguinal hernia repair S/P TURP S/P tonsillectomy Family History Father Hypertension Heart disease Mother Cancer Social History Communication Ability: Effective Beliefs That Will Affect Care: None marital status: Single Current Living Situation: Alone Other Information That Helps Us Care for You: No Feels Safe at Home: Yes Safety Concerns: Feels Safe At This Time Smoking Status: Former smoker Hx Alcohol Use: No Hx Substance Use: No Review of Systems All other systems were reviewed and negative except as noted in HPI Physical Exam Vital Signs (Past 24 Hours): Last Vital Signs Temp 36.5 C 09/18/18 19:29 Pulse 70 09/18/18 19:29 Resp 18 09/18/18 19:29 BP 112/71 09/18/18 19:29 Pulse Ox 98 09/18/18 19:29 Physical Exam: General exam: Appears comfortable, no acute distress HEENT: Pupils are equal and reactive to light Neck: High JVD, neck is supple trachea is midline Respiratory system:mild wheezing bilaterally. Gastrointestinal: Abdomen is soft, non distended, non tender, bowel sounds are present CVS: Regular rate and rhythm. No murmurs, rubs or gallops Musculoskeletal: No joint or muscle tenderness Extremities: Non tender, no edema, peripheral pulses are present Neuro: Oriented, no tremors, no focal neurological deficits Skin: No rashes Results & Data Laboratory Results k 3.8, cr 3.6 and BUN 100. Hb 8.5 (1) Anemia Anemia type: due to chronic kidney disease
[2018-09-19 07:01] LABS: Hematocrit (blood only) 24.8 % (42-52); Hemoglobin 8.3 g/dL (14.0-18.0); Mean Corpuscular Hgb Conc 33.5 g/dL (32-36); Mean Corpuscular Volume 89.5 fL (80-100); Mean Platelet Volume 10.9 fL (7.4-10.4); Nucleated RBC # (auto) 0.02 K/uL (0-0); Nucleated RBC % (auto) 0.2 %; Platelet Count 274 K/uL (130-400); RDW Coefficient of Variation 13.9 % (11.5-14.5); RDW Standard Deviation 45.8 fL (36.4-46.3); Red Blood Count 2.77 M/uL (4.7-6.1); White Blood Count 10.49 K/uL (4.8-10.8)
[2018-09-19 07:11] LABS: INR 2.2 (0.9-1.1); Prothrombin Time 21.2 Seconds (9.0-12.0)
[2018-09-19 07:32] LABS: BUN Creatinine Ratio 26.5 (10-20); Calcium 8.3 mg/dl (8.5-10.1); Est GFR (African American) 15.3; Est GFR (Non-African American) 13.2; Potassium 3.9 mmol/L (3.5-5.1)
--- NOTE | 2018-09-19 07:32 | XRay Report ---
XR chest 1V portable CLINICAL HISTORY: post-operative coughing and wheezing COMPARISON STUDY: 09/16/2018 FINDINGS: The heart is enlarged. There is radiographic evidence of emphysema area there is radiograph ic evidence of mild portal vascular congestion. There are basilar opacities, likely atelectatic. Trac e effusions are suspected[ IMPRESSION: 1. Cardiomegaly and suspected mild pulmonary vascular congestion/fluid overload 2. Trace pleural effusions 3. Basilar opacities statistically atelectatic Electronically signed by: Isaiah Saba M.D. 09/19/2018 7:31 AM
[2018-09-19] MEDS: AMIODARONE 200 MG TAB PO SCH (08:10)
[2018-09-19] MEDS: CLOPIDOGREL BISULFATE 75 MG TAB PO SCH (08:10)
[2018-09-19] MEDS: PANTOprazole 40 MG TAB PO SCH (08:10)
[2018-09-19] MEDS: ATORVASTATIN 40 MG TAB PO SCH (08:10)
[2018-09-19] MEDS: METOPROLOL SUCC 50MG EXT REL TAB PO SCH (08:10)
[2018-09-19] MEDS: ASPIRIN 81 MG ECTAB PO SCH ×2 (08:10→08:12)
[2018-09-19] MEDS: TORSEMIDE 20 MG TAB PO SCH (09:50)
--- NOTE | 2018-09-19 14:51 | Cardiology Progress Note ---
Date of Service September 19, 2018 Assessment & Plan (1) ALMI (anterolateral wall myocardial infarction): There was some discussion today with neurology regarding the potential for cardiac catheterization. At this time, I believe the patient would not benefit from a cardiac catheterization. The potential risks, especially the potential for shutting down his kidneys completely with the contrast dye, do not warrant a cardiac catheterization. The patient is understanding of his situation. We will continue with medical management. (2) JESSICA (acute kidney injury): Nephrology note on chart. (3) Aortic stenosis: (4) Atrial fibrillation: Lowering his dose of amiodarone (5) Anemia: The patient would either benefit from a blood transfusion or Procrit injections Subjective No new cardiac complaints. Patient is comfortably sitting in a chair. He is receiving physical therapy. Physical Exam Vital Signs (Past 24 Hours): Last Vital Signs Temp 37.1 C 09/19/18 12:01 Pulse 63 09/19/18 12:01 Resp 18 09/19/18 12:01 BP 105/64 09/19/18 12:01 Pulse Ox 99 09/19/18 14:34 Physical Exam: General: no acute distress and stated age Head: normocephalic, no masses, lesions, tenderness or abnormalities Eyes: conjunctiva are pink and non-injected, sclera clear Neck: supple, no adenopathy, no bruits, normal jugular venous pulse, no hepatojugular reflux Chest: normal shape and normal respiratory effort Lungs: clear to auscultation and percussion Cardiac Exam: - regular rate & rhythm, systolic murmur- normal S1, normal S2 Pulses: 2(+) throughout Abdomen: abdomen soft, non-tender, no abnormal masses and no hepatosplenomegaly Musculoskeletal: no gait disturbance, no joint inflammation, no deforming arthritis Extremities: no edema and no cyanosis Neuro: grossly normal exam Results & Data Laboratory Results Laboratory Results - last 24 hr 09/19/18 09/19/18 09/19/18 06:38 06:38 06:38 WBC 10.49 RBC 2.77 L Hgb 8.3 L Hct 24.8 L MCV 89.5 MCH 30.0 MCHC 33.5 RDW Std Deviation 45.8 RDW Coeff of Be 13.9 Plt Count 274 MPV 10.9 H Absolute Nucleated RBC 0.02 H Nucleated RBC % (auto) 0.2 PT 21.2 H INR 2.2 H Sodium 140 Potassium 3.9 Chloride 111 H Carbon Dioxide 20 L Anion Gap 9.0 BUN 101 H Creatinine 3.83 H Est Cr Clr Drug Dosing 14.0 Est GFR ( Amer) 15.3 Est GFR (Non-Af Amer) 13.2 BUN/Creatinine Ratio 26.5 H Glucose 124 H Calcium 8.3 L Medications Administered Current Inpatient Medications Acetaminophen (Tylenol) 650 mg PO Q4H PRN PRN Reason: Pain or Fever Stop: 10/12/18 04:57 Al Hydrox/Mg Hydrox/Simethicone (Maalox) 15 ml PO Q4H PRN PRN Reason: Dyspepsia Stop: 10/12/18 04:57 Allopurinol (Zyloprim) 100 mg PO DAILY [facility] Stop: 10/12/18 08:59 Last Admin: 09/15/18 08:08 Dose: 100 mg Documented by: Amiodarone HCl (Cordarone) 400 mg PO BIDM [facility] Stop: 10/18/18 16:59 Last Admin: 09/19/18 08:10 Dose: 400 mg Documented by: Aspirin ([facility]rin [facility]ctab) [facility] Stop: 10/12/18 08:59 Last Admin: 09/19/18 08:12 Dose: Not Given Documented by: Atorvastatin Calcium (Lipitor) [facility] [place] Stop: 10/15/18 08:59 Last Admin: 09/19/18 08:10 Dose: 40 mg Documented by: Calcitriol (Racaltrol) 0.25 mcg PO DAILY [facility] Stop: 10/12/18 08:59 Last Admin: 09/14/18 07:39 Dose: 0.25 mcg Documented by: Calcium Polycarbophil (Fibercon) 2 tab PO DAILY [facility] Stop: 10/12/18 08:59 Last Admin: 09/14/18 07:38 Dose: 2 tab Documented by: Clopidogrel Bisulfate (Plavix) [facility] [place] Stop: 10/15/18 08:59 Last Admin: 09/19/18 08:10 Dose: 75 mg Documented by: Ferrous Sulfate (Feosol) 325 mg PO DAILY [facility] Stop: 10/12/18 08:59 Last Admin: 09/14/18 07:38 Dose: 325 mg Documented by: Metoprolol Succinate (Toprol Xl) [facility] Stop: 10/15/18 08:59 Last Admin: 09/19/18 08:10 Dose: 50 mg Documented by: Morphine Sulfate (Morphine Sulfate) 2 mg IV Q1H PRN PRN Reason: Pain Stop: 09/29/18 00:12 Last Admin: 09/15/18 11:27 Dose: 2 mg Documented by: Multivitamins/Minerals (Multivitamin W/ Minerals Tab) [facility] Stop: 10/12/18 08:59 Last Admin: 09/14/18 07:39 Dose: 1 tab Documented by: Nitroglycerin (Nitrostat) 0.4 mg SL UD PRN PRN Reason: Chest Pain Stop: 10/12/18 04:57 Ondansetron HCl (Zofran) 4 mg IV Q6H PRN PRN Reason: Nausea Stop: 10/12/18 04:57 Pantoprazole Sodium (Protonix) 40 mg PO DAILY [facility] Stop: 10/12/18 08:59 Last Admin: 09/19/18 08:10 Dose: 40 mg Documented by: Polyethylene Glycol (Miralax Powder Packet) 17 gm PO DAILY PRN PRN Reason: Constipation Stop: 10/17/18 12:22 Last Admin: 09/17/18 13:31 Dose: 17 gm Documented by: Torsemide (Demadex) [facility] Stop: 10/19/18 08:59 Last Admin: 09/19/18 09:50 Dose: 20 mg Documented by: Warfarin Sodium (Coumadin) 5 mg PO DAILY@1600 [facility] Stop: 10/17/18 15:59 Last Admin: 09/18/18 15:50 Dose: 5 mg Documented by: (1) Anemia Anemia type: due to chronic kidney disease
--- NOTE | 2018-09-19 15:50 | Hospitalist Progress Note ---
Date of Service September 19, 2018 Assessment & Plan (1) Aortic stenosis: diurese PRN (2) Atrial fibrillation: amio, warfarin, Toprol XL (3) Chronic renal insufficiency, stage IV (severe): Appreciate Nephro recs. start Torsemide (4) ALMI (anterolateral wall myocardial infarction): cont medical management per Cards recs. (5) CHF (congestive heart failure): appears compensated. daily torsemide (6) BPH (benign prostatic hyperplasia): (7) Anemia: Anemia of chronic renal disease, declines Epogen. Cont to monitor. (8) DVT prophylaxis: warfarin DNR Dispo-uncertain at this time. Maddy Roger DO [facility] Hospitalist Subjective feels well denies chest pain dyspnea on exertion. tolerating PO Physical Exam Vital Signs (Past 24 Hours): Last Vital Signs Temp 36.6 C 09/19/18 15:45 Pulse 49 L 09/19/18 15:45 Resp 18 09/19/18 15:45 BP 105/64 09/19/18 15:45 Pulse Ox 97 09/19/18 15:45 CONSTITUTIONAL: WNWD, vitals as above, generally well-appearing EYES: normal conjuctivae, no scleral icterus ENT: MMM RESPIRATORY: clear to auscultation bilaterally, no crackles, rales or wheezes, normal respiratory effort CARDIOVASCULAR: regular rate and rhythm, 3/6 BAMBI across precordium,no gallops or rubs, no JVD, no peripheral edema GASTROINTESTINAL: normal bowel sounds, soft, nontender, nondistended MUSCULOSKELETAL: strength 5/5 throughout, head is normocephalic and atraumatic SKIN: warm and dry NEUROLOGIC: CN 2-12 grossly intact, no gross focal deficits. Normal cognition. PSYCHIATRIC: alert cooperative and oriented to person, place and time. (1) Anemia Anemia type: due to chronic kidney disease
[2018-09-19] MEDS: WARFARIN SOD 5 MG TAB PO SCH (15:51)
--- NOTE | 2018-09-19 18:15 | Nephrology Progress Note ---
Date of Service September 19, 2018 Assessment & Plan (1) JESSICA (acute kidney injury): Patient with JESSICA on CKD likely due to cardiorenal syndrome. Patient with recent NSTEMI and EF of 35%. He also has moderate to severe aortic stenosis which further impairs his cardiac output. Baseline cr 2.5 and now cr upto 3.8 and BUN 101. Cardiac catheterization was suggested early on during this admission and patient declined. He did not want to end up on dialysis since he lives alone and felt commuting to dialysis center would be difficult. I had a lengthy discussion with him today. His renal function is going to decline and require dialysis whether he gets contrast or not. I explained what dialysis princess ns and the process of going to a dialysis center. After learning about dialysis patient is now agreeable to dialysis. I reached to cardiology but Dr Hathaway felt catheterization is not beneficial at this point. Will continue to monitor daily for dialysis need. He will likely need to start HD next week. if he does well on HD, Cardiology might consider Aortic valve replacement Torsemide was started today for volume management. He is preload dependent and might decompensate on the torsemide in which we can stop. (2) Chronic renal insufficiency, stage IV (severe): Due to hypertension and renal disease. 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 I suggested epogen. Patient is agreeable today. Side effects were discussed. I will give him 10,000 units sc (4) CHF (congestive heart failure): Due to multifactorial etiology including diastolic dysfunction, valvular heart disease and NSTEMI. He will likely need some diuresis but he is also preload dependent. Continue torsemide 20mg daily. Subjective Patient with JESSICA on CKD complicated by IL seen in follow up. He complains of SOB and fatigue. His urine oXR today showing pulm congestion. Review of Systems All systems reviewed & are unremarkable except as noted in HPI & below Physical Exam Vital Signs (Past 24 Hours): Last Vital Signs Temp 36.6 C 09/19/18 15:45 Pulse 49 L 09/19/18 15:45 Resp 18 09/19/18 15:45 BP 105/64 09/19/18 15:45 Pulse Ox 97 09/19/18 15:45 Physical Exam: General exam: Appears comfortable, no acute distress HEENT: Pupils are equal and reactive to light Neck: No JVD, neck is supple trachea is midline Respiratory system: Reduced breath sounds in bases and wheezing bilaterally. Gastrointestinal: Abdomen is soft, non distended, non tender, bowel sounds are present CVS: Regular rate and rhythm. No murmurs, rubs or gallops Musculoskeletal: No joint or muscle tenderness Extremities: Non tender, no edema, peripheral pulses are present Neuro: Oriented, no tremors, no focal neurological deficits Skin: No rashes Results & Data Laboratory Results Hb 8.3, Cr 3.8, BUN 101 Diagnostic Findings CXR pulm congestion (1) Anemia Anemia type: due to chronic kidney disease
[2018-09-19] MEDS ORDERED: EPOETIN ALFA 10,000 UNITS/ML VIAL SQ ONE (20:45)
[2018-09-20 07:17] LABS: INR 2.8 (0.9-1.1)
[2018-09-20 07:20] LABS: BUN Creatinine Ratio 25.4 (10-20); Calcium 8.9 mg/dl (8.5-10.1); Creatinine Clr Calc Pharmacy 12.9 ml/min; Est GFR (African American) 13.9
[2018-09-20] MEDS: ASPIRIN 81 MG ECTAB PO SCH (08:16)
[2018-09-20] MEDS: TORSEMIDE 20 MG TAB PO SCH (08:16)
[2018-09-20] MEDS: ATORVASTATIN 40 MG TAB PO SCH (08:17)
[2018-09-20] MEDS: METOPROLOL SUCC 50MG EXT REL TAB PO SCH (08:17)
[2018-09-20] MEDS: CLOPIDOGREL BISULFATE 75 MG TAB PO SCH (08:17)
[2018-09-20] MEDS: PANTOprazole 40 MG TAB PO SCH (08:17)
[2018-09-20] MEDS: AMIODARONE 200 MG TAB PO SCH (08:17)
--- NOTE | 2018-09-20 09:55 | Hospitalist Progress Note ---
Date of Service September 20, 2018 Assessment & Plan (1) Aortic stenosis: diurese PRN (2) Atrial fibrillation: Converted to sinus rhythm after amio drip. Cont PO amio, warfarin, Toprol XL, ASA (3) Chronic renal insufficiency, stage IV (severe): Appreciate Nephro recs. Continue torsemide with Nephro monitoring closely ready to start dialysis as needed. (4) ALMI (anterolateral wall myocardial infarction): cont medical management (5) CHF (congestive heart failure): compensated (6) BPH (benign prostatic hyperplasia): h/o BPH. Making good amounts of urine. (7) Anemia: Anemia of chronic renal disease, Epogen. Cont to monitor. (8) DVT prophylaxis: warfarin DNR Dispo-uncertain at this time. Maddy Roger DO [facility] Hospitalist Subjective Feels somewhat more short of breath this am Intermittent chest discomfort but he feels this is 2/2 sittin gfor a prolonged period of time in his chair yesterday. He is now more open to the idea of TAVR, dialysis, epogen etc. Physical Exam Vital Signs (Past 24 Hours): Last Vital Signs Temp 36.8 C 09/20/18 07:25 Pulse 86 09/20/18 08:35 Resp 16 09/20/18 07:25 BP 126/76 09/20/18 07:25 Pulse Ox 97 09/20/18 07:25 CONSTITUTIONAL: WNWD, vitals as above, generally well-appearing EYES: normal conjuctivae, no scleral icterus ENT: MMM RESPIRATORY: clear to auscultation bilaterally, no crackles, rales or wheezes, normal respiratory effort CARDIOVASCULAR: regular rate and rhythm, 3/6 BAMBI across precordium,no gallops or rubs, no JVD, no peripheral edema GASTROINTESTINAL: normal bowel sounds, soft, nontender, nondistended MUSCULOSKELETAL: strength 5/5 throughout, head is normocephalic and atraumatic SKIN: warm and dry NEUROLOGIC: CN 2-12 grossly intact, no gross focal deficits. Normal cognition. PSYCHIATRIC: alert cooperative and oriented to person, place and time. Results & Data Laboratory Results [facility] 09/20/18 06:46 Sodium 139 Potassium 4.0 Chloride 110 H Carbon Dioxide 22 BUN 105 H Creatinine 4.15 H D Glucose 149 H Calcium 8.9 Medications Administered Current Inpatient Medications Acetaminophen (Tylenol) 650 mg PO Q4H PRN PRN Reason: Pain or Fever Stop: 10/12/18 04:57 Al Hydrox/Mg Hydrox/Simethicone (Maalox) 15 ml PO Q4H PRN PRN Reason: Dyspepsia Stop: 10/12/18 04:57 Allopurinol (Zyloprim) 100 mg PO DAILY [facility] Stop: 10/12/18 08:59 Last Admin: 09/15/18 08:08 Dose: 100 mg Documented by: Amiodarone HCl (Cordarone) 400 mg PO DAILY [facility] Stop: 10/20/18 08:59 Last Admin: 09/20/18 08:17 Dose: 400 mg Documented by: Aspir[facility] ([facility]rin Ectab) [facility] Stop: 10/12/18 08:59 Last Admin: 09/20/18 08:16 Dose: Not Given Documented by: Atorvastatin Calcium (Lipitor) [facility] Stop: 10/15/18 08:59 Last Admin: 09/20/18 08:17 Dose: 40 mg Documented by: Calcitriol (Racaltrol) 0.25 mcg PO DAILY [facility] Stop: 10/12/18 08:59 Last Admin: 09/14/18 07:39 Dose: 0.25 mcg Documented by: Calcium Polycarbophil (Fibercon) 2 tab PO DAILY [facility] Stop: 10/12/18 08:59 Last Admin: 09/14/18 07:38 Dose: 2 tab Documented by: Clopidogrel Bisulfate (Plavix) [facility] Stop: 10/15/18 08:59 Last Admin: 09/20/18 08:17 Dose: 75 mg Documented by: Ferrous Sulfate (Feosol) 325 mg PO DAILY [facility] Stop: 10/12/18 08:59 Last Admin: 09/14/18 07:38 Dose: 325 mg Documented by: Metoprolol Succinate (Toprol Xl) [facility] Stop: 10/15/18 08:59 Last Admin: 09/20/18 08:17 Dose: 50 mg Documented by: Morphine Sulfate (Morphine Sulfate) 2 mg IV Q1H PRN PRN Reason: Pain Stop: 09/29/18 00:12 Last Admin: 09/15/18 11:27 Dose: 2 mg Documented by: Multivitamins/Minerals (Multivitamin W/ Minerals Tab) 1 tab PO QAM [facility] Stop: 10/12/18 08:59 Last Admin: 09/14/18 07:39 Dose: 1 tab Documented by: Nitroglycerin (Nitrostat) 0.4 mg SL UD PRN PRN Reason: Chest Pain Stop: 10/12/18 04:57 Ondansetron HCl (Zofran) 4 mg IV Q6H PRN PRN Reason: Nausea Stop: 10/12/18 04:57 Pantoprazole Sodium (Protonix) 40 mg PO DAILY [facility] Stop: 10/12/18 08:59 Last Admin: 09/20/18 08:17 Dose: 40 mg Documented by: Polyethylene Glycol (Miralax Powder Packet) 17 gm PO DAILY PRN PRN Reason: Constipation Stop: 10/17/18 12:22 Last Admin: 09/17/18 13:31 Dose: 17 gm Documented by: Torsemide (Demadex) 20 mg PO QAM [facility] Stop: 10/19/18 08:59 Last Admin: 09/20/18 08:16 Dose: 20 mg Documented by: Warfarin Sodium (Coumadin) 5 mg PO DAILY@1600 [facility] Stop: 10/17/18 15:59 Last Admin: 09/19/18 15:51 Dose: 5 mg Documented by: (1) Anemia Anemia type: due to chronic kidney disease
--- NOTE | 2018-09-20 16:54 | Cardiology Progress Note ---
Date of Service September 20, 2018 Assessment & Plan (1) Non-ST elevation (NSTEMI) myocardial infarction: (2) Atrial fibrillation: (3) JESSICA (acute kidney injury): Outpatient chart as well as the events of this hospital stay were reviewed. Echocardiogram which have been performed this admission on 09/12/18 was reviewed independently with findings of severe hypokinesis to akinesis of the inferoseptum, anteroseptal, anterior and apical aleman with moderate LV systolic dysfunction, ejection fraction in the range of 35%. The aortic valve is trileaflet. Severe aortic valve calcification is noted with severe restriction of aortic valve cusp excursion noted by 2D criteria. Doppler criteria suggest moderate aortic stenosis. The patient had an outpatient echocardiogram at [facility] in March 2018 which is actually been interpreted by the undersigned. At that time the LVEF was normal with no regional wall motion abnormalities. The aortic valve appeared similar as to what is found on the present study with discordant 2D data suggestive of severe aortic stenosis, moderate aortic stenosis by Doppler criteria. It was my impression at the time of reading that echo had severe aortic stenosis is likely present. At the time of his most recent outpatient cardiology follow-up with 1 of my colleagues in March 2018 the patient described exertional chest discomfort, and clinically, it was felt that he had severe symptomatic aortic stenosis. The patient declined intervention at that time. Patient has baseline stage IV chronic kidney disease. Chemistry panel dated 08/19/18 as an outpatient included a creatinine of 2.8 and a calculated GFR of 19.3 mL/min/m. The patient's renal function has declined as his hospital stay is progressed, with creatinine today of 4.15 Is my impression that the patient presented with a large left anterior descending coronary artery myocardial infarction. He had declined interventional therapy, which was consistent with his past expressed wishes, and his troponin climbed to 85 ng/ ml as measured on 09/13. Is my impression that the infarct has completed, and coronary intervention would not be indicated at this time as the myocardium is unlikely to be viable. Unfortunately he still has a significant underlying valvular heart disease. His comorbidities make him a poor candidate for surgical or transcatheter aortic valve intervention with acute congestive heart failure, worsening kidney function, worsening LVEF. Recommend proceeding with ongoing conservative therapy. If the patient improves, he may be a future candidate for high risk valve intervention but I do not believe he is a candidate at present. Regarding atrial fibrillation, the patient is back in sinus rhythm. At present, continue aspirin. Clopidogrel had been started earlier this hospital stay for medical management of his myocardial infarction. But he was already on Coumadin on a chronic basis, and Coumadin is. Initiated with therapeutic INR. I am very concerned about his risk of bleeding complication on triple therapy and therefore will discontinue clopidogrel in favor of aspirin and Coumadin at present. Continue metoprolol, atorvastatin, amiodarone, and torsemide. Prognosis is poor. Subjective Chief complaint: Follow-up shortness of breath Subjective: Patient resting comfortably when I first arrived. Conversational shortness of breath noted. Telemetry reveals sinus rhythm in the range of 68 bpm. Physical Exam Vital Signs (Past 24 Hours): Last Vital Signs Temp 36.7 C 09/20/18 15:18 Pulse 73 09/20/18 15:18 Resp 22 09/20/18 15:18 BP 95/48 L 09/20/18 15:18 Pulse Ox 97 09/20/18 15:18 Constitutional: + ill appearing Respiratory: Auscultation: + diminished lung sounds (Mildly diminished breath sounds at the bases bilaterally); no crackles and no rales Cardiovascular: Rate/Rhythm: regular rate and regular rhythm Heart Sounds: + murmur (II/ systolic murmur heard best at right sternal border) Extremities: + edema (Trivial ankle edema)
[2018-09-20] MEDS: WARFARIN SOD 5 MG TAB PO SCH (17:32)
[2018-09-21 07:37] LABS: BUN Creatinine Ratio 25.4 (10-20); Calcium 8.9 mg/dl (8.5-10.1); Est GFR (African American) 15.3; Est GFR (Non-African American) 13.2; Potassium 3.9 mmol/L (3.5-5.1)
[2018-09-21 07:41] LABS: Prothrombin Time 33.8 Seconds (9.0-12.0)
[2018-09-21 07:42] LABS: INR 3.6 (0.9-1.1)
[2018-09-21] MEDS: AMIODARONE 200 MG TAB PO SCH (09:13)
[2018-09-21] MEDS: ASPIRIN 81 MG ECTAB PO SCH (09:14)
[2018-09-21] MEDS: PANTOprazole 40 MG TAB PO SCH (09:14)
[2018-09-21] MEDS: ATORVASTATIN 40 MG TAB PO SCH (09:14)
[2018-09-21] MEDS: METOPROLOL SUCC 50MG EXT REL TAB PO SCH (09:14)
[2018-09-21] MEDS: TORSEMIDE 20 MG TAB PO SCH (09:14)
--- NOTE | 2018-09-21 15:41 | Progress Note ---
DATE: 09/21/2018 NEPHROLOGY PROGRESS NOTE SUBJECTIVE: Overnight, no new issues. The patient appears fairly comfortable and denies any acute issues. He has chronic shortness of breath and does not report any worsening. OBJECTIVE: VITAL SIGNS: Blood pressure 106/65, 97% on 3 liter nasal cannula, pulse rate 75 per minute, temperature afebrile. HEENT: Mucous membrane is moist. NECK: Supple. CARDIOPULMONARY: Diminished breath sounds in the lungs. 3/6 systolic murmur heard. EXTREMITIES: Trace edema. ABDOMEN: Soft, nontender. Urine output yesterday in a 24-hour time period was 1325 mL. ASSESSMENT AND PLAN: An 88-year-old male with underlying chronic kidney disease IV, presented with acute anterior wall myocardial infarction, which has caused significant drop in the ejection fraction now down to 30% and as a result of the significant drop in the ejection fraction, his creatinine has got worse. Although the renal function has remained fairly stable now for 4 days at around 4 creatinine, he does have some mild evidence of congestive heart failure. We can continue the torsemide 20 daily for now, but if he develops more shortness of breath, do not hesitate to give more loop diuretics including IV Lasix. He does not need dialysis at this very moment. 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
--- NOTE | 2018-09-21 16:24 | Cardiology Progress Note ---
Date of Service September 21, 2018 Assessment & Plan (1) Non-ST elevation (NSTEMI) myocardial infarction: ST segment elevation myocardial infarction complicated by acute systolic heart failure, new moderate LV systolic dysfunction. Patient has underlying severe aortic valve stenosis. Continue current medications. (2) Atrial fibrillation: Continue metoprolol and Coumadin (3) JESSICA (acute kidney injury): Creatinine slightly improved from 4.15 yesterday to 3.83 today. Acute kidney injury on his previous chronic stage IV chronic kidney disease noted. Likely due to low cardiac output syndrome given new LV systolic dysfunction. Continue supportive care. Subjective Chief complaint: Follow-up shortness of breath Subjective: Patient seen and examined. He is currently in room [facility]. He was resting comfortably. Physical Exam Vital Signs (Past 24 Hours): Last Vital Signs Temp 36.6 C 09/21/18 15:46 Pulse 66 09/21/18 15:46 Resp 20 09/21/18 15:46 BP 109/67 09/21/18 15:46 Pulse Ox 96 09/21/18 15:46 Constitutional: + ill appearing and + frail appearing Respiratory: no cough Auscultation: + diminished lung sounds (Diminished breath sounds the bases bilaterally); no crackles and no rales Cardiovascular: Rate/Rhythm: regular rate Heart Sounds: + murmur (II/ systolic murmur) Vessels: + JVD Extremities: no edema Gastrointestinal (Abdomen): normal bowel sounds, soft, nontender, no hepatosplenomegaly Neurologic: moves all extremities and awake; no focal motor deficits
--- NOTE | 2018-09-21 19:34 | Hospitalist Progress Note ---
Date of Service September 21, 2018 Assessment & Plan (1) Aortic stenosis: carroll TORREZ, not a candidate for valve replacement until he becomes a stabilized dialysis patient. (2) Atrial fibrillation: Converted to sinus rhythm after amio drip. Cont PO amio, warfarin, Toprol XL, ASA (3) Chronic renal insufficiency, stage IV (severe): Nephro following, no acute indication for hemodialysis at this time. Cont torsemide. Cont to monitor daily BMO to watch where creatinine new baseline resides. (4) ALMI (anterolateral wall myocardial infarction): cont medical management (5) CHF (congestive heart failure): Acute systolic heart failure in setting of large [place]. Appears compensated, Euvolemic, cont Toprol XL and daily torsemide. Additional medical management per Cardiology. (6) BPH (benign prostatic hyperplasia): h/o BPH. Making good amounts of urine. (7) Anemia: Anemia of chronic renal disease, Epogen. Cont to monitor. (8) DVT prophylaxis: warfarin DNR Dispo-uncertain at this time. Likely will be hospitalized through the week. Maddy Roger DO [facility] Hospitalist Subjective Patient feels well today. Denies any intermittent chest pain. Very limited exercise tolerance at this time. Reports persistent shortness of breath with minimal exertion. Physical Exam Vital Signs (Past 24 Hours): Last Vital Signs Temp 36.6 C 09/21/18 15:46 Pulse 66 09/21/18 15:46 Resp 20 09/21/18 15:46 BP 109/67 09/21/18 15:46 Pulse Ox 96 09/21/18 15:46 CONSTITUTIONAL: WNWD, vitals as above, generally well-appearing EYES: normal conjuctivae, no scleral icterus ENT: MMM RESPIRATORY: clear to auscultation bilaterally, no crackles, rales or wheezes, normal respiratory effort CARDIOVASCULAR: regular rate and rhythm, 3/6 BAMBI across precordium,no gallops or rubs, no JVD, no peripheral edema GASTROINTESTINAL: normal bowel sounds, soft, nontender, nondistended MUSCULOSKELETAL: strength 5/5 throughout, head is normocephalic and atraumatic SKIN: warm and dry NEUROLOGIC: CN 2-12 grossly intact, no gross focal deficits. Normal cognition. PSYCHIATRIC: alert cooperative and oriented to person, place and time. Results & Data Laboratory Results [facility] 09/21/18 06:39 Sodium 143 Potassium 3.9 Chloride 112 H Carbon Dioxide 21 BUN 97 H Creatinine 3.83 H D Glucose 122 H Calcium 8.9 Medications Administered Current Inpatient Medications Acetaminophen (Tylenol) 650 mg PO Q4H PRN PRN Reason: Pain or Fever Stop: 10/12/18 04:57 Al Hydrox/Mg Hydrox/Simethicone (Maalox) 15 ml PO Q4H PRN PRN Reason: Dyspepsia Stop: 10/12/18 04:57 Allopurinol (Zyloprim) 100 mg PO DAILY [facility] Stop: 10/12/18 08:59 Last Admin: 09/15/18 08:08 Dose: 100 mg Documented by: Amiodarone HCl (Cordarone) 400 mg PO DAILY [facility] Stop: 10/20/18 08:59 Last Admin: 09/21/18 09:13 Dose: 400 mg Documented by: Aspirin (Ecotrin Ectab) [facility] [place] Stop: 10/12/18 08:59 Last Admin: 09/21/18 09:14 Dose: Not Given Documented by: Atorvastatin Calcium (Lipitor) 40 [facility] [place] Stop: 10/15/18 08:59 Last Admin: 09/21/18 09:14 Dose: 40 mg Documented by: Calcitriol (Racaltrol) 0.25 mcg PO DAILY [facility] Stop: 10/12/18 08:59 Last Admin: 09/14/18 07:39 Dose: 0.25 mcg Documented by: Calcium Polycarbophil (Fibercon) 2 tab PO DAILY [facility] Stop: 10/12/18 08:59 Last Admin: 09/14/18 07:38 Dose: 2 tab Documented by: Ferrous Sulfate (Feosol) 325 mg PO DAILY [facility] Stop: 10/12/18 08:59 Last Admin: 09/14/18 07:38 Dose: 325 mg Documented by: Metoprolol Succinate (Toprol Xl) 50 [facility] [place] Stop: 10/15/18 08:59 Last Admin: 09/21/18 09:14 Dose: 50 mg Documented by: Multivitamins/Minerals (Multivitamin W/ Minerals Tab) 1 tab PO QAM [facility] Stop: 10/12/18 08:59 Last Admin: 09/14/18 07:39 Dose: 1 tab Documented by: Nitroglycerin (Nitrostat) 0.4 mg SL UD PRN PRN Reason: Chest Pain Stop: 10/12/18 04:57 Ondansetron HCl (Zofran) 4 mg IV Q6H PRN PRN Reason: Nausea Stop: 10/12/18 04:57 Pantoprazole Sodium (Protonix) 40 mg PO DAILY [facility] Stop: 10/12/18 08:59 Last Admin: 09/21/18 09:14 Dose: 40 mg Documented by: Polyethylene Glycol (Miralax Powder Packet) 17 gm PO DAILY PRN PRN Reason: Constipation Stop: 10/17/18 12:22 Last Admin: 09/17/18 13:31 Dose: 17 gm Documented by: Torsemide (Demadex) 20 mg PO QAM [facility] Stop: 10/19/18 08:59 Last Admin: 09/21/18 09:14 Dose: 20 mg Documented by: Warfarin Sodium (Coumadin) 5 mg PO DAILY@1600 [facility] Stop: 10/17/18 15:59 Last Admin: 09/20/18 17:32 Dose: 5 mg Documented by: (1) Anemia Anemia type: due to chronic kidney disease
[2018-09-22 06:58] LABS: Hematocrit (blood only) 26.2 % (42-52); Hemoglobin 8.6 g/dL (14.0-18.0); Mean Corpuscular Hgb Conc 32.8 g/dL (32-36); Mean Corpuscular Volume 89.4 fL (80-100); Mean Platelet Volume 11.1 fL (7.4-10.4); Platelet Count 401 K/uL (130-400); RDW Coefficient of Variation 13.9 % (11.5-14.5); RDW Standard Deviation 45.8 fL (36.4-46.3); Red Blood Count 2.93 M/uL (4.7-6.1); White Blood Count 13.82 K/uL (4.8-10.8)
[2018-09-22 07:19] LABS: Prothrombin Time 47.5 Seconds (9.0-12.0)
[2018-09-22 07:21] LABS: INR 5.2 (0.9-1.1)
[2018-09-22 07:35] LABS: BUN Creatinine Ratio 25.8 (10-20); Creatinine Clr Calc Pharmacy 14.8 ml/min; Est GFR (African American) 16.3; Est GFR (Non-African American) 14.1; Potassium 4.3 mmol/L (3.5-5.1)
[2018-09-22] MEDS: ASPIRIN 81 MG ECTAB PO SCH (08:06)
[2018-09-22] MEDS: CALCIUM POLYCARBOPHIL 625MG TAB PO SCH (08:07)
[2018-09-22] MEDS: TORSEMIDE 20 MG TAB PO SCH (08:07)
[2018-09-22] MEDS: METOPROLOL SUCC 50MG EXT REL TAB PO SCH (08:07)
[2018-09-22] MEDS: AMIODARONE 200 MG TAB PO SCH (08:08)
[2018-09-22] MEDS: ATORVASTATIN 40 MG TAB PO SCH (08:08)
[2018-09-22] MEDS: PANTOprazole 40 MG TAB PO SCH (08:08)
[2018-09-22] MEDS: CALCITRIOL 0.25 MCG CAPSULE PO SCH ×2 (08:09→09:16)
[2018-09-22] MEDS: CEROVITE ADV FORMULA TAB PO SCH ×2 (08:09→09:16)
[2018-09-22] MEDS: ALLOPURINOL 100 MG TAB PO SCH ×2 (08:09→09:16)
[2018-09-22] MEDS: FERROUS SULFATE 325 MG TAB PO SCH (09:16)
--- NOTE | 2018-09-22 16:55 | Cardiology Progress Note ---
Date of Service September 22, 2018 Assessment & Plan (1) Non-ST elevation (NSTEMI) myocardial infarction: Patient treated medically per his preference is expressed on initial presentation to the hospital and his initial contact with cardiology this hospital stay. He has therefore completed a large LAD territory infarction. Peak troponin was 85 NG per mL. New moderate systolic dysfunction noted on echocardiogram with ejection fraction of 35% as compared to 55-60% in March 2018. Continue aspirin (clopidogrel discontinued to avoid risk of bleeding with triple therapy) metoprolol, atorvastatin (2) Atrial fibrillation: Paroxysmal atrial fibrillation. Currently in sinus rhythm. Continue aspirin, metoprolol. Continue amiodarone. Coumadin on hold due to coagulopathy. (3) JESSICA (acute kidney injury): Trending toward improvement. If creatinine continues to improve, will consider increasing his torsemide dose tomorrow. (4) Aortic stenosis: Severe aortic stenosis. Continue supportive care. Subjective Chief complaint: Follow-up shortness of breath Subjective: Patient seen and examined. Urine output has been adequate. He has been able to ambulate to the bathroom with the assistance of a walker, and did some minimal walking in the hallway with the assistance of a walker. Physical Exam Vital Signs (Past 24 Hours): Last Vital Signs Temp 36.7 C 09/22/18 15:36 Pulse 59 L 09/22/18 15:36 Resp 20 09/22/18 15:36 BP 108/62 09/22/18 15:36 Pulse Ox 95 09/22/18 16:05 Physical Exam: General: Frail in appearance Eyes: conjunctiva are pink and non-injected, sclera clear Neck: normal jugular venous pulse, no hepatojugular reflux Chest: normal shape and normal respiratory effort Lungs: Decreased breath sounds bilaterally at the base Cardiac Exam: - regular heart sounds, 2/6 systolic murmur Abdomen: abdomen soft, non-tender, no abnormal masses and no hepatosplenomegaly Extremities: no edema and no cyanosis Neuro:awake, coversant, follows commands, no focal motor deficits Psych: appropriate affect and insight. Results & Data Laboratory Results 09/21/18 INR was 3.6 Today 09/22/18 INR increased to 5.2 Creatinine on 09/21/18 was 3.83, today, 09/22/18 3.63
--- NOTE | 2018-09-22 21:45 | Nephrology Progress Note ---
Date of Service September 22, 2018 Assessment & Plan (1) JESSICA (acute kidney injury): JESSICA on CKD likely due to cardiorenal syndrome. Patient with recent NSTEMI and EF of 35%. He also has moderate to severe aortic stenosis which further impairs his cardiac output. Baseline cr 2.5, peaked at 3.8 and BUN 101. Cardiac catheterization was suggested early on during this admission and patient declined. He did not want to end up on dialysis since he lives alone and felt commuting to dialysis center would be difficult. -pt initially refused cardiac cath d/t concerns about dialysis -then after discussion late August w/ my partner, willing to do [employer] should need arise -continue to monitor daily for dialysis need. He will likely need to start HD next week. -if he starets HD and /or improves, Cardiology might consider Aortic valve replacement -pt is preload dependent, but appears to be toleratign low dose Torsemide so far (2) Chronic renal insufficiency, stage IV (severe): Due to hypertension and advanced age. . he has mildly atrophic kidneys and is likely going to progress to renal failure soon (3) Anemia: Anemia due to CKD; had 10K units last week (4) CHF (congestive heart failure): Due to multifactorial etiology including diastolic dysfunction, valvular heart disease and NSTEMI. He will likely need some diuresis but he is also preload dependent. Continue torsemide 20mg daily. Subjective seen on rounds late this afternoon. some slow improvement > off of 02nc; still quite sob w/ mvt. eating well. denies voiding concerns. denies abd pain or N. no chest pain /pressure. no edema Physical Exam Vital Signs (Past 24 Hours): Last Vital Signs Temp 36.8 C 09/22/18 19:49 Pulse 66 09/22/18 19:49 Resp 20 09/22/18 19:49 BP 100/58 L 09/22/18 19:49 Pulse Ox 91 09/22/18 19:49 Constitutional: well developed and well nourished sittign up in chair on ra w/ very slight increased wob Eyes: EOM intact bilaterally ENMT: Ears: no external ear abnormality Nose: no external nose abnormality Mouth: + dry oral mucous membranes Neck: no nuchal rigidity Respiratory: normal respiratory effort Auscultation: + diminished lung sounds and + crackles (bibasilar crackles) Cardiovascular: Rate/Rhythm: regular rate and regular rhythm Heart Sounds: + murmur Extremities: + edema (at very most trace L ankle edema, R ok) Gastrointestinal (Abdomen): Inspection/Auscultation: normal bowel sounds Percussion/Palpation: abdomen soft; abdomen nontender Musculoskeletal: Extremities: strength 5/5 throughout Skin: no rashes, warm and dry Neurologic: hill, fluent speech, no tremor Psychiatric: A+Ox3, euthymic affect Genitourinary: no cespedes Results & Data Laboratory Results Abnormal lab results 09/22/18 09/22/18 09/22/18 Range/Units 06:22 06:22 06:22 WBC 13.82 H (4.8-10.8) K/uL RBC 2.93 L (4.7-6.1) M/uL Hgb 8.6 L (14.0-18.0) g/dL Hct 26.2 L (42-52) % Plt Count 401 H (130-400) K/uL MPV 11.1 H (7.4-10.4) fL PT 47.5 H (9.0-12.0) Seconds INR 5.2 H (0.9-1.1) Chloride 109 H (98-107) mmol/L BUN 94 H (7-18) mg/dl Creatinine 3.63 H (0.6-1.4) mg/dl BUN/Creatinine Ratio 25.8 H (10-20) Glucose 133 H (70-99) mg/dl (1) Anemia Anemia type: due to chronic kidney disease
--- NOTE | 2018-09-22 22:38 | Hospitalist Progress Note ---
Date of Service September 22, 2018 Assessment & Plan (1) Aortic stenosis: carroll PAULAN, not a candidate for valve replacement until he becomes a stabilized dialysis patient. (2) Atrial fibrillation: Converted to sinus rhythm after amio drip. Cont PO amio, Toprol XL, ASA. Warfarin held as INR is supratherapeutic. (3) Chronic renal insufficiency, stage IV (severe): Nephro following, no acute indication for hemodialysis at this time. Cont torsemide. Cont to monitor daily BMO to watch where creatinine new baseline resides. (4) ALMI (anterolateral wall myocardial infarction): cont medical management (5) CHF (congestive heart failure): Acute systolic heart failure in setting of large [place]. Appears compensated, Euvolemic, cont Toprol XL and daily torsemide. Increase torsemide in am if renal function continues to improve. Additional medical management per Cardiology. (6) Supratherapeutic INR: INR is 5.2 today, warfarin is held. Will trend INR in a.m. (7) Anemia: Anemia of chronic renal disease, Epogen. Cont to monitor. (8) DVT prophylaxis: supratherapeutic INR 2/2 recent warfarin. DNR Dispo-uncertain at this time. Likely will be hospitalized through the week. Maddy Roger DO [facility] Hospitalist Subjective Doing well, denies chest pain, reports some dyspnea on exertion but feels breathing is somewhat better overall. Tolerating p.o. Physical Exam Vital Signs (Past 24 Hours): Last Vital Signs Temp 36.8 C 09/22/18 19:49 Pulse 66 09/22/18 19:49 Resp 20 09/22/18 19:49 BP 100/58 L 09/22/18 19:49 Pulse Ox 91 09/22/18 19:49 CONSTITUTIONAL: WNWD, vitals as above, generally well-appearing, notably off oxygen. EYES: normal conjuctivae, no scleral icterus ENT: MMM RESPIRATORY: clear to auscultation bilaterally, no crackles, rales or wheezes, normal respiratory effort CARDIOVASCULAR: regular rate and rhythm, 3/6 BAMBI across precordium,no gallops or rubs, no JVD, no peripheral edema GASTROINTESTINAL: normal bowel sounds, soft, nontender, nondistended MUSCULOSKELETAL: strength 5/5 throughout, head is normocephalic and atraumatic SKIN: warm and dry NEUROLOGIC: CN 2-12 grossly intact, no gross focal deficits. Normal cognition. PSYCHIATRIC: alert cooperative and oriented to person, place and time. Results & Data Laboratory Results Short CBC 09/22/18 Range/Units 06:22 WBC 13.82 H (4.8-10.8) K/uL Hgb 8.6 L (14.0-18.0) g/dL Hct 26.2 L (42-52) % Plt Count 401 H (130-400) K/uL BMP 09/22/18 06:22 Sodium 142 Potassium 4.3 Chloride 109 H Carbon Dioxide 22 BUN 94 H Creatinine 3.63 H Glucose 133 H Calcium 9.0 Medications Administered Current Inpatient Medications Acetaminophen (Tylenol) 650 mg PO Q4H PRN PRN Reason: Pain or Fever Stop: 10/12/18 04:57 Al Hydrox/Mg Hydrox/Simethicone (Maalox) 15 ml PO Q4H PRN PRN Reason: Dyspepsia Stop: 10/12/18 04:57 Allopurinol (Zyloprim) 100 mg PO DAILY [facility] Stop: 10/12/18 08:59 Last Admin: 09/22/18 09:16 Dose: 100 mg Documented by: Amiodarone HCl (Cordarone) 400 mg PO DAILY [facility] Stop: 10/20/18 08:59 Last Admin: 09/22/18 08:08 Dose: 400 mg Documented by: Aspirin (Ecotrin Ectab) 81 mg PO QAM [facility] Stop: 10/12/18 08:59 Last Admin: 09/22/18 08:06 Dose: Not Given Documented by: Atorvastatin Calcium (Lipitor) 40 mg PO QAM [facility] Stop: 10/15/18 08:59 Last Admin: 09/22/18 08:08 Dose: 40 mg Documented by: Calcitriol (Racaltrol) 0.25 mcg PO DAILY [facility] Stop: 10/12/18 08:59 Last Admin: 09/22/18 09:16 Dose: 0.25 mcg Documented by: Calcium Polycarbophil (Fibercon) 2 tab PO DAILY [facility] Stop: 10/12/18 08:59 Last Admin: 09/22/18 08:07 Dose: Not Given Documented by: Ferrous Sulfate (Feosol) 325 mg PO DAILY [facility] Stop: 10/12/18 08:59 Last Admin: 09/22/18 09:16 Dose: 325 mg Documented by: Metoprolol Succinate ([facility] Xl) [facility] [place] Stop: 10/15/18 08:59 Last Admin: 09/22/18 08:07 Dose: 50 mg Documented by: Multivitamins/Minerals (Multivitamin W/ Minerals Tab) [facility] [place] Stop: 10/12/18 08:59 Last Admin: 09/22/18 09:16 Dose: 1 tab Documented by: Nitroglycerin (Nitrostat) 0.4 mg SL UD PRN PRN Reason: Chest Pain Stop: 10/12/18 04:57 Ondansetron HCl (Zofran) 4 mg IV Q6H PRN PRN Reason: Nausea Stop: 10/12/18 04:57 Pantoprazole Sodium (Protonix) 40 mg PO DAILY [facility] Stop: 10/12/18 08:59 Last Admin: 09/22/18 08:08 Dose: 40 mg Documented by: Polyethylene Glycol (Miralax Powder Packet) 17 gm PO DAILY PRN PRN Reason: Constipation Stop: 10/17/18 12:22 Last Admin: 09/17/18 13:31 Dose: 17 gm Documented by: Torsemide (Demadex) 20 mg PO QAM [facility] Stop: 10/19/18 08:59 Last Admin: 09/22/18 08:07 Dose: 20 mg Documented by: Warfarin Sodium (Coumadin) 5 mg PO DAILY@1600 [facility] Stop: 10/17/18 15:59 Last Admin: 09/20/18 17:32 Dose: 5 mg Documented by: (1) Anemia Anemia type: due to chronic kidney disease
[2018-09-23 06:37] LABS: BUN Creatinine Ratio 26.8 (10-20); Creatinine Clr Calc Pharmacy 14.8 ml/min; Est GFR (African American) 16.3; Est GFR (Non-African American) 14.1; Potassium 3.9 mmol/L (3.5-5.1)
[2018-09-23 06:46] LABS: Prothrombin Time 48.9 Seconds (9.0-12.0)
[2018-09-23] MEDS: ASPIRIN 81 MG ECTAB PO SCH (07:52)
[2018-09-23 07:53] LABS: INR 5.4 (0.9-1.1)
[2018-09-23] MEDS: AMIODARONE 200 MG TAB PO SCH (07:53)
[2018-09-23] MEDS: FERROUS SULFATE 325 MG TAB PO SCH (07:54)
[2018-09-23] MEDS: CALCIUM POLYCARBOPHIL 625MG TAB PO SCH (07:54)
[2018-09-23] MEDS: TORSEMIDE 20 MG TAB PO SCH (07:54)
[2018-09-23] MEDS: PANTOprazole 40 MG TAB PO SCH (07:55)
[2018-09-23] MEDS: ATORVASTATIN 40 MG TAB PO SCH (07:55)
[2018-09-23] MEDS: CEROVITE ADV FORMULA TAB PO SCH (07:55)
[2018-09-23] MEDS: ALLOPURINOL 100 MG TAB PO SCH (07:56)
[2018-09-23] MEDS: METOPROLOL SUCC 50MG EXT REL TAB PO SCH (07:56)
[2018-09-23] MEDS: CALCITRIOL 0.25 MCG CAPSULE PO SCH (07:56)
--- NOTE | 2018-09-23 08:21 | Nephrology Progress Note ---
Date of Service September 23, 2018 Assessment & Plan (1) JESSICA (acute kidney injury): JESSICA on CKD likely due to cardiorenal syndrome. Patient with recent NSTEMI and EF of 35%. He also has moderate to severe aortic stenosis which further impairs his cardiac output. Baseline cr 2.5, peaked at 3.8 and BUN 101. Trending down slightly to 3.6 x 48 hrs. Cardiac catheterization was suggested early on during this admission and patient declined. He did not want to end up on dialysis since he lives alone and felt commuting to dialysis center would be difficult. 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 -continue to monitor daily for dialysis need; I am not convinced he would do well on dialysis/ have not d/w pt in 2 times we have met -if he starts HD and /or improves, Cardiology might consider Aortic valve replacement -pt is preload dependent, but appears to be tolerating low dose Torsemide so far - defer to cardiology /primary service about upping dose if indicated which it may well be today (2) Chronic renal insufficiency, stage IV (severe): Due to hypertension and advanced age (3) Anemia: Anemia due to CKD; had 10K units last week of epo SQ on 09/19; redose later this week -added Fe stores check to labs from this am (4) CHF (congestive heart failure): Due to multifactorial etiology including diastolic dysfunction, valvular heart disease and NSTEMI. He needs more diuresis but he is also preload dependent. Continue torsemide 20mg daily, increase as tolerated; care coordinated w/ Elvia Cheema and Kana. Subjective sitting in bed, absolutely exhuasted and not yet out of bed today (mid morning) and sob including w/ speech; no voiding issues; decreased po; no abd pain or N/v. pt unsure about eema Physical Exam Vital Signs (Past 24 Hours): Last Vital Signs Temp 36.5 C 09/23/18 07:39 Pulse 65 09/23/18 07:39 Resp 16 09/23/18 07:39 BP 106/67 09/23/18 07:39 Pulse Ox 96 09/23/18 07:39 Constitutional: well developed, + ill appearing and + frail appearing mild distress w/ speech; on 02nc this am Eyes: EOM intact bilaterally ENMT: Ears: no external ear abnormality Nose: no external nose abnormality Mouth: + dry oral mucous membranes Neck: no nuchal rigidity Respiratory: + labored breathing (with speech) Auscultation: + diminished lung sounds and + crackles (bibasilar crackles, fine) Cardiovascular: Rate/Rhythm: regular rate and regular rhythm Heart Sounds: + murmur Extremities: + edema (at very most trace L ankle edema, R ok) Gastrointestinal (Abdomen): Inspection/Auscultation: normal bowel sounds Percussion/Palpation: abdomen soft; abdomen nontender Musculoskeletal: Extremities: strength 5/5 throughout Skin: no rashes, warm and dry Neurologic: hill, fluent speech Psychiatric: A+Ox3, euthymic affect Results & Data Laboratory Results Abnormal lab results 09/23/18 09/23/18 Range/Units 05:51 05:51 PT 48.9 H (9.0-12.0) Seconds INR 5.4 H (0.9-1.1) Chloride 110 H (98-107) mmol/L Carbon Dioxide 20 L (21-32) mmol/L BUN 97 H (7-18) mg/dl Creatinine 3.63 H (0.6-1.4) mg/dl BUN/Creatinine Ratio 26.8 H (10-20) Glucose 148 H (70-99) mg/dl (1) Anemia Anemia type: due to chronic kidney disease
[2018-09-23 08:42] LABS: Iron 17 mcg/dl (35-175); Transferrin 168 mg/dl (200-360); Transferrin Percent Saturation 7 % (20-50)
--- NOTE | 2018-09-23 11:25 | Hospitalist Progress Note ---
Date of Service September 23, 2018 Assessment & Plan (1) Aortic stenosis: carroll PAULAN, not a candidate for valve replacement until he becomes a stabilized dialysis patient. No indication for immediate dialysis this hospitalization. (2) Atrial fibrillation: Converted to sinus rhythm after amio drip. Cont PO amio, Toprol XL, ASA. Warfarin held as INR is supratherapeutic. (3) Chronic renal insufficiency, stage IV (severe): Nephro following, no acute indication for hemodialysis at this time. Cont torsemide. Cont to monitor daily BMP to watch where creatinine new baseline resides. Appears to have plateaued around mid threes. (4) ALMI (anterolateral wall myocardial infarction): cont medical management (5) CHF (congestive heart failure): Acute systolic heart failure in setting of large [place]. Appears compensated, Euvolemic, cont Toprol XL and daily torsemide. Plan to increase torsemide today per cardiology. (6) Supratherapeutic INR: INR is 5.4 up from 5.2 yesterday, continue to hold warfarin. Expect to trend down tomorrow. (7) Anemia: Anemia of chronic renal disease, Epogen. Cont to monitor. (8) DVT prophylaxis: supratherapeutic INR 2/2 recent warfarin. DNR Dispo-uncertain at this time. Likely will be hospitalized through the week. Plan for sniff at discharge. Maddy Roger DO [facility] Hospitalist Subjective Some intermittent chest pain overnight. He required oxygen at rest because of some slight worsening shortness of breath. He still has significant dyspnea on exertion but does appear to plateau clinically. He reports that cardiology will be adding a long-acting nitrate to his regimen and increasing his torsemide today. We will continue to follow labs with goal of transitioning to sniff as outpatient. Physical Exam Vital Signs (Past 24 Hours): Last Vital Signs Temp 36.5 C 09/23/18 07:39 Pulse 65 09/23/18 07:39 Resp 16 09/23/18 07:39 BP 106/67 09/23/18 07:39 Pulse Ox 96 09/23/18 07:39 CONSTITUTIONAL: WNWD, vitals as above, generally well-appearing, no conversational dyspnea EYES: normal conjuctivae, no scleral icterus ENT: MMM RESPIRATORY: clear to auscultation bilaterally, no crackles, rales or wheezes, normal respiratory effort CARDIOVASCULAR: regular rate and rhythm, 3/6 BAMBI across precordium,no gallops or rubs, no JVD, no peripheral edema GASTROINTESTINAL: normal bowel sounds, soft, nontender, nondistended MUSCULOSKELETAL: strength 5/5 throughout, head is normocephalic and atraumatic SKIN: warm and dry NEUROLOGIC: CN 2-12 grossly intact, no gross focal deficits. Normal cognition. PSYCHIATRIC: alert cooperative and oriented to person, place and time. Results & Data Laboratory Results [facility] 09/23/18 05:51 Sodium 141 Potassium 3.9 Chloride 110 H Carbon Dioxide 20 L BUN 97 H Creatinine 3.63 H Glucose 148 H Calcium 9.0 Medications Administered Current Inpatient Medications Acetaminophen (Tylenol) 650 mg PO Q4H PRN PRN Reason: Pain or Fever Stop: 10/12/18 04:57 Al Hydrox/Mg Hydrox/Simethicone (Maalox) 15 ml PO Q4H PRN PRN Reason: Dyspepsia Stop: 10/12/18 04:57 Allopurinol (Zyloprim) 100 mg PO DAILY [facility] Stop: 10/12/18 08:59 Last Admin: 09/23/18 07:56 Dose: 100 mg Documented by: Amiodarone HCl (Cordarone) 400 mg PO DAILY [facility] Stop: 10/20/18 08:59 Last Admin: 09/23/18 07:53 Dose: 400 mg Documented by: Aspirin (Ecotrin Ectab) 81 mg PO QAM [facility] Stop: 10/12/18 08:59 Last Admin: 09/23/18 07:52 Dose: Not Given Documented by: Atorvastatin Calcium (Lipitor) 40 mg PO QAM [facility] Stop: 10/15/18 08:59 Last Admin: 09/23/18 07:55 Dose: 40 mg Documented by: Calcitriol (Racaltrol) 0.25 mcg PO DAILY [facility] Stop: 10/12/18 08:59 Last Admin: 09/23/18 07:56 Dose: 0.25 mcg Documented by: Calcium Polycarbophil (Fibercon) 2 tab PO DAILY [facility] Stop: 10/12/18 08:59 Last Admin: 09/23/18 07:54 Dose: 2 tab Documented by: Ferrous Sulfate (Feosol) 325 mg PO DAILY [facility] Stop: 10/12/18 08:59 Last Admin: 09/23/18 07:54 Dose: 325 mg Documented by: Met[facility]rol[facility] Succinate ([facility] Xl) [facility] Stop: 10/15/18 08:59 Last Admin: 09/23/18 07:56 Dose: 50 mg Documented by: Multivitamins/Minerals (Multivitamin W/ Minerals Tab) [facility] [place] Stop: 10/12/18 08:59 Last Admin: 09/23/18 07:55 Dose: 1 tab Documented by: Nitroglycerin (Nitrostat) 0.4 mg SL UD PRN PRN Reason: Chest Pain Stop: 10/12/18 04:57 Ondansetron HCl (Zofran) 4 mg IV Q6H PRN PRN Reason: Nausea Stop: 10/12/18 04:57 Pantoprazole Sodium (Protonix) 40 mg PO DAILY [facility] Stop: 10/12/18 08:59 Last Admin: 09/23/18 07:55 Dose: 40 mg Documented by: Polyethylene Glycol (Miralax Powder Packet) 17 gm PO DAILY PRN PRN Reason: Constipation Stop: 10/17/18 12:22 Last Admin: 09/17/18 13:31 Dose: 17 gm Documented by: Torsemide (Demadex) [facility] Stop: 10/19/18 08:59 Last Admin: 09/23/18 07:54 Dose: 20 mg Documented by: Warfarin Sodium (Coumadin) 5 mg PO DAILY@1600 [facility] Stop: 10/17/18 15:59 Last Admin: 09/20/18 17:32 Dose: 5 mg Documented by: (1) Anemia Anemia type: due to chronic kidney disease
--- NOTE | 2018-09-23 11:40 | Cardiology Progress Note ---
Date of Service September 23, 2018 Assessment & Plan (1) Non-ST elevation (NSTEMI) myocardial infarction: Non-ST segment elevation myocardial infarction in the LAD territory, complicated by newly diagnosed acute systolic heart failure, low cardiac output syndrome. Continue aspirin, metoprolol, statin. Function stable, will increase torsemide from 20 mg to 30 mg. Add isosorbide mononitrate extended release 30 mg daily which is tolerated in the past as outpatient. (2) Aortic stenosis: Continue supportive care (3) Atrial fibrillation: INR supratherapeutic and is therefore on hold. Subjective Chief complaint: Follow-up shortness of breath Subjective: Patient more dyspneic today. Conversant. Physical Exam Vital Signs (Past 24 Hours): Last Vital Signs Temp 36.5 C 09/23/18 07:39 Pulse 65 09/23/18 07:39 Resp 16 09/23/18 07:39 BP 106/67 09/23/18 07:39 Pulse Ox 96 09/23/18 07:39 Physical Exam: General: Frail, chronically ill in appearance Eyes: conjunctiva are pink and non-injected, sclera clear Neck: normal jugular venous pulse, no hepatojugular reflux Chest: normal shape and normal respiratory effort Lungs: Decreased breath sounds bilaterally at the bases Cardiac Exam: - regular heart sounds, II/ systolic murmur Abdomen: abdomen soft, non-tender, no abnormal masses and no hepatosplenomegaly Extremities: no edema and no cyanosis Neuro:awake, coversant, follows commands, no focal motor deficits Psych: appropriate affect and insight. Results & Data Laboratory Results Coagulation INR today 09/23/18 5.4. 09/23/18 Range/Units 05:51 PT 48.9 H (9.0-12.0) Seconds Comprehensive Metabolic Panel 09/23/18 Range/Units 05:51 Sodium 141 (136-145) mmol/L Potassium 3.9 (3.5-5.1) mmol/L Chloride 110 H (98-107) mmol/L Carbon Dioxide 20 L (21-32) mmol/L BUN 97 H (7-18) mg/dl Creatinine 3.63 H (0.6-1.4) mg/dl Glucose 148 H (70-99) mg/dl Calcium 9.0 (8.5-10.1) mg/dl Intake and Output 09/22/18 09/23/1809/23/19 22:59 06:59 14:59 Intake Total 100 / 660 200 / 660 Output Total 525 / 1325 300 / 1325 Balance -425 / -665 -100 / -665 Intake: Oral 100 / 660 200 / 660 Output: Urine 525 / 1325 300 / 1325 Other: Weight 80.4 kg
[2018-09-23] MEDS ORDERED: TORSEMIDE 20 MG TAB PO ONE (11:45)
[2018-09-23] MEDS: ISOSORBIDE MONO EXTENDED REL 30 MG TABCR PO SCH (13:27)
[2018-09-24 06:45] LABS: Prothrombin Time 44.8 Seconds (9.0-12.0)
[2018-09-24 06:52] LABS: BUN Creatinine Ratio 25.6 (10-20); Calcium 8.8 mg/dl (8.5-10.1); Creatinine Clr Calc Pharmacy 13.7 ml/min; Est GFR (Non-African American) 12.9; INR 4.9 (0.9-1.1); Potassium 4.1 mmol/L (3.5-5.1)
[2018-09-24] MEDS: TORSEMIDE 20 MG TAB PO SCH (08:11)
[2018-09-24] MEDS: AMIODARONE 200 MG TAB PO SCH (08:12)
[2018-09-24] MEDS: ATORVASTATIN 40 MG TAB PO SCH (08:12)
[2018-09-24] MEDS: ALLOPURINOL 100 MG TAB PO SCH (08:12)
[2018-09-24] MEDS: CALCITRIOL 0.25 MCG CAPSULE PO SCH (08:13)
[2018-09-24] MEDS: CEROVITE ADV FORMULA TAB PO SCH (08:13)
[2018-09-24] MEDS: ISOSORBIDE MONO EXTENDED REL 30 MG TABCR PO SCH (08:13)
[2018-09-24] MEDS: CALCIUM POLYCARBOPHIL 625MG TAB PO SCH (08:13)
[2018-09-24] MEDS: PANTOprazole 40 MG TAB PO SCH (08:13)
[2018-09-24] MEDS: FERROUS SULFATE 325 MG TAB PO SCH (08:14)
[2018-09-24] MEDS: ASPIRIN 81 MG ECTAB PO SCH (08:14)
[2018-09-24] MEDS: METOPROLOL SUCC 50MG EXT REL TAB PO SCH ×2 (08:20→10:51)
--- NOTE | 2018-09-24 10:43 | Hospitalist Progress Note ---
Date of Service September 24, 2018 Assessment & Plan (1) Aortic stenosis: carroll PRN, not a candidate for valve replacement until he becomes a stabilized dialysis patient. No indication for immediate dialysis this hospitalization. (2) Atrial fibrillation: Converted to sinus rhythm after amio drip. Cont PO amio, Toprol XL, ASA. Warfarin held as INR is still supratherapeutic. (3) Chronic renal insufficiency, stage IV (severe): Nephro following, no acute indication for hemodialysis at this time. Cont to monitor daily BMP to watch where creatinine new baseline resides. Appears to have plateaued around mid threes. (4) ALMI (anterolateral wall myocardial infarction): cont medical management (5) CHF (congestive heart failure): Acute systolic heart failure in setting of large [place]. Appears compensated, Euvolemic, cont Toprol XL and daily torsemide. (6) Supratherapeutic INR: INR is 4.9, continue to hold warfarin. (7) Anemia: Anemia of chronic renal disease, Epogen. Cont to monitor. (8) DVT prophylaxis: supratherapeutic INR 2/2 recent warfarin. DNR Dispo-[facility] when auth completed Subjective Did well overnight. ROS-No Headache, No Visual Changes, No Nausea, No Vomiting, No Fever, No Chills, No Neck Pain or Stiffness, No Chest Pain, No Palpitations, No SOB, No FERNANDEZ, No Cough, No Sputum, No Wheezing, No Abdominal Pain, No Diarrhea, No Hematemesis, No Hemoptysis, No Unexpected Weight Loss, No Flank pain, No Melena, No Hematochezia, No Frequency, No Urgency, No Burning, No Hematuria, No Rashes, No Diaphoresis. Appetite is Normal Physical Exam Gen-AAO x 3, NAD, Afebrile, Ple[place]-NCAT, EOMI, PERRLA, Anicteric Sclera, No Posterior Pharyngeal Erythema Neck-Supple, No JVD, No Thyromegaly, No Masses, No LAD, No Bruits Lungs-Clear to Auscultation Bilaterally, No Rales, No Rhonchi, No Wheezing, No Crepitus Chest-No S4, +S1, +S2, No S3, No Murmurs, No Rubs, No Gallops, No Ectopy Abdomen-Soft, Bowel Sounds Present, Non Tender, Non Distended, No Hepatomegaly, No Splenomegaly, No Palpable Masses, No Rebound, No Rigidity, No Guarding Musculoskeletal-Full Range of Motion Bilaterally, No CVAT Extremities-No Cyanosis, No Clubbing, No Edema Nuero-Cranial Nerves II-XII grossly intact, Motor WNL, DTRs WNL, Strength WNL, Non Focal Psych-Normal Mood Physical Exam Vital Signs (Past 24 Hours): Last Vital Signs Temp 36.5 C 09/24/18 07:17 Pulse 56 L 09/24/18 07:17 Resp 20 09/24/18 07:17 BP 106/67 09/24/18 07:17 Pulse Ox 97 09/24/18 07:17 Results & Data Laboratory Results Reviewed (1) Anemia Anemia type: due to chronic kidney disease
--- NOTE | 2018-09-24 13:27 | Nephrology Progress Note ---
Date of Service September 24, 2018 Assessment & Plan (1) JESSICA (acute kidney injury): JESSICA on CKD from cardiorenal syndrome. Patient with recent NSTEMI and EF of 35%. He also has moderate to severe aortic stenosis which further impairs his cardiac output. Baseline cr 2.5, peaked at 3.8 now trending up again. Cardiac catheterization was suggested early on during this admission and patient declined. He did not want to end up on dialysis since he lives alone and felt commuting to dialysis center would be difficult. 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 ->>>needs eval for dialysis catheter; cardiology ok with this eval/starting HD w/ all understanding very guarded prx; he is in cardiology opinion sufficiently far out from [place] to attempt this -if he starts HD and /or improves, Cardiology might consider Aortic valve replacement -pt is preload dependent, but appears to be tolerating low dose Torsemide so far - defer to cardiology /on dose >> upped / to 30 mg daily (2) Chronic renal insufficiency, stage IV (severe): Due to hypertension and advanced age (3) Anemia: Anemia due to CKD; had 10K units last week of epo SQ on 09/19; redose later this week -iron stores very low >> will start venofer load today (4) CHF (congestive heart failure): Due to multifactorial etiology including diastolic dysfunction, valvular heart disease and NSTEMI. He needs more diuresis but he is also preload dependent. Continue torsemide 30mg daily, increase as tolerated; care coordinated w/ Elvia Cheema and Freddy. Subjective seen on rounds this am; still very sob, very weak. no n/v; minimal po; denies voiding concern or abd pain Physical Exam Vital Signs (Past 24 Hours): Last Vital Signs Temp 36.5 C 09/24/18 11:33 Pulse 61 09/24/18 11:33 Resp 20 09/24/18 11:33 BP 113/67 09/24/18 11:33 Pulse Ox 96 09/24/18 11:33 Constitutional: well developed, + ill appearing and + frail appearing on 02nc, A& 0 x 3 Eyes: EOM intact bilaterally ENMT: Ears: no external ear abnormality Nose: no external nose abnormality Mouth: + dry oral mucous membranes Neck: no nuchal rigidity Respiratory: + labored breathing (with speech) Auscultation: + diminished lung sounds and + crackles (diffuse fine crackles) Cardiovascular: Rate/Rhythm: regular rhythm and + bradycardic Heart Sounds: + murmur Extremities: + edema (at very most trace L ankle edema, R ok) Gastrointestinal (Abdomen): Inspection/Auscultation: normal bowel sounds Percussion/Palpation: abdomen soft; abdomen nontender Musculoskeletal: Extremities: strength 5/5 throughout Skin: no rashes, warm and dry Neurologic: hill, fluent speech; tired Psychiatric: A+Ox3, euthymic affect Results & Data Laboratory Results Abnormal lab results 09/24/18 09/24/18 Range/Units 05:58 05:58 PT 44.8 H (9.0-12.0) Seconds INR 4.9 H (0.9-1.1) Chloride 108 H (98-107) mmol/L BUN 100 H (7-18) mg/dl Creatinine 3.90 H (0.6-1.4) mg/dl BUN/Creatinine Ratio 25.6 H (10-20) Glucose 137 H (70-99) mg/dl (1) Anemia Anemia type: due to chronic kidney disease
--- NOTE | 2018-09-24 14:03 | Cardiology Progress Note ---
Date of Service September 24, 2018 Assessment & Plan (1) Atrial fibrillation: Continue metoprolol and amiodarone. Coumadin on hold. (2) Non-ST elevation (NSTEMI) myocardial infarction: Continue current medications including aspirin, metoprolol, isosorbide mononitrate, atorvastatin. (3) Supratherapeutic INR: Coumadin on hold. Dialysis access likely necessary, when timing is determined, will likely proceed with 2.5 mg of IV vitamin K. (4) Aortic stenosis: Severe. Continue supportive care. Perhaps future transcatheter aortic valve replacement candidate if his condition stabilizes during his hospital stay (5) Chronic renal insufficiency, stage IV (severe): Progressive symptoms of dyspnea. Discussed with Dr. Brooks of nephrology. HD being considered. Pt agreeable. Subjective Chief complaint: Follow-up shortness of breath Subjective: Patient notes ongoing shortness of breath at rest. His nurse was concerned that perhaps it was worse than yesterday, but the patient feels it is just about the same. At 1030 this morning he had a brief episode of atrial fibrillation with rapid ventricular response with spontaneous conversion back to sinus rhythm. Physical Exam Vital Signs (Past 24 Hours): Last Vital Signs Temp 36.5 C 09/24/18 11:33 Pulse 61 09/24/18 11:33 Resp 20 09/24/18 11:33 BP 113/67 09/24/18 11:33 Pulse Ox 96 09/24/18 11:33 Constitutional: + ill appearing Respiratory: Auscultation: + diminished lung sounds (Decreased breath sounds bilaterally at the bases); no crackles and no rales Cardiovascular: Rate/Rhythm: regular rate Heart Sounds: + murmur (II/ systolic murmur heard best at right sternal border consistent with aortic stenosis) Vessels: + JVD Extremities: no edema Skin: no rashes, warm and dry Neurologic: moves all extremities and awake; no focal motor deficits Psychiatric: Orientation: alert, oriented x 3 and cooperative
[2018-09-24] MEDS ORDERED: PHYTONADIONE 2.5 MG in SODIUM CHLORIDE 0.9% 50 ML IV ONE (14:15)
--- NOTE | 2018-09-24 14:31 | Consultation ---
Date of Consultation September 24, 2018 Assessment & Plan (1) Chronic renal insufficiency, stage IV (severe): Pt discussed with Dr Estevez, planning on permcath insertion on SATURDAY, 09/26. Pt agreeable. INR will need to be reversed to 2.0 for Saturday. Coumadin can be restarted after his procedure. Patient was seen, examined, and chart reviewed. Agree with exam and treatment plan of the Vascular PA. Present on Admission?: Yes History of Present Illness Reason for Consultation: permcath insertion for HD Attending Physician: Ty Hayes DO History of Present Illness 88 yo m withh hx of CKD, A fib, CHF, emphysema, bladder ca, aortic stenosis, HTN, [place], DVT, and AAA repair, admitted with worsening renal fxn and CHF, seen in consultation today for insertion of permcath for HD. Pt states he is feeling fatigued and is concerned about transportation to HD as outpt. Admits FERNANDEZ and orthopnea, but denies CHESTER, fever, chills, chest pain, SOB at rest, abd pain, N/V, rest pain, claudication, other complaints. Pt with hx of DVT, he believes most recent of his 2 episodes of DVT was in September of 2016. Has been on coumadin since that time, per pt. Pt also noted to have atrial fib. Pt is aware of potential need for HD in very near future. Of note, INR 4.9 today. Allergies Allergy/AdvReac Type Severity Reaction Status Date / Time indomethacin AdvReac Unknown BLEEDING Verified 09/12/18 01:08 lactose AdvReac Unknown GI SYMPTOMS Verified 09/12/18 01:08 Home Medications Home Medications Medication Instructions Recorded Confirmed Type allopurinol 100 mg PO DAILY 09/12/18 09/12/18 History calcitriol 0.25 mcg PO DAILY 09/12/18 09/12/18 History ferrous sulfate 325 mg PO DAILY 09/12/18 09/12/18 History furosemide [Lasix] 20 mg PO 3XWK 09/12/18 09/12/18 History isosorbide mononitrate 30 mg PO DAILY 09/12/18 09/12/18 History lisinopril 2.5 mg PO DAILY 09/12/18 09/12/18 History lovastatin 20 mg PO DAILY 09/12/18 09/12/18 History metoprolol tartrate 25 mg PO BID 09/12/18 09/12/18 History pantoprazole 40 mg PO DAILY 09/12/18 09/12/18 History psyllium husk [Fiber-Caps 2 cap PO DAILY 09/12/18 09/12/18 History (psyllium husk)] warfarin [Coumadin] 5 mg PO 4XWK 09/12/18 09/12/18 History warfarin [Coumadin] 7.5 mg PO 3XWK 09/12/18 09/12/18 History Patient History Medical History Anemia in chronic kidney disease Aortic aneurysm Aortic stenosis CKD stage 4 secondary to hypertension Cancer of bladder DVT (deep venous thrombosis) Dyslipidemia Emphysema of lung Gastric ulcer Gout HTN (hypertension) Irritable bowel syndrome Lung nodule Surgical History H/O colonoscopy History of cataract surgery History of esophagogastroduodenoscopy (EGD) History of right inguinal hernia repair S/P TURP S/P tonsillectomy Family History Father Hypertension Heart disease Mother Cancer Social History Communication Ability: Effective Beliefs That Will Affect Care: None marital status: Single Current Living Situation: Alone Other Information That Helps Us Care for You: No Feels Safe at Home: Yes Safety Concerns: Feels Safe At This Time Smoking Status: Former smoker Hx Alcohol Use: No Hx Substance Use: No Review of Systems Constitutional: + fatigue and + malaise; no fever, no chills, no sweats and no weight loss Eyes: no blind spots and no problem reported Ear, Nose, Mouth, Throat: no hearing loss and no sore throat Respiratory: as per Subjective / HPI, + cough and + dyspnea on exertion; no hemoptysis Cardiovascular: no chest pain, no palpitations, no syncope and no claudication Gastrointestinal: no abdominal pain, no nausea, no vomiting and no change in bowel habits Musculoskeletal: no back pain, no joint pain, no swelling and no muscle weakness Integumentary: no rash, no non-healing lesions, no skin ulcer, no wounds and no erythema Neurologic: no localized weakness, no generalized weakness, no paralysis, no loss of sensation, no tingling, no numbness, no paresthesia, no seizure-like activity, no syncope, no headache(s) and no confusion Psychiatric: as per Subjective / HPI Hematologic / Lymphatic: no coagulopathy and no night sweats Physical Exam Vital Signs (Past 24 Hours): Last Vital Signs Temp 36.5 C 09/24/18 11:33 Pulse 61 09/24/18 11:33 Resp 20 09/24/18 11:33 BP 113/67 09/24/18 11:33 Pulse Ox 96 09/24/18 11:33 Constitutional: WD/WN, vitals as above well developed, well nourished, + ill appearing, + frail appearing, well groomed, cooperative and comfortable; not in distress Eyes: PERRL, conjunctivae normal, anicteric sclerae EOM intact bilaterally ENMT: external ear and nose normal, oropharynx normal Ears: no hearing impairment Nose: no nasal discharge Neck: trachea midline, no thyromegaly no tracheal deviation, no neck crepitus and neck nontender Respiratory: + cough and able to speak in complete sentences; does not use accessory muscles and not tachypneic Auscultation: + diminished lung sounds and + crackles; no rhonchi and no wheezes Cardiovascular: Rate/Rhythm: regular rate and regular rhythm Heart Sounds: + murmur; no gallop Vessels: femoral pulses present, posterior tibial pulses present, dorsalis pedis pulses present, brachial pulses present and radial pulses present; no carotid bruit and no femoral bruit Extremities: normal capillary refill and + edema (BLE) Gastrointestinal (Abdomen): normal bowel sounds, soft, nontender, no hepatosplenomegaly Inspection/Auscultation: abdomen normal to inspection and normal bowel sounds; abdomen not distended Percussion/Palpation: abdomen soft; abdomen nontender, no guarding, abdomen not rigid and no abdominal mass Musculoskeletal: no cyanosis or clubbing, extremities motor strength 5/5 Head/Neck/Chest: normocephalic, head atraumatic and neck supple Extremities: extremities normal to inspection and strength 5/5 throughout; full ROM of extremities Skin: no rashes, warm and dry normal turgor; no rashes, no lesions, no ulcers, no erythema, no eschar and no mottling Neurologic: moves all extremities and awake; no focal motor deficits and not confused Speech / Cognition: no expressive aphasia and no receptive aphasia Motor/Sensory: no tremor and no sensory deficit Cranial Nerves: EOM intact bilaterally and normal facial strength Psychiatric: Orientation: alert, oriented x 3, oriented to person, oriented to place, oriented to time and cooperative Apperance: appropriately dressed, a ppropriately groomed and appeared stated age Affect: euthymic affect and + depressed affect Thought Process: goal directed thought process, linear /logical thought process and clear/coherent thought process Cognition: recent memory grossly intact, remote memory grossly intact, attention grossly intact and language grossly intact Estimated Intelligence: average estimated intelligence Lymphatic: no lymphedema
[2018-09-24] MEDS: IRON SUCROSE 200 MG in 0.9 % SODIUM CHLORIDE 100 ML IV SCH (17:13)
[2018-09-24] MEDS: LEVALBUTEROL 1.25MG/0.5ML NEB NEB PRN (20:36)
[2018-09-25] MEDS: LEVALBUTEROL 1.25MG/0.5ML NEB NEB PRN ×2 (01:29→16:24)
[2018-09-25 06:55] LABS: Prothrombin Time 19.1 Seconds (9.0-12.0)
--- NOTE | 2018-09-25 07:51 | Communication Note ---
Date of Service: September 25, 2018 Permcath insertion for tomorrow. I have discussed the risks options and benefits of the procedure with the patient. The patient understands the risks options and benefits and agrees to the procedure.
--- NOTE | 2018-09-25 07:56 | Hospitalist Progress Note ---
Date of Service September 25, 2018 Assessment & Plan (1) Aortic stenosis: carroll PRN, not a candidate for valve replacement until he becomes a stabilized dialysis patient. PermCath and dialysis tomorrow (2) Atrial fibrillation: Converted to sinus rhythm after amio drip. Cont PO amio, Toprol XL, ASA. Warfarin held For procedure, INR currently 2.0. (3) Chronic renal insufficiency, stage IV (severe): Nephro following, for hemodialysis Saturday and Saturday. (4) ALMI (anterolateral wall myocardial infarction): cont medical management (5) CHF (congestive heart failure): Acute systolic heart failure in setting of large NC. Appears compensated, Euvolemic, cont Toprol XL and daily torsemide. Ejection fraction 18% (6) Supratherapeutic INR: Resolved (7) Anemia: Anemia of chronic renal disease, Epogen. Cont to monitor. (8) DVT prophylaxis: INR 2.0 DNR [facility]po[facility] when auth completed Subjective Did well overnight. Perm-Cath Tomorrow, HD possibly tomorrow. ROS-No Headache, No Visual Changes, No Nausea, No Vomiting, No Fever, No Chills, No Neck Pain or Stiffness, No Chest Pain, No Palpitations, No SOB, No FERNANDEZ, No Cough, No Sputum, No Wheezing, No Abdominal Pain, No Diarrhea, No Hematemesis, No Hemoptysis, No Unexpected Weight Loss, No Flank pain, No Melena, No Hematochezia, No Frequency, No Urgency, No Burning, No Hematuria, No Rashes, No Diaphoresis. Appetite is Normal Physical Exam Gen-AAO x 3, NAD, Afebrile, Pleasant Head-NCAT, EOMI, PERRLA, Anicteric Sclera, No Posterior Pharyngeal Erythema Neck-Supple, No JVD, No Thyromegaly, No Masses, No LAD, No Bruits Lungs-Clear to Auscultation Bilaterally, No Rales, No Rhonchi, No Wheezing, No Crepitus Chest-No S4, +S1, +S2, No S3, No Murmurs, No Rubs, No Gallops, No Ectopy Abdomen-Soft, Bowel Sounds Present, Non Tender, Non Distended, No Hepatomegaly, No Splenomegaly, No Palpable Masses, No Rebound, No Rigidity, No Guarding Musculoskeletal-Full Range of Motion Bilaterally, No CVAT Extremities-No Cyanosis, No Clubbing, No Edema Nuero-Cranial Nerves II-XII grossly intact, Motor WNL, DTRs WNL, Strength WNL, Non Focal Psych-Normal Mood Physical Exam Vital Signs (Past 24 Hours): Last Vital Signs Temp 36.9 C 09/25/18 04:00 Pulse 55 L 09/25/18 04:00 Resp 20 09/25/18 04:00 BP 106/64 09/25/18 04:00 Pulse Ox 95 09/25/18 04:00 Results & Data Laboratory Results Current Diagnoses Anemia, unspecified (09/12/18) Hyperlipidemia, unspecified (09/12/18) Hyperkalemia (09/12/18) Essential (primary) hypertension (09/12/18) ST elevation (STEMI) myocardial infarction involving other coronary artery of anterior wall (09/12/18) Non-ST elevation (NSTEMI) myocardial infarction (09/12/18) Nonrheumatic aortic (valve) stenosis (09/12/18) Unspecified atrial fibrillation (09/12/18) Heart failure, unspecified (09/12/18) Abdominal aortic aneurysm, without rupture (09/12/18) Emphysema, unspecified (09/12/18) Gastric ulcer, unspecified as acute or chronic, without hemorrhage or perforation (09/12/18) Acute kidney failure, unspecified (09/12/18) Chronic kidney disease, stage 3 (moderate) (09/12/18) Chronic kidney disease, stage 4 (severe) (09/12/18) Benign prostatic hyperplasia without lower urinary tract symptoms (09/12/18) Chest pain, unspecified (09/12/18) Unspecified abdominal pain (09/12/18) Abnormal coagulation profile (09/12/18) Encounter for administrative examinations, unspecified (09/12/18) Do not resuscitate (09/12/18) Personal history of malignant neoplasm of bladder (09/12/18) Personal history of other venous thrombosis and embolism (09/12/18) Allergies indomethacin Adverse Reaction (Unknown, Verified 09/12/18 01:08) BLEEDING lactose Adverse Reaction (Unknown, Verified 09/12/18 01:08) GI SYMPTOMS Height/Weight/Isolation Height 5 ft 10.5 in Weight 82.1 kg Chemistry 09/24/18 05:58 Sodium 141 Potassium 4.1 Chloride 108 H Carbon Dioxide 22 Anion Gap 11.0 BUN 100 H Creatinine 3.90 H Glucose 137 H (1) Anemia Anemia type: due to chronic kidney disease
[2018-09-25] MEDS: FERROUS SULFATE 325 MG TAB PO SCH (08:02)
[2018-09-25] MEDS: ASPIRIN 81 MG ECTAB PO SCH (08:02)
[2018-09-25] MEDS: CEROVITE ADV FORMULA TAB PO SCH (08:02)
[2018-09-25] MEDS: TORSEMIDE 20 MG TAB PO SCH (08:02)
[2018-09-25] MEDS: PANTOprazole 40 MG TAB PO SCH (08:02)
[2018-09-25] MEDS: CALCIUM POLYCARBOPHIL 625MG TAB PO SCH (08:02)
[2018-09-25] MEDS: ALLOPURINOL 100 MG TAB PO SCH (08:02)
[2018-09-25] MEDS: ISOSORBIDE MONO EXTENDED REL 30 MG TABCR PO SCH (08:02)
[2018-09-25] MEDS: CALCITRIOL 0.25 MCG CAPSULE PO SCH (08:02)
[2018-09-25] MEDS: METOPROLOL SUCC 50MG EXT REL TAB PO SCH (08:03)
[2018-09-25] MEDS: AMIODARONE 200 MG TAB PO SCH (08:03)
[2018-09-25] MEDS: ATORVASTATIN 40 MG TAB PO SCH (08:03)
--- NOTE | 2018-09-25 16:58 | Nephrology Progress Note ---
Date of Service September 25, 2018 Assessment & Plan (1) JESSICA (acute kidney injury): JESSICA on CKD from cardiorenal syndrome. Patient with recent NSTEMI and EF of 35%. He also has moderate to severe aortic stenosis which further impairs his cardiac output. Baseline cr 2.5, peaked at 3.8 now trending up again as of yesterday Cardiac catheterization was suggested early on during this admission and patient declined. He did not want to end up on dialysis since he lives alone and felt commuting to dialysis center would be difficult. 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 ->>>for 09/26 dialysis catheter; cardiology ok with this eval/starting HD w/ all understanding very guarded prx; he is in cardiology opinion sufficiently far out from [place] to attempt this; first HD tuesday 09/26 if TDC done before 1500; else first tx 09/27; either way can be d/c 09/27 to facility to start care at [facility], first tx 09/29 -if he starts HD and /or improves, Cardiology might consider Aortic valve replacement -pt is preload dependent, but appears to be tolerating low dose Torsemide so far - defer to cardiology /on dose >> upped 09/23 to 30 mg daily and remains there; he is about 500 mL negativ brennan the day (2) Chronic renal insufficiency, stage IV (severe): Due to hypertension and advanced age (3) Anemia: Anemia due to CKD; had 10K units last week of epo SQ on 09/19; redose later this week -iron stores very low >> will start venofer load today (4) CHF (congestive heart failure): Due to multifactorial etiology including diastolic dysfunction, valvular heart disease and NSTEMI. He needs more diuresis but he is also preload dependent. Continue torsemide 30mg daily, increase as tolerated; care coordinated w/ Elvia Cheema and Freddy. Subjective seen on rounds this am; cont to feel quite sob but a slight bit better this am than yesterday. reaffirms readiness to try HD; for tdc tomorrow. no edema; denies voiding c/o. minimal po > not hungry; no n/v/d/constipation. no chest pain or palpitaions; no rash Physical Exam Vital Signs (Past 24 Hours): Last Vital Signs Temp 36.7 C 09/25/18 15:49 Pulse 53 L 09/25/18 16:25 Resp 16 09/25/18 16:25 BP 107/64 09/25/18 15:49 Pulse Ox 98 09/25/18 16:25 Constitutional: well developed, + ill appearing and + frail appearing on 02nc Eyes: EOM intact bilaterally ENMT: Ears: no external ear abnormality Nose: no external nose abnormality Mouth: + dry oral mucous membranes Neck: no nuchal rigidity Respiratory: + labored breathing (with speech) Auscultation: + diminished lung sounds Cardiovascular: Rate/Rhythm: regular rhythm and + bradycardic Heart Sounds: + murmur Extremities: + edema (at very most trace L ankle edema, R ok) Gastrointestinal (Abdomen): Inspection/Auscultation: normal bowel sounds Percussion/Palpation: abdomen soft; abdomen nontender Musculoskeletal: Extremities: strength 5/5 throughout Skin: no rashes, warm and dry Neurologic: hill fluent speech Psychiatric: A+Ox3, euthymic affect Results & Data Laboratory Results no labs today (1) Anemia Anemia type: due to chronic kidney disease
[2018-09-25] MEDS: IRON SUCROSE 200 MG in 0.9 % SODIUM CHLORIDE 100 ML IV SCH (17:04)
--- NOTE | 2018-09-25 17:40 | Cardiology Progress Note ---
Date of Service September 25, 2018 Assessment & Plan (1) Non-ST elevation (NSTEMI) myocardial infarction: (2) Atrial fibrillation: PAF, in sinus rhythm on amiodarone (3) Supratherapeutic INR: (4) Aortic stenosis: Patient status post non-ST segment elevation myocardial infarction, complicated by systolic heart failure. Has underlying history of aortic stenosis, which is likely severe based on echocardiographic findings. Prior to this event he also had stage IV chronic kidney disease has progressed. Continue to hold Coumadin pending tunneled dialysis catheter placement tomorrow. Repeat INR tomorrow. Continue current cardiac medications. Hopefully he will tolerate hemodialysis from a hemodynamic standpoint, and this will help his respiratory status in terms of volume management. Subjective Chief complaint: Follow-up shortness of breath Subjective: Patient comfortable in bed. He has significant dyspnea with physical therapy. Stable sinus bradycardia 58 bpm noted on telemetry without recent atrial fibrillation. Physical Exam Vital Signs (Past 24 Hours): Last Vital Signs Temp 36.7 C 09/25/18 15:49 Pulse 53 L 09/25/18 16:25 Resp 16 09/25/18 16:25 BP 107/64 09/25/18 15:49 Pulse Ox 98 09/25/18 16:25 Constitutional: + ill appearing; no acute distress Respiratory: Auscultation: + diminished lung sounds (Decreased breath sounds the bases); no crackles, no rales and no wheezes Cardiovascular: Rate/Rhythm: regular rate and + bradycardic Heart Sounds: + murmur (2/6 systolic murmur) Vessels: + JVD Extremities: no edema Results & Data Laboratory Results Coagulation Coumadin on hold, received vitamin K for an INR of 4.9 and 09/24/2018, repeat INR today t2 09/25/18 Range/Units 05:45 PT 19.1 H (9.0-12.0) Seconds Intake and Output 09/25/18 09/25/18 09/25/18 06:59 14:59 22:59 Intake Total 150 / 1185.25 475 / 585 110 / 585 Output Total 450 / 1275 575 / 575 Balance -300 / -89.75 -100 / 10 110 / 10 Intake: IV 110 / 110 Venofer 200 mg In Sodium 110 / 110 Chloride 100 ml @ 420 mls/hr IV Q24H [facility] Rx#:[id number] Oral 150 / 1025 475 / 475 Output: Urine 450 / 1275 575 / 575 Other: Weight 82.1 kg Patient Weight 09/26/18 06:59 Weight 82.1 kg
[2018-09-25] MEDS ORDERED: COUGH DROP (SUGAR FREE) LOZ 24 LOZ/1 BOX BUCCAL PRN (22:39)
[2018-09-26] MEDS ORDERED: CEFAZOLIN 2000MG 2,000 MG/15 ML SYR IV SCH (06:00)
[2018-09-26 06:41] LABS: INR 1.6 (0.9-1.1); Prothrombin Time 15.5 Seconds (9.0-12.0)
[2018-09-26 06:42] LABS: Albumin Level 2.4 gm/dl (3.4-5.0); BUN Creatinine Ratio 25.4 (10-20); Calcium 8.9 mg/dl (8.5-10.1); Creatinine Clr Calc Pharmacy 13.6 ml/min; Est GFR (African American) 14.8; Est GFR (Non-African American) 12.7; Potassium 3.6 mmol/L (3.5-5.1)
[2018-09-26 06:45] LABS: Albumin Globulin Ratio 0.6 (0.9-2); Bilirubin,Total 0.9 mg/dl (0.2-1); Globulin 4.1 gm/dl (2.5-4.0); Phosphorus 5.2 mg/dl (2.5-4.9); Total Protein 6.5 gm/dl (6.4-8.2)
[2018-09-26] MEDS ORDERED: SODIUM CHLORIDE 0.9% 1000ML 1,000 ML IV PRN (07:06)
--- NOTE | 2018-09-26 07:15 | Nephrology Progress Note ---
Date of Service September 26, 2018 Assessment & Plan (1) ESRD on hemodialysis: CKD 4 progressed now to ESRD from longstanding HTN, critical , recent NSTEMI, advanced age. Patient with recent NSTEMI and EF of 35% and severe aortic stenosis which further impairs his cardiac output. Cardiac cat heterization was suggested early on during this admission and patient declined. He did not want to end up on dialysis since he lives alone and felt commuting to dialysis center would be difficult; then opted trial of [facility] since transport provided and he may if he tolerates HD have a bit longer life ->>>for 09/26 dialysis catheter; cardiology ok with this eval/starting HD w/ all understanding very guarded prx; he is in cardiology opinion sufficiently far out from [place] to attempt this; first HD tuesday 09/26 if TDC done before 1500; else first tx 09/27; either way can be d/c 09/27 to facility to start care at [facility] M[facility], first tx 09/29 >first HD today 2hr no uf or heparin 3K bath >>>>PLS arrange admission to dialysis clinic above -if he starts HD and /or improves, Cardiology might consider Aortic valve replacement -pt is preload dependent, but appears to be tolerating low dose Torsemide so far - defer to cardiology /on dose >> upped 09/23 to 30 mg daily and remains there; he is about 1100 mL negative on the day Present on Admission?: Yes (2) Anemia: Anemia due to CKD; had 10K units last week of epo SQ on 09/19 -iron stores very low >> now that he's on HD have transferred venofer load to go w/ HD txs and started epo > for 10K units today Present on Admission?: Yes Physical Exam Vital Signs (Past 24 Hours): Last Vital Signs Temp 36.6 C 09/26/18 04:15 Pulse 62 09/26/18 04:15 Resp 20 09/26/18 04:15 BP 121/68 09/26/18 04:15 Pulse Ox 94 09/26/18 04:15 Constitutional: well developed, + ill appearing and + frail appearing Eyes: EOM intact bilaterally ENMT: Ears: no external ear abnormality Nose: no external nose abnormality Mouth: + dry oral mucous membranes Neck: no nuchal rigidity Respiratory: + labored breathing (with speech) Auscultation: + diminished lung sounds Cardiovascular: Rate/Rhythm: regular rhythm and + bradycardic Heart Sounds: + murmur Extremities: + edema (at very most trace L ankle edema, R ok) Gastrointestinal (Abdomen): Inspection/Auscultation: normal bowel sounds Percussion/Palpation: abdomen soft; abdomen nontender Musculoskeletal: Extremities: strength 5/5 throughout Skin: no rashes, warm and dry Psychiatric: A+Ox3, euthymic affect Results & Data Laboratory Results Abnormal lab results 09/26/18 09/26/18 Range/Units 05:52 05:52 PT 15.5 H (9.0-12.0) Seconds INR 1.6 H (0.9-1.1) Chloride 110 H (98-107) mmol/L BUN 100 H (7-18) mg/dl Creatinine 3.94 H (0.6-1.4) mg/dl BUN/Creatinine Ratio 25.4 H (10-20) Glucose 131 H (70-99) mg/dl Phosphorus 5.2 H (2.5-4.9) mg/dl Albumin 2.4 L (3.4-5.0) gm/dl Globulin 4.1 H (2.5-4.0) gm/dl Albumin/Globulin Ratio 0.6 L (0.9-2) (1) Anemia Anemia type: due to chronic kidney disease
[2018-09-26] MEDS: METOPROLOL SUCC 50MG EXT REL TAB PO SCH (08:49)
[2018-09-26] MEDS: CALCITRIOL 0.25 MCG CAPSULE PO SCH (08:50)
[2018-09-26] MEDS: ALLOPURINOL 100 MG TAB PO SCH (08:50)
[2018-09-26] MEDS: ASPIRIN 81 MG ECTAB PO SCH (08:50)
[2018-09-26] MEDS: CALCIUM POLYCARBOPHIL 625MG TAB PO SCH (08:50)
[2018-09-26] MEDS: CEROVITE ADV FORMULA TAB PO SCH (08:51)
[2018-09-26] MEDS: TORSEMIDE 20 MG TAB PO SCH (08:51)
[2018-09-26] MEDS: ISOSORBIDE MONO EXTENDED REL 30 MG TABCR PO SCH (08:51)
[2018-09-26] MEDS: PANTOprazole 40 MG TAB PO SCH (08:51)
[2018-09-26] MEDS: ATORVASTATIN 40 MG TAB PO SCH (08:51)
[2018-09-26] MEDS: AMIODARONE 200 MG TAB PO SCH ×2 (10:04→17:11)
[2018-09-26] MEDS ORDERED: IRON SUCROSE 100 MG in SYRINGE 0 ML IV SCH (11:00)
--- NOTE | 2018-09-26 11:35 | Hospitalist Progress Note ---
Date of Service September 26, 2018 Assessment & Plan (1) Aortic stenosis: carroll PALUAN, not a candidate for valve replacement until he becomes a stabilized dialysis patient. PermCath and dialysis today and tomorrow (2) Atrial fibrillation: Converted to sinus rhythm after amio drip. Cont PO amio, Toprol XL, ASA. Warfarin held For procedure (3) Chronic renal insufficiency, stage IV (severe): Nephro following, for hemodialysis Saturday and Saturday. (4) ALMI (anterolateral wall myocardial infarction): cont medical management (5) CHF (congestive heart failure): Acute systolic heart failure in setting of large NH. Appears compensated, Euvolemic, cont Toprol XL and daily torsemide. Ejection fraction 18% (6) Supratherapeutic INR: Resolved (7) Anemia: Anemia of chronic renal disease, Epogen. Cont to monitor. (8) DVT prophylaxis: INR 2.0 DNR [facility]po[facility] when auth completed Subjective Did well overnight. Perm-Cath Today, HD today and Sat, SNF Sat if able. ROS-No Headache, No Visual Changes, No Nausea, No Vomiting, No Fever, No Chills, No Neck Pain or Stiffness, No Chest Pain, No Palpitations, No SOB, No FERNANDEZ, No Cough, No Sputum, No Wheezing, No Abdominal Pain, No Diarrhea, No Hematemesis, No Hemoptysis, No Unexpected Weight Loss, No Flank pain, No Melena, No Hematochezia, No Frequency, No Urgency, No Burning, No Hematuria, No Rashes, No Diaphoresis. Appetite is Normal Physical Exam Gen-AAO x 3, NAD, Afebrile, Pleasant Head-NCAT, EOMI, PERRLA, Anicteric Sclera, No Posterior Pharyngeal Erythema Neck-Supple, No JVD, No Thyromegaly, No Masses, No LAD, No Bruits Lungs-Clear to Auscultation Bilaterally, No Rales, No Rhonchi, No Wheezing, No Crepitus Chest-No S4, +S1, +S2, No S3, No Murmurs, No Rubs, No Gallops, No Ectopy Abdomen-Soft, Bowel Sounds Present, Non Tender, Non Distended, No Hepatomegaly, No Splenomegaly, No Palpable Masses, No Rebound, No Rigidity, No Guarding Musculoskeletal-Full Range of Motion Bilaterally, No CVAT Extremities-No Cyanosis, No Clubbing, No Edema Nuero-Cranial Nerves II-XII grossly intact, Motor WNL, DTRs WNL, Strength WNL, Non Focal Psych-Normal Mood Physical Exam Vital Signs (Past 24 Hours): Last Vital Signs Temp 36.7 C 09/26/18 07:00 Pulse 56 L 09/26/18 07:36 Resp 20 09/26/18 07:00 BP 121/68 09/26/18 07:00 Pulse Ox 97 09/26/18 07:00 Results & Data Laboratory Results Current Diagnoses Anemia, unspecified (09/12/18) Hyperlipidemia, unspecified (09/12/18) Hyperkalemia (09/12/18) Essential (primary) hypertension (09/12/18) ST elevation (STEMI) myocardial infarction involving other coronary artery of anterior wall (09/12/18) Non-ST elevation (NSTEMI) myocardial infarction (09/12/18) Nonrheumatic aortic (valve) stenosis (09/12/18) Unspecified atrial fibrillation (09/12/18) Heart failure, unspecified (09/12/18) Abdominal aortic aneurysm, without rupture (09/12/18) Emphysema, unspecified (09/12/18) Gastric ulcer, unspecified as acute or chronic, without hemorrhage or perforation (09/12/18) Acute kidney failure, unspecified (09/12/18) Chronic kidney disease, stage 3 (moderate) (09/12/18) Chronic kidney disease, stage 4 (severe) (09/12/18) End stage renal disease (09/12/18) Benign prostatic hyperplasia without lower urinary tract symptoms (09/12/18) Chest pain, unspecified (09/12/18) Unspecified abdominal pain (09/12/18) Abnormal coagulation profile (09/12/18) Encounter for administrative examinations, unspecified (09/12/18) Do not resuscitate (09/12/18) Personal history of malignant neoplasm of bladder (09/12/18) Personal history of other venous thrombosis and embolism (09/12/18) Dependence on renal dialysis (09/12/18) Allergies indomethacin Adverse Reaction (Unknown, Verified 09/12/18 01:08) BLEEDING lactose Adverse Reaction (Unknown, Verified 09/12/18 01:08) GI SYMPTOMS Height/Weight/Isolation Height 5 ft 10.5 in Weight 81.8 kg Chemistry 09/26/18 05:52 Sodium 145 Potassium 3.6 Chloride 110 H Carbon Dioxide 25 Anion Gap 9.0 BUN 100 H Creatinine 3.94 H Glucose 131 H (1) Anemia Anemia type: due to chronic kidney disease
[2018-09-26] MEDS ORDERED: EPOETIN ALFA 10,000 UNITS/ML VIAL IV SCH (12:00)
--- NOTE | 2018-09-26 12:52 | History & Physical Bridge Note ---
Date of Service September 26, 2018 History & Physical Bridge Note Patient for insertion of permcath. I have discussed the risks options and benefits of the procedure with the patient. The patient understands the risks options and benefits and agrees to the procedure. I have examined the patient, reviewed the History & Physical and in the interval since the performance of the History & Physical I have noted the following changes of clinical significance: no changes noted
[2018-09-26 12:53] LABS: Hepatitis B Surface Antibody Non-Immune
[2018-09-26 13:04] LABS: Hepatitis B Surface Antigen Neg (Neg)
[2018-09-26] MEDS ORDERED: MIDAZOLAM HCL 1 MG/ML 2ML VIAL ONE (13:14)
[2018-09-26] MEDS ORDERED: fentaNYL citrate 100 MCG/2 ML VIAL ONE (13:14)
[2018-09-26] MEDS ORDERED: HEPARIN SOD (PORCINE) 5,000 UNITS/ML VIAL ONE ×2 (13:15)
[2018-09-26] MEDS ORDERED: LIDOCAINE HCL 1% 20 ML VIAL ONE (13:16)
--- NOTE | 2018-09-26 13:46 | Pre Anesthesia Assessment ---
Date of Service September 26, 2018 Pre Sedation Assessment Vital Signs Temp Pulse Pulse Resp BP BP Pulse Ox 09/26/18 12:55 36.4 C L 76 22 114/68 94 09/26/18 11:45 36.4 C L 64 16 125/69 97 09/26/18 07:36 56 L 09/26/18 07:00 36.7 C 57 L 20 121/68 97 09/26/18 04:15 36.6 C 62 20 121/68 94 09/26/18 00:52 52 L 09/26/18 00:09 36.5 C 62 20 107/68 93 09/25/18 19:25 36.5 C 57 L 20 95/56 L 98 09/25/18 16:25 53 L 16 98 09/25/18 15:49 36.7 C 54 L 20 107/64 98 Cardiovascular RRR, no murmur, no edema Respiratory normal respiratory effort, lungs clear to auscultation Pre-Sedation Airway Assessment Smoking Status: Former smoker Hx Sleep Apnea: No Short, Thick Neck: No Thyromental Distance: > or= 3.5 Finger Breadths Oral Cavity: + WNL Mallampati Class: II ASA: ASA4 NPO Status Date of Last Intake of Fluids: 09/26/18 Time of Last Intake of Fluids: 07:30 Date of Last Intake of Solid Food: 09/25/18 Time of Last Intake of Solid Foods: 18:00 Procedure Planning Contraindications for Sedation: none Current Medications Reviewed: Yes Notes The planned sedation has been discussed with the patient. Informed Consent was obtained. I have identified the patient, determined the appropriateness of sedation and have assessed the patient immediately prior to the procedure. All medicine(s) and interventions are by my order.
--- NOTE | 2018-09-26 14:17 | Operative Report ---
Post Operative Report Pre & Post Diagnosis Operation Date: 09/26/18 13:50 Pre-Op Diagnosis: acute renal failure Post-Op Diagnosis: acute renal failure Procedure Operation Date: 09/26/18 13:50 Actual Procedures p Insertion of Perm Catheter, Right Internal Jugular Approach, Ultrasound Localization Of Right Internal Jugular Vein, Fluoroscopy For Positioning, Moderate Concious Sedation 1400 to 1420(Right) - Houston Estevez MD Surgeon Dr. Zenaida Mcclure MD Electrical Tests Supervisor Dane Mcclure MD Estimated Blood Loss 5 Findings Consistent with Post-Op Diagnosis Specimens none Anesthesia Type RN Sedation Complications none Disposition Accompanied Patient To Recovery: No Disposition: Recovery Room Indications need for HD Description of Procedure Patient was takent to the angio suite and placed in the supine position. The patient was identified and a timeout was done. The right side of the neck and chest wall were prepped and draped in a sterile manner. Local anesthesia was then administered to the appropriate areas of the neck and chest wall. Ultrasound was then used to locate the right internal jugular vein. The vein compressed easily, had no filing defects, and was patent. The vein was then punctured under direct ultrasound imaging. A guidewire was then passed centrally under fluoroscopic imaging. A stab wound was then made in the anterior chest wall and a 19 cm permcath was passed from the stab wound on the chest wall to the puncture site on the neck. The puncture site was then dilated till the 14Fr peel away sheath was inserted. The permcath was then inserted through the sheath to a central position in the distal superior vena cava. The peel away sheath was then removed. The catheter was then sutured in place using nylon sutures. The puncture was then closed using a 4-0 Vicryl subcuticular suture. Dermabond was used for a dressing on the puncture site. Both ports aspirated and flushed easily and were then packed with heparin. A sterile dressing was applied to the catheter. The patient left the angio suite in good condition and tolerated the procedure well. Dr. Estevez was present for the entire case. I attest to the content of the Intraoperative Record and any orders documented therein. Any exceptions are noted below.
--- NOTE | 2018-09-26 14:21 | Post Operative Brief Note ---
Immediate Post Op Note v1 Date of Surgery September 26, 2018 Pre & Post Diagnosis Operation Date: 09/26/18 13:50 Pre-Op Diagnosis: acute renal failure Post-Op Diagnosis: acute renal failure Procedure Operation Date: 09/26/18 13:50 Actual Procedures p Insertion of Perm Catheter, Right Internal Jugular Approach, Ultrasound Localization Of Right Internal Jugular Vein, Fluoroscopy For Positioning, Moderate Concious Sedation 1400 to 1420(Right) - Houston Estevez MD Surgeon Houston Estevez MD Data Clerk Dane Mcclure MD Estimated Blood Loss 5 Findings Consistent with Post-Op Diagnosis Anesthesia Type RN Sedation Complications none Disposition Accompanied Patient To Recovery: No Disposition: Recovery Room
--- NOTE | 2018-09-26 14:49 | Post Anesthesia Assessment ---
Date of Service September 26, 2018 Post Sedation Assessment Vital Signs Temp Pulse Pulse Resp BP BP Pulse Ox 09/26/18 14:20 75 18 98/87 L 96 09/26/18 14:15 88 18 88/69 L 100 09/26/18 14:10 60 20 114/70 100 09/26/18 14:05 63 22 123/74 100 09/26/18 14:00 72 22 123/73 100 09/26/18 13:56 72 22 125/72 96 09/26/18 12:55 36.4 C L 76 22 114/68 94 09/26/18 11:45 36.4 C L 64 16 125/69 97 09/26/18 07:36 56 L 09/26/18 07:00 36.7 C 57 L 20 121/68 97 09/26/18 04:15 36.6 C 62 20 121/68 94 09/26/18 00:52 52 L 09/26/18 00:09 36.5 C 62 20 107/68 93 09/25/18 19:25 36.5 C 57 L 20 95/56 L 98 09/25/18 16:25 53 L 16 98 09/25/18 15:49 36.7 C 54 L 20 107/64 98 Recovery Score Activity: Moves 4 extremities Respiration: Deep Breath/Cough Circulation: +/-20% PreAnes Value Consciousness: Arouseable (by name) Oxygen Saturation: > 92% On Room Air Post Anesthesia Score: 9 Discharge Sedation Level of Care: Fast Track Phase II Post Sedation Plan On clinical assessment, the patient appears to have tolerated the sedation without complications. Patient is recovering as anticipated. Patient will continue to be monitored by nursing and may be discharged when sedation discharge criteria are met per below protocol. Upon Completions of procedure and additional 15 minutes continue every 5 minute vital signs and the P.A.R. score; then discharge to a Phase I or Fast Track to Phase II per the following guidelines: * Discharge Patient to appropriate Phase II area if PAR is 8 or greater or return to pre- procedure baseline. The post - procedure orders will be as directed. * If PAR score is less than 8 or not return to pre-procedure baseline then patient will follow Phase I monitoring till PAR is reached for Phase II. The Phase I may be done in procedure room or may call to secure a Phase I area. * If naloxone or flumazenil are used for reversal, hold in Phase I for continued monitoring from when last reversal dose was given for a minimum of 60 minutes or longer pending the nurse and/or physician discretion of patient condition before discharge to Phase II. Please call the Sedation Physician to re-evaluate and complete post-note for discharge to Phase II area. Do NOT discharge from procedure sedation or Phase 1 until post- sedation evaluation note is complete by procedure /sedation MD Sedation Discharge Instructions to be given to the patient at discharge to home.
--- NOTE | 2018-09-26 15:29 | Cardiology Progress Note ---
Date of Service September 26, 2018 Assessment & Plan (1) Non-ST elevation (NSTEMI) myocardial infarction: (2) CHF (congestive heart failure): Non-ST segment elevation myocardial infarction, LAD territory, with new LV systolic dysfunction, systolic heart failure, low cardiac output syndrome. Cont inue current medication therapy. (3) Aortic stenosis: Continue supportive care (4) ESRD on hemodialysis: Nephrology input noted and appreciated, tunneled dialysis catheter to be performed 09/26/18 (5) Atrial fibrillation: Previous history of paroxysmal atrial fibrillation with several brief episodes of his hospital stay. Continue amiodarone 400 mg daily, metoprolol, Coumadin. Subjective Chief complaint: Follow-up shortness of breath Subjective: Patient seen and examined in room 286-1, prior to proposed tunneled hemodialysis catheter access. He noted stable degree of shortness of breath. No events overnight. Sinus rhythm in the 60 bpm range was noted. Physical Exam Vital Signs (Past 24 Hours): Last Vital Signs Temp 36.4 C L 09/26/18 14:59 Pulse 63 09/26/18 14:59 Resp 16 09/26/18 14:59 BP 121/68 09/26/18 14:59 Pulse Ox 96 09/26/18 14:59 Physical Exam: General: no acute distress and stated age Eyes: conjunctiva are pink and non-injected, sclera clear Neck: Elevated jugular venous pressure Chest: normal shape and normal respiratory effort Lungs: Decreased breath sounds at the base Cardiac Exam: - regular heart sounds, 2/6 systolic murmur Abdomen: abdomen soft, non-tender, no abnormal masses and no hepatosplenomegaly Extremities: no edema and no cyanosis Neuro:awake, coversant, follows commands, no focal motor deficits Psych: appropriate affect and insight. Results & Data Laboratory Results Cardiac Enzymes INR today 09/26/18: 1.6 having received 2.5 mg of IV vitamin K on 09/24/18 09/26/18 Range/Units 05:52 AST 17 (15-37) U/L Coagulation 09/26/18 Range/Units 05:52 PT 15.5 H (9.0-12.0) Seconds Comprehensive Metabolic Panel 09/26/18 Range/Units 05:52 Sodium 145 (136-145) mmol/L Potassium 3.6 (3.5-5.1) mmol/L Chloride 110 H (98-107) mmol/L Carbon Dioxide 25 (21-32) mmol/L BUN 100 H (7-18) mg/dl Creatinine 3.94 H (0.6-1.4) mg/dl Glucose 131 H (70-99) mg/dl Calcium 8.9 (8.5-10.1) mg/dl AST 17 (15-37) U/L ALT 35 (12-78) U/L Alkaline Phosphatase 80 (45-117) U/L Total Protein 6.5 (6.4-8.2) gm/dl Albumin 2.4 L (3.4-5.0) gm/dl Intake and Output 09/26/18 09/26/18 09/26/18 06:59 14:59 22:59 Output Total 700 / 1875 500 / 500 Balance -700 / -1040 -500 / -500 Output: Urine 700 / 1875 500 / 500 Other: Other Intake Source npo npo Weight 81.8 kg 81.8 kg Patient Weight 09/27/18 06:59 Weight 81.8 kg
[2018-09-26 15:58] LABS: Hepatitis B Surface Antigen Neg (Neg)
[2018-09-26 16:27] LABS: Hepatitis C IgG 13Yrs+Old_Rflx Neg (Neg)
[2018-09-26] MEDS: WARFARIN SOD 5 MG TAB PO SCH (17:37)
[2018-09-26] MEDS: ACETAMINOPHEN 325 MG TAB PO PRN (23:20)
[2018-09-27 07:57] LABS: Hematocrit (blood only) 25.7 % (42-52); Hemoglobin 8.2 g/dL (14.0-18.0); Mean Corpuscular Hgb Conc 31.9 g/dL (32-36); Mean Corpuscular Volume 91.1 fL (80-100); Mean Platelet Volume 10.2 fL (7.4-10.4); Nucleated RBC # (auto) 0.11 K/uL (0-0); Nucleated RBC % (auto) 0.9 %; Platelet Count 361 K/uL (130-400); RDW Coefficient of Variation 14.4 % (11.5-14.5); RDW Standard Deviation 46.9 fL (36.4-46.3); Red Blood Count 2.82 M/uL (4.7-6.1); White Blood Count 11.42 K/uL (4.8-10.8)
[2018-09-27 08:06] LABS: INR 1.7 (0.9-1.1); Prothrombin Time 16.4 Seconds (9.0-12.0)
[2018-09-27] MEDS ORDERED: IRON SUCROSE 100 MG in SYRINGE 0 ML IV ONE (08:21)
[2018-09-27] MEDS ORDERED: SODIUM CHLORIDE 0.9% 1000ML 1,000 ML IV PRN (08:21)
[2018-09-27] MEDS ORDERED: EPOETIN ALFA 14,000 UNITS in SYRINGE 0 ML IV ONE (09:00)
[2018-09-27] MEDS ORDERED: EPOETIN ALFA 20,000 UNITS/ML VIAL IV ONE (09:00)
--- NOTE | 2018-09-27 09:03 | Hospitalist Progress Note ---
Date of Service September 27, 2018 Assessment & Plan (1) Aortic stenosis: carroll PRN, not a candidate for valve replacement until he becomes a stabilized dialysis patient. PermCath placed 4/5 and dialysis today and tomorrow and Possibly Saturday, DC Saturday to SNF (2) Atrial fibrillation: Converted to sinus rhythm after amio drip. Cont PO amio, Toprol XL, ASA. Warfarin (3) Chronic renal insufficiency, stage IV (severe): Nephro following, for hemodialysis today, tomorrow, and Saturday DC after HD Saturday to SNF, Hep Panel pending, Hep vaccine (4) ALMI (anterolateral wall myocardial infarction): cont medical management (5) CHF (congestive heart failure): Acute systolic heart failure in setting of large ND. Appears compensated, Euvolemic, cont Toprol XL and daily torsemide. Ejection fraction 18% (6) Supratherapeutic INR: Resolved (7) Anemia: Anemia of chronic renal disease, Epogen. Cont to monitor. (8) DVT prophylaxis: DNR Dispo-[facility] when auth completed Subjective Did well overnight. Perm-Cath Today, HD today and Sat, SNF Sat if able. ROS-No Headache, No Visual Changes, No Nausea, No Vomiting, No Fever, No Chills, No Neck Pain or Stiffness, No Chest Pain, No Palpitations, No SOB, No FERNANDEZ, No Cough, No Sputum, No Wheezing, No Abdominal Pain, No Diarrhea, No Hematemesis, No Hemoptysis, No Unexpected Weight Loss, No Flank pain, No Melena, No Hematochezia, No Frequency, No Urgency, No Burning, No Hematuria, No Rashes, No Diaphoresis. Appetite is Normal Physical Exam Gen-AAO x 3, NAD, Afebrile, Pleasant Head-NCAT, EOMI, PERRLA, Anicteric Sclera, No Posterior Pharyngeal Erythema Neck-Supple, No JVD, No Thyromegaly, No Masses, No LAD, No Bruits Lungs-Clear to Auscultation Bilaterally, No Rales, No Rhonchi, No Wheezing, No Crepitus Chest-No S4, +S1, +S2, No S3, No Murmurs, No Rubs, No Gallops, No Ectopy Abdomen-Soft, Bowel Sounds Present, Non Tender, Non Distended, No Hepatomegaly, No Splenomegaly, No Palpable Masses, No Rebound, No Rigidity, No Guarding Musculoskeletal-Full Range of Motion Bilaterally, No CVAT Extremities-No Cyanosis, No Clubbing, No Edema Nuero-Cranial Nerves II-XII grossly intact, Motor WNL, DTRs WNL, Strength WNL, Non Focal Psych-Normal Mood Physical Exam Vital Signs (Past 24 Hours): Last Vital Signs Temp 36.9 C 09/27/18 07:35 Pulse 55 L 09/27/18 07:35 Resp 18 09/27/18 07:35 BP 117/67 09/27/18 07:35 Pulse Ox 96 09/27/18 07:35 Results & Data Laboratory Results Current Diagnoses Anemia, unspecified (09/12/18) Hyperlipidemia, unspecified (09/12/18) Hyperkalemia (09/12/18) Essential (primary) hypertension (09/12/18) ST elevation (STEMI) myocardial infarction involving other coronary artery of anterior wall (09/12/18) Non-ST elevation (NSTEMI) myocardial infarction (09/12/18) Nonrheumatic aortic (valve) stenosis (09/12/18) Unspecified atrial fibrillation (09/12/18) Heart failure, unspecified (09/12/18) Abdominal aortic aneurysm, without rupture (09/12/18) Emphysema, unspecified (09/12/18) Gastric ulcer, unspecified as acute or chronic, without hemorrhage or perforation (09/12/18) Acute kidney failure, unspecified (09/12/18) Chronic kidney disease, stage 3 (moderate) (09/12/18) Chronic kidney disease, stage 4 (severe) (09/12/18) End stage renal disease (09/12/18) Benign prostatic hyperplasia without lower urinary tract symptoms (09/12/18) Chest pain, unspecified (09/12/18) Unspecified abdominal pain (09/12/18) Abnormal coagulation profile (09/12/18) Encounter for administrative examinations, unspecified (09/12/18) Do not resuscitate (09/12/18) Personal history of malignant neoplasm of bladder (09/12/18) Personal history of other venous thrombosis and embolism (09/12/18) Dependence on renal dialysis (09/12/18) Allergies indomethacin Adverse Reaction (Severe, Verified 09/26/18 13:00) BLEEDING lactose Adverse Reaction (Intermediate, Verified 09/26/18 13:00) GI SYMPTOMS Height/Weight/Isolation Height 5 ft 10.5 in Weight 80.8 kg Chemistry 09/26/18 05:52 Sodium 145 Potassium 3.6 Chloride 110 H Carbon Dioxide 25 Anion Gap 9.0 BUN 100 H Creatinine 3.94 H Glucose 131 H (1) Anemia Anemia type: due to chronic kidney disease
[2018-09-27] MEDS: METOPROLOL SUCC 50MG EXT REL TAB PO SCH (11:07)
[2018-09-27] MEDS: ISOSORBIDE MONO EXTENDED REL 30 MG TABCR PO SCH (11:07)
[2018-09-27] MEDS: ALLOPURINOL 100 MG TAB PO SCH (11:07)
[2018-09-27] MEDS: ATORVASTATIN 40 MG TAB PO SCH (11:07)
[2018-09-27] MEDS: CALCIUM POLYCARBOPHIL 625MG TAB PO SCH (11:08)
[2018-09-27] MEDS: TORSEMIDE 20 MG TAB PO SCH (11:08)
[2018-09-27] MEDS: CEROVITE ADV FORMULA TAB PO SCH (11:08)
[2018-09-27] MEDS: ASPIRIN 81 MG ECTAB PO SCH (11:08)
[2018-09-27] MEDS: PANTOprazole 40 MG TAB PO SCH (11:08)
[2018-09-27] MEDS: CALCITRIOL 0.25 MCG CAPSULE PO SCH (11:12)
[2018-09-27] MEDS: AMIODARONE 200 MG TAB PO SCH (11:25)
[2018-09-27] MEDS ORDERED: HEPATITIS B ADULT VACCINE INJ 10 MCG/1ML VIAL IM ONE (12:00)
--- NOTE | 2018-09-27 12:50 | Nephrology Progress Note ---
Date of Service September 27, 2018 Assessment & Plan (1) ESRD on hemodialysis: CKD 4 progressed now to ESRD from longstanding HTN, critical , recent NSTEMI, advanced age. Patient with recent NSTEMI and EF of 35% and severe aortic stenosis which further impairs his cardiac output. Cardiac cat heterization was suggested early on during this admission and patient declined. He did not want to end up on dialysis since he lives alone and felt commuting to dialysis center would be difficult; then opted for trial of ICHD since transport provided and he may if he tolerates HD have a bit longer life ->got 09/26 dialysis catheter; had first tx today and uneventful >>>>HD tomorrow, 09/29, then d/c >>>recommend hold torsemide on HD days; else con t30 mg torsemide daily; either way can be d/c 09/27 to facility to start care at [facility] MWF, first tx 09/29 >first HD today 2hr no uf or heparin 3K bath >>>>PLS arrange admission to [facility] -if he starts HD and /or improves, Cardiology might consider Aortic valve replacement -pt is preload dependent, but appears to be tolerating low dose Torsemide so far - defer to cardiology /on dose >> upped 09/23 to 30 mg daily and remains there; he is about 1100 mL negative on the day (2) Anemia: Anemia due to esrd; on epo; getting venofer load -some clot starting late in first HD tx and will run w/ heparin on 09/28 Subjective nephew at bedside on rounds today; pt toelrated first HD w/ no fluid removal w/o issues. no worsening sob; no n/v, no edema; denies voiding concerns or musculoskeletal pain Physical Exam Vital Signs (Past 24 Hours): Last Vital Signs Temp 36.5 C 09/27/18 11:10 Pulse 64 09/27/18 11:10 Resp 18 09/27/18 11:10 BP 114/71 09/27/18 11:10 Pulse Ox 99 09/27/18 11:10 Constitutional: well developed, + ill appearing and + frail appearing on2LNC Eyes: EOM intact bilaterally ENMT: Ears: no external ear abnormality Nose: no external nose abnormality Mouth: + dry oral mucous membranes Neck: no nuchal rigidity Respiratory: + labored breathing (with prolonged speech) Auscultation: + diminished lung sounds Cardiovascular: Rate/Rhythm: regular rate and regular rhythm Heart Sounds: + murmur Extremities: + edema (at very most trace ankle edema) Gastrointestinal (Abdomen): Inspection/Auscultation: normal bowel sounds Percussion/Palpation: abdomen soft; abdomen nontender Musculoskeletal: Extremities: strength 5/5 throughout Skin: no rashes, warm and dry Neurologic: hill, fluent speech Psychiatric: A+Ox3, euthymic affect Results & Data Laboratory Results Abnormal lab results 09/26/18 09/27/18 09/27/18 Range/Units 12:10 07:44 07:44 WBC 11.42 H (4.8-10.8) K/uL RBC 2.82 L (4.7-6.1) M/uL Hgb 8.2 L (14.0-18.0) g/dL Hct 25.7 L (42-52) % MCHC 31.9 L (32-36) g/dL RDW Std Deviation 46.9 H (36.4-46.3) fL Absolute Nucleated RBC 0.11 H (0-0) K/uL PT 16.4 H (9.0-12.0) Seconds INR 1.7 H (0.9-1.1) Hep Bs Antibody, Quant < 3.10 L (>or=10mIU/mL Immune) mIU/mL (1) Anemia Anemia type: due to chronic kidney disease
--- NOTE | 2018-09-27 15:51 | Cardiology Progress Note ---
Date of Service September 27, 2018 Assessment & Plan (1) Non-ST elevation (NSTEMI) myocardial infarction: Continue aspirin, metoprolol, isosorbide mononitrate, atorvastatin. (2) CHF (congestive heart failure): Management of volume status via hemodialysis. Patient appears fairly compensated. Non-ST segment elevation myocardial infarction, LAD territory, with new LV systolic dysfunction, systolic heart failure, low cardiac output syndrome. Continue current medication therapy. (3) Aortic stenosis: Continue supportive care (4) ESRD on hemodialysis: Hemodialysis per nephrology. (5) Atrial fibrillation: Currently sinus rhythm. Continue amiodarone 400 mg daily, metoprolol, Coumadin. Subjective Patient seen and examined at the bedside. Chronic dyspnea with minimal exertion unchanged. Underwent hemodialysis treatment today. Denies orthopnea or PND. No recurrent chest discomfort. Offers no other complaints at this time. Review of Systems All systems reviewed & are unremarkable except as noted in HPI & below Physical Exam Vital Signs (Past 24 Hours): Last Vital Signs Temp 36.5 C 09/27/18 15:35 Pulse 51 L 09/27/18 15:35 Resp 16 09/27/18 15:35 BP 103/64 09/27/18 15:35 Pulse Ox 98 09/27/18 15:35 Physical Exam: General: NAD, AAO x3, well nourished. Chronically ill. HEENT: Normocephalic. Atraumatic. Conjunctiva pink, no scleral icterus. Neck: No carotid bruits, the carotid upstrokes are brisk. No JVD. No HJR Heart: Regular normal S-1 and S-2 no S-3 or S-4 gallop. No murmurs or rub appreciated. PMI is not displaced. No RV heave. Lungs: Diminished breath sounds at the left base. No rales, rhonchi, or wheeze. Abdomen: Normal bowel sounds. Soft. Nontender. No masses or organomegaly. No abdominal bruits. Extremities: No clubbing, cyanosis, or edema. Pulses: posterior tibial=2/4. Neuro: Cranial nerves grossly intact. No focal motor deficit.
[2018-09-27] MEDS: WARFARIN SOD 5 MG TAB PO SCH (16:30)
[2018-09-27 21:08] LABS: BUN Creatinine Ratio 23.5 (10-20); Calcium 8.4 mg/dl (8.5-10.1); Creatinine Clr Calc Pharmacy 16.9 ml/min; Est GFR (African American) 19.3; Est GFR (Non-African American) 16.6; Magnesium 2.3 mg/dl (1.8-2.4)
[2018-09-28 07:31] LABS: INR 2.1 (0.9-1.1); Prothrombin Time 20.1 Seconds (9.0-12.0)
[2018-09-28 07:35] LABS: Albumin Level 2.4 gm/dl (3.4-5.0); BUN Creatinine Ratio 21.5 (10-20); Calcium 8.5 mg/dl (8.5-10.1); Creatinine Clr Calc Pharmacy 15.6 ml/min; Est GFR (African American) 17.5; Est GFR (Non-African American) 15.1; Potassium 4.3 mmol/L (3.5-5.1)
[2018-09-28 07:38] LABS: Phosphorus 4.1 mg/dl (2.5-4.9)
--- NOTE | 2018-09-28 08:24 | Hospitalist Progress Note ---
Date of Service September 28, 2018 Assessment & Plan (1) Aortic stenosis: carroll NISAN, not a candidate for valve replacement until he becomes a stabilized dialysis patient. PermCath placed 4/5 HD done Saturday, ?Today, HD Saturday, DC Saturday to SNF p HD (2) Atrial fibrillation: Converted to sinus rhythm after amio drip. Cont PO amio, Toprol XL, ASA. Warfarin (3) Chronic renal insufficiency, stage IV (severe): Nephro following, Hep vaccine outpatient (4) ALMI (anterolateral wall myocardial infarction): cont medical management (5) CHF (congestive heart failure): Acute systolic heart failure in setting of large DE. Appears compensated, Euvolemic, cont Toprol XL and daily torsemide. Ejection fraction 18% (6) Supratherapeutic INR: Resolved (7) Anemia: Anemia of chronic renal disease, Epogen. Cont to monitor. (8) DVT prophylaxis: DNR Dispo-SNF Tomorrow after HD Subjective Did well overnight. Perm-Cath placed /, HD Sat, SNF Saturday after HD ROS-No Headache, No Visual Changes, No Nausea, No Vomiting, No Fever, No Chills, No Neck Pain or Stiffness, No Chest Pain, No Palpitations, No SOB, No FERNANDEZ, No Cough, No Sputum, No Wheezing, No Abdominal Pain, No Diarrhea, No Hematemesis, No Hemoptysis, No Unexpected Weight Loss, No Flank pain, No Melena, No Hematochezia, No Frequency, No Urgency, No Burning, No Hematuria, No Rashes, No Diaphoresis. Appetite is Normal Physical Exam Gen-AAO x 3, NAD, Afebrile, Pleasant Head-NCAT, EOMI, PERRLA, Anicteric Sclera, No Posterior Pharyngeal Erythema Neck-Supple, No JVD, No Thyromegaly, No Masses, No LAD, No Bruits Lungs-Clear to Auscultation Bilaterally, No Rales, No Rhonchi, No Wheezing, No Crepitus Chest-No S4, +S1, +S2, No S3, No Murmurs, No Rubs, No Gallops, No Ectopy Abdomen-Soft, Bowel Sounds Present, Non Tender, Non Distended, No Hepatomegaly, No Splenomegaly, No Palpable Masses, No Rebound, No Rigidity, No Guarding Musculoskeletal-Full Range of Motion Bilaterally, No CVAT Extremities-No Cyanosis, No Clubbing, No Edema Nuero-Cranial Nerves II-XII grossly intact, Motor WNL, DTRs WNL, Strength WNL, Non Focal Psych-Normal Mood Physical Exam Vital Signs (Past 24 Hours): Last Vital Signs Temp 36.5 C 09/28/18 07:59 Pulse 46 L 09/28/18 07:59 Resp 18 09/28/18 07:59 BP 113/63 09/28/18 07:59 Pulse Ox 95 09/28/18 07:59 Results & Data Laboratory Results Current Diagnoses Anemia, unspecified (09/12/18) Hyperlipidemia, unspecified (09/12/18) Hyperkalemia (09/12/18) Essential (primary) hypertension (09/12/18) ST elevation (STEMI) myocardial infarction involving other coronary artery of anterior wall (09/12/18) Non-ST elevation (NSTEMI) myocardial infarction (09/12/18) Nonrheumatic aortic (valve) stenosis (09/12/18) Unspecified atrial fibrillation (09/12/18) Heart failure, unspecified (09/12/18) Abdominal aortic aneurysm, without rupture (09/12/18) Emphysema, unspecified (09/12/18) Gastric ulcer, unspecified as acute or chronic, without hemorrhage or perforation (09/12/18) Acute kidney failure, unspecified (09/12/18) Chronic kidney disease, stage 3 (moderate) (09/12/18) Chronic kidney disease, stage 4 (severe) (09/12/18) End stage renal disease (09/12/18) Benign prostatic hyperplasia without lower urinary tract symptoms (09/12/18) Chest pain, unspecified (09/12/18) Unspecified abdominal pain (09/12/18) Abnormal coagulation profile (09/12/18) Encounter for administrative examinations, unspecified (09/12/18) Do not resuscitate (09/12/18) Personal history of malignant neoplasm of bladder (09/12/18) Personal history of other venous thrombosis and embolism (09/12/18) Dependence on renal dialysis (09/12/18) Allergies indomethacin Adverse Reaction (Severe, Verified 09/26/18 13:00) BLEEDING lactose Adverse Reaction (Intermediate, Verified 09/26/18 13:00) GI SYMPTOMS Height/Weight/Isolation Height 5 ft 10.5 in Weight 81 kg Chemistry 09/27/18 09/28/18 20:40 07:03 Sodium 141 141 Potassium 4.0 4.3 Chloride 106 107 Carbon Dioxide 28 27 Anion Gap 7.0 7.0 BUN 74 H 74 H Creatinine 3.16 H D 3.43 H Glucose 148 H 122 H (1) Anemia Anemia type: due to chronic kidney disease
[2018-09-28] MEDS: CEROVITE ADV FORMULA TAB PO SCH (08:40)
[2018-09-28] MEDS: PANTOprazole 40 MG TAB PO SCH (08:40)
[2018-09-28] MEDS: ASPIRIN 81 MG ECTAB PO SCH (08:42)
[2018-09-28] MEDS ORDERED: SODIUM CHLORIDE 0.9% 1000ML 1,000 ML IV PRN (09:57)
[2018-09-28] MEDS ORDERED: HEPARIN SOD (PORCINE) 1000 UNIT/ML 10 ML VIAL IV SCH (10:00)
[2018-09-28] MEDS ORDERED: EPOETIN ALFA 10,000 UNITS/ML VIAL IV SCH (10:00)
[2018-09-28] MEDS: TORSEMIDE 20 MG TAB PO SCH (10:51)
[2018-09-28] MEDS: AMIODARONE 200 MG TAB PO SCH (10:52)
[2018-09-28] MEDS: METOPROLOL SUCC 50MG EXT REL TAB PO SCH (10:52)
[2018-09-28] MEDS: ATORVASTATIN 40 MG TAB PO SCH (10:52)
[2018-09-28] MEDS: ISOSORBIDE MONO EXTENDED REL 30 MG TABCR PO SCH (10:52)
[2018-09-28] MEDS: CALCIUM POLYCARBOPHIL 625MG TAB PO SCH (10:53)
[2018-09-28] MEDS: ALLOPURINOL 100 MG TAB PO SCH (10:53)
[2018-09-28] MEDS: CALCITRIOL 0.25 MCG CAPSULE PO SCH (10:53)
[2018-09-28] MEDS ORDERED: IRON SUCROSE 100 MG in SYRINGE 0 ML IV SCH (11:00)
[2018-09-28] MEDS: HEPARIN SOD (PORCINE) 1000 UNIT/ML 10 ML VIAL IV SCH (14:43)
--- NOTE | 2018-09-28 17:52 | Nephrology Progress Note ---
Date of Service September 28, 2018 Assessment & Plan (1) ESRD on hemodialysis: CKD 4 progressed now to ESRD from longstanding HTN, critical , recent NSTEMI, advanced age. Patient with recent NSTEMI and EF of 35% and severe aortic stenosis which further impairs his cardiac output. Cardiac cat heterization was suggested early on during this admission and patient declined. He did not want to end up on dialysis since he lives alone and felt commuting to dialysis center would be difficult; then opted for trial of ICHD since transport provided and he may if he tolerates HD have a bit longer life ->got 09/26 dialysis catheter; had first tx 09/27 and again 09/28 uneventful w/ heparin second tx >>>>HD tomorrow, 09/29, then tentatively d/c unless arrhtymias or other clinical complicators arise >>>recommend hold torsemide on HD days; else con t30 mg torsemide daily; either way can be d/c 09/29 after diaysis in [facility] to facility to start care at [facility], first tx 10/01 >>>>PLS arrange admission to [facility] -if he starts HD and /or improves, Cardiology might consider Aortic valve replacement -pt is preload dependent, but appears to be tolerating low dose Torsemide so far - defer to cardiology /on dose >> upped 09/23 to 30 mg daily and remains there; he is about 1100 mL negative on the day (2) Anemia: Anemia due to esrd; on epo; getting venofer load -some clot starting late in first HD tx and will run w/ heparin on 09/28 Subjective seen on rounds this am about 10; feels improved after dialysis/tolerated well. excited he could walk from bed to bath w/o resting; nursing reports some afib and v tach ON onmonitor/asx. no n/v, no chest pain, no voiding c/o Physical Exam Vital Signs (Past 24 Hours): Last Vital Signs Temp 36.8 C 09/28/18 13:45 Pulse 55 L 09/28/18 17:41 Resp 18 09/28/18 11:48 BP 107/53 L 09/28/18 17:32 Pulse Ox 99 09/28/18 11:48 Constitutional: well developed, + ill appearing and + frail appearing on nc Eyes: EOM intact bilaterally ENMT: Ears: no external ear abnormality Nose: no external nose abnormality Mouth: + dry oral mucous membranes Neck: no nuchal rigidity Respiratory: + labored breathing (with prolonged speech) Auscultation: + diminished lung sounds Cardiovascular: Rate/Rhythm: regular rate and regular rhythm Heart Sounds: + murmur Extremities: + edema (at very most trace ankle edema) Gastrointestinal (Abdomen): Inspection/Auscultation: normal bowel sounds Percussion/Palpation: abdomen soft; abdomen nontender Musculoskeletal: Extremities: strength 5/5 throughout Skin: no rashes, warm and dry Neurologic: hill, fluent speech, ambulates w/ walker Psychiatric: A+Ox3, euthymic affect Results & Data Laboratory Results Abnormal lab results 09/27/18 09/28/18 09/28/18 Range/Units 20:40 07:03 07:03 PT 20.1 H (9.0-12.0) Seconds INR 2.1 H (0.9-1.1) BUN 74 H 74 H (7-18) mg/dl Creatinine 3.16 H D 3.43 H (0.6-1.4) mg/dl BUN/Creatinine Ratio 23.5 H 21.5 H (10-20) Glucose 148 H 122 H (70-99) mg/dl Calcium 8.4 L (8.5-10.1) mg/dl Albumin 2.4 L (3.4-5.0) gm/dl (1) Anemia Anemia type: due to chronic kidney disease
[2018-09-28] MEDS: WARFARIN SOD 3 MG TAB PO SCH (17:54)
[2018-09-29] MEDS: LEVALBUTEROL 1.25MG/0.5ML NEB NEB PRN (00:52)
[2018-09-29 06:14] LABS: Hematocrit (blood only) 27.4 % (42-52); Hemoglobin 8.6 g/dL (14.0-18.0); Mean Corpuscular Hgb Conc 31.4 g/dL (32-36); Mean Corpuscular Volume 92.9 fL (80-100); Mean Platelet Volume 10.8 fL (7.4-10.4); Nucleated RBC # (auto) 0.13 K/uL (0-0); Nucleated RBC % (auto) 1.1 %; Platelet Count 271 K/uL (130-400); RDW Coefficient of Variation 15.6 % (11.5-14.5); Red Blood Count 2.95 M/uL (4.7-6.1); White Blood Count 12.23 K/uL (4.8-10.8)
[2018-09-29 06:26] LABS: INR 2.4 (0.9-1.1); Prothrombin Time 23.5 Seconds (9.0-12.0)
[2018-09-29] MEDS ORDERED: EPOETIN ALFA 10,000 UNITS/ML VIAL IV ONE (07:00)
[2018-09-29] MEDS ORDERED: EPOETIN ALFA 16,000 UNITS in SYRINGE 0 ML IV SCH (07:00)
[2018-09-29] MEDS ORDERED: IRON SUCROSE 100 MG in SYRINGE 0 ML IV SCH (07:00)
[2018-09-29] MEDS ORDERED: HEPARIN SOD (PORCINE) 1000 UNIT/ML 10 ML VIAL IV ONE (07:00)
[2018-09-29] MEDS ORDERED: SODIUM CHLORIDE 0.9% 1000ML 1,000 ML IV PRN (07:00)
[2018-09-29] MEDS: CALCITRIOL 0.25 MCG CAPSULE PO SCH (08:12)
[2018-09-29] MEDS: CEROVITE ADV FORMULA TAB PO SCH (08:12)
[2018-09-29] MEDS: ATORVASTATIN 40 MG TAB PO SCH (08:12)
[2018-09-29] MEDS: AMIODARONE 200 MG TAB PO SCH (08:12)
[2018-09-29] MEDS: ALLOPURINOL 100 MG TAB PO SCH (08:12)
[2018-09-29] MEDS: PANTOprazole 40 MG TAB PO SCH (08:12)
[2018-09-29] MEDS: CALCIUM POLYCARBOPHIL 625MG TAB PO SCH (08:13)
[2018-09-29] MEDS: TORSEMIDE 20 MG TAB PO SCH (08:13)
[2018-09-29] MEDS: ASPIRIN 81 MG ECTAB PO SCH (08:13)
--- NOTE | 2018-09-29 09:15 | Discharge Summary ---
Date of Service September 29, 2018 Admission HPI Per Admitting Provider 88-year-old male with history of hyperlipidemia, emphysema of the lung, abdominal aortic aneurysm status post repair, hypertension, moderate aortic stenosis, irritable bowel syndrome, history of gastric ulcers with bleeding resolved, history of malignant neoplasm of bladder status post chemo, gout, chronic kidney disease stage IV, anemia of chronic kidney disease, primary open angle glaucoma both eyes, history of DVT presents with abdominal pain. Patient states around 3 PM yesterday he started to have abdominal pain moderate in severity associated with nausea and an episode of vomiting. He thought he had stomach flu and came to the ER. Because of history of abdominal aortic aneurysm CT of the of the abdomen pelvis without contrast was done which was unremarkable, abdominal ultrasound was done which was also unremarkable. His abdominal pain improved but during imaging studies he developed retrosternal chest pain. It is about 4 x 10 in severity and located in the central chest but now feels it is radiating to his left arm but he also says is somewhat anxious. No shortness of breath or cough. Has some a headache. Has some dizziness. Was placed on nitro paste in the ER but it does not helping him and he does not want any morphine. Apparently he lives alone, no family close by, he drives his own car and ambulates without any help. He gets food on food on wheels. Sister and brother lives in [place]. Currently hemodynamically stable. Admission Exam Per Admitting Provider Temp 36.8 C 09/12/18 00:27 Pulse 89 09/12/18 02:47 Resp 18 09/12/18 02:47 BP 123/70 09/12/18 02:47 Pulse Ox 95 09/12/18 02:47 Physical Exam: General- Not in distress Head- atraumatic Eyes- PERRL, anicteric ENT- oropharynx clear Neck- supple, no JVD, no adenopathy, carotids +2/2, no bruits appreciated Lungs- clear to auscultation and percussion Heart- regular rhythm; Mild ESM present, no gallop, no rub appreciated Abdomen- normal bowel sounds, soft,mild diffuse discomfort, no masses Extremities- no pretibial edema, no erythema Neuro- alert, oriented x 3; PERRL, no facial palsy; no dysarthria;non focal Skin- warm & dry Principal Diagnosis NSTEMI-Acute Lateral Wall MS ESRD Anemia Abd Pain AFIB Hyperkalemia DNR Discharge Exam ROS-No Headache, No Visual Changes, No Nausea, No Vomiting, No Fever, No Chills, No Neck Pain or Stiffness, No Chest Pain, No Palpitations, No SOB, No FERNANDEZ, No Cough, No Sputum, No Wheezing, No Abdominal Pain, No Diarrhea, No Hematemesis, No Hemoptysis, No Unexpected Weight Loss, No Flank pain, No Melena, No Hematochezia, No Frequency, No Urgency, No Burning, No Hematuria, No Rashes, No Diaphoresis. Appetite poor, weak Physical Exam Gen-AAO x 3, NAD, Afebrile, +Dialysis Catheter Right Upper Chest Head-NCAT, EOMI, PERRLA, Anicteric Sclera, No Posterior Pharyngeal Erythema Neck-Supple, No JVD, No Thyromegaly, No Masses, No LAD, No Bruits Lungs-Clear to Auscultation Bilaterally, No Rales, No Rhonchi, No Wheezing, No Crepitus Chest-No S4, +S1, +S2, No S3, No Murmurs, No Rubs, No Gallops, No Ectopy Abdomen-Soft, Bowel Sounds Present, Non Tender, Non Distended, No Hepatomegaly, No Splenomegaly, No Palpable Masses, No Rebound, No Rigidity, No Guarding Musculoskeletal-Full Range of Motion Bilaterally, No CVAT Extremities-No Cyanosis, No Clubbing, No Edema Nuero-Cranial Nerves II-XII grossly intact, Motor WNL, DTRs WNL, Strength WNL, Non Focal Psych-Normal Mood Discharge Data Allergies Allergy/AdvReac Type Severity Reaction Status Date / Time indomethacin AdvReac Severe BLEEDING Verified 09/26/18 13:00 lactose AdvReac Intermediate GI SYMPTOMS Verified 09/26/18 13:00 Consultations 09/12/18 02:49 ED Decision to Admit Stat 09/12/18 04:58 Consult Cardiology Routine 09/17/18 17:46 Consult Nephrology Routine 09/24/18 13:24 Consult Vascular Surgery Routine 09/25/18 07:57 Consult Case Management - Discharge Planning Routine Procedures Performed Operation Date: 09/26/18 13:50 Actual Procedures p Insertion of Perm Catheter, Right Internal Jugular Approach, Ultrasound Localization Of Right Internal Jugular Vein, Fluoroscopy For Positioning, Moderate Concious Sedation 1400 to 1420(Right) - Houston Estevez MD Current Diagnoses Anemia, unspecified (09/12/18) Hyperlipidemia, unspecified (09/12/18) Hyperkalemia (09/12/18) Essential (primary) hypertension (09/12/18) ST elevation (STEMI) myocardial infarction involving other coronary artery of anterior wall (09/12/18) Non-ST elevation (NSTEMI) myocardial infarction (09/12/18) Nonrheumatic aortic (valve) stenosis (09/12/18) Unspecified atrial fibrillation (09/12/18) Heart failure, unspecified (09/12/18) Abdominal aortic aneurysm, without rupture (09/12/18) Emphysema, unspecified (09/12/18) Gastric ulcer, unspecified as acute or chronic, without hemorrhage or perforation (09/12/18) Acute kidney failure, unspecified (09/12/18) Chronic kidney disease, stage 3 (moderate) (09/12/18) Chronic kidney disease, stage 4 (severe) (09/12/18) End stage renal disease (09/12/18) Benign prostatic hyperplasia without lower urinary tract symptoms (09/12/18) Chest pain, unspecified (09/12/18) Unspecified abdominal pain (09/12/18) Abnormal coagulation profile (09/12/18) Encounter for administrative examinations, unspecified (09/12/18) Do not resuscitate (09/12/18) Personal history of malignant neoplasm of bladder (09/12/18) Personal history of other venous thrombosis and embolism (09/12/18) Dependence on renal dialysis (09/12/18) Allergies indomethacin Adverse Reaction (Severe, Verified 09/26/18 13:00) BLEEDING lactose Adverse Reaction (Intermediate, Verified 09/26/18 13:00) GI SYMPTOMS Height/Weight/Isolation Height 5 ft 10.5 in Weight 83 kg Chemistry 09/27/18 09/28/18 20:40 07:03 Sodium 141 141 Potassium 4.0 4.3 Chloride 106 107 Carbon Dioxide 28 27 Anion Gap 7.0 7.0 BUN 74 H 74 H Creatinine 3.16 H D 3.43 H Glucose 148 H 122 H Ordered Studies 09/12/18 01:39 CT abd pelvis wo con Urgent US abdominal aortic aneurysm Urgent 09/26/18 12:00 EV cvc insrt tunnel wo prt/manager er Routine 09/26/18 14:18 US guide vascular access Routine Hospital Course (1) Aortic stenosis: Not a candidate for valve replacement until he becomes a stabilized dialysis patient. PermCath placed 4/5 HD done Saturday, Saturday, and Saturday, DC today to [facility] after HD (2) Atrial fibrillation: Converted to sinus rhythm after amio drip. Cont PO amio, Toprol XL, ASA. Warfarin (3) Chronic renal insufficiency, stage IV (severe): HD, Hep vaccine outpatient (4) ALMI (anterolateral wall myocardial infarction): cont medical management (5) CHF (congestive heart failure): Acute systolic heart failure in setting of large MS. Appears compensated, Euvolemic, cont Toprol XL and daily Torsemide. Ejection fraction 18% (6) Supratherapeutic INR: Resolved (7) Anemia: Anemia of chronic renal disease, Epogen. Cont to monitor. (8) DVT prophylaxis: DNR Dispo-SNF Today ([facility]) after HD Total Time Total Time Spent Total Time Spent (In Minutes): 45 mins Total Time Includes: Examination of the Patient, Discharge Planning, Medication Reconciliation and Communication With Other Providers Discharge Plan Discharge Items Patient Disposition: Transfer [facility] Reason For Visit: ABDOMINAL PAIN Discharge Diagnosis: NSTEMI-Acute Lateral Wall MS ESRD Anemia Abd Pain AFIB Hyperkalemia DNR Condition: Good Discharge Goals: Improve disease control, Improve function, Increase independence and Improve nutritional status Specific Goals: Was walking wo assistance prior to his MS Activity: As commented below Activity Comment: Per PT/OT Lifting: Gradually increase as tolerated Bathing: No limitations Exercise/Sports: Gradually increase as tolerated Driving/Machine Use: No limitations Weightbearing: Left weightbearing and Right weightbearing Non-emergency contact: Primary Care Provider, Global Transportation Manager and Roving Hauler Call non-emergency contact if: you have any medication questions and your symptoms worsen Follow-up/Referrals: Wilian Huston MD [Primary Care Provider] - Awa Brooks MD, PhD [Physician] - James Cheema DO [Global Transportation Manager] - Diet: Dialysis Renal and Heart Healthy Fluids: 1200ml (5 cups) Addtl Provider Instructions: Needs Hepatitis B Series Prescriptions: New atorvastatin 40 mg Tablet 40 mg PO QAM Qty: 30 RF: 0 amiodarone 200 mg Tablet 400 mg PO DAILY Qty: 60 RF: 0 metoprolol succinate 50 mg Tablet Extended Release 24 Hr 50 mg PO QAM Qty: 30 RF: 0 isosorbide mononitrate 30 mg Tablet Extended Release 24 Hr 30 mg PO QAM Qty: 30 RF: 0 nitroglycerin [Nitrostat] 0.4 mg Tablet, Sublingual 0.4 mg sublingual UD PRN (Reason: chest pain) Qty: 30 RF: 0 torsemide 20 mg Tablet 30 mg PO QAM Qty: 30 RF: 0 aspirin [Ecotrin Low Strength] 81 mg Tablet,Delayed Release (Dr/Ec) 81 mg PO QAM Qty: 90 RF: 0 Certavite-Antioxidant 18-400 mg-mcg Tablet 1 tab PO QAM Qty: 100 RF: 0 Continued pantoprazole 40 mg Tablet,Delayed Release (Dr/Ec) 40 mg PO DAILY RF: 0 ferrous sulfate 325 mg (65 mg iron) Tablet 325 mg PO DAILY RF: 0 warfarin [Coumadin] 7.5 mg Tablet 7.5 mg PO 3XWK RF: 0 warfarin [Coumadin] 5 mg Tablet 5 mg PO 4XWK RF: 0 calcitriol 0.25 mcg Capsule 0.25 mcg PO DAILY RF: 0 allopurinol 100 mg Tablet 100 mg PO DAILY RF: 0 psyllium husk [Fiber-Caps (psyllium husk)] 0.52 gram Capsule 2 cap PO DAILY RF: 0 Discontinued metoprolol tartrate 25 mg Tablet 25 mg PO BID RF: 0 lovastatin 20 mg Tablet 20 mg PO DAILY RF: 0 lisinopril 2.5 mg Tablet 2.5 mg PO DAILY RF: 0 furosemide [Lasix] 20 mg Tablet 20 mg PO 3XWK RF: 0 isosorbide mononitrate 30 mg tablet extended release 24 hr 30 mg PO DAILY RF: 0 Stand-Alone Forms: [facility] Discharge Orders: Discharge Order (Routine); Ordered 09/29/18 Ordered By: Ty Hayes Admission Data Admit Date/Time: 09/12/18 15:51 Attending Provider: Ty Hayes Admit Provider: Ilia Campos Primary Care Provider: Wilian Huston Other Providers: Ilia Campos ; Marquise Aguayo ; James Cheema ; Dada Ortez ; Tadeo Paz ; Elliot Hathaway ; Luke Moore ; Shanika Wing ; Alissa Subramanian ; Awa Brooks ; Jamison Meek ; Evert Romero I ; Nati Ng ; Michelle Brown ; Fran Blum. ; Houston Estevez Service: Telemetry Medical
[2018-09-29] MEDS: HEPARIN SOD (PORCINE) 1000 UNIT/ML 10 ML VIAL IV SCH ×2 (11:20→11:21)
[2018-09-29] MEDS: ISOSORBIDE MONO EXTENDED REL 30 MG TABCR PO SCH (13:24)
[2018-09-29] MEDS: METOPROLOL SUCC 50MG EXT REL TAB PO SCH (13:24)
[2018-09-29] MEDS: WARFARIN SOD 3 MG TAB PO SCH (15:49)
--- NOTE | 2018-09-29 18:00 | Nephrology Progress Note ---
Date of Service September 29, 2018 Assessment & Plan (1) ESRD on hemodialysis: CKD 4 progressed now to ESRD from longstanding HTN, critical , recent NSTEMI, advanced age. Patient with recent NSTEMI and EF of 35% and severe aortic stenosis which further impairs his cardiac output. Cardiac cat heterization was suggested early on during this admission and patient declined. He did not want to end up on dialysis since he lives alone and felt commuting to dialysis center would be difficult; then opted for trial of ICHD since transport provided and he may if he tolerates HD have a bit longer life ->got / dialysis catheter; had first tx 09/27 and again 09/28 uneventful w/ heparin second tx Patient tolerated HD well today with net UF of 2litres. He is being planned for d/c from [facility] to facility to start care at [facility], first tx 10/01 >>>>PLS arrange admission to [facility] -if he starts HD and /or improves, Cardiology might consider Aortic valve replacement -pt is preload dependent, but appears to be tolerating low dose Torsemide so far - defer to cardiology /on dose >> upped 09/23 to 30 mg daily and remains there; he is about 1100 mL negative on the day (2) Anemia: Anemia due to esrd; He got epogen with HD. WIll continue RUCHI and venofer outpt Subjective ESRD patient seen and examined on dialysis this morning. he reported tolerating HD well. Has SOB but improving. Has leg swelling more in the thighs. No dizziness. Review of Systems All systems reviewed & are unremarkable except as noted in HPI & below Physical Exam Vital Signs (Past 24 Hours): Last Vital Signs Temp 36.6 C 09/29/18 15:22 Pulse 56 L 09/29/18 15:51 Resp 16 09/29/18 15:22 BP 105/61 09/29/18 15:22 Pulse Ox 94 09/29/18 15:22 Physical Exam: General exam: Appears comfortable, no acute distress HEENT: Pupils are equal and reactive to light Neck: No JVD, neck is supple trachea is midline Respiratory system: Clear breath sounds bilaterally. Gastrointestinal: Abdomen is soft, non distended, non tender, bowel sounds are present CVS: Regular rate and rhythm. No murmurs, rubs or gallops Musculoskeletal: No joint or muscle tenderness Extremities: Non tender, 2+ edema in the thighs, peripheral pulses are present Neuro: Oriented, no tremors, no focal neurological deficits Skin: No rashes Results & Data Laboratory Results Hb 8.6 (1) Anemia Anemia type: due to chronic kidney disease
[2018-09-30 07:05] LABS: Albumin Level 2.5 gm/dl (3.4-5.0); BUN Creatinine Ratio 11.4 (10-20); Calcium 8.7 mg/dl (8.5-10.1); Creatinine Clr Calc Pharmacy 17.3 ml/min; Est GFR (African American) 19.7; Phosphorus 3.3 mg/dl (2.5-4.9); Potassium 3.8 mmol/L (3.5-5.1)
[2018-09-30] MEDS: TORSEMIDE 20 MG TAB PO SCH (09:00)
[2018-09-30] MEDS: CALCIUM POLYCARBOPHIL 625MG TAB PO SCH (09:00)
[2018-09-30] MEDS: ATORVASTATIN 40 MG TAB PO SCH (09:00)
[2018-09-30] MEDS: ISOSORBIDE MONO EXTENDED REL 30 MG TABCR PO SCH (09:00)
[2018-09-30] MEDS: METOPROLOL SUCC 50MG EXT REL TAB PO SCH (09:00)
[2018-09-30] MEDS: ASPIRIN 81 MG ECTAB PO SCH (09:01)
[2018-09-30] MEDS: CEROVITE ADV FORMULA TAB PO SCH (09:01)
[2018-09-30] MEDS: AMIODARONE 200 MG TAB PO SCH (09:01)
[2018-09-30] MEDS: PANTOprazole 40 MG TAB PO SCH (09:01)
[2018-09-30] MEDS: ALLOPURINOL 100 MG TAB PO SCH (09:01)
[2018-09-30] MEDS: CALCITRIOL 0.25 MCG CAPSULE PO SCH (09:01)
--- NOTE | 2018-09-30 10:10 | Nephrology Progress Note ---
Date of Service September 30, 2018 Assessment & Plan (1) ESRD on hemodialysis: CKD 4 progressed now to ESRD from longstanding HTN, critical , recent NSTEMI, advanced age. Patient with recent NSTEMI and EF of 35% and severe aortic stenosis which further impairs his cardiac output. Cardiac cat heterization was suggested early on during this admission and patient declined. He did not want to end up on dialysis since he lives alone and felt commuting to dialysis center would be difficult; then opted for trial of ICHD since transport provided and he may if he tolerates HD have a bit longer life ->got / dialysis catheter; had first tx 09/27 and again 09/28 uneventful w/ heparin second tx Patient tolerated HD well yesterday with net UF of 2litres. He is being planned for d/c from [facility] to facility to start care at [facility], first tx 10/01 Case management to arrange admission to [facility] -if he starts HD and /or improves, Cardiology might consider Aortic valve replacement -pt is preload dependent, but appears to be tolerating low dose Torsemide so far - defer to cardiology /on dose >> upped 09/23 to 30 mg daily and remains there; he is about 1100 mL negative on the day (2) Anemia: Anemia due to esrd; He got epogen with HD. Will continue RUCHI and venofer outpt Subjective ESRD patient seen during rounds this morning. Tolerated HD well yesterday with net UF of 2 L. His breathing is improved. Has leg swelling more in the thighs. No dizziness. He was doing physical therapy at the time of my visit. He had just walked in the [place] without shortness of breath. Review of Systems All systems reviewed & are unremarkable except as noted in HPI & below Physical Exam Vital Signs (Past 24 Hours): Last Vital Signs Temp 36.7 C 09/30/18 07:49 Pulse 86 09/30/18 07:49 Resp 17 09/30/18 07:49 BP 113/67 09/30/18 07:49 Pulse Ox 95 09/30/18 07:49 Physical Exam: General exam: Appears comfortable, no acute distress HEENT: Pupils are equal and reactive to light Neck: No JVD, neck is supple trachea is midline Respiratory system: Clear breath sounds bilaterally. Gastrointestinal: Abdomen is soft, non distended, non tender, bowel sounds are present CVS: Regular rate and rhythm. No murmurs, rubs or gallops Musculoskeletal: No joint or muscle tenderness Extremities: Non tender, 1+ thigh edema, peripheral pulses are present Neuro: Oriented, no tremors, no focal neurological deficits Skin: No rashes Vascular access: Tunneled dialysis catheter Results & Data Laboratory Results Creatinine 3.1, potassium 3.8 (1) Anemia Anemia type: due to chronic kidney disease
[2018-09-30] MEDS: WARFARIN SOD 3 MG TAB PO SCH (15:38)
--- NOTE | 2018-09-30 16:48 | Hospitalist Progress Note ---
Date of Service September 30, 2018 Assessment & Plan (1) Non-ST elevation (NSTEMI) myocardial infarction: Troponin peak to 85 Pt declined any intervention therapy, only wants medical management Echo showed severe hypokinesis to akinesis of the inferoseptum anteroseptal, anterior and apical aleman with moderate LV systolic dysfunction, ejection fraction in the range of 35%. Cardiology on board Continue aspirin, metoprolol, isosorbide mononitrate, atorvastatin. No plavix due to risk of bleeding since on coumadin Clinically stable (2) Aortic stenosis: Not a candidate for valve replacement until he becomes a stabilized dialysis patient. Stable (3) Atrial fibrillation: rate controlled on NSR Cont amiodarone r00mg daily, Toprol XL, ASA. Warfarin (4) ESRD on hemodialysis: PermCath placed 4/5 HD done Saturday, Saturday, and Saturday. He is being planned to get HD done at [facility] on MWF case management is working on facility that will able to take him to HD (5) CHF (congestive heart failure): Acute systolic heart failure in setting of large UT. Euvolemic, cont Toprol XL and daily Torsemide. ECHO showed severe hypokinesis to akinesis of the inferoseptum anteroseptal anterior and apical aleman with moderate LV systolic dysfunction, ejection fraction in the range of 35%. (6) Supratherapeutic INR: Resolved (7) Anemia: Anemia of chronic renal disease On Epogen. Cont to monitor. (8) DVT prophylaxis: DNR Disposition Waiting for placement to discharge Subjective Pt was seen and examined Sitting in chair with no distress Pt said that he feels fine Denies any complaint Physical Exam Vital Signs (Past 24 Hours): Last Vital Signs Temp 36.6 C 09/30/18 15:40 Pulse 59 L 09/30/18 16:20 Resp 17 09/30/18 15:40 BP 103/62 09/30/18 15:40 Pulse Ox 98 09/30/18 15:40 Physical Exam: General- No acute distress Head- atraumatic Eyes- PERRL, EOMI, ENT- oropharynx clear Neck- supple, no JVD Lungs- clear to auscultation Heart- regular rhythm; +murmur Abdomen- normal bowel sounds, soft, nontender Extremities- no calf tenderness Neuro- alert, oriented, PERRL, EOMI; no facial palsy; no dysarthria Skin- warm & dry (1) Anemia Anemia type: due to chronic kidney disease
[2018-10-01] MEDS: CALCIUM POLYCARBOPHIL 625MG TAB PO SCH (07:54)
[2018-10-01] MEDS: ALLOPURINOL 100 MG TAB PO SCH (07:55)
[2018-10-01] MEDS: ATORVASTATIN 40 MG TAB PO SCH (07:55)
[2018-10-01] MEDS: ISOSORBIDE MONO EXTENDED REL 30 MG TABCR PO SCH (07:55)
[2018-10-01] MEDS: AMIODARONE 200 MG TAB PO SCH (07:55)
[2018-10-01] MEDS: ASPIRIN 81 MG ECTAB PO SCH (07:56)
[2018-10-01] MEDS: CEROVITE ADV FORMULA TAB PO SCH (07:56)
[2018-10-01] MEDS: PANTOprazole 40 MG TAB PO SCH (07:56)
[2018-10-01] MEDS: CALCITRIOL 0.25 MCG CAPSULE PO SCH (07:56)
[2018-10-01] MEDS: TORSEMIDE 20 MG TAB PO SCH (07:57)
[2018-10-01] MEDS: METOPROLOL SUCC 50MG EXT REL TAB PO SCH (08:39)
[2018-10-01] MEDS ORDERED: SODIUM CHLORIDE 0.9% 1000ML 1,000 ML IV PRN (09:22)
[2018-10-01] MEDS ORDERED: EPOETIN ALFA 10,000 UNITS/ML VIAL IV SCH (09:45)
[2018-10-01] MEDS ORDERED: IRON SUCROSE 100 MG in SYRINGE 0 ML IV SCH (09:45)
[2018-10-01] MEDS: TORSEMIDE 10 MG TAB PO SCH (10:33)
[2018-10-01] MEDS: WARFARIN SOD 3 MG TAB PO SCH (18:28)
--- NOTE | 2018-10-01 20:57 | Nephrology Progress Note ---
Date of Service October 01, 2018 Assessment & Plan (1) ESRD on hemodialysis: CKD 4 progressed now to ESRD from longstanding HTN, critical , recent NSTEMI, advanced age. Patient with recent NSTEMI and EF of 35% and severe aortic stenosis which further impairs his cardiac output. Cardiac ca theterization was suggested early on during this admission and patient declined. He did not want to end up on dialysis since he lives alone and felt commuting to dialysis center would be difficult; then opted for trial of ICHD since transport provided and he may if he tolerates HD have a bit longer life ->got 4/5 dialysis catheter; had first tx 09/27 and again 09/28 uneventful w/ heparin second tx Patient tolerated HD well today with net UF of 2.5litres. He is being planned for d/c from [facility] to facility to start care at [facility]. Case management to arrange admission to [facility] -if he starts HD and /or improves, Cardiology might consider Aortic valve replacement (2) Anemia: Anemia due to esrd; He got epogen with HD. Will continue RUCHI and venofer outpt Subjective ESRD patient seen during rounds this morning. Planned for HD this afternoon. Per RN report tolerated 2.5 l UF. His breathing is improved. Has leg swelling more in the thighs. No dizziness. Review of Systems All systems reviewed & are unremarkable except as noted in HPI & below Physical Exam Vital Signs (Past 24 Hours): Last Vital Signs Temp 36.6 C 10/01/18 18:05 Pulse 60 10/01/18 18:57 Resp 18 10/01/18 18:15 BP 107/62 10/01/18 18:15 Pulse Ox 95 10/01/18 18:15 Physical Exam: General exam: Appears comfortable, no acute distress HEENT: Pupils are equal and reactive to light Neck: No JVD, neck is supple trachea is midline Respiratory system: Clear breath sounds bilaterally. Gastrointestinal: Abdomen is soft, non distended, non tender, bowel sounds are present CVS: Regular rate and rhythm. No murmurs, rubs or gallops Musculoskeletal: No joint or muscle tenderness Extremities: Non tender, no edema, peripheral pulses are present Neuro: Oriented, no tremors, no focal neurological deficits Skin: No rashes Access: TDC (1) Anemia Anemia type: due to chronic kidney disease
--- NOTE | 2018-10-01 21:07 | Hospitalist Progress Note ---
Date of Service October 01, 2018 Assessment & Plan (1) Non-ST elevation (NSTEMI) myocardial infarction: Troponin peak to 85 Pt declined any intervention therapy, only wants medical management Echo showed severe hypokinesis to akinesis of the inferoseptum anteroseptal, anterior and apical aleman with moderate LV systolic dysfunction, ejection fraction in the range of 35%. Cardiology on board Continue aspirin, metoprolol, isosorbide mononitrate, atorvastatin. No plavix due to risk of bleeding since on coumadin Clinically stable (2) Aortic stenosis: Not a candidate for valve replacement until he becomes a stabilized dialysis patient. Stable (3) Atrial fibrillation: rate controlled on NSR Cont amiodarone r00mg daily, Toprol XL, ASA. Warfarin (4) ESRD on hemodialysis: PermCath placed 09/26 Had HD done today He is being planned to get HD done at [facility] on MWF case management is working on facility that will able to take him to HD Plan to get next HD on Saturday (5) CHF (congestive heart failure): Acute systolic heart failure in setting of large [place]. Euvolemic, cont Toprol XL and daily Torsemide. ECHO showed severe hypokinesis to akinesis of the inferoseptum anteroseptal anterior and apical aleman with moderate LV systolic dysfunction, ejection fraction in the range of 35%. (6) Supratherapeutic INR: Resolved (7) Anemia: Anemia of chronic renal disease On Epogen. Cont to monitor. (8) DVT prophylaxis: DNR Disposition Waiting for placement to discharge on Saturday Subjective Pt was seen and examined Lying in bed with no distress Pt had HD done today He said that he feels fine Denies any chest pain, palpitation and SOB Physical Exam Vital Signs (Past 24 Hours): Last Vital Signs Temp 36.6 C 10/01/18 18:05 Pulse 60 10/01/18 18:57 Resp 18 10/01/18 18:15 BP 107/62 10/01/18 18:15 Pulse Ox 95 10/01/18 18:15 Physical Exam: General- No acute distress Head- atraumatic Eyes- PERRL, EOMI, ENT- oropharynx clear Neck- supple, no JVD Lungs- clear to auscultation Heart- regular rhythm; +murmur Abdomen- normal bowel sounds, soft, nontender Extremities- no calf tenderness Neuro- alert, oriented, PERRL, EOMI; no facial palsy; no dysarthria Skin- warm & dry (1) Anemia Anemia type: due to chronic kidney disease
[2018-10-01] MEDS: ACETAMINOPHEN 325 MG TAB PO PRN (23:29)
[2018-10-02] MEDS: ASPIRIN 81 MG ECTAB PO SCH (08:36)
[2018-10-02] MEDS: TORSEMIDE 10 MG TAB PO SCH (08:37)
[2018-10-02] MEDS: ATORVASTATIN 40 MG TAB PO SCH (08:38)
[2018-10-02] MEDS: CALCIUM POLYCARBOPHIL 625MG TAB PO SCH (08:38)
[2018-10-02] MEDS: CEROVITE ADV FORMULA TAB PO SCH (08:38)
[2018-10-02] MEDS: PANTOprazole 40 MG TAB PO SCH (08:39)
[2018-10-02] MEDS: CALCITRIOL 0.25 MCG CAPSULE PO SCH (08:39)
[2018-10-02] MEDS: ALLOPURINOL 100 MG TAB PO SCH (08:40)
--- NOTE | 2018-10-02 10:14 | Nephrology Progress Note ---
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 Patient with recent NSTEMI and EF of 35% and severe aortic stenosis which further impairs his cardiac output. Cardiac ca theterization was suggested early on during this admission and patient declined. He did not want to end up on dialysis since he lives alone and felt commuting to dialysis center would be difficult; then opted for trial of ICHD since transport provided and he may if he tolerates HD have a bit longer life ->got 4/ dialysis catheter; had first tx 09/27 and again 09/28 uneventful w/ heparin second tx Patient tolerated HD well yesterday with net UF of 2.5litres. Next dialysis will be tomorrow morning then discharge. He is being planned for d/c from [facility] to facility to start care at [facility]. First outpatient dialysis will be on Saturday next week Case management to arrange admission to [facility] -if he starts HD and /or improves, Cardiology might consider Aortic valve replacement (2) Anemia: Anemia due to esrd; will give Epogen 10,000 units with HD. Will continue RUCHI and venofer outpt (3) Atrial fibrillation: Patient with A. fib rate controlled on amiodarone and metoprolol. His blood pressure is low and heart rate is also on the lower side. Recommend reducing metoprolol to probably 25 mg daily and amiodarone 200 mg daily. Will defer to cardiology on this decision. Dialysis will be difficult with low blood pressure and heart rate. Subjective ESRD patient seen during rounds this morning. He did not sleep well last night. He tolerated dialysis well yesterday with net UF of 2.5 L. He denies shortness of breath today. His blood pressure is on the lower side, pulse rate was on the lower side. His lower extremity swelling has markedly improved. he is planned for possible discharge to rehab tomorrow Review of Systems All systems reviewed & are unremarkable except as noted in HPI & below Physical Exam Vital Signs (Past 24 Hours): Last Vital Signs Temp 36.8 C 10/02/18 08:32 Pulse 62 10/02/18 08:32 Resp 20 10/02/18 08:32 BP 93/43 L 10/02/18 08:32 Pulse Ox 96 10/02/18 08:32 Physical Exam: General exam: Appears comfortable, no acute distress HEENT: Pupils are equal and reactive to light Neck: No JVD, neck is supple trachea is midline Respiratory system: Crackles in the bases bilaterally. Gastrointestinal: Abdomen is soft, non distended, non tender, bowel sounds are present CVS: Regular rate and rhythm. No murmurs, rubs or gallops Musculoskeletal: No joint or muscle tenderness Extremities: Non tender, 1+ edema, peripheral pulses are present Neuro: Oriented, no tremors, no focal neurological deficits Skin: No rashes (1) Anemia Anemia type: due to chronic kidney disease
[2018-10-02 10:20] LABS: Calcium 8.5 mg/dl (8.5-10.1); Creatinine Clr Calc Pharmacy 16.9 ml/min; Est GFR (African American) 19.2; Est GFR (Non-African American) 16.6; Potassium 2.9 mmol/L (3.5-5.1)
[2018-10-02] MEDS ORDERED: POTASSIUM CHLORIDE 10 MEQ TABCR PO STA (11:42)
[2018-10-02] MEDS: METOPROLOL SUCC 50MG EXT REL TAB PO SCH (12:30)
[2018-10-02] MEDS: AMIODARONE 200 MG TAB PO SCH (13:11)
[2018-10-02] MEDS: ISOSORBIDE MONO EXTENDED REL 30 MG TABCR PO SCH (13:12)
[2018-10-02] MEDS: WARFARIN SOD 3 MG TAB PO SCH (16:39)
--- NOTE | 2018-10-02 19:56 | Hospitalist Progress Note ---
Date of Service October 02, 2018 Assessment & Plan (1) Non-ST elevation (NSTEMI) myocardial infarction: Troponin peak to 85 Pt declined any intervention therapy, only wants medical management Echo showed severe hypokinesis to akinesis of the inferoseptum anteroseptal, anterior and apical aleman with moderate LV systolic dysfunction, ejection fraction in the range of 35%. Cardiology on board Continue aspirin, isosorbide mononitrate, atorvastatin. Metoprolol decreased to 25mg BID Will discuss case with cardio about low BP and possible to adjust No plavix due to risk of bleeding since on coumadin Clinically stable (2) Aortic stenosis: Not a candidate for valve replacement until he becomes a stabilized dialysis patient. Stable (3) Atrial fibrillation: rate controlled on NSR On amiodarone 400mg daily, Toprol XL decreased to 25mg Continue ASA and Warfarin Monitor INR (4) ESRD on hemodialysis: PermCath placed 09/26 He is being planned to get HD done at [facility] on MWF case management is working on facility that will able to take him to HD Plan to get next HD on Saturday (5) CHF (congestive heart failure): Acute systolic heart failure in setting of large [place]. Euvolemic, cont Toprol XL and daily Torsemide. ECHO showed severe hypokinesis to akinesis of the inferoseptum anteroseptal anterior and apical aleman with moderate LV systolic dysfunction, ejection fraction in the range of 35%. (6) Supratherapeutic INR: Resolved (7) Anemia: Anemia of chronic renal disease On Epogen. Cont to monitor. Hypokalemia K 2.9 K replaced Monitor BMP (8) DVT prophylaxis: DNR Disposition Plan to discharge tomorrow after HD Subjective Pt was seen and examined Lying in bed with no distress Denies any complaint Plan to get HD done in am Physical Exam Vital Signs (Past 24 Hours): Last Vital Signs Temp 36.6 C 10/02/18 15:49 Pulse 66 10/02/18 15:53 Resp 18 10/02/18 15:49 BP 88/51 L 10/02/18 15:49 Pulse Ox 98 10/02/18 15:49 Physical Exam: General- No acute distress Head- atraumatic Eyes- PERRL, EOMI, ENT- oropharynx clear Neck- supple, no JVD Lungs- clear to auscultation Heart- regular rhythm; +murmur Abdomen- normal bowel sounds, soft, nontender Extremities- no calf tenderness Neuro- alert, oriented, PERRL, EOMI; no facial palsy; no dysarthria Skin- warm & dry (1) Anemia Anemia type: due to chronic kidney disease
[2018-10-03 06:06] LABS: INR 2.9 (0.9-1.1); Prothrombin Time 27.6 Seconds (9.0-12.0)
[2018-10-03 06:13] LABS: BUN Creatinine Ratio 13.6 (10-20); Calcium 8.3 mg/dl (8.5-10.1); Est GFR (African American) 15.3; Est GFR (Non-African American) 13.2; Potassium 3.3 mmol/L (3.5-5.1)
[2018-10-03] MEDS ORDERED: SODIUM CHLORIDE 0.9% 1000ML 1,000 ML IV PRN (07:56)
[2018-10-03] MEDS ORDERED: EPOETIN ALFA 10,000 UNITS/ML VIAL IV SCH (08:00)
[2018-10-03] MEDS: ASPIRIN 81 MG ECTAB PO SCH (08:27)
[2018-10-03] MEDS: CALCIUM POLYCARBOPHIL 625MG TAB PO SCH (08:31)
[2018-10-03] MEDS: ATORVASTATIN 40 MG TAB PO SCH (08:31)
[2018-10-03] MEDS: ALLOPURINOL 100 MG TAB PO SCH (08:32)
[2018-10-03] MEDS: PANTOprazole 40 MG TAB PO SCH (08:32)
[2018-10-03] MEDS: CALCITRIOL 0.25 MCG CAPSULE PO SCH (08:32)
[2018-10-03] MEDS: CEROVITE ADV FORMULA TAB PO SCH (08:33)
[2018-10-03] MEDS ORDERED: METOPROLOL SUCC 25MG EXT REL TAB PO SCH (09:00)
[2018-10-03] MEDS: AMIODARONE 200 MG TAB PO SCH (11:03)
--- NOTE | 2018-10-03 12:49 | Hospitalist Progress Note ---
Date of Service October 03, 2018 Assessment & Plan (1) Non-ST elevation (NSTEMI) myocardial infarction: Troponin peak to 85 Pt declined any intervention therapy, only wants medical management Echo showed severe hypokinesis to akinesis of the inferoseptum anteroseptal, anterior and apical aleman with moderate LV systolic dysfunction, ejection fraction in the range of 35%. Cardiology on board Continue aspirin, isosorbide mononitrate, atorvastatin. Metoprolol decreased to 25mg BID Will discuss case with cardio about low BP and possible to adjust No plavix due to risk of bleeding since on coumadin Clinically stable (2) Aortic stenosis: Not a candidate for valve replacement until he becomes a stabilized dialysis patient. Stable (3) Atrial fibrillation: rate controlled on NSR Amiodarone decreased to 200mg daily, Continue Toprol XL 25mg Continue ASA and Warfarin INR 2.9 today Monitor INR (4) ESRD on hemodialysis: PermCath placed 4/ He is being planned to get HD done at [facility] on MWF case management is working on facility that will able to take him to HD Completed HD today (5) CHF (congestive heart failure): Acute systolic heart failure in setting of large [place]. Euvolemic, cont Toprol XL and daily Torsemide. ECHO showed severe hypokinesis to akinesis of the inferoseptum anteroseptal anterior and apical aleman with moderate LV systolic dysfunction, ejection fraction in the range of 35%. (6) Supratherapeutic INR: INR 2.9 today Resolved (7) Anemia: Anemia of chronic renal disease On Epogen. Cont to monitor. Hypokalemia K 3.3 today Had HD done today Monitor BMP (8) DVT prophylaxis: On coumadin with INR 2.9 today CODE STATUS DNR Disposition Discharge today to [facility] Subjective Pt was seen and examined Lying in bed with no distress Denies any complaint Physical Exam Vital Signs (Past 24 Hours): Last Vital Signs Temp 36.5 C 10/03/18 09:57 Pulse 63 10/03/18 12:41 Resp 16 10/03/18 07:15 BP 105/60 10/03/18 12:41 Pulse Ox 97 10/03/18 07:15 Physical Exam: General- No acute distress Head- atraumatic Eyes- PERRL, EOMI, ENT- oropharynx clear Neck- supple, no JVD Lungs- clear to auscultation Heart- regular rhythm; +murmur Abdomen- normal bowel sounds, soft, nontender Extremities- no calf tenderness Neuro- alert, oriented, PERRL, EOMI; no facial palsy; no dysarthria Skin- warm & dry (1) Anemia Anemia type: due to chronic kidney disease
[2018-10-03] MEDS: TORSEMIDE 10 MG TAB PO SCH (13:57)
[2018-10-03] MEDS: ISOSORBIDE MONO EXTENDED REL 30 MG TABCR PO SCH (13:57)
--- NOTE | 2018-10-03 16:57 | Nephrology Progress Note ---
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 Patient with recent NSTEMI and EF of 35% and severe aortic stenosis which further impairs his cardiac output. Cardiac ca theterization was suggested early on during this admission and patient declined. He did not want to end up on dialysis since he lives alone and felt commuting to dialysis center would be difficult; then opted for trial of ICHD since transport provided and he may if he tolerates HD have a bit longer life ->got 09/26 dialysis catheter; had first tx 09/27 and again 09/28 uneventful w/ heparin second tx Patient tolerated HD well today with net UF of 2.3litres. Next dialysis will be Saturday as an outpatient at [facility]. Case management to arrange admission to [facility] -if he starts HD and /or improves, Cardiology might consider Aortic valve replacement (2) Anemia: Anemia due to esrd; will give Epogen 10,000 units with HD. Will continue RUCHI and venofer outpt (3) Atrial fibrillation: Patient with A. fib rate controlled on amiodarone and metoprolol. His blood pressure is low and heart rate is also on the lower side. Recommend reducing amiodarone to 200 mg daily. Will defer to cardiology on this decision. Dialysis will be difficult with low blood pressure and heart rate. Subjective ESRD patient seen during rounds this morning. He was seen and examined on dialysis this morning. He tolerated dialysis well with net UF of 2.3 L. He denies shortness of breath today. His blood pressure is on the lower side. His lower extremity swelling has markedly improved. he is planned for possible discharge to rehab today Review of Systems All systems reviewed & are unremarkable except as noted in HPI & below Physical Exam Vital Signs (Past 24 Hours): Last Vital Signs Temp 36.6 C 10/03/18 13:36 Pulse 61 10/03/18 13:36 Resp 16 10/03/18 13:05 BP 108/58 L 10/03/18 13:36 Pulse Ox 97 10/03/18 13:05 Physical Exam: General exam: Appears comfortable, no acute distress HEENT: Pupils are equal and reactive to light Neck: No JVD, neck is supple trachea is midline Respiratory system: Clear breath sounds bilaterally. Gastrointestinal: Abdomen is soft, non distended, non tender, bowel sounds are present CVS: Regular rate and rhythm. No murmurs, rubs or gallops Musculoskeletal: No joint or muscle tenderness Extremities: Non tender, 1+ edema, peripheral pulses are present Neuro: Oriented x3, no tremors, no focal neurological deficits Skin: No rashes Results & Data Laboratory Results Potassium 3.3 (1) Anemia Anemia type: due to chronic kidney disease
[2018-10-04] MEDS ORDERED: AMIODARONE 200 MG TAB PO SCH (09:00)
== END 2018-10-03 14:10 | DRG 280 ==
LOC: ED 00:24 → 2S 00:24 → SUATTDRO 15:51 → 2N 09-21 10:58